=== PATIENT | female | born 1950 | race Caucasian/White ===

== ENCOUNTER 2019-02-07 14:20 | Emergency (ER) | payer MEDICARE, MEDICAID ==
[~2019-02-07] VITALS: Ht 147.3 cm; Wt 61.2 kg
--- NOTE | 2019-02-07 14:57 | ED General ---
General Chief Complaint: Altered Mental Status Stated Complaint: FALL Source of Information: Patient, Caregiver, EMS Exam Limitations: Other (confusion) History of Present Illness Date Seen by Provider: Feb 07, 2019 Time Seen by Provider: 14:25 Initial Comments The patient is a pleasant 68-year-old female who presents via EMS for evaluation of confusion and frequent falls. The patient's caregiver is present and is providing some of the history. She states that the patient is typically much more mentally sharp and she currently is and does not normally look so weak and tired. The patient told the caregiver this morning that she had fallen at 3 AM and she was found to be sitting in a chair in urine and feces. The patient denied any injuries from the fall. She is alert, calm, and states that she feels "pretty good" upon arrival. The patient denies chest pain or shortness of breath, abdominal or back pain, focal weakness focal numbness, headache, vision change, palpitations, nausea or vomiting, diaphoresis, or syncope. She states that she was off balance and tripped and fell. Timing/Duration: 12 Hours Severity: Mild Allergies and Home Medications Allergies Coded Allergies: latex (Verified Allergy, Unknown, 02/07/19) Patient Home Medication List Home Medication List Reviewed: Yes Review of Systems Review of Systems Constitutional: weakness EENTM: no symptoms reported Respiratory: no symptoms reported Cardiovascular: no symptoms reported Gastrointestinal: no symptoms reported Genitourinary: no symptoms reported Musculoskeletal: no symptoms reported Skin: no symptoms reported Psychiatric/Neurological: No Symptoms Reported Immunological/Allergic: no symptoms reported All Other Systems Reviewed Negative Unless Noted: Yes Past Nheqnkq-Zzsmpp-Kpgjzt Hx Past Med/Social Hx: Reviewed Nursing Past Med/Soc Hx Physical Exam Vital Signs Vital Signs - First Documented 02/07/19 14:25 Temp 98.3 Pulse 75 Resp 16 B/P (MAP) 173/42 (85) Pulse Ox 95 O2 Delivery Room Air Capillary Refill : Height, Weight, BMI Height: '" Weight: lbs. oz. kg; BMI Method: General Appearance: No Apparent Distress, WD/WN, Other (appears fatigued and tired) HEENT: PERRL/EOMI, TMs Normal Neck: Full Range of Motion, Normal Inspection, Non Tender, Supple Respiratory: Chest Non Tender, Lungs Clear, Normal Breath Sounds Cardiovascular: Regular Rate, Rhythm, No Edema, No JVD, No Murmur Gastrointestinal: Normal Bowel Sounds, No Pulsatile Mass, Non Tender, Soft Extremity: Normal Capillary Refill, Normal Range of Motion, Non Tender Neurologic/Psychiatric: Alert, No Motor/Sensory Deficits, Normal Mood/Affect Skin: Normal Color, Warm/Dry Focused Exam Lactate Level 02/07/19 15:20: Lactic Acid Level 0.83 Lactic Acid Level Laboratory Tests Test 02/07/19 15:20 Lactic Acid Level 0.83 MMOL/L (0.50-2.00) Progress/Results/Core Measures Suspected Sepsis SIRS Temperature: Pulse: Respiratory Rate: Laboratory Tests 02/07/19 15:20: White Blood Count 8.2 Blood Pressure / Mean: 02/07/19 15:20: Lactic Acid Level 0.83 Laboratory Tests 02/07/19 15:20: Creatinine 0.75, Platelet Count 568H, Total Bilirubin 0.2 Results/Orders Lab Results Laboratory Tests Test 02/07/19 15:20 02/07/19 16:01 02/07/19 16:55 Range/Units White Blood Count 8.2 4.3-11.0 10^3/uL Red Blood Count 2.56 L 4.35-5.85 10^6/uL Hemoglobin 7.1 L 11.5-16.0 G/DL Hematocrit 24 L 35-52 % Mean Corpuscular Volume 93 80-99 FL Mean Corpuscular Hemoglobin 28 25-34 PG Mean Corpuscular Hemoglobin Concent 30 L 32-36 G/DL Red Cell Distribution Width 13.8 10.0-14.5 % Platelet Count 568 H 130-400 10^3/uL Mean Platelet Volume 9.1 7.4-10.4 FL Neutrophils (%) (Auto) 75 42-75 % Lymphocytes (%) (Auto) 16 12-44 % Monocytes (%) (Auto) 7 0-12 % Eosinophils (%) (Auto) 1 0-10 % Basophils (%) (Auto) 1 0-10 % Neutrophils # (Auto) 6.2 1.8-7.8 X 10^3 Lymphocytes # (Auto) 1.3 1.0-4.0 X 10^3 Monocytes # (Auto) 0.6 0.0-1.0 X 10^3 Eosinophils # (Auto) 0.1 0.0-0.3 10^3/uL Basophils # (Auto) 0.0 0.0-0.1 10^3/uL Sodium Level 139 135-145 MMOL/L Potassium Level 3.3 L 3.6-5.0 MMOL/L Chloride Level 102 98-107 MMOL/L Carbon Dioxide Level 24 21-32 MMOL/L Anion Gap 13 5-14 MMOL/L Blood Urea Nitrogen 7 7-18 MG/DL Creatinine 0.75 0.60-1.30 MG/DL Estimat Glomerular Filtration Rate > 60 BUN/Creatinine Ratio 9 Glucose Level 79 70-105 MG/DL Lactic Acid Level 0.83 0.50-2.00 MMOL/L Calcium Level 8.2 L 8.5-10.1 MG/DL Corrected Calcium 8.6 8.5-10.1 MG/DL Magnesium Level 1.9 1.6-2.4 MG/DL Total Bilirubin 0.2 0.1-1.0 MG/DL Aspartate Amino Transf (AST/SGOT) 10 5-34 U/L Alanine Aminotransferase (ALT/SGPT) 6 0-55 U/L Alkaline Phosphatase 93 40-136 U/L Troponin I < 0.30 <0.30 NG/ML Total Protein 5.8 L 6.4-8.2 GM/DL Albumin 3.5 3.2-4.5 GM/DL Serum Alcohol < 10 <10 MG/DL Ammonia 44 H 11-32 UMOL/L Total Creatine Kinase 38 29-168 U/L Urine Color YELLOW Urine Clarity SLT CLOUDY Urine pH 6.0 5-9 Urine Specific [place] 1.010 L 1.016-1.022 Urine Protein NEGATIVE NEGATIVE Urine Glucose (UA) NEGATIVE NEGATIVE Urine Ketones NEGATIVE NEGATIVE Urine Nitrite POSITIVE H NEGATIVE Urine Bilirubin NEGATIVE NEGATIVE Urine Urobilinogen 0.2 NORMAL MG/DL Urine Leukocyte Esterase 3+ H NEGATIVE Urine RBC (Auto) NEGATIVE NEGATIVE Urine RBC NONE /HPF Urine WBC 25-50 H /HPF Urine Squamous Epithelial Cells RARE /HPF Urine Crystals NONE /LPF Urine Bacteria LARGE H /HPF Urine Casts NONE /LPF Urine Mucus NONE /LPF Urine Culture Indicated YES My Orders Orders - ANNE SAINI DO Alcohol (02/07/19 14:39) Cbc With Automated Diff (02/07/19 14:39) Comprehensive Metabolic Panel (02/07/19 14:39) Lactic Acid Analyzer (02/07/19 14:39) Magnesium (02/07/19 14:39) Troponin I (02/07/19 14:39) Ua Culture If Indicated (02/07/19 14:39) Ed Iv/Invasive Line Start (02/07/19 14:39) Ct Head Wo (02/07/19 14:39) Ammonia (02/07/19 15:06) Creatine Kinase (02/07/19 15:20) Urine Culture (02/07/19 16:55) Ceftriaxone For Iv Use (Rocephin For I (02/07/19 17:15) Type And Screen (02/07/19 17:14) Pantoprazole Injection (Protonix Injecti (02/07/19 18:15) Ns (Ivpb) (Sodium C... W/Pantoprazole In (02/07/19 18:15) Medications Given in ED Current Medications Medications Dose Ordered Sig/Veto Route Start Time Stop Time Status Last Admin Dose Admin Ceftriaxone Sodium 1000 mg/ Sterile Water 10 ml @ 200 mls/hr ONCE ONCE IV 02/07/19 17:15 02/07/19 17:17 DC 02/07/19 17:52 200 MLS/HR Vital Signs/I&O 02/07/19 14:25 Temp 98.3 Pulse 75 Resp 16 B/P (MAP) 173/42 (85) Pulse Ox 95 O2 Delivery Room Air Capillary Refill : Progress Note : Progress Note @1635 - Patient underwent additional lab results which show anemia with a hemoglobin of 7.1. She does report a history of anemia but is unsure of her baseline. She denies any bloody bowel movements but states she does take iron s upplements. A fecal occult blood test will be performed. @1755 - Fecal occult test positive. Protonix ordered. On-call physician Dr. Forbes states that [facility] is currently full and cannot accept her so she will accept the patient to [facility]. Pt agreeable to transfer. Diagnostic Imaging Comments [facility] [place], [place] NAME: STEPHAN MARQUEZ [facility] REC#: [id number] PT STATUS: REG ER : 1950 PHYSICIAN: ANNE SAINI DO ADMIT DATE: 02/07/19/ER FS Draft Date of Exam:02/07/19 CT HEAD WO INDICATION: Altered mental status. Noncontrast brain CT is performed. FINDINGS: There are mild diffuse atrophic changes. There are patchy low-density changes throughout the deep white matter compatible with chronic ischemic change. There is no acute hemorrhage or subdural or epidural collection. Ventricles are normal in size for age. Calvarial windows are unremarkable. IMPRESSION: Patchy low-density changes throughout the deep white matter compatible with chronic ischemic change. There is no acute hemorrhage or acute intracranial finding. Dictated on workstation # [id number] Dict: 02/07/19 1551 Trans: 02/07/19 1600 [id number] Interpreted by: PETER JORDAN MD Electronically signed by: Departure Impression Primary Impression: Acute GI bleeding Additional Impressions: Acute UTI Increased ammonia level Anemia Disposition: 02 XFER SHT-TRM HOSP Condition: Stable Transfer Time Spoke to Accepting Phy: 17:[address] Forbes accepts the admission to the ICU at [facility] in [place], [place] Transfer Time: 18:30 Transfer Facility: [facility] Method of Transfer: EMS ANNE SAINI DO Feb 07, 2019 14:57
[2019-02-07 15:30] LABS: BASOPHILS % (AUTO) 1 % (0-10); EOSINOPHILS # (AUTO) 0.1 10^3/uL (0.0-0.3); EOSINOPHILS % (AUTO) 1 % (0-10); HEMATOCRIT 24 % (35-52); HEMOGLOBIN 7.1 G/DL (11.5-16.0); LYMPHOCYTES # (AUTO) 1.3 X 10^3 (1.0-4.0); LYMPHOCYTES % (AUTO) 16 % (12-44); MEAN CORPUSCULAR HEMOGLOBIN 28 PG (25-34); MEAN CORPUSCULAR HGB CONC 30 G/DL (32-36); MEAN CORPUSCULAR VOLUME 93 FL (80-99); MEAN PLATELET VOLUME 9.1 FL (7.4-10.4); MONOCYTES # (AUTO) 0.6 X 10^3 (0.0-1.0); MONOCYTES % (AUTO) 7 % (0-12); NEUTROPHILS # (AUTO) 6.2 X 10^3 (1.8-7.8); NEUTROPHILS % (AUTO) 75 % (42-75); PLATELET COUNT 568 10^3/uL (130-400); RED CELL DISTRIBUTION WIDTH 13.8 % (10.0-14.5); WHITE BLOOD COUNT 8.2 10^3/uL (4.3-11.0)
[2019-02-07 15:50] LABS: BUN/CREATININE RATIO 9; CARBON DIOXIDE 24 MMOL/L (21-32); CHLORIDE 102 MMOL/L (98-107); CREATININE SERUM 0.75 MG/DL (0.60-1.30); GFR ESTIMATED > 60; POTASSIUM 3.3 MMOL/L (3.6-5.0); SODIUM 139 MMOL/L (135-145)
[2019-02-07 15:51] LABS: ALANINE AMINOTRANSFERASE 6 U/L (0-55); ALBUMIN 3.5 GM/DL (3.2-4.5); ALKALINE PHOSPHATASE 93 U/L (40-136); BILIRUBIN,TOTAL 0.2 MG/DL (0.1-1.0); CALCIUM 8.2 MG/DL (8.5-10.1); GLUCOSE 79 MG/DL (70-105); MAGNESIUM 1.9 MG/DL (1.6-2.4); TOTAL PROTEIN 5.8 GM/DL (6.4-8.2)
--- NOTE | 2019-02-07 16:00 | Diagnostic Imaging Report ---
INDICATION: Altered mental status. Noncontrast brain CT is performed. FINDINGS: There are mild diffuse atrophic changes. There are patchy low-density changes throughout the deep white matter compatible with chronic ischemic change. There is no acute hemorrhage or subdural or epidural collection. Ventricles are normal in size for age. Calvarial windows are unremarkable. IMPRESSION: Patchy low-density changes throughout the deep white matter compatible with chronic ischemic change. There is no acute hemorrhage or acute intracranial finding. Dictated by: Dictated on workstation # [id number]
[2019-02-07 17:07] LABS: CREATINE KINASE 38 U/L (29-168)
[2019-02-07 17:11] LABS: BILIRUBIN,URINE NEGATIVE (NEGATIVE); CLARITY,URINE SLT CLOUDY; COLOR,URINE YELLOW; GLUCOSE, URINE (UA) NEGATIVE (NEGATIVE); KETONES,URINE NEGATIVE (NEGATIVE); LEUKOCYTE ESTERASE ,URINE 3+ (NEGATIVE); NITRITE,URINE POSITIVE (NEGATIVE); PROTEIN,URINE NEGATIVE (NEGATIVE); UROBILINOGEN,URINE 0.2 MG/DL (NORMAL); WBC,URINE 25-50 /HPF
[2019-02-07 17:12] LABS: BACTERIA,URINE LARGE /HPF; SQUAMOUS EPITHELIAL CELL,UR RARE /HPF
[2019-02-07 17:27] LABS: AMMONIA 44 UMOL/L (11-32)
[2019-02-07] MEDS: cefTRIAXone FOR IV USE 1,000 MG in WATER (STERILE) FOR INJECTION 10 ML IV ONE (17:52)
[2019-02-07] MEDS: PANTOPRAZOLE 40 MG (PROTONIX) VIAL IV ONE (19:34)
[2019-02-07] MEDS: PANTOPRAZOLE INJECTION 200 MG in NS (IVPB) 100 ML IV SCH (19:34)
[2019-02-07 19:48] VITALS: BP 120/31
== END 2019-02-07 19:58 | disposition short-term general hospital (02) ==
LOC: ER FS 14:22
DX: K92.2 Gastrointestinal hemorrhage, unspecified (principal); N39.0 Urinary tract infection, site not specified; D64.9 Anemia, unspecified; E72.20 Disorder of urea cycle metabolism, unspecified; Z91.040 Latex allergy status
CPT/HCPCS: 36415; 70450; 80053; 80320; 81000; 82140; 82274; 82550; 83605; 83735; 84484; 85025; 86850; 86900; 86901; 87077; 87088

== ENCOUNTER 2019-02-20 22:30 | Emergency (ER) | payer MEDICARE, MEDICAID ==
[~2019-02-20] VITALS: Ht 147 cm; Wt 61.0 kg
[2019-02-20] MEDS ORDERED: TETANUS,DIPTH,PERTUSS P/F (BOOSTRIX) 0.5 ML VIAL IM ONE (22:45)
--- NOTE | 2019-02-20 22:45 | ED Fall/Injury ---
General Chief Complaint: Trauma-Non Activation Stated Complaint: FALL Source: patient Exam Limitations: no limitations History of Present Illness Date Seen by Provider: Feb 20, 2019 Time Seen by Provider: 22:35 Initial Comments The patient is a pleasant 68-year-old female who presents for evaluation of a left facial injury. She states that she was in her kitchen when she slipped on some teeth she had spilled and hit her face on a plate that her calves were eat ing off of. There is a V-shaped laceration to the left cheek area. She denies losing consciousness. She denies blood thinners. She is alert and oriented 4, calm, and appears to be in no distress. She denies chest pain or shortness of breath, abdominal or back pain, or extremity injuries. Occurred: just prior to arrival Severity: mild Injuries/Pain Location: face Context: slipped Loss of Consciousness: no loss of consciousness Associated Symptoms (Fall): Denies Symptoms Allergies and Home Medications Allergies Coded Allergies: latex (Verified Allergy, Unknown, 02/07/19) Patient Home Medication List Home Medication List Reviewed: Yes Review of Systems Review of Systems Constitutional: no symptoms reported Eyes: No Symptoms Reported Ears, Nose, Mouth, Throat: see HPI Respiratory: no symptoms reported Cardiovascular: no symptoms reported Gastrointestinal: no symptoms reported Genitourinary: no symptoms reported : Yes Musculoskeletal: no symptoms reported Skin: no symptoms reported All Other Systems Reviewed Negative Unless Noted: Yes Past Sgtidni-Uxjslp-Wmmynw Hx Past Med/Social Hx: Reviewed Nursing Past Med/Soc Hx Patient Social History Type Used: Cigarettes 2nd Hand Smoke Exposure: No Recent Foreign Travel: No Contact w/Someone Who Travel: No Recent Hopitalizations: No Seasonal Allergies Seasonal Allergies: No Past Medical History Surgeries: No Respiratory: No Cardiac: Yes Chronic Edema/Swelling, Hypertension Neurological: No Genitourinary: No Gastrointestinal: Yes Gastroesophageal Reflux Musculoskeletal: No Endocrine: No HEENT: No Cancer: No Psychosocial: No Integumentary: No Physical Exam Vital Signs Vital Signs - First Documented 02/20/19 22:49 Temp 36.6 Pulse 71 Resp 16 B/P (MAP) 128/59 (82) O2 Delivery Room Air Capillary Refill : Height, Weight, BMI Height: 4'10.00" Weight: 135lbs. oz. 61.187257rv; BMI Method:Stated General Appearance: WD/WN, no apparent distress HEENT: PERRL/EOMI, other (V-shaped superficial laceration to left cheek, no active bleeding) Cardiovascular: regular rate, rhythm, no JVD Respiratory: chest non-tender, lungs clear, normal breath sounds, no respiratory distress, no accessory muscle use Gastrointestinal: normal bowel sounds, non tender, soft Back: normal inspection, no CVA tenderness, no vertebral tenderness Neurologic/Psychiatric: jordan worker II-XII nml as tested, alert, normal mood/affect, oriented x 3 Skin: normal color, warm/dry Points Coma Score Best Eye Response: (4) Open Spontaneously Best Verbal Response: (5) Oriented Best Motor Response: (6) Obeys Commands Procedures/Interventions Wound Location: Face Other Wound Location left lower cheek Wound Length (cm): 4 Wound's Depth, Shape: superficial Wound Explored: clean Irrigated w/ Saline (ccs): 500 Other Closure Supply: Steri Strip 1/2", Wound Adhesive Progress Patient declined sutures. She tolerated the glue and Steri-Strip repair well. Progress/Results/Core Measures Results/Orders My Orders Orders - ANNE SAINI DO Ct Head/Cervical Spine Wo (02/20/19 22:41) Dipht,Pertuss(Acell),Tet Adult (Boostrix (02/20/19 22:45) Vital Signs/I&O 02/20/19 22:49 Temp 36.6 Pulse 71 Resp 16 B/P (MAP) 128/59 (82) O2 Delivery Room Air Progress Progress Note : Progress Note @0016 - patient's imaging is unremarkable. She has no additional complaints is asking to go home at this time. She is going home with a friend. Advise follow- up with primary care physician in the next 1-2 days and return immediately to the emergency department for new or worsening symptoms. The patient expresses verbal understanding and agreement and is stable for discharge home. Departure Impression Primary Impression: Facial laceration Additional Impression: Closed head injury Disposition: HOME, SELF-CARE Condition: Stable Departure-Patient Inst. Decision time for Depature: 00:18 Referrals: NO,LOCAL PHYSICIAN (PCP) Primary Care Physician [facility] Patient Instructions: Minor Head Injury, Laceration Repair With Glue (DC) Add. Discharge Instructions: Keep your facial wound clean and dry. Do not get the wound wet for the first 2-3 days. Return to the ER for new or worsening symptoms. Follow-up with your doctor in the next 1-2 days for wound check. ANNE SAINI DO Feb 20, 2019 22:45
--- NOTE | 2019-02-20 22:54 | NUR ---
pt with left cheek skin tear, bleeding controlled, wound steri stripped and glued per Dr Dowell
[2019-02-21 00:24] VITALS: BP 128/59
--- NOTE | 2019-02-21 07:23 | Diagnostic Imaging Report ---
PROCEDURE: CT head and CT cervical spine without contrast. TECHNIQUE: Multiple contiguous axial images were obtained through the brain and cervical spine without the use of intravenous contrast. Sagittal and coronal reformations through the cervical spine were then performed. Auto Exposure Controls were utilized during the CT exam to meet ALARA standards for radiation dose reduction. INDICATION: Fell neck pain CT head There is no mass, shift of the midline or hemorrhage to suggest an acute intracranial abnormality. The ventricles are not abnormally dilated and stable in size when compared to the prior study of 02/07/2019. The cortical atrophy and periventricular encephalomalacia seen on the prior study are again evident and unchanged. The bone windows show no sign of a fracture or of a destructive lesion. The orbits are symmetric and within normal limits. The sinuses where visualized are generally clear. IMPRESSION: There is no evidence for acute intracranial abnormality. When compared to the prior study there has been no significant change. CT cervical spine: The reconstructed parasagittal images show the vertebral body heights and alignment to be generally within normal limits. There is mild narrowing of the disc space at C6-7. The other intervertebral spaces are fairly well-maintained. There are disc bulges essentially at C5-6 and C6-7 but there is no high-grade central stenosis identified at any level of the cervical spine. There is no fracture or acute bony abnormality appreciated. There is no sign of retropharyngeal edema. There are surgical clips on both sides of the neck, particularly on the left. The thyroid thyroid gland does not appear to be enlarged but there may be a small 1 CM low density nodule in the left lobe. Ultrasound would be recommended for further evaluation. The lung apices are clear. IMPRESSION: 1. There is no evidence for an acute bony abnormality. 2. There is degenerative disc and bony disease at C5-6 and C6-7. There is no high-grade central stenosis identified. 3. There are surgical clips on each side of the neck. Correlation with the patients surgical history would be recommended. 4. Ultrasound would be recommended for further evaluation of a low-density nodule in the left lobe of thyroid. Dictated by: Dictated on workstation # [id number]
[2019-02-25] MEDS ORDERED: MONT10TA24 PO (09:39)
[2019-02-25] MEDS ORDERED: CETI10TA17 PO (09:39)
[2019-02-25] MEDS ORDERED: PANT40TA3 PO (09:39)
[2019-02-25] MEDS ORDERED: SUCR1TAB PO (09:39)
[2019-02-25] MEDS ORDERED: TRAM50TA2 PO (09:39)
[2019-02-25] MEDS ORDERED: PRIM250T33 PO (09:53)
[2019-02-25] MEDS ORDERED: MIRA25TA PO (09:53)
[2019-02-25] MEDS ORDERED: LAMO200T2 PO (09:53)
[2019-02-25] MEDS ORDERED: CLOP75TA28 PO (09:53)
[2019-02-25] MEDS ORDERED: ESCI20TA45 PO (09:53)
[2019-02-25] MEDS ORDERED: LISI40TA PO (09:53)
[2019-02-25] MEDS ORDERED: RALO60TA12 PO (09:53)
[2019-02-25] MEDS ORDERED: FENO54TA PO (09:53)
[2019-02-25] MEDS ORDERED: TOPI50TA13 PO (09:59)
[2019-02-25] MEDS ORDERED: FERR-84 PO (10:01)
[2019-02-25] MEDS ORDERED: MECL-106 PO (14:21)
[2019-02-25] MEDS ORDERED: ASPI-789 PO (14:21)
[2019-02-25] MEDS ORDERED: IBUP-2055 PO (14:21)
== END 2019-02-21 00:23 | disposition home or self-care (01) ==
LOC: EDUNIT# 22:30 → ER FS 22:31
DX: S09.90XA Unspecified injury of head, initial encounter (principal); S01.81XA Laceration without foreign body of other part of head, initial encounter; I10 Essential (primary) hypertension; K21.9 Gastro-esophageal reflux disease without esophagitis; R40.2142 Coma scale, eyes open, spontaneous, at arrival to emergency department; R40.2252 Coma scale, best verbal response, oriented, at arrival to emergency department; R40.2362 Coma scale, best motor response, obeys commands, at arrival to emergency department; Z91.040 Latex allergy status; W01.198A Fall on same level from slipping, tripping and stumbling with subsequent striking against other object, initial encounter; Y92.000 Kitchen of unspecified non-institutional (private) residence as the place of occurrence of the external cause
CPT/HCPCS: 70450; 72125

== ENCOUNTER 2019-02-24 22:21 | Observation (INO) | payer MEDICARE, MEDICAID | END 2019-02-27 15:45 | disposition home or self-care (01) | LOC: 4TH 02-25 00:12 → ER FS 22:21 → 4TH 02-25 01:30 ==

== ENCOUNTER 2020-07-21 12:34 | Inpatient (IN) | payer MEDICARE, MEDICAID ==
[~2020-07-21] VITALS: Ht 149.9 cm; Wt 62.2 kg
[2020-07-21] VITALS (7 sets, daily range): BP systolic 139–157; BP diastolic 61–68
[~2020-07-21 12:34] MED LIST: ASPI-789 PO; CETI10TA17 PO; CLOP75TA28 PO; ESCI20TA39 PO; FENO54TA PO; FERR-84 PO; IBUP-2473 PO; LAMO200T5 PO; LISI40TA9 PO; MECL-149 PO; MIRA25TA PO; MONT10TA32 PO; PANT40TA52 PO; PRIM250T33 PO; RALO60TA12 PO; SUCR1TAB PO; TOPI50TA13 PO; TRM50T PO
[2020-07-21 13:28] LABS: WHITE BLOOD COUNT 17.1 10^3/uL (4.3-11.0)
[2020-07-21 13:29] LABS: HEMATOCRIT 24 % (35-52); HEMOGLOBIN 6.7 G/DL (11.5-16.0); MEAN CORPUSCULAR HEMOGLOBIN 26 PG (25-34); MEAN CORPUSCULAR VOLUME 94 FL (80-99)
[2020-07-21 13:30] LABS: BASOPHILS % (AUTO) 0 % (0-10); EOSINOPHILS % (AUTO) 0 % (0-10); LYMPHOCYTES # (AUTO) 0.8 X 10^3 (1.0-4.0); LYMPHOCYTES % (AUTO) 5 % (12-44); MEAN CORPUSCULAR HGB CONC 28 G/DL (32-36); MEAN PLATELET VOLUME 8.8 FL (7.4-10.4); MONOCYTES # (AUTO) 0.6 X 10^3 (0.0-1.0); MONOCYTES % (AUTO) 4 % (0-12); NEUTROPHILS # (AUTO) 15.5 X 10^3 (1.8-7.8); NEUTROPHILS % (AUTO) 91 % (42-75); PLATELET COUNT 719 10^3/uL (130-400)
--- NOTE | 2020-07-21 13:32 | ED GI ---
General Chief Complaint: Abdominal/GI Problems Stated Complaint: VOMITING BLOOD Nursing Triage Note: Patient reports intermittent bleeding from her mouth for at least 2 months, unsure of the source of the bleeding. Patient states she had not vomited or coughed, just wiped her mouth and had bright red blood on a tissue. She and caregiver deny any changes in bowel movements. Sepsis Screen: No Definite Risk Source of Information: Patient, Caregiver Exam Limitations: Physical Impairments (hearing impaired ) (PANFILO FRANKLIN) History of Present Illness Date Seen by Provider: Jul 21, 2020 Time Seen by Provider: 13:15 Initial Comments Marly is a 70 year old female that presents to the ER with blood coming from her mouth. This started this morning when she was wiping her mouth with a napkin.The patient states this is the second time it has occurred and is unsure of the source. She denies having any inciting events like coughing or vomiting. Denies pain. Nothing makes it better or worse. Patient denies chest pain, abdominal pa in, blood in stool, coughing, N/V, and F/C. She has intermittent SOB, fatigue and malaise. She lives alone, but does receives home care during the day. The home health nurse currently with her states "she has had increased falls and has a hx of poor nutritional intake". The patient is resting comfortably in the bed but is visibly fatigued. PMH include BL Endarterectomy, PUD and Anemia. Timing/Duration: Intermittent Severity/Quality: Other (denies) Radiation: No Radiation Activities at Onset: None Modifying Factors: Improves With Other (Currently on anticoagulation therapy ) Associated Symptoms: Fatigue; No Nausea/Vomiting; Weakness (PANFILO FRANKLIN) Allergies and Home Medications Allergies Coded Allergies: latex (Verified Allergy, Unknown, 02/07/19) Home Medications Aspirin/Acetaminophen/Caffeine 1 Each Tablet, 2 EACH PO Q6-8HR PRN for MIGRAINE, (Reported) Cetirizine HCl 10 Mg Tablet, 10 MG PO DAILY, (Reported) Escitalopram Oxalate 20 Mg Tablet, 20 MG PO DAILY, (Reported) Fenofibrate 54 Mg Tablet, 54 MG PO DAILY, (Reported) Ferrous Sulfate 325 Mg Tablet, 325 MG PO DAILY, (Reported) Ibuprofen 200 Mg Tablet, 200 MG PO Q6H PRN for PAIN-MILD, (Reported) Lamotrigine 200 Mg Tablet, 200 MG PO DAILY, (Reported) Lisinopril 40 Mg Tablet, 40 MG PO DAILY, (Reported) Meclizine HCl 25 Mg Tablet, 50 MG PO DAILY PRN for DIZZINESS, (Reported) Mirabegron 25 Mg Tab.er.24h, 25 MG PO DAILY, (Reported) Montelukast Sodium 10 Mg Tablet, 10 MG PO DAILY, (Reported) Primidone 250 Mg Tablet, 250 MG PO BID, (Reported) Raloxifene HCl 60 Mg Tablet, 60 MG PO DAILY, (Reported) Sucralfate 1 Gm Tablet, 1 GM PO BID, (Reported) Topiramate 50 Mg Tablet, 50 MG PO BID, (Reported) Tramadol HCl 50 Mg Tablet, 100 MG PO Q4H PRN for PAIN-MODERATE, (Reported) Patient Home Medication List Home Medication List Reviewed: Yes (JENNIFER LOPEZ MD) Review of Systems Review of Systems Constitutional: No chills, No fever; malaise, weakness EENTM: No Symptoms Reported Respiratory: Denies Cough; Shortness of Air Cardiovascular: Denies Chest Pain; Edema (BL lower ext edema ) Gastrointestinal: Denies Abdomen Distended, Denies Abdominal Pain; Poor Appetite; Denies Rectal Bleeding Genitourinary: No Symptoms Reported Musculoskeletal: no symptoms reported Skin: no symptoms reported Psychiatric/Neurological: No Symptoms Reported Endocrine: No Symptoms Reported Hematologic/Lymphatic: Anemia (RIGOBERTO,PANFILO MED STUDEN) Past Ausiljy-Uyhtvt-Qkymoc Hx Patient Social History Alcohol Use: Denies Use Smoking Status: Current Everyday Smoker Type Used: Cigarettes 2nd Hand Smoke Exposure: No Recent Infectious Disease Expo: No Recent Hopitalizations: No (RIGOBERTOMelStevia IncPANFILO MED STUDEN) Immunizations Up To Date Date of Pneumonia Vaccine: Feb 25, 2017 (RIGOBERTO,PANFILO MED STUDEN) Seasonal Allergies Seasonal Allergies: No (RIGOBERTO,PANFILO MED STUDEN) Past Medical History Surgeries: No Respiratory: No Cardiac: Yes Chronic Edema/Swelling, Hypertension Neurological: No Genitourinary: No Gastrointestinal: Yes Gastroesophageal Reflux, Ulcer Musculoskeletal: No Endocrine: No HEENT: No Cancer: No Psychosocial: No Integumentary: No (RIGOBERTO,PANFILO MED STUDEN) Family Medical History Cardiovascular disease 19 FATHER 19 MOTHER Glaucoma 19 FATHER Hypertension 19 FATHER 19 MOTHER Bilateral Endarterectomy (RIGOBERTOFAIZAN BALBUENAON Veve[facility]) Physical Exam Vital Signs Vital Signs - First Documented 07/21/20 12:58 Temp 36.9 Pulse 81 Resp 18 B/P (MAP) 154/52 (86) Pulse Ox 100 O2 Delivery Room Air (JENNIFER LOPEZ MD) Vital Signs Capillary Refill : Less Than 3 Seconds (RIGOBERTO,PANFILO [facility]) Height/Weight/BMI Height: 4'10.00" Weight: 119lbs. oz. 53.114850vb; 26.00 BMI Method:Stated General Appearance: no apparent distress HEENT: PERRL/EOMI, other (No teeth, Small right upper mandable ulcer ) Neck: non-tender, other (BL Scars on neck ) Cardiovascular: normal peripheral pulses, other (BL LE Edema) Peripheral Pulses: 2+ Radial Pulses (R), 2+ Radial Pulses (L) Gastrointestinal: non tender, soft, no organomegaly Extremities: no calf tenderness, pedal edema Neurologic/Psychiatric: alert, oriented x 3 Skin: warm/dry Lymphatic: no adenopathy (RIGOBERTOPANFILO Veve[facility]) Focused Exam Lactate Level 07/21/20 14:52: Lactic Acid Level 0.80 (JENNIFER LOPEZ MD) Lactic Acid Level Laboratory Tests Test 07/21/20 14:52 Lactic Acid Level 0.80 MMOL/L (0.50-2.00) (JENNIFER LOPEZ MD) Progress/Results/Core Measures Results/Orders Lab Results Laboratory Tests Test 07/21/20 13:10 07/21/20 14:10 07/21/20 14:52 Range/Units White Blood Count 17.1 H 4.3-11.0 10^3/uL Red Blood Count 2.57 L 4.35-5.85 10^6/uL Hemoglobin 6.7 *L 11.5-16.0 G/DL Hematocrit 24 L 35-52 % Mean Corpuscular Volume 94 80-99 FL Mean Corpuscular Hemoglobin 26 25-34 PG Mean Corpuscular Hemoglobin Concent 28 L 32-36 G/DL Red Cell Distribution Width 16.6 H 10.0-14.5 % Platelet Count 719 H 130-400 10^3/uL Mean Platelet Volume 8.8 7.4-10.4 FL Immature Granulocyte % (Auto) 1 % Neutrophils (%) (Auto) 91 H 42-75 % Lymphocytes (%) (Auto) 5 L 12-44 % Monocytes (%) (Auto) 4 0-12 % Eosinophils (%) (Auto) 0 0-10 % Basophils (%) (Auto) 0 0-10 % Neutrophils # (Auto) 15.5 H 1.8-7.8 X 10^3 Lymphocytes # (Auto) 0.8 L 1.0-4.0 X 10^3 Monocytes # (Auto) 0.6 0.0-1.0 X 10^3 Eosinophils # (Auto) 0.0 0.0-0.3 10^3/uL Basophils # (Auto) 0.0 0.0-0.1 10^3/uL Immature Granulocyte # (Auto) 0.1 0.0-0.1 10^3/uL Neutrophils % (Manual) 93 % Lymphocytes % (Manual) 5 % Monocytes % (Manual) 2 % Eosinophils % (Manual) 0 % Basophils % (Manual) 0 % Band Neutrophils 0 % Polychromasia SLIGHT Hypochromasia MODERATE Anisocytosis SLIGHT Prothrombin Time 12.6 12.2-14.7 SEC INR Comment 0.9 0.8-1.4 Activated Partial Thromboplast Time 29 24-35 SEC Sodium Level 141 135-145 MMOL/L Potassium Level 3.3 L 3.6-5.0 MMOL/L Chloride Level 106 98-107 MMOL/L Carbon Dioxide Level 27 21-32 MMOL/L Anion Gap 8 5-14 MMOL/L Blood Urea Nitrogen 9 7-18 MG/DL Creatinine 0.54 L 0.60-1.30 MG/DL Estimat Glomerular Filtration Rate > 60 BUN/Creatinine Ratio 17 Glucose Level 117 H 70-105 MG/DL Calcium Level 8.6 8.5-10.1 MG/DL Corrected Calcium 9.6 8.5-10.1 MG/DL Total Bilirubin < 0.2 0.1-1.0 MG/DL Aspartate Amino Transf (AST/SGOT) 17 5-34 U/L Alanine Aminotransferase (ALT/SGPT) 13 0-55 U/L Alkaline Phosphatase 129 40-136 U/L C-Reactive Protein 2.70 H <0.50 MG/DL Total Protein 5.3 L 6.4-8.2 GM/DL Albumin 2.8 L 3.2-4.5 GM/DL Urine Color YELLOW Urine Clarity CLOUDY Urine pH 8.0 5-9 Urine Specific [place] 1.020 1.016-1.022 Urine Protein NEGATIVE NEGATIVE Urine Glucose (UA) NEGATIVE NEGATIVE Urine Ketones NEGATIVE NEGATIVE Urine Nitrite POSITIVE H NEGATIVE Urine Bilirubin NEGATIVE NEGATIVE Urine Urobilinogen 0.2 < = 1.0 MG/DL Urine Leukocyte Esterase TRACE H NEGATIVE Urine RBC (Auto) NEGATIVE NEGATIVE Urine RBC NONE /HPF Urine WBC 5-10 H /HPF Urine Squamous Epithelial Cells 2-5 /HPF Urine Crystals PRESENT H /LPF Urine Amorphous Sediment FEW DARVIN PHOSPHATE H /LPF Urine Bacteria LARGE H /HPF Urine Casts NONE /LPF Urine Mucus NEGATIVE /LPF Urine Culture Indicated YES Lactic Acid Level 0.80 0.50-2.00 MMOL/L (JENNIFER LOPEZ MD) My Orders Orders - JENNIFER LOPEZ MD Cbc With Automated Diff (07/21/20 12:42) Comprehensive Metabolic Panel (07/21/20 12:42) Protime With Inr (07/21/20 12:42) Partial Thromboplastin Time (07/21/20 12:42) Ed Iv/Invasive Line Start (07/21/20 12:42) Chest Pa/Lat (2 View) (07/21/20 13:15) Manual Differential (07/21/20 13:10) Crp Fs (07/21/20 13:35) Ua Culture If Indicated (07/21/20 13:35) Urine Culture (07/21/20 14:10) Blood Culture (07/21/20 14:42) Sputum Culture (07/21/20 14:42) Vital Signs Adult Sepsis Patie Q15M (07/21/20 14:42) Remove Rings In Anticipation O (07/21/20 14:42) Lactic Acid Analyzer (07/21/20 14:42) Ceftriaxone For Iv Use (Rocephin For I (07/21/20 14:45) Famotidine Injection (Pepcid Injection) (07/21/20 15:00) Pantoprazole Injection (Protonix Injecti (07/21/20 15:00) (JENNIFER LOPEZ MD) Medications Given in ED Current Medications Medications Dose Ordered Sig/Veto Route Start Time Stop Time Status Last Admin Dose Admin Ceftriaxone Sodium 1000 mg/ Sterile Water 10 ml @ 200 mls/hr ONCE ONCE IV 07/21/20 14:45 07/21/20 14:47 DC 07/21/20 14:54 200 MLS/HR Famotidine 20 mg ONCE ONCE IVP 07/21/20 15:00 07/21/20 15:01 DC 07/21/20 15:31 20 MG Pantoprazole 40 mg ONCE ONCE IV 07/21/20 15:00 07/21/20 15:01 DC 07/21/20 15:30 40 MG (JENNIFER LOPEZ MD) Vital Signs/I&O 07/21/20 07/21/20 12:58 15:45 Temp 36.9 Pulse 81 82 Resp 18 18 B/P (MAP) 154/52 (86) 137/46 Pulse Ox 100 97 O2 Delivery Room Air Room Air 07/22/20 00:00 Intake Total 10 ml Balance 10 ml (JENNIFER LOPEZ MD) Blood Pressure Mean: 86 Progress Progress Note : Time: 13:45 Progress Note Assessment: 1. PUD 2. Rule out Lung Neoplasm 4. Mouth Ulcer 5. Leukocytosis 6. Chronic Anemia 7. Fatigue 8. Chronic falls 9. Rule out UTI 10. Hypokalemia Plan: 1. CBC with diff 2. CMP, PT/PTT 3. UA 4. Chest Xray, will follow with CT due to 1.3cm lung nodule 5. fluids 6. Consider blood transfusion 7. Admitting, consultation for Internal Medicine and General Surgery 8. Abx for UTI 9. Protonix for PUD (RIGOBERTOPANFILO [facility]) Diagnostic Imaging Diagonstic Imaging: Xray Plain Films/CT/US/NM/MRI: chest Comments NAME: MARLY MARQUEZ MED REC#: [id number] PT STATUS: ADM IN : 1950 PHYSICIAN: JENNIFER LOPEZ MD ADMIT DATE: 07/21/20/4TH Signed Date of Exam:07/21/20 CHEST PA/LAT (2 VIEW) INDICATION: Coughing up blood, weakness. COMPARISON: None available. TECHNIQUE: Frontal and lateral radiographs of the chest dated 07/21/2020. FINDINGS: The cardiac silhouette is within normal limits in size. No significant pulmonary vascular congestion. 1.3 cm nodular density is overlying the anterior lungs on the lateral radiograph, though this is not definitively seen on the frontal radiograph. No pleural effusion. No pneumothorax. Vascular calcifications are present. No acute osseous abnormality. IMPRESSION: A 1.3 cm nodular density overlying the anterior lungs seen on the lateral radiograph only. This is of uncertain etiology or significance. This could relate to a pulmonary nodule. Alternatively, this could relate to a calcified lymph node. A CT of the chest, preferably with contrast is recommended for further evaluation. Dictated by: Dictated on workstation # [id number] Dict: 07/21/20 1417 Trans: 07/21/20 1649 [facility] [id number] Interpreted by: ELANA MCGOWAN MD Electronically signed by: ELANA MCGOWAN MD 07/21/201648 Reviewed: Reviewed by Me (JENNIFER LOPEZ MD) Departure Communication (Admissions) Time/Spoke to Admitting Phy: 14:40 Dr. Forbes Time/Spoke to Consulting Phy: 14:45 Dr. Zimmerman (JENNIFER LOPEZ MD) Impression Primary Impression: Severe anemia Additional Impressions: Upper GI bleed Urinary tract infection Qualified Codes: N39.0 - Urinary tract infection, site not specified Generalized weakness History of recent fall Hypokalemia Pulmonary nodule Disposition: ADMITTED INPATIENT Condition: Stable Admissions Decision to Admit Reason: Admit from ER (General) Decision to Admit/Date: Jul 21, 2020 Time/Decision to Admit Time: 14:30 (JENNIFER LOPEZ MD) Transfer Transfer Time: 15:42 (JENNIFER LOPEZ MD) Departure-Patient Inst. Referrals: ISABELLE HO APRN (PCP/Family) Primary Care Physician Medical student attestation and attending note: This patient was interviewed and examined by me personally along with SHANIQUA Zamora. I have reviewed his history, physical, and assessments. I agree except as otherwise noted. Patient reports blood in the mouth with clearing her throat. She was found to have severe anemia. Patient will be admitted in [place] for transfusion. A pulmonary nodule was suspected on x-ray. CT of the chest will be obtained in [place]. CT is not available in [place] at this time. UTI was treated with Rocephin. Pepcid and Protonix were given to great suspected upper GI bleed. GI bleed is most likely cause of anemia and blood in the mouth, although bleeding from lung lesion is also a possibility. Dr. Zimmerman was also consulted. I discussed code status with the patient. She elects DNR. Exam: General: Ill appearing, weak, well developed, no acute distress HEENT: NCAT, small lesion on right upper gums, edentulous Heart: RRR, no murmur Lungs: CTAB, normal effort Abdomen: Soft, NT, ND, normal bowel sounds Ext: moderate firm LE edema Skin: pale, warm and dry Neuro: decreased alertness but answers questions appropriately, generalized weakness with no focal deficits (JENNIFER LOPEZ MD) Copy Copies To 1: [facility] Jul 21, 2020 13:32 JENINFER LOPEZ MD Jul 21, 2020 14:56
[2020-07-21 13:41] LABS: INR 0.9 (0.8-1.4); PROTHROMBIN TIME PATIENT 12.6 SEC (12.2-14.7)
[2020-07-21 14:01] LABS: BUN/CREATININE RATIO 17; CARBON DIOXIDE 27 MMOL/L (21-32); CHLORIDE 106 MMOL/L (98-107); CREATININE SERUM 0.54 MG/DL (0.60-1.30); GFR ESTIMATED > 60; POTASSIUM 3.3 MMOL/L (3.6-5.0); SODIUM 141 MMOL/L (135-145)
[2020-07-21 14:02] LABS: ALANINE AMINOTRANSFERASE 13 U/L (0-55); ALBUMIN 2.8 GM/DL (3.2-4.5); ALKALINE PHOSPHATASE 129 U/L (40-136); BILIRUBIN,TOTAL < 0.2 MG/DL (0.1-1.0); CALCIUM 8.6 MG/DL (8.5-10.1); GLUCOSE 117 MG/DL (70-105); TOTAL PROTEIN 5.3 GM/DL (6.4-8.2)
[2020-07-21 14:13] LABS: ANISOCYTOSIS SLIGHT; BAND NEUTROPHILS 0 %; BASOPHILS % (MANUAL) 0 %; EOSINOPHILS % (MANUAL) 0 %; HYPOCHROMASIA MODERATE; LYMPHOCYTES % (MANUAL) 5 %; MONOCYTES % (MANUAL) 2 %; NEUTROPHILS % (MANUAL) 93 %; POLYCHROMASIA SLIGHT
--- NOTE | 2020-07-21 14:22 | Diagnostic Imaging Report ---
INDICATION: Coughing up blood, weakness. COMPARISON: None available. TECHNIQUE: Frontal and lateral radiographs of the chest dated 07/21/2020. FINDINGS: The cardiac silhouette is within normal limits in size. No significant pulmonary vascular congestion. 1.3 cm nodular density is overlying the anterior lungs on the lateral radiograph, though this is not definitively seen on the frontal radiograph. No pleural effusion. No pneumothorax. Vascular calcifications are present. No acute osseous abnormality. IMPRESSION: A 1.3 cm nodular density overlying the anterior lungs seen on the lateral radiograph only. This is of uncertain etiology or significance. This could relate to a pulmonary nodule. Alternatively, this could relate to a calcified lymph node. A CT of the chest, preferably with contrast is recommended for further evaluation. Dictated by: Dictated on workstation # [id number]
[2020-07-21 14:25] LABS: BILIRUBIN,URINE NEGATIVE (NEGATIVE); CLARITY,URINE CLOUDY; COLOR,URINE YELLOW; GLUCOSE, URINE (UA) NEGATIVE (NEGATIVE); KETONES,URINE NEGATIVE (NEGATIVE); LEUKOCYTE ESTERASE ,URINE TRACE (NEGATIVE); NITRITE,URINE POSITIVE (NEGATIVE); PROTEIN,URINE NEGATIVE (NEGATIVE)
[2020-07-21 14:26] LABS: AMORPHOUS SEDIMENT,UR FEW AMOR PHOSPHATE /LPF; BACTERIA,URINE LARGE /HPF
[2020-07-21] MEDS ORDERED: cefTRIAXone FOR IV USE 1,000 MG in WATER (STERILE) FOR INJECTION 10 ML IV ONE (14:45)
[2020-07-21] MEDS ORDERED: PANTOPRAZOLE 40 MG (PROTONIX) VIAL IV ONE (15:00)
[2020-07-21] MEDS ORDERED: FAMOTIDINE 20MG/2ML IV (PEPCID) IVP ONE (15:00)
[2020-07-21] MEDS ORDERED: CATHETER FLUSH 10 ML SYR IV PRN (17:00)
[2020-07-21] MEDS ORDERED: NS IV 500 ML 500 ML IV SCH (17:00)
[2020-07-21] MEDS ORDERED: ONDANSETRON 4 MG/2 ML (SDV) Z0FRAN IV PRN (17:00)
--- NOTE | 2020-07-21 17:39 | Consultation - Surgery ---
SHADY NEFF MED STUDENT 07/21/20 1739: History of Present Illness History of Present Illness Patient Consulted On(loren/time) 07/21/20 17:25 Date Seen by Provider: Jul 21, 2020 Time Seen by Provider: 17:05 Reason for Visit: anemia, hematemesis History of Present Illness Surgery consulted on pt for possible UGIB. Pt is a 70y/o F with PMH of PUD, GERD, HTN, allergies, who presented to ED today with hematemesis and fatigue. Apon visit, pt is oriented to time, location and self but she is very tired and slow to respond. Pt states she first saw blood in her kleenex apon vomitting on the after Pepper (). The episodes have become more frequent since then, but when asked, pt is unable to quantify how frequent. When asked if blood is coming from her nose, mouth, or both, she states she is unsure. Pt was sneezing and blowing her nose frequently during the exam- states has bad allergies. Pt denies coughing. Pt was hospitalized in 2019 and transfused with blood 2/2 PUD- pt unsure if EGD and colonscopy hx. Pt has over a 100 pack-year smoking hx. Pt denies any odynophagia, dysphagia, abd pain, chest pain, palpitations, nausea, constipation, diarrhea, melena or hematochezia. Allergies and Home Medications Allergies Coded Allergies: latex (Verified Allergy, Unknown, 02/07/19) Home Medications Aspirin/Acetaminophen/Caffeine 1 Each Tablet, 2 EACH PO Q6-8HR PRN for MIGRAINE, (Reported) Cetirizine HCl 10 Mg Tablet, 10 MG PO DAILY, (Reported) Escitalopram Oxalate 20 Mg Tablet, 20 MG PO DAILY, (Reported) Fenofibrate 54 Mg Tablet, 54 MG PO DAILY, (Reported) Ferrous Sulfate 325 Mg Tablet, 325 MG PO DAILY, (Reported) Ibuprofen 200 Mg Tablet, 200 MG PO Q6H PRN for PAIN-MILD, (Reported) Lamotrigine 200 Mg Tablet, 200 MG PO DAILY, (Reported) Lisinopril 40 Mg Tablet, 40 MG PO DAILY, (Reported) Meclizine HCl 25 Mg Tablet, 50 MG PO DAILY PRN for DIZZINESS, (Reported) Mirabegron 25 Mg Tab.er.24h, 25 MG PO DAILY, (Reported) Montelukast Sodium 10 Mg Tablet, 10 MG PO DAILY, (Reported) Primidone 250 Mg Tablet, 250 MG PO BID, (Reported) Raloxifene HCl 60 Mg Tablet, 60 MG PO DAILY, (Reported) Sucralfate 1 Gm Tablet, 1 GM PO BID, (Reported) Topiramate 50 Mg Tablet, 50 MG PO BID, (Reported) Tramadol HCl 50 Mg Tablet, 100 MG PO Q4H PRN for PAIN-MODERATE, (Reported) Past Ohdqell-Jqpawj-Ykpbmp Hx Patient Social History Smoking Status: Current Everyday Smoker (56year hx, 2PPD. ) Type Used: Cigarettes 2nd Hand Smoke Exposure: No Recent Hopitalizations: No Alcohol Use?: No Have you traveled recently?: No Immunizations Up To Date Date of Pneumonia Vaccine: Feb 25, 2017 Seasonal Allergies Seasonal Allergies: No Surgeries History of Surgeries: No Respiratory History of Respiratory Disorde: No Cardiovascular History of Cardiac Disorders: Yes Cardiac Disorders: Chronic Edema/Swelling, Hypertension Neurological History of Neurological Disord: No Genitourinary History of Genitourinary Disor: No Gastrointestinal History of Gastrointestinal Di: Yes Gastrointestinal Disorders: Gastroesophageal Reflux, Ulcer Musculoskeletal History of Musculoskeletal Dis: No Endocrine History of Endocrine Disorders: No HEENT History of HEENT Disorders: No Cancer History of Cancer: No Psychosocial History of Psychiatric Problem: No Integumentary History of Skin or Integumenta: No Family Medical History Significant Family History: No Pertinent Family Hx Family Medial History: Cardiovascular disease 19 FATHER 19 MOTHER Glaucoma 19 FATHER Hypertension 19 FATHER 19 MOTHER Review of Systems-General Constitutional: No chills, No fever; weakness EENTM: No mouth pain, No throat pain Respiratory: No cough; hemoptysis; No short of breath, No wheezing Cardiovascular: No chest pain; edema; No palpitations Gastrointestinal: No abdominal pain, No constipation, No diarrhea, No dysphagia; hematemesis; No heartburn, No melena, No nausea, No vomiting Genitourinary: No dysuria; incontinence Musculoskeletal: No back pain, No muscle pain Skin: No lesions, No rash Psychiatric/Neurological: Denies Headache, Denies Numbness; Weakness Physical Exam-General Problems Physical Exam Vital Signs Vital Signs - First Documented 07/21/20 12:58 Temp 36.9 Pulse 81 Resp 18 B/P (MAP) 154/52 (86) Pulse Ox 100 O2 Delivery Room Air Capillary Refill : Less Than 3 Seconds General Appearance: no apparent distress, thin Eyes: Bilateral Eye EOMI HEENT: PERRL/EOMI, pale conjunctivae (R), pale conjunctivae (L) Neck: non-tender, supple, normal inspection Respiratory: lungs clear, normal breath sounds, no respiratory distress, no accessory muscle use Cardiovascular: regular rate, rhythm; No no edema; systolic murmur Peripheral Pulses: 2+ Radial Pulses (R), 2+ Radial Pulses (L) Gastrointestinal: normal bowel sounds, non tender, soft, no organomegaly Rectal: deferred Back: normal inspection, no CVA tenderness, no vertebral tenderness Extremities: no calf tenderness, normal capillary refill, pedal edema (2+ b/l ) 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 ) Skin: warm/dry, pallor Lymphatic: no adenopathy Data Review Labs Laboratory Tests 07/21/20 13:10: White Blood Count 17.1H, Red Blood Count 2.57L, Hemoglobin 6.7*L, Hematocrit 24L , Mean Corpuscular Volume 94, Mean Corpuscular Hemoglobin 26, Mean Corpuscular Hemoglobin Concent 28L, Red Cell Distribution Width 16.6H, Platelet Count 719H, Mean Platelet Volume 8.8, Immature Granulocyte % (Auto) 1, Neutrophils (%) (Auto) 91H, Lymphocytes (%) (Auto) 5L, Monocytes (%) (Auto) 4, Eosinophils (%) (Auto) 0, Basophils (%) (Auto) 0, Neutrophils # (Auto) 15.5H, Lymphocytes # (Auto) 0.8L, Monocytes # (Auto) 0.6, Eosinophils # (Auto) 0.0, Basophils # (Auto) 0.0, Immature Granulocyte # (Auto) 0.1, Neutrophils % (Manual) 93, Lymphocytes % (Manual) 5, Monocytes % (Manual) 2, Eosinophils % (Manual) 0, Basophils % (Manual) 0, Band Neutrophils 0, Polychromasia SLIGHT, Hypochromasia MODERATE, Anisocytosis SLIGHT, Prothrombin Time 12.6, INR Comment 0.9, Activated Partial Thromboplast Time 29, Sodium Level 141, Potassium Level 3.3L, Chloride Level 106, Carbon Dioxide Level 27, Anion Gap 8, Blood Urea Nitrogen 9, Creatinine 0.54L, Estimat Glomerular Filtration Rate > 60, BUN/Creatinine Ratio 17, Glucose Level 117H, Calcium Level 8.6, Corrected Calcium 9.6, Total Bilirubin < 0.2, Aspartate Amino Transf (AST/SGOT) 17, Alanine Aminotransferase (ALT/SGPT) 13, Alkaline Phosphatase 129, C-Reactive Protein 2.70H, Total Protein 5.3L, Albumin 2.8L 07/21/20 14:10: Urine Color YELLOW, Urine Clarity CLOUDY, Urine pH 8.0, Urine Specific [place] 1.020, Urine Protein NEGATIVE, Urine Glucose (UA) NEGATIVE, Urine Ketones NEGATIVE, Urine Nitrite POSITIVEH, Urine Bilirubin NEGATIVE, Urine Urobilinogen 0.2, Urine Leukocyte Esterase TRACEH, Urine RBC (Auto) NEGATIVE, Urine RBC NONE, Urine WBC 5-10H, Urine Squamous Epithelial Cells 2-5, Urine Crystals PRESENTH, Urine Amorphous Sediment FEW DARVIN PHOSPHATEH, Urine Bacteria LARGEH, Urine Casts NONE, Urine Mucus NEGATIVE, Urine Culture Indicated YES 07/21/20 14:52: Lactic Acid Level 0.80 Assessment/Plan Assessment/Plan Admission Diagonsis Anemia, hematemesis Assessment/Plan Hematemesis Vs Hemoptysis Normocytic anemia - chronic hx, possibly multifactoral 2/2 iron deficiency anemia/blood loss and anemia of chronic dz. UTI - likely source of leukocytosis. Started ceftriaxone. 1.3cm pulmonary nodule on CXR - 100+ pack-year hx. Thrombocytosis - chronic hx, possibly reactive. hypokalemia allergic rhinitis HTN Transfuse with PRBCs, follow labs serially. NPO diet at midnight ABs, Blood culture, Urine culture CT scan for follow up on pulmonary nodule. EGD tomorrow. Restart home allergy medication Hold home aspirin, start SCD. PRIMO ZIMMERMAN DO 07/21/20 2018: History of Present Illness History of Present Illness History of Present Illness Patient is 70-year-old female who has been spitting up blood since approximately [place]. Patient unsure if it is coming from her longer from her stomach. She has a history of peptic ulcer disease which caused her to be anemic previously. Patient has been significantly fatigued and has a hard time doing any type of activity. Patient has difficulty providing history. Patient has significant tobacco history with [id number] of smoking. She denies seeing any blood in her stools. Patient is unsure if anything has made her symptoms worse or better. Patient had a chest x-ray demonstrating an lung nodule and a CT scan has been ordered for further follow-up. Patient currently getting transfused packed red blood cells, or a hemoglobin of 6.7. Patient currently denies any nausea vomiting fever sweats chills shortness of breath chest pain abdominal pain at this time. Allergies and Home Medications Allergies Coded Allergies: latex (Verified Allergy, Unknown, 02/07/19) Home Medications Aspirin/Acetaminophen/Caffeine 1 Each Tablet, 2 EACH PO Q6-8HR PRN for MIGRAINE, (Reported) Cetirizine HCl 10 Mg Tablet, 10 MG PO DAILY, (Reported) Escitalopram Oxalate 20 Mg Tablet, 20 MG PO DAILY, (Reported) Fenofibrate 54 Mg Tablet, 54 MG PO DAILY, (Reported) Ferrous Sulfate 325 Mg Tablet, 325 MG PO DAILY, (Reported) Ibuprofen 200 Mg Tablet, 200 MG PO Q6H PRN for PAIN-MILD, (Reported) Lamotrigine 200 Mg Tablet, 200 MG PO DAILY, (Reported) Lisinopril 40 Mg Tablet, 40 MG PO DAILY, (Reported) Meclizine HCl 25 Mg Tablet, 50 MG PO DAILY PRN for DIZZINESS, (Reported) Mirabegron 25 Mg Tab.er.24h, 25 MG PO DAILY, (Reported) Montelukast Sodium 10 Mg Tablet, 10 MG PO DAILY, (Reported) Primidone 250 Mg Tablet, 250 MG PO BID, (Reported) Raloxifene HCl 60 Mg Tablet, 60 MG PO DAILY, (Reported) Sucralfate 1 Gm Tablet, 1 GM PO BID, (Reported) Topiramate 50 Mg Tablet, 50 MG PO BID, (Reported) Tramadol HCl 50 Mg Tablet, 100 MG PO Q4H PRN for PAIN-MODERATE, (Reported) Patient Home Medication List Home Medication List Reviewed: Yes Past Jdmdbxs-Wcutaf-Tawxnu Hx Reviewed Nursing Assessment Reviewed/Agree w Nursing PMH: Yes Family Medical History Significant Family History: No Pertinent Family Hx Family Medial History: Cardiovascular disease 19 FATHER 19 MOTHER Glaucoma 19 FATHER Hypertension 19 FATHER 19 MOTHER Review of Systems-General Constitutional: No chills, No fever; weakness EENTM: No mouth pain, No throat pain Respiratory: No cough; hemoptysis; No short of breath, No wheezing Cardiovascular: No chest pain; edema; No palpitations Gastrointestinal: No abdominal pain, No constipation, No diarrhea, No dysphagia; hematemesis; No heartburn, No melena, No nausea, No vomiting Genitourinary: No dysuria Musculoskeletal: No back pain, No muscle pain Skin: No lesions, No rash Psychiatric/Neurological: Denies Headache, Denies Numbness; Weakness All Other Systems Reviewed Negative Unless Noted: Yes (Negative excepted noted.) Physical Exam-General Problems Physical Exam General Appearance: no apparent distress, thin HEENT: PERRL/EOMI, normal ENT inspection Neck: non-tender, supple, normal inspection Respiratory: chest non-tender, no respiratory distress, no accessory muscle use Cardiovascular: regular rate, rhythm, no JVD Gastrointestinal: normal bowel sounds, non tender, soft, no organomegaly Rectal: deferred Back: normal inspection, no CVA tenderness, no vertebral tenderness Extremities: no calf tenderness Neurologic/Psychiatric: no motor/sensory deficits, alert, oriented x 3, other (Fatigued) Skin: warm/dry, pallor Lymphatic: no adenopathy Assessment/Plan Assessment/Plan Assessment/Plan Anemia either from hemoptysis or upper GI source Right lung nodule UTI Hypokalemia History of peptic ulcer disease Patient discussed to further evaluate would do EGD to see if an upper GI source is present. Also patient needs to have CT scan of the chest to further evaluate the lung nodule found on x-ray. She has significant tobacco history. Transfuse packed red blood cells and follow hemoglobin Protonix N.p.o. after midnight for EGD in the morning. Consent for EGD. Supervisory-Addendum Brief Verification & Attestation Participated in pt care: history, MDM, physical Personally performed: exam, history, MDM, supervision of care Care discussed with: Medical Student Procedures: n/a Results interpretation: Verified all documentation Verification and Attestation of Medical Student E/M Service A medical student performed and documented this service in my presence. I reviewed and verified all information documented by the medical student and made modifications to such information, when appropriate. I personally performed the physical exam and medical decision making. Primo Zimmerman, Jul 21, 2020,20:22 SHADY NEFF MED STUDENT Jul 21, 2020 17:39 PRIMO ZIMMERMAN DO Jul 21, 2020 20:18
[2020-07-21] MEDS: PANTOPRAZOLE 40 MG (PROTONIX) VIAL IV SCH (22:04)
[2020-07-22] VITALS (10 sets, daily range): BP systolic 127–187; BP diastolic 60–80
[2020-07-22] MEDS: LACTATED RINGERS 1,000 ML IV SCH ×3 (01:01→20:44)
[2020-07-22 06:24] LABS: BASOPHILS # (AUTO) 0.1 10^3/uL (0.0-0.1); BASOPHILS % (AUTO) 1 % (0-10); EOSINOPHILS # (AUTO) 0.2 10^3/uL (0.0-0.3); EOSINOPHILS % (AUTO) 1 % (0-10); HEMATOCRIT 31 % (35-52); HEMOGLOBIN 9.3 g/dL (11.5-16.0); LYMPHOCYTES # (AUTO) 1.1 10^3/uL (1.0-4.0); LYMPHOCYTES % (AUTO) 10 % (12-44); MEAN CORPUSCULAR HEMOGLOBIN 27 pg (25-34); MEAN CORPUSCULAR HGB CONC 30 g/dL (32-36); MEAN CORPUSCULAR VOLUME 90 fL (80-99); MEAN PLATELET VOLUME 9.6 fL (9.0-12.2); MONOCYTES # (AUTO) 0.9 10^3/uL (0.0-1.0); MONOCYTES % (AUTO) 8 % (0-12); NEUTROPHILS # (AUTO) 9.1 10^3/uL (1.8-7.8); NEUTROPHILS % (AUTO) 80 % (42-75); PLATELET COUNT 516 10^3/uL (130-400); WHITE BLOOD COUNT 11.3 10^3/uL (4.3-11.0)
[2020-07-22 06:29] LABS: CHLORIDE 108 MMOL/L (98-107); SODIUM 143 MMOL/L (135-145)
[2020-07-22 06:30] LABS: CALCIUM 7.6 MG/DL (8.5-10.1)
[2020-07-22 06:31] LABS: GLUCOSE 77 MG/DL (70-105)
[2020-07-22 06:32] LABS: CARBON DIOXIDE 26 MMOL/L (21-32)
[2020-07-22 06:35] LABS: CREATININE SERUM 0.62 MG/DL (0.60-1.30); GFR ESTIMATED > 60
[2020-07-22 06:36] LABS: BUN/CREATININE RATIO 13
--- NOTE | 2020-07-22 07:16 | Progress Note - Surgery ---
SHADY NEFF MED STUDENT 07/22/20 0716: Subjective Date Seen by a Provider: Jul 22, 2020 Time Seen by a Provider: 07:00 Subjective/Events-last exam Pt resting this morning. Pt got 2 units PRBCs yesterday evening H&H 9.3 this morning from 6.7 before transfusions. Per nurse, pt NPO since midnight, denies any episode of hematemesis or hemoptysis. Pt O2 fell to 90 while sleeping last night, pt put on 2LPM O2, appears comfortable. Pt sent for EGD during exam. Review of Systems General: No Chills, No Night Sweats; Fatigue HEENT: No Dysphasia Pulmonary: Dyspnea; No Cough, No Pleuritic Chest Pain Cardiovascular: Edema; No: Chest Pain, Palpitations Gastrointestinal: No: Nausea, Vomiting, Abdominal Pain, Diarrhea, Constipation, Melena, Hematochezia Genitourinary: No Dysuria; Incontinence Focused Exam Lactate Level 07/21/20 14:52: Lactic Acid Level 0.80 Objective Exam Vital Signs Date Time Temp Pulse Resp B/P (MAP) Pulse Ox O2 Delivery O2 Flow Rate FiO2 07/22/20 04:30 36.4 83 18 137/63 (87) 94 Nasal Cannula 2.00 07/22/20 00:59 37.4 98 20 161/70 92 Nasal Cannula 2.00 07/22/20 00:00 37.0 82 18 127/60 (82) 92 Nasal Cannula 2.00 07/21/20 23:34 97 Nasal Cannula 2.00 07/21/20 22:30 36.9 76 18 145/65 97 Nasal Cannula 2.00 07/21/20 22:11 37.0 89 16 149/67 98 Nasal Cannula 2.00 07/21/20 21:14 37.0 84 16 155/68 90 Room Air 07/21/20 20:45 37.2 88 16 145/65 (91) 91 Room Air 07/21/20 20:30 Room Air 07/21/20 18:45 37.6 98 18 148/66 94 Room Air 07/21/20 18:27 37.6 97 18 139/61 94 Room Air 07/21/20 17:12 37.2 88 20 157/66 (96) 95 Room Air 07/21/20 16:47 Room Air 07/21/20 15:45 82 18 137/46 97 Room Air 07/21/20 12:58 36.9 81 18 154/52 (86) 100 Room Air I & O 07/22/20 07:00 Intake Total 10 ml Balance 10 ml Capillary Refill : Less Than 3 Seconds General Appearance: No Apparent Distress, Thin Neck: Normal Inspection, Non Tender Respiratory: Chest Non Tender, Normal Breath Sounds, No Accessory Muscle Use, No Respiratory Distress Cardiovascular: Regular Rate, Rhythm, Normal Peripheral Pulses, Systolic Murmur Peripheral Pulses: 2+ Radial Pulses (R), 2+ Radial Pulses (L) Gastrointestinal: normal bowel sounds, non tender, soft, no organomegaly Extremity: Normal Inspection, No Calf Tenderness, Pedal Edema (2+) Results Lab Laboratory Tests 07/21/20 13:10: White Blood Count 17.1H, Red Blood Count 2.57L, Hemoglobin 6.7*L, Hematocrit 24L , Mean Corpuscular Volume 94, Mean Corpuscular Hemoglobin 26, Mean Corpuscular Hemoglobin Concent 28L, Red Cell Distribution Width 16.6H, Platelet Count 719H, Mean Platelet Volume 8.8, Immature Granulocyte % (Auto) 1, Neutrophils (%) (Auto) 91H, Lymphocytes (%) (Auto) 5L, Monocytes (%) (Auto) 4, Eosinophils (%) (Auto) 0, Basophils (%) (Auto) 0, Neutrophils # (Auto) 15.5H, Lymphocytes # (Auto) 0.8L, Monocytes # (Auto) 0.6, Eosinophils # (Auto) 0.0, Basophils # (Auto) 0.0, Immature Granulocyte # (Auto) 0.1, Neutrophils % (Manual) 93, Lymphocytes % (Manual) 5, Monocytes % (Manual) 2, Eosinophils % (Manual) 0, Basophils % (Manual) 0, Band Neutrophils 0, Polychromasia SLIGHT, Hypochromasia MODERATE, Anisocytosis SLIGHT, Prothrombin Time 12.6, INR Comment 0.9, Activated Partial Thromboplast Time 29, Sodium Level 141, Potassium Level 3.3L, Chloride Level 106, Carbon Dioxide Level 27, Anion Gap 8, Blood Urea Nitrogen 9, Creatinine 0.54L, Estimat Glomerular Filtration Rate > 60, BUN/Creatinine Ratio 17, Glucose Level 117H, Calcium Level 8.6, Corrected Calcium 9.6, Total Bilirubin < 0.2, Aspartate Amino Transf (AST/SGOT) 17, Alanine Aminotransferase (ALT/SGPT) 13, Alkaline Phosphatase 129, C-Reactive Protein 2.70H, Total Protein 5.3L, Albumin 2.8L 07/21/20 14:10: Urine Color YELLOW, Urine Clarity CLOUDY, Urine pH 8.0, Urine Specific [place] 1.020, Urine Protein NEGATIVE, Urine Glucose (UA) NEGATIVE, Urine Ketones NEGATIVE, Urine Nitrite POSITIVEH, Urine Bilirubin NEGATIVE, Urine Urobilinogen 0.2, Urine Leukocyte Esterase TRACEH, Urine RBC (Auto) NEGATIVE, Urine RBC NONE, Urine WBC 5-10H, Urine Squamous Epithelial Cells 2-5, Urine Crystals PRESENTH, Urine Amorphous Sediment FEW DARVIN PHOSPHATEH, Urine Bacteria LARGEH, Urine Casts NONE, Urine Mucus NEGATIVE, Urine Culture Indicated YES 07/21/20 14:52: Lactic Acid Level 0.80 07/22/20 05:55: White Blood Count 11.3H, Red Blood Count 3.48L, Hemoglobin 9.3L, Hematocrit 31L, Mean Corpuscular Volume 90, Mean Corpuscular Hemoglobin 27, Mean Corpuscular Hemoglobin Concent 30L, Red Cell Distribution Width 16.3H, Platelet Count 516H, Mean Platelet Volume 9.6, Immature Granulocyte % (Auto) 0, Neutrophils (%) (Auto) 80H, Lymphocytes (%) (Auto) 10L, Monocytes (%) (Auto) 8, Eosinophils (%) (Auto) 1, Basophils (%) (Auto) 1, Neutrophils # (Auto) 9.1H, Lymphocytes # (Auto) 1.1, Monocytes # (Auto) 0.9, Eosinophils # (Auto) 0.2, Basophils # (Auto) 0.1, Immature Granulocyte # (Auto) 0.0, Sodium Level 143, Potassium Level 3.0L, Chloride Level 108H, Carbon Dioxide Level 26, Anion Gap 9, Blood Urea Nitrogen 8, Creatinine 0.62, Estimat Glomerular Filtration Rate > 60, BUN/Creatinine Ratio 13, Glucose Level 77, Calcium Level 7.6L Microbiology 07/21/20 Urine Culture - Preliminary, Resulted Escherichia coli Assessment/Plan Assessment/Plan Assessment/Plan Hematemesis Vs Hemoptysis - EGD scheduled this morning to help localize source of bleeding. Normocytic anemia UTI - leukocytosis resolved today. On ceftriaxone. Urine culture grew E. Coli 1.3cm pulmonary nodule on CXR - 100+ pack-year hx. hypokalemia hx of PUD Transfuse as needed, follow labs serially. NPO diet for EGD ABs. Blood culture pending. CT scan for follow up on pulmonary nodule pending impression. EGD this morning. Hold home aspirin, continue SCD. PRIMO ZIMMERMAN DO 07/22/20 0842: Subjective Subjective/Events-last exam Hgb 9.3 after 2 units prbc. No new complaints. wanting diet. No more spitting up blood. No new complaints. Denies n/v fever sweats chills shortness of breath or chest pain. CT this am of chest. Objective Exam General Appearance: No Apparent Distress, Thin HEENT: Normal ENT Inspection Neck: Normal Inspection, Non Tender Respiratory: Chest Non Tender, No Accessory Muscle Use, No Respiratory Distress Cardiovascular: Regular Rate, Rhythm, No JVD Gastrointestinal: non tender, soft, no organomegaly Extremity: Normal Inspection, No Calf Tenderness, Pedal Edema (2+) Neurologic/Psychiatric: Alert, Oriented x3 Skin: Normal Color, Pallor ( improved) Lymphatic: No Adenopathy Assessment/Plan Assessment/Plan Assessment/Plan Hematemesis Vs Hemoptysis - EGD scheduled this morning to help localize source of bleeding. Normocytic anemia UTI - leukocytosis resolved today. On ceftriaxone. Urine culture grew E. Coli 1.3cm pulmonary nodule on CXR - 100+ pack-year hx. hypokalemia hx of PUD Transfuse as needed, follow labs serially. NPO diet for EGD ABs. Blood culture pending. CT scan this morning for follow up on pulmonary nodule pending impression. EGD this morning. continue SCD. Protonix Supervisory-Addendum Brief Verification & Attestation Participated in pt care: history, MDM, physical Personally performed: exam, history, MDM, supervision of care Care discussed with: Medical Student Procedures: n/a Results interpretation: Verified all documentation Verification and Attestation of Medical Student E/M Service A medical student performed and documented this service in my presence. I reviewed and verified all information documented by the medical student and made modifications to such information, when appropriate. I personally performed the physical exam and medical decision making. Primo Zimmerman, Jul 22, 2020,08:42 SHADY NEFF MED STUDENT Jul 22, 2020 07:16 PRIMO ZIMMERMAN DO Jul 22, 2020 08:42
[2020-07-22] MEDS ORDERED: MIDAZOLAM 2 MG/2 ML (VERSED) VIAL ONE (07:22)
[2020-07-22] MEDS ORDERED: PROPOFOL INJECTION 50 ML IV ONE (07:22)
[2020-07-22] MEDS ORDERED: LACTATED RINGERS 1,000 ML IV ONE (07:28)
--- NOTE | 2020-07-22 08:38 | Progress Note-Post Operative ---
Post-Operative Progess Note Surgeon (s)/Covering Machine Operator Helper (s) Surgeon PRIMO FIGUEROA DO Covering Machine Operator Helper: na Pre-Operative Diagnosis upper gi bleed Post-Operative Diagnosis pyloric stenosis, avm antrum, hiatal hernia Procedure & Operative Findings Date of Procedure 07/22/20 Procedure Performed/Findings egd c dilation pylorus, hot biopsy of avm c hemoclip placement, cold biopsy of body Anesthesia Type per clam picker Estimated Blood Loss Estimated blood loss (mL): scant Specimens/Packing Specimens Removed antrum avm, body PRIMO FIGUEROA DO Jul 22, 2020 08:38
--- NOTE | 2020-07-22 08:44 | Diagnostic Imaging Report ---
PROCEDURE: CT chest with contrast only. TECHNIQUE: Multiple contiguous axial images were obtained through the chest after administration of intravenous contrast. Auto Exposure Controls were utilized during the CT exam to meet ALARA standards for radiation dose reduction. INDICATION: Pulmonary nodule COMPARISON: Radiographs dated 07/21/2020 FINDINGS: A 1 cm hypodense nodule within the left thyroid lobe. Additional nodule within the posterior aspect of the right thyroid lobe. No significant adenopathy within the chest. Moderate vascular calcifications within the thoracic aorta and its branch vessels, including the coronary arteries. No aneurysmal dilatation of the thoracic aorta. The heart is within normal limits in size. No significant pericardial effusion. Tiny dependently layering bilateral pleural effusions. No pneumothorax. A 1.0 cm sub-solid left upper lobe pulmonary nodule, series 3, image 27. Mild reticular opacities within the superior segment of the left lower lobe. Additional linear opacities related to scarring and/or atelectasis within the left lower lobe. Mild tree-in-bud nodularity and groundglass nodularity is noted within the right upper lobe and superior segment of the right lower lobe. This is best seen on series 3, image 47. Scarring and atelectasis within the right middle lobe. A 1.2 cm calcified granuloma is identified within the right middle lobe, corresponding to pulmonary nodule on recent radiographs. Diffuse interlobular septal thickening, particularly within the upper lungs. The trachea is patent. Bilateral adrenal gland masses are present, including a 3.0 cm mass within the left adrenal gland. Tiny subcentimeter hepatic hypodensities are present, too small to completely characterize. No acute osseous abnormalities with mild scattered osseous degenerative changes. IMPRESSION: Diffuse interlobular septal thickening with tiny pleural effusions. This is favored to relate to background interstitial edema. Interstitial pneumonia felt less likely. A 1.0 cm sub-solid left upper lobe pulmonary nodule is indeterminate. A follow-up CT of the chest is recommended in 3 months to reevaluate as malignancy should be considered. Mild tree-in-bud nodularity within the right upper lobe and right lower lobe most likely relates to a small airway or small vessel infection or inflammation. Benign Calcified granuloma within the right middle lobe corresponding to the pulmonary nodule noted on recent radiographs. Bilateral adrenal gland masses, left greater than right. These are indeterminate. This most likely is related to adrenal adenomas versus hyperplasia. Comparison to prior imaging would be beneficial. If no prior imaging is available, recommend a CT of the abdomen without contrast for further evaluation. Thyroid nodules. Dedicated ultrasound of thyroid gland is recommended for further evaluation. Dictated by: Dictated on workstation # [id number]
--- NOTE | 2020-07-22 08:44 | Anesthesia-General Post-Op ---
MAC Patient Condition Mental Status/LOC: Same as Preop Cardiovascular: Satisfactory Nausea/Vomiting: Absent Respiratory: Satisfactory Pain: Controlled Complications: Absent Post Op Complications Complications None Follow Up Care/Instructions Patient Instructions None needed. Anesthesiology Discharge Order Discharge Order Patient is doing well, no complaints, stable vital signs, no apparent adverse anesthesia problems. No complications reported per nursing. MICHELLE BULLARD CRNA Jul 22, 2020 08:44
[2020-07-22] MEDS: PANTOPRAZOLE 40 MG (PROTONIX) VIAL IV SCH ×2 (09:51→20:36)
[2020-07-22] MEDS: cefTRIAXone 1,000 MG/SWFI 10 ML IV PUSH IV SCH ×2 (09:51)
[2020-07-22] MEDS ORDERED: LACTATED RINGERS 1,000 ML IV STA (10:20)
[2020-07-22] MEDS ORDERED: HURRICAINE EXT TUBE (BENZOCAINE) XX PRN (10:30)
--- NOTE | 2020-07-22 11:12 | History & Physical-Hospitalist ---
History of Present Illness HPI/Chief Complaint CC: Severe anemia HPI: This is a 70yoWF with a history of failure to thrive who remains a DNR who presented from home with weakness, found to have Hgb of 6.7 requiring transfusion. EGD performed by Dr. Zimmerman today showed evidence of blood loss so that was clipped and Pt is currently asking for Tylenol and something to eat and drink. Source: patient, RN/MD Exam Limitations: no limitations Date Seen 07/22/20 Time Seen by a Provider: 11:15 Attending Physician Erna Forbes Pamela R Aprn Referring Physician Date of Admission Jul 21, 2020 at 16:27 Home Medications & Allergies Home Medications Reviewed patient Home Medication Reconciliation performed by pharmacy medication reconciliations cnc service technician and/or nursing. Patients Allergies have been reviewed. Allergies Allergies Coded Allergies latex (Verified Allergy, Unknown, 02/07/19) Past Ehccbgu-Ziaudk-Ysppqx Hx Past Med/Social Hx: Reviewed Nursing Past Med/Soc Hx, Reviewed and Corrections made Patient Social History Marrital Status: single Employed/Student: retired Alcohol Use: Denies Use Recreational Drug Use: No Smoking Status: Current Everyday Smoker (56year hx, 2PPD. ) Type Used: Cigarettes 2nd Hand Smoke Exposure: No Recent Foreign Travel: No Contact w/other who traveled: No Recent Hopitalizations: No Recent Infectious Disease Expo: No Immunizations Up To Date Date of Pneumonia Vaccine: Feb 25, 2017 Seasonal Allergies Seasonal Allergies: No Past Medical History Cardiac: Chronic Edema/Swelling, Hypertension Gastrointestinal: Gastroesophageal Reflux, Ulcer Family History Cardiovascular disease 19 FATHER 19 MOTHER Glaucoma 19 FATHER Hypertension 19 FATHER 19 MOTHER No Pertinent Family Hx Bilateral Endarterectomy Review of Systems Constitutional: see HPI, malaise, weakness Physical Exam Physical Exam Vital Signs Vital Signs - First Documented 07/21/20 07/21/20 12:58 22:11 Temp 36.9 Pulse 81 Resp 18 B/P (MAP) 154/52 (86) Pulse Ox 100 O2 Delivery Room Air O2 Flow Rate 2.00 Capillary Refill : Less Than 3 Seconds Height, Weight, BMI Height: 4'10.00" Weight: 119lbs. oz. 53.062199hc; 27.68 BMI Method:Stated General Appearance: No Apparent Distress, Chronically ill, Thin Eyes: Right Eye Normal Inspection, Right Eye PERRL HEENT: PERRL/EOMI, Normal ENT Inspection, Pharynx Normal, Moist Mucous Membranes Neck: Full Range of Motion, Normal Inspection, Non Tender Respiratory: Chest Non Tender, Lungs Clear, Normal Breath Sounds, No Accessory Muscle Use, No Respiratory Distress Cardiovascular: Regular Rate, Rhythm, No Edema, No Gallop, No JVD, No Murmur, Normal Peripheral Pulses Gastrointestinal: Normal Bowel Sounds, No Organomegaly, No Pulsatile Mass, Non Tender, Soft Back: Normal Inspection, No CVA Tenderness, No Vertebral Tenderness Extremity: Normal Capillary Refill, Normal Inspection, Normal Range of Motion, Non Tender, No Calf Tenderness, No Pedal Edema Neurologic/Psychiatric: Alert, Oriented x3, No Motor/Sensory Deficits, Normal Mood/Affect, Disoriented Skin: Normal Color, Warm/Dry Lymphatic: No Adenopathy Results Results/Procedures Labs Laboratory Tests 07/21/20 13:10 07/22/20 05:55 Patient resulted labs reviewed. Assessment/Plan Admission Diagnosis Assessment: Severe anemia requiring 2 units of blood GIB s/p EGD with clipping Dr Zimmerman Failure to thrive Smoker HTN UTI with bacteremia Plan: Monitor hgb PT OT Home meds Admission Status: Inpatient Order (span 2 midnights) Reason for Inpatient Admission: anemia gib Diagnosis/Problems Diagnosis/Problems (1) Severe anemia Status: Acute (2) Upper GI bleed Status: Acute (3) Generalized weakness Status: Acute (4) Urinary tract infection Status: Acute Qualifiers: Urinary tract infection type: site unspecified Hematuria presence: without hematuria Qualified Codes: N39.0 - Urinary tract infection, site not specified (5) Weakness (6) CKD (chronic kidney disease), stage III Status: Chronic (7) HLD (hyperlipidemia) Status: Chronic (8) HTN (hypertension) Status: Chronic ERNA FORBES DO Jul 22, 2020 11:12
[2020-07-22] MEDS ORDERED: ACETAMINOPHEN 325 MG TABLET PO PRN (11:30)
[2020-07-22] MEDS ORDERED: ESOM40CA52 PO (11:39)
[2020-07-22] MEDS ORDERED: MIRA50TA PO (11:39)
[2020-07-22] MEDS ORDERED: ACET-2267 PO (11:39)
[2020-07-22] MEDS ORDERED: PRAV80TA2 PO (11:39)
[2020-07-22] MEDS ORDERED: CLOP75TA28 PO (11:39)
[2020-07-22] MEDS ORDERED: LORA10TA76 PO (11:41)
--- NOTE | 2020-07-22 14:41 | OPERATIVE REPORT ---
DATE OF SERVICE: 07/22/2020 PREOPERATIVE DIAGNOSIS: Upper gastrointestinal bleed. POSTOPERATIVE DIAGNOSES: Pyloric stenosis, AVM of the antrum, and hiatal hernia. PROCEDURES PERFORMED: EGD with dilatation of the pylorus, hot biopsy of AVM with Hemoclip placement and cold biopsy of the body. SURGEON: Primo Zimmerman DO. ANESTHESIA: Per RECRUITER COORDINATOR. ESTIMATED BLOOD LOSS: Scant. COMPLICATIONS: None. SPECIMENS: Antrum of AVM and body. INDICATIONS FOR PROCEDURE: The patient is a 70-year-old female with anemia and spitting up blood. She understands the risks and benefits of the procedure and wished to proceed with the procedure. Consent was signed in the chart. DESCRIPTION OF PROCEDURE: The patient was taken to the endoscopy suite and placed in the left lateral recumbent position. Timeout was performed. Scope was inserted in the mouth, down the esophagus, stomach and the pylorus was stenotic. The scope was able to be looked into the first portion of the duodenum and had normal appearance. At this point, a balloon was inserted and the pylorus was dilated to 1 cm, had some bloody show, therefore, aborted any further dilatation. The scope was then slowly retracted back. There was an appearance of an AVM in the antrum. A hot biopsy was obtained. This had some slight bleeding still despite cauterization and a Hemoclip was placed and hemostasis was achieved. The body of the stomach had some reactive gastropathy appearance. Biopsy of the body was obtained. Scope was retroflexed noting a hiatal hernia, no other pathology. Scope was returned to its normal position, slowly withdrawn to distal esophagus. No polyps, masses or ulcerations. Scope was continued to be slowly retracted until completely removed. The patient tolerated the procedure well without any complications. She was taken to recovery room in stable condition. RECOMMENDATIONS: The patient to follow up on biopsies. We will start her on clear liquid diet. She is already on Protonix b.i.d. Follow hemoglobin. Job ID: [id number] DocumentID: [id number] Dictated Date: 07/22/2020 08:46:08 Direct Service Professional Date: 07/22/2020 14:40:53 Dictated By: PRIMO ZIMMERMAN DO
[2020-07-22] MEDS ORDERED: ACETAMINOPHEN 500 MG TAB (TYLENOL) PO PRN (20:00)
[2020-07-22] MEDS ORDERED: amLODIPine 5 MG (NORVASC) TAB PO NR (20:00)
[2020-07-22] MEDS ORDERED: MECLIZINE 25 MG (ANTIVERT) TAB PO PRN (20:00)
[2020-07-22] MEDS ORDERED: MAGNESIUM 1 GM/100 ML IVPB 100 ML IV ONE (20:15)
[2020-07-22] MEDS: PRIMIDONE 250MG (MYSOLINE) TAB PO SCH (20:37)
[2020-07-22] MEDS: toPIRamate 25 MG (TOPAMAX) TAB PO SCH (20:43)
[2020-07-22] MEDS ORDERED: NON-FORMULARY MEDICATION 1 EA EA (Topiramate 50 MG) PO SCH (21:00)
[2020-07-22] MEDS: POTASSIUM CL 10MEQ/50ML IVPB 50 ML IV SCH ×2 (22:11→23:13)
[2020-07-23] VITALS: BP 167/72
[2020-07-23] MEDS: POTASSIUM CL 10MEQ/50ML IVPB 50 ML IV SCH ×5 (01:52→16:36)
[2020-07-23] MEDS: LACTATED RINGERS 1,000 ML IV SCH ×3 (02:46→21:35)
[2020-07-23 04:38] VITALS: BP 164/70
[2020-07-23 06:00] LABS: BASOPHILS # (AUTO) 0.1 10^3/uL (0.0-0.1); BASOPHILS % (AUTO) 1 % (0-10); EOSINOPHILS # (AUTO) 0.3 10^3/uL (0.0-0.3); EOSINOPHILS % (AUTO) 3 % (0-10); HEMATOCRIT 30 % (35-52); LYMPHOCYTES # (AUTO) 1.2 10^3/uL (1.0-4.0); LYMPHOCYTES % (AUTO) 13 % (12-44); MEAN CORPUSCULAR HEMOGLOBIN 27 pg (25-34); MEAN CORPUSCULAR HGB CONC 30 g/dL (32-36); MEAN CORPUSCULAR VOLUME 90 fL (80-99); MONOCYTES # (AUTO) 0.9 10^3/uL (0.0-1.0); MONOCYTES % (AUTO) 10 % (0-12); NEUTROPHILS # (AUTO) 6.6 10^3/uL (1.8-7.8); NEUTROPHILS % (AUTO) 73 % (42-75); PLATELET COUNT 478 10^3/uL (130-400); WHITE BLOOD COUNT 9.1 10^3/uL (4.3-11.0)
[2020-07-23 06:14] LABS: ALBUMIN 2.4 GM/DL (3.2-4.5); CHLORIDE 107 MMOL/L (98-107); SODIUM 143 MMOL/L (135-145)
[2020-07-23 06:16] LABS: CALCIUM 7.5 MG/DL (8.5-10.1)
[2020-07-23 06:17] LABS: GLUCOSE 82 MG/DL (70-105); TOTAL PROTEIN 4.5 GM/DL (6.4-8.2)
[2020-07-23 06:18] LABS: CARBON DIOXIDE 26 MMOL/L (21-32)
[2020-07-23 06:19] LABS: BILIRUBIN,TOTAL 0.2 MG/DL (0.1-1.0)
[2020-07-23 06:20] LABS: ALKALINE PHOSPHATASE 94 U/L (40-136); CREATININE SERUM 0.59 MG/DL (0.60-1.30); GFR ESTIMATED > 60
[2020-07-23 06:21] LABS: BUN/CREATININE RATIO 8
[2020-07-23 06:23] LABS: ALANINE AMINOTRANSFERASE 18 U/L (0-55)
--- NOTE | 2020-07-23 07:43 | Progress Note - Surgery ---
SHADY NEFF MED STUDENT 07/23/20 0743: Subjective Date Seen by a Provider: Jul 23, 2020 Time Seen by a Provider: 07:00 Subjective/Events-last exam Pt had EGD yesterday morning which found a gastric AVM representing likely cause of recent hematemesis- site was cauterized and clamped. Per nurse, pt has had no episodes of hematemesis. Pt denies any complaints besides wanting to advance diet. Denies abd pain, N/Ving, chest pain, constipation, diarrhea or dysphagia. H&H stable from yesterday without transfusions. Review of Systems General: No Chills, No Night Sweats HEENT: No Dysphasia, No Sore Throat Pulmonary: Dyspnea; No Cough, No Pleuritic Chest Pain Cardiovascular: No: Chest Pain, Palpitations Gastrointestinal: No: Nausea, Vomiting, Abdominal Pain, Diarrhea, Constipation, Hematochezia Genitourinary: No Dysuria; Incontinence Focused Exam Lactate Level 07/21/20 14:52: Lactic Acid Level 0.80 Objective Exam Vital Signs Date Time Temp Pulse Resp B/P (MAP) Pulse Ox O2 Delivery O2 Flow Rate FiO2 07/23/20 04:38 36.4 69 16 164/70 (101) 93 Nasal Cannula 3.00 07/23/20 00:00 36.5 72 18 167/72 (103) 93 Nasal Cannula 2.00 07/22/20 20:36 Room Air 07/22/20 19:45 37.0 72 18 177/71 (106) 96 Room Air 07/22/20 15:51 36.9 71 18 160/80 (106) 92 Room Air 07/22/20 12:00 36.7 80 18 163/77 (105) 92 Nasal Cannula 2.00 07/22/20 08:32 90 16 96 Room Air 07/22/20 08:27 85 16 99 OxyMask 4 07/22/20 08:22 90 16 100 OxyMask 8 07/22/20 08:00 36.8 78 18 139/80 (99) 90 Nasal Cannula 2.00 07/22/20 08:00 Room Air I & O 07/23/20 07:00 Intake Total 1460 ml Balance 1460 ml Capillary Refill : Less Than 3 Seconds General Appearance: No Apparent Distress, Chronically ill, Thin HEENT: PERRL/EOMI, Normal ENT Inspection, Pharynx Normal, Moist Mucous Membranes Neck: Full Range of Motion, Normal Inspection, Non Tender Respiratory: Chest Non Tender, Lungs Clear, Normal Breath Sounds, No Accessory Muscle Use, No Respiratory Distress Cardiovascular: Regular Rate, Rhythm, Normal Peripheral Pulses, Systolic Murmur Peripheral Pulses: 2+ Radial Pulses (R), 2+ Radial Pulses (L) Gastrointestinal: normal bowel sounds, non tender, soft, no organomegaly Extremity: Normal Capillary Refill, Normal Inspection, Normal Range of Motion, Non Tender, No Calf Tenderness Neurologic/Psychiatric: Alert, Normal Mood/Affect, 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 II-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 Norm as Tested, Disoriented Skin: Normal Color, Warm/Dry Lymphatic: No Adenopathy Results Lab Laboratory Tests 07/22/20 07:50: Coronavirus (COVID-19)(PCR) Negative 07/22/20 12:11: Lab Scanned Report Transfusion Reaction Form 07/23/20 05:20: White Blood Count 9.1, Red Blood Count 3.29L, Hemoglobin 9.0L, Hematocrit 30L, Mean Corpuscular Volume 90, Mean Corpuscular Hemoglobin 27, Mean Corpuscular Hemoglobin Concent 30L, Red Cell Distribution Width 16.0H, Platelet Count 478H, Mean Platelet Volume 10.0, Immature Granulocyte % (Auto) 0, Neutrophils (%) (Auto) 73, Lymphocytes (%) (Auto) 13, Monocytes (%) (Auto) 10, Eosinophils (%) (Auto) 3, Basophils (%) (Auto) 1, Neutrophils # (Auto) 6.6, Lymphocytes # (Auto) 1.2, Monocytes # (Auto) 0.9, Eosinophils # (Auto) 0.3, Basophils # (Auto) 0.1, Immature Granulocyte # (Auto) 0.0, Sodium Level 143, Potassium Level 3.0L, Chloride Level 107, Carbon Dioxide Level 26, Anion Gap 10, Blood Urea Nitrogen 5L, Creatinine 0.59L, Estimat Glomerular Filtration Rate > 60, BUN/Creatinine Ratio 8, Glucose Level 82, Calcium Level 7.5L, Corrected Calcium 8.8, Total Bilirubin 0.2, Aspartate Amino Transf (AST/SGOT) 21, Alanine Aminotransferase (ALT/SGPT) 18, Alkaline Phosphatase 94, Total Protein 4.5L, Albumin 2.4L Microbiology 07/21/20 Blood Culture - Preliminary, Resulted Gram Negative Jasmeet See Comments 07/21/20 Urine Culture - Preliminary, Resulted Escherichia coli Assessment/Plan Assessment/Plan Assessment/Plan Hematemesis- EGD showed gastric AVM. Normocytic anemia - H&H stable today (9.0 from 9.3 yesterday without transfusions) UTI - On ceftriaxone. 1.0 cm left upper lobe pulmonary nodule on 07/22 CT scan- 100+ pack-year hx Thyroid nodules hypokalemia hx of PUD Transfuse as needed, follow labs serially. advance diet to softs ABs. continue SCD. Protonix PT/OT Restart home meds. Output U/S of thyroid Outpt CT of chest to follow pulm nodule in 3 months. JOHNNIE ZIMMERMAN DO 07/23/20 1516: Subjective Subjective/Events-last exam Patient not having any nausea or vomiting. She is wanting advancement of diet. She is not having any abdominal pain fever sweats chills shortness of breath or chest pain. Her white count is improving. Her hemoglobin stable. 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 1.0 cm left upper lobe pulmonary nodule on 07/22 CT scan- 100+ pack-year hx Thyroid nodules hypokalemia hx of PUD Bilateral adrenal masses - ct without contrast to further evaluate Transfuse as needed, follow labs serially. advance diet as long as hemoglobin remains stable ABs. continue SCD. Protonix PT/OT Restart home meds. Outpt U/S of thyroid Outpt CT of chest to follow pulm nodule in 3 months. Supervisory-Addendum Brief Verification & Attestation Participated in pt care: history, MDM, physical Personally performed: exam, history, MDM, supervision of care Care discussed with: Medical Student Procedures: n/a Results interpretation: Verified all documentation Verification and Attestation of Medical Student E/M Service A medical student performed and documented this service in my presence. I reviewed and verified all information documented by the medical student and made modifications to such information, when appropriate. I personally performed the physical exam and medical decision making. Johnnie Zimmerman, Jul 23, 2020,15:26 SHADY NEFF MED STUDENT Jul 23, 2020 07:43 JOHNNIE ZIMMERMAN DO Jul 23, 2020 15:16
[2020-07-23 08:00] VITALS: BP 174/73
[2020-07-23] MEDS: toPIRamate 25 MG (TOPAMAX) TAB PO SCH ×2 (09:00→21:45)
[2020-07-23] MEDS: LORATADINE (CLARITIN) 10 MG TAB PO SCH (09:00)
[2020-07-23] MEDS ORDERED: NON-FORMULARY MEDICATION 1 EA EA (Lamotrigine 200 MG) PO SCH (09:00)
[2020-07-23] MEDS: PANTOPRAZOLE 40 MG (PROTONIX) VIAL IV SCH ×2 (09:00→21:45)
[2020-07-23] MEDS ORDERED: NON-FORMULARY MEDICATION 1 EA EA (Escitalopram Oxalate 20 MG) PO SCH (09:00)
[2020-07-23] MEDS: PRIMIDONE 250MG (MYSOLINE) TAB PO SCH ×2 (09:00→21:45)
[2020-07-23] MEDS: amLODIPine 5 MG (NORVASC) TAB PO SCH (09:00)
[2020-07-23] MEDS: cefTRIAXone 1,000 MG/SWFI 10 ML IV PUSH IV SCH ×2 (09:00)
[2020-07-23] MEDS ORDERED: NON-FORMULARY MEDICATION 1 EA EA (Mirabegron (Myrbetriq) 50 MG) PO SCH (09:00)
[2020-07-23] MEDS: MONTELUKAST 10 MG (SINGULAIR) TAB PO SCH (09:01)
[2020-07-23] MEDS: lisINopril 40 MG (PRINIVIL) TABLET PO SCH (09:01)
[2020-07-23] MEDS: raLOXifene 60 MG (EVISTA) TAB PO SCH (10:54)
--- NOTE | 2020-07-23 11:41 | Physical Therapy Evaluation ---
PT Evaluation-General Medical Diagnosis Admission Date Jul 21, 2020 at 16:27 Medical Diagnosis: severe anemia/UTI/GI bleed Onset Date: Jul 21, 2020 Therapy Diagnosis Therapy Diagnosis: generalized weakness/debility Height/Weight Height (Feet): 4 Height (Inches): 10.00 Weight (Pounds): 119 Precautions Precautions/Isolations: Fall Prevention, Standard Precautions Referral Physician: Andrei Reason for Referral: Evaluation/Treatment Medical History Pertinent Medical History: GERD, HTN, Smoking Current History ER secondary to blood from mouth Reviewed History: Yes Social History Home: Single Level Current Living Status: Alone Entry Into Home: Ramp Prior Prior Level of Function SCALE: Activities may be completed with or without assistive devices. 8-Kizxtuooua-jjbnuex completes the activity by him/herself with no assistance from a helper. 5-Set-up or Clean-up Assistance-helper sets up or cleans up; patient completes activity. [place] assists only prior to or following the activity. 4-Supervision or Touching Assistance-helper provides verbal cues and/or touching/steadying and/or contact guard assistance as patient completes activity. Assistance may be provided throughout the activity or intermittently. 3-Partial/Moderate Assistance-helper does LESS THAN HALF the effort. [place] l ifts, holds or supports trunk or limbs, but provides less than half the effort. 2-Substantial/Maximal Assistance-helper does MORE THAN HALF the effort. [place] lifts or holds trunk or limbs and provides more than half the effort. 5-Ytgrawaty-nqgiuz does ALL the effort. Patient does none of the effort to complete the activity. Or, the assistance of 2 or more helpers is required for t he patient to complete the activity. If activity was not attempted, code reason: 7-Patient Refused. 9-Not Applicable-not attempted and the patient did not perform the activity before the current illness, exacerbation or injury. 10-Not Attempted due to Environmental Limitations-(lack of equipment, weather restraints, etc.). 88-Not Attempted due to Medical Conditions or Safety Concerns. Bed Mobility: 6 Transfers (B,C,W/C): 6 Gait: 6 Stairs: 6 Indoor Mobility (Ambulation): Independent Stairs: Independent Prior Devices Use: None PT Evaluation-Current Subjective Patient agrees to PT. No c/o. Objective Patient Orientation: Confused Attachments: Oxygen, IV ROM/Strength ROM Lower Extremities bilateral LE WFL Strength Lower Extremities 3/5 grossly bilateral LE Integumentary/Posture Integumentary refer to nursing notes Bladder Incontinence: Yes Posture WFL Neuromuscular (Tone, Coordination, Reflexes) diminished coordination Sensory Vision: Functional Hearing: Impaired Transfers Lying to Sitting/Side of Bed(Q: 5 Sit to Stand (QC): 3 Chair/Zjv-fc-Uxbqp Xfer(QC): 3 Gait Does the Patient Walk?: Yes Mode of Locomotion: Walk Anticipated Mode of Locomotion: Walk Walk 10 feet (QC): 3 Walk 50 ft with 2 Turns(QC): 3 Walk 150 ft (QC): 3 Distance: 175' Gait Assistive Device: FWW Comments/Gait Description very unsteady/PT correct with balance difficulty Balance Sitting Static: Normal Sitting Dynamic: Normal Standing Static: Fair Standing Dynamic: Fair (Fair-) Assessment/Needs 70 y.o. female,will benefit from skilled PT to address functional strength and mobility to improve current LOF to safely return to home at maximum LOF. Rehab Potential: Fair PT Saturator Operator Goals Saturator Operator Goals PT Saturator Operator Goals Time Frame: Aug 06, 2020 Roll Left & Right (QC): 5 Sit to Lying (QC): 5 Lying-Sitting on Side/Bed(QC): 5 Sit to Stand (QC): 5 Chair/Eiu-qg-Gqchp Xfer(QC): 5 Does the Patient Walk: Yes Walk 10 feet (QC): 5 Walk 50ft with 2 Turns (QC): 5 Walk 150 ft (QC): 5 PT Plan Problem List Problem List: Activity Tolerance, Functional Strength, Safety, Balance, Gait, Transfer Treatment/Plan Treatment Plan: Continue Plan of Care Treatment Plan: Bed Mobility, Education, Functional Activity Rob, Functional Strength, Gait, Safety, Therapeutic Exercise, Transfers Treatment Duration: Aug 07, 2020 Frequency: 6 times per week Estimated Hrs Per Day: .25 hour per day Time/GCodes Time In: 1047 Time Out: 1105 Total Billed Treatment Time: 18 Total Billed Treatment 1 visit EVModC 18 min PEDRO CID PT Jul 23, 2020 11:40
[2020-07-23] MEDS ORDERED: KCL 20 MEQ TAB (K-DUR) PO ONE (11:45)
[2020-07-23 12:00] VITALS: BP 156/70
--- NOTE | 2020-07-23 12:25 | Occupational Therapy Eval ---
OT Evaluation-General/PLF Medical Diagnosis Admission Date Jul 21, 2020 at 16:27 Medical Diagnosis: severe anemia/UTI/GI bleed Onset Date: Jul 21, 2020 Therapy Diagnosis Therapy Diagnosis: decreased ADL Statuts Height/Weight Height (Feet): 4 Height (Inches): 10.00 Weight (Pounds): 119 Precautions Precautions/Isolations: Fall Prevention, Standard Precautions Referral Physician: Andrei Referral Reason: Evaluation/Treatment Medical History Pertinent Medical History: GERD, HTN, Smoking Additional Medical History hx of failure to thrive, Current History presents with weakness and blood in mouth, Hgb 6.7 requiring transfusion. Social History Home: Single Level Current Living Status: Alone Entry Into Home: Ramp ADL-Prior Level of Function SCALE: Activities may be completed with or without assistive devices. 1-Jxemqushse-ogmdwuj completes the activity by him/herself with no assistance from a helper. 5-Set-up or Clean-up Assistance-helper sets up or cleans up; patient completes activity. [place] assists only prior to or following the activity. 4-Supervision or Touching Assistance-helper provides verbal cues and/or touching/steadying and/or contact guard assistance as patient completes activity. Assistance may be provided throughout the activity or intermittently. 3-Partial/Moderate Assistance-helper does LESS THAN HALF the effort. [place] lifts, holds or supports trunk or limbs, but provides less than half the effort. 2-Substantial/Maximal Assistance-helper does MORE THAN HALF the effort. [place] lifts or holds trunk or limbs and provides more than half the effort. 4-Vhkwtyauc-eylehs does ALL the effort. Patient does none of the effort to complete the activity. Or, the assistance of 2 or more helpers is required for the patient to complete the activity. If activity was not attempted, code reason: 7-Patient Refused. 9-Not Applicable-not attempted and the patient did not perform the activity before the current illness, exacerbation or injury. 10-Not Attempted due to Environmental Limitations-(lack of equipment, weather restraints, etc.). 88-Not Attempted due to Medical Conditions or Safety Concerns. ADL PLOF Comments Pt reports requiring assist with bathing, independent with dressing, and assist cooking/cleaning. She states independent with walker for functional mobility. c anderson review indicates pt receives 6 hours daily home health. Self Care: Needed Some Help Functional Cognition: Independent DME/Equipment: Bath Chair, Tub/Shower OT Current Status Subjective Pt seated in recliner eating lunch. Agreeable to OT evaluation and tx. Mental Status/Objective Patient Orientation: Confused Attachments: IV, Oxygen Current Glasses/Contacts: Yes Hearing Aids: Yes Dentures/Partials: Yes Hand Dominance: Right Upper Extremity ROM WFL, BUE shoulder flexion to approx 150 degrees Upper Extremity Coordination WFL Upper Extremity Sensation WFL ADL-Treatment Eating (QC): 6 (Pt able to use utensil to eat, able to open pudding container.) Other Treatments Pt seated in recliner, OT educated pt on purpose and benefit of OT, she verbalized understanding. Pt provided information about PLOF and home set up, and participated in UE screen. Pt able to eat mashed potatoes and gravy independently. OT asked pt to open pudding container, pt replies that she isn't ready for her pudding yet. OT informs pt she needs to see what pt is able to do. Pt then able to open pudding container independently. Pt denies need to toilet, and declines further ADLs at this time as she is eating. OT educated pt on OT POC while she is admitted to hospital, pt verbalizes understanding. Post tx, pt seated in recliner, call light in reach and all needs met. Education OT Patient Education: Correct positioning, Modified ADL techniques, Progress toward Goal/Update tx plan, Purpose of tx/functional activities, Rehab process Teaching Recipient: Patient Teaching Methods: Discussion Response to Teaching: Verbalize Understanding OT Impact Hammer Operator Goals Impact Hammer Operator Goals Time Frame: Jul 31, 2020 Eating (QC): 6 Oral Hygiene (QC): 6 Toileting Hygiene (QC): 6 Shower/Bathe Self (QC): 3 Upper Body Dressing (QC): 5 Lower Body Dressing (QC): 4 On/Off Footwear (QC): 4 Additional Goals: 1-Demonstrate ADL Tasks, 2-Verbalize Understanding, 3- ImproveStrength/Rob 1=Demonstrate adherence to instructed precautions during ADL tasks. 2=Patient will verbalize/demonstrate understanding of assistive devices/modifications for ADL. 3=Patient will improve strength/tolerance for activity to enable patient to perform ADL's. OT Education/Plan Problem List/Assessment Assessment: Decreased Activ Tolerance, Decreased UE Strength, Impaired I ADL's, Impaired Self-Care Skills Pt would benefit from short term skilled OT in order to increase safety and independence with ADLs and to increase BUE strength and activity tolerance to maximize LOF for safe return home. Discharge Recommendations Plan/Recommendations: Continue POC Treatment Plan/Plan of Care Patient would benefit from OT for education, treatment and training to promote independence in ADL's, mobility, safety and/or upper extremity function for ADL's. Plan of Care: ADL Retraining, Functional Mobility, UE Funct Exercise/Act Treatment Duration: Jul 31, 2020 Frequency: 5 times per week Estimated Hrs Per Day: .25 hour per day Rehab Potential: Fair Time/GCodes Start Time: 11:24 Stop Time: 11:32 Total Time Billed (hr/min): 8 Billed Treatment Time 1, FARTUN MUNGUIA OT Jul 23, 2020 12:25
[2020-07-23 16:00] VITALS: BP 148/64
--- NOTE | 2020-07-23 18:00 | Diagnostic Imaging Report ---
EXAMINATION: CT abdomen and pelvis without contrast from 07/23/2020. TECHNIQUE: Multiple contiguous axial images were obtained through the abdomen and pelvis without the use of intravenous contrast. Auto Exposure Controls were utilized during the CT exam to meet ALARA standards for radiation dose reduction. INDICATION: Severe anemia. Upper abdominal pain. Bilateral adrenal masses. COMPARISON: Correlation made to CT chest from 07/22/2020 FINDINGS: There are small bilateral pleural effusions with atelectasis or scarring in the visualized lung bases. There is a small hiatal hernia. There is diffuse atherosclerotic disease along the aorta. Vascular calcifications throughout the abdomen are also noted. Hyperdensity scattered throughout the bowel likely due to recent contrast administration or hyperdense ingested material. No acute obstructive process is appreciated. Visualized aspects of the pancreas is unremarkable. The nonopacified abdominal viscera is limited in evaluation. No gross acute abnormality appreciated within the liver or spleen. The gallbladder and pancreas are grossly unremarkable. There is a large lesion in the left adrenal gland measuring 3.3 cm in greatest dimension. A smaller but prominent lesion in the right adrenal gland is also seen. Dedicated adrenal protocol CT could provide better characterization of these findings. Nonobstructive stones noted in the left kidney. No ureteral stones appreciated on either side. The right renal pelvis is rather prominent but likely due to an extrarenal pelvis with mild hydronephrosis not excluded. Correlate with patient's symptoms. There is no ascites or free air. There is no acute osseous abnormality. IMPRESSION: 1. Nonspecific lesions within the adrenal glands left larger than right. See above discussion and recommendations. 2. Nonobstructive renal stones bilaterally with either an extra renal pelvis on the right or mild hydronephrosis of uncertain etiology, correlate with patient's symptoms and urinalysis. 3. Small bilateral pleural effusions. Other findings as above. Dictated by: Dictated on workstation # [id number]
[2020-07-23 19:53] VITALS: BP 137/76
[2020-07-23] MEDS: KCL 20 MEQ TAB (K-DUR) PO SCH (21:45)
[2020-07-24 00:10] VITALS: BP 138/78
[2020-07-24 04:24] VITALS: BP 138/78
[2020-07-24 05:36] LABS: HEMOGLOBIN 9.1 g/dL (11.5-16.0)
[2020-07-24 05:46] LABS: ALBUMIN 2.5 GM/DL (3.2-4.5); CHLORIDE 109 MMOL/L (98-107); POTASSIUM 3.8 MMOL/L (3.6-5.0); SODIUM 142 MMOL/L (135-145)
[2020-07-24 05:47] LABS: CALCIUM 7.6 MG/DL (8.5-10.1)
[2020-07-24 05:48] LABS: GLUCOSE 89 MG/DL (70-105)
[2020-07-24 05:49] LABS: TOTAL PROTEIN 4.9 GM/DL (6.4-8.2)
[2020-07-24 05:50] LABS: BILIRUBIN,TOTAL 0.2 MG/DL (0.1-1.0); CARBON DIOXIDE 24 MMOL/L (21-32)
[2020-07-24 05:52] LABS: ALKALINE PHOSPHATASE 98 U/L (40-136); CREATININE SERUM 0.63 MG/DL (0.60-1.30); GFR ESTIMATED > 60
[2020-07-24 05:53] LABS: BUN/CREATININE RATIO 8
[2020-07-24 05:55] LABS: ALANINE AMINOTRANSFERASE 19 U/L (0-55)
[2020-07-24 08:00] VITALS: BP 168/77
--- NOTE | 2020-07-24 08:05 | Progress Note - Surgery ---
SHADY NEFF MED STUDENT 07/24/20 0805: Subjective Date Seen by a Provider: Jul 24, 2020 Time Seen by a Provider: 07:15 Subjective/Events-last exam Per nurse pt has had no recent episode of hematemeisis. Pt failed nocturnal oximetry test last night with O2 sat in 70's. Pt denies any complaints this morning. Tolerating softs diet well. No abd pain, no N/Ving. 07/23 CT scan abd/pelvis showed a 3.3cm L adrenal gland lesion. H&H stable from yesterday. Review of Systems General: No Chills, No Night Sweats HEENT: Head Aches; No Dysphasia, No Sore Throat Pulmonary: Dyspnea; No Cough, No Pleuritic Chest Pain Cardiovascular: Edema; No: Chest Pain, Palpitations Gastrointestinal: No: Nausea, Vomiting, Abdominal Pain, Melena, Hematochezia Genitourinary: No Dysuria; Incontinence Focused Exam Lactate Level 07/21/20 14:52: Lactic Acid Level 0.80 Objective Exam Vital Signs Date Time Temp Pulse Resp B/P (MAP) Pulse Ox O2 Delivery O2 Flow Rate FiO2 07/24/20 04:24 37.2 84 18 138/78 (98) 79 Room Air 0.00 0.00 07/24/20 00:10 37.2 70 18 138/78 (98) 76 Room Air 0.00 2.00 07/23/20 21:49 92 Room Air 07/23/20 19:53 37.2 77 18 137/76 (96) 96 Room Air 07/23/20 17:30 96 Room Air 2.00 07/23/20 16:00 37.2 73 18 148/64 (92) 96 Room Air 07/23/20 12:00 37.1 80 18 156/70 (98) 91 Nasal Cannula 2.00 07/23/20 08:45 97 Nasal Cannula 4.00 I & O 07/24/20 07:00 Intake Total 2310 ml Balance 2310 ml Capillary Refill : Less Than 3 Seconds General Appearance: No Apparent Distress, Chronically ill, Thin HEENT: PERRL/EOMI, Normal ENT Inspection, Pharynx Normal Neck: Full Range of Motion, Non Tender Respiratory: Chest Non Tender, No Accessory Muscle Use, No Respiratory Distress, Decreased Breath Sounds Cardiovascular: Regular Rate, Rhythm, No JVD, Normal Peripheral Pulses, Systolic Murmur Peripheral Pulses: 2+ Radial Pulses (R), 2+ Radial Pulses (L) Gastrointestinal: non tender, soft, no organomegaly Extremity: Normal Inspection, Non Tender, No Calf Tenderness, Pedal Edema (1+ ) Neurologic/Psychiatric: Alert, Normal Mood/Affect, surveyor instrument assistant II-XII Norm as Tested Skin: Normal Color, Warm/Dry Lymphatic: No Adenopathy Results Lab Laboratory Tests 07/24/20 05:15: White Blood Count 10.0, Red Blood Count 3.38L, Hemoglobin 9.1L, Hematocrit 31L, Mean Corpuscular Volume 92, Mean Corpuscular Hemoglobin 27, Mean Corpuscular Hemoglobin Concent 29L, Red Cell Distribution Width 16.0H, Platelet Count 478H, Mean Platelet Volume 10.0, Sodium Level 142, Potassium Level 3.8, Chloride Level 109H, Carbon Dioxide Level 24, Anion Gap 9, Blood Urea Nitrogen 5L, Creatinine 0.63, Estimat Glomerular Filtration Rate > 60, BUN/Creatinine Ratio 8, Glucose Level 89, Calcium Level 7.6L, Corrected Calcium 8.8, Total Bilirubin 0.2, Aspa rtate Amino Transf (AST/SGOT) 21, Alanine Aminotransferase (ALT/SGPT) 19, Alkaline Phosphatase 98, Total Protein 4.9L, Albumin 2.5L Microbiology 07/21/20 MRSA Screen - Final, Complete MRSA not isolated 07/21/20 Blood Culture - Preliminary, Resulted Gram Negative Jasmeet See Comments 07/21/20 Urine Culture - Preliminary, Resulted Escherichia coli Assessment/Plan Assessment/Plan Assessment/Plan Hematemesis- EGD showed gastric AVM. Normocytic anemia - H&H stable today (9.1 from 9.0 yesterday without transfusions) MARCK- pt failed nocturnal oximetry test - likely contributes to pts HTN UTI - On ceftriaxone. 1.0 cm left upper lobe pulmonary nodule on 07/22 CT scan- 100+ pack-year hx 3.3cm L adrenal gland lesion on 07/[address] scan - possible contribution to HTN. Thyroid nodules HTN hx of PUD Consider transfer to inpt rehab center. Transfuse as needed, follow labs serially. Dysphagia 2 diet. ABs. continue SCD. Protonix PT/OT Continue home meds. Output U/S of thyroid Outpt CT of chest to follow pulm nodule in [address] of adrenal glands. PRIMO ZIMMERMAN DO 07/24/20 1725: Subjective Subjective/Events-last exam Patient doing well. She is tolerating diet. Patient is wanting to go home. She is got no abdominal pain. Her hemoglobin stable. Patient with CT scan again noting adrenal masses and recommend dedicated adrenal CT. Objective Exam General Appearance: No Apparent Distress, Chronically ill HEENT: Normal ENT Inspection Neck: Non Tender Respiratory: Chest Non Tender, No Accessory Muscle Use, No Respiratory Distress, Decreased Breath Sounds Cardiovascular: Regular Rate, Rhythm, No JVD Gastrointestinal: non tender, soft, no organomegaly Extremity: Normal Inspection, Non Tender Neurologic/Psychiatric: Alert, Normal Mood/Affect, surveyor instrument assistant II-XII Norm as Tested Skin: Normal Color, Warm/Dry Lymphatic: No Adenopathy Assessment/Plan Assessment/Plan Assessment/Plan Hematemesis- EGD showed gastric AVM. Normocytic anemia - H&H stable today (9.1 from 9.0 yesterday without transfusions) MARCK- pt failed nocturnal oximetry test - likely contributes to pts HTN UTI - On ceftriaxone. 1.0 cm left upper lobe pulmonary nodule on 07/22 CT scan- 100+ pack-year hx Bilateral adrenal gland lesions on 07/[address] scan Thyroid nodules HTN hx of PUD Transfuse as needed, follow labs serially. Dysphagia 2 diet. ABs. continue SCD. Protonix PT/OT Continue home meds. Patient to follow-up with primary care provider for : output U/S of thyroid Outpt CT of chest to follow pulm nodule in [address] of adrenal glands. Supervisory-Addendum Brief Verification & Attestation Participated in pt care: history, MDM, physical Personally performed: exam, history, MDM, supervision of care Care discussed with: Medical Student Procedures: n/a Results interpretation: Verified all documentation Verification and Attestation of Medical Student E/M Service A medical student performed and documented this service in my presence. I reviewed and verified all information documented by the medical student and made modifications to such information, when appropriate. I personally performed the physical exam and medical decision making. Primo Zimmerman, Jul 24, 2020,11:27 SHADY NEFF MED STUDENT Jul 24, 2020 08:05 PRIMO ZIMMERMAN DO Jul 24, 2020 17:25
[2020-07-24] MEDS: raLOXifene 60 MG (EVISTA) TAB PO SCH (08:44)
[2020-07-24] MEDS: amLODIPine 5 MG (NORVASC) TAB PO SCH (08:45)
[2020-07-24] MEDS: KCL 20 MEQ TAB (K-DUR) PO SCH (08:45)
[2020-07-24] MEDS: PRIMIDONE 250MG (MYSOLINE) TAB PO SCH (08:45)
[2020-07-24] MEDS: LORATADINE (CLARITIN) 10 MG TAB PO SCH (08:45)
[2020-07-24] MEDS: MONTELUKAST 10 MG (SINGULAIR) TAB PO SCH (08:45)
[2020-07-24] MEDS: lisINopril 40 MG (PRINIVIL) TABLET PO SCH (08:45)
[2020-07-24] MEDS: toPIRamate 25 MG (TOPAMAX) TAB PO SCH (08:45)
[2020-07-24] MEDS: cefTRIAXone 1,000 MG/SWFI 10 ML IV PUSH IV SCH ×2 (09:43)
[2020-07-24] MEDS: PANTOPRAZOLE 40 MG (PROTONIX) VIAL IV SCH (09:43)
--- NOTE | 2020-07-24 10:30 | Physical Therapy Daily Note ---
PT Daily Note-Current Subjective Patient agrees to PT. She reports she wants to go home today. Mental Status Patient Orientation: Normal For Age Attachments: Oxygen, IV Transfers SCALE: Activities may be completed with or without assistive devices. 8-Ejfkfsiizt-zyhctdu completes the activity by him/herself with no assistance from a helper. 5-Set-up or Clean-up Assistance-helper sets up or cleans up; patient completes activity. [place] assists only prior to or following the activity. 4-Supervision or Touching Assistance-helper provides verbal cues and/or touching/steadying and/or contact guard assistance as patient completes activit y. Assistance may be provided throughout the activity or intermittently. 3-Partial/Moderate Assistance-helper does LESS THAN HALF the effort. [place] lifts, holds or supports trunk or limbs, but provides less than half the effort. 2-Substantial/Maximal Assistance-helper does MORE THAN HALF the effort. [place] lifts or holds trunk or limbs and provides more than half the effort. 8-Xgiaktcfc-fjvoho does ALL the effort. Patient does none of the effort to complete the activity. Or, the assistance of 2 or more helpers is required for the patient to complete the activity. If activity was not attempted, code reason: 7-Patient Refused. 9-Not Applicable-not attempted and the patient did not perform the activity before the current illness, exacerbation or injury. 10-Not Attempted due to Environmental Limitations-(lack of equipment, weather restraints, etc.). 88-Not Attempted due to Medical Conditions or Safety Concerns. Lying to Sitting/Side of Bed(Q: 5 Sit to Stand (QC): 4 Chair/Ltp-gb-Evscn Xfer(QC): 4 Gait Training Does the Patient Walk?: Yes Distance: 250' Walk 10 feet (QC): 4 Walk 50 ft with 2 Turns(QC): 4 Walk 150 ft (QC): 4 Gait Assistive Device: FWW SBA for safety/functional gait sequence Exercises Seated Therapy Exercises: Ankle pumps, Long arc quads Seated Reps: 15 Assessment Patient tolerated treatment well. She reports she has caregivers at home PLOF. SW notified of patient's mobility. PT Longterm Goals Longterm Goals PT Landscape Manager Goals Time Frame: Aug 06, 2020 Roll Left & Right (QC): 5 Sit to Lying (QC): 5 Lying-Sitting on Side/Bed(QC): 5 Sit to Stand (QC): 5 Chair/Hfk-ln-Epdtc Xfer(QC): 5 Does the Patient Walk: Yes Walk 10 feet (QC): 5 Walk 50ft with 2 Turns (QC): 5 Walk 150 ft (QC): 5 PT Plan Treatment/Plan Treatment Plan: Continue Plan of Care Treatment Plan: Bed Mobility, Education, Functional Activity Rob, Functional Strength, Gait, Safety, Therapeutic Exercise, Transfers Treatment Duration: Aug 07, 2020 Frequency: 6 times per week Estimated Hrs Per Day: .25 hour per day Time/GCodes Time In: 944 Time Out: 1000 Total Billed Treatment Time: 16 Total Billed Treatment 1 visit FA 16 min PEDRO CID PT Jul 24, 2020 10:30
[2020-07-24] MEDS: LACTATED RINGERS 1,000 ML IV SCH (10:54)
[2020-07-24] MEDS ORDERED: CEFD300C3 PO (11:21)
[2020-07-24] MEDS ORDERED: AMLO-250 PO (11:21)
--- NOTE | 2020-07-24 11:23 | Occupational Ther Daily Note ---
OT Current Status-Daily Note Subjective Pt reported no pain and initially declined therapy and stated that she had already done therapy. OT stated that she had done PT and explained benefits of OT. Pt agreed to OT tx. Pt states want to d/c today. Mental Status/Objective Patient Orientation: Person, Place, Time, Situation Attachments: Oxygen ADL-Treatment Therapy Code Descriptions/Definitions Functional [place] Measure: 0=Not Assessed/NA 4=Minimal Assistance 1=Total Assistance 5=Supervision or Setup 2=Maximal Assistance 6=Modified [place] 3=Moderate Assistance 7=Complete IndependenceSCALE: Activities may be completed with or without assistive devices. 6-Enjefxqujf-ysdzybd completes the activity by him/herself with no assistance from a helper. 5-Set-up or Clean-up Assistance-helper sets up or cleans up; patient completes activity. [place] assists only prior to or following the activity. 4-Supervision or Touching Assistance-helper provides verbal cues and/or touching/steadying and/or contact guard assistance as patient completes activity. Assistance may be provided throughout the activity or intermittently. 3-Partial/Moderate Assistance-helper does LESS THAN HALF the effort. [place] lifts, holds or supports trunk or limbs, but provides less than half the effort. 2-Substantial/Maximal Assistance-helper does MORE THAN HALF the effort. [place] lifts or holds trunk or limbs and provides more than half the effort. 8-Xjfoekccd-fhbeea does ALL the effort. Patient does none of the effort to complete the activity. Or, the assistance of 2 or more helpers is required for the patient to complete the activity. If activity was not attempted, code reason: 7-Patient Refused. 9-Not Applicable-not attempted and the patient did not perform the activity before the current illness, exacerbation or injury. 10-Not Attempted due to Environmental Limitations-(lack of equipment, weather restraints, etc.). 88-Not Attempted due to Medical Conditions or Safety Concerns. Oral Hygiene (QC): 5 (Set up with oral swab) Other Treatment Pt began tx in recliner and stated that she did not want to get up. OT explained that she did not have to get up to do therapy. Pt performed oral hygiene with swab with set up assist and declined face washing. Pt also declined arm exercises and OT explained the benefits of therapy and doing arm exercsies. Pt stated that her arm "work fine", and declined any further tx. Pt in recliner with call light in reach and all needs met. Education OT Patient Education: Correct positioning, Energy conservation, Modified ADL techniques, Progress toward Goal/Update tx plan, Purpose of tx/functional activities, Rehab process Teaching Recipient: Patient Teaching Methods: Discussion Response to Teaching: Verbalize Understanding OT Longterm Goals Stab Setter And Driller Goals Time Frame: Jul 31, 2020 Eating (QC): 6 Oral Hygiene (QC): 6 Toileting Hygiene (QC): 6 Shower/Bathe Self (QC): 3 Upper Body Dressing (QC): 5 Lower Body Dressing (QC): 4 On/Off Footwear (QC): 4 Additional Goals: 1-Demonstrate ADL Tasks, 2-Verbalize Understanding, 3- ImproveStrength/Rob 1=Demonstrate adherence to instructed precautions during ADL tasks. 2=Patient will verbalize/demonstrate understanding of assistive devices/modifications for ADL. 3=Patient will improve strength/tolerance for activity to enable patient to perform ADL's. OT Education/Plan Problem List/Assessment Assessment: Decreased Activ Tolerance, Decreased UE Strength, Impaired Coordination, Impaired Funct Balance, Impaired I ADL's, Impaired Self-Care Skills Pt would benefit from short term skilled OT in order to increase safety and independence with ADLs and to increase BUE strength and activity tolerance to maximize LOF for safe return home. Discharge Recommendations Plan/Recommendations: Continue POC Treatment Plan/Plan of Care Patient would benefit from OT for education, treatment and training to promote independence in ADL's, mobility, safety and/or upper extremity function for ADL's. Plan of Care: ADL Retraining, Functional Mobility, UE Funct Exercise/Act Treatment Duration: Jul 31, 2020 Frequency: 5 times per week Estimated Hrs Per Day: .25 hour per day Rehab Potential: Fair Time/GCodes Start Time: 11:00 Stop Time: 11:10 Total Time Billed (hr/min): 10 Billed Treatment Time 1, ADL (10) FARTUN HOLDER OT Jul 24, 2020 11:23
--- NOTE | 2020-07-24 11:25 | D/C HH Face to Face Order ---
D/C Face to Face Orders Reconcile Patient Problems Problems Reviewed?: Yes Instructions for Patient Home Health Patient Instructions/FollowUp: PCP 1 week Physician to follow Patient: [facility] Discharge Diet for Home: No Restrictions Patient Problems: UTI GIB Patient Data-Allergies,Ht & Wt Patient Allergies: Coded Allergies: latex (Verified Allergy, Unknown, 02/07/19) Height (Feet): 4 Height (Inches): 10.00 Weight (Pounds): 119 Home Health Need/Face to Face Date of Face to Face: Jul 24, 2020 Clinical Findings: Generalized weakness and fatigue, Instability, Muscle weakness, Unsteady gait I have seen Pt wkrh-ne-mefn: Yes Discharged To: Home Diagnosis/Conditions: UTI GIB Patient is Homebound due to: Marie fall risk due to instabilty, Muscle weakness Homebound Status Due to the above stated illness, injury or surgical procedure (medical condition or diagnosis) and associated clinical findings, the patient is homebound because of his/her inability to leave home except with aid of a supportive device and/or person AND leaving the home requires a considerable and taxing effort or is medically contraindicated. Pt req the following assistanc: Walker Home Health Nursing Orders Home Health Services Order: Nursing Services, Supervisor Central Supply-Evaluate & Treat, Physical Therapy-Evaluate & Treat Home Health Infusion Therapy Line Start Date: Jul 21, 2020 Certify Stmt I certify that this patient is under my care and that I, a nurse practitioner or a physician; a certified pathology assistant working with me, had a face to face encounter that - meets the physician face to face encounter requirements with this patient as MAITE Romero DO Jul 24, 2020 11:25
[2020-07-24] MEDS ORDERED: PANT40TA2 PO (11:26)
--- NOTE | 2020-07-24 11:27 | Discharge Summary ---
Discharge Summary Hospital Course Was the Problem List Reviewed?: Yes Problems/Dx: (1) Severe anemia Status: Acute (2) Upper GI bleed Status: Acute (3) Generalized weakness Status: Acute (4) Urinary tract infection Status: Acute Qualifiers: Qualified Codes: N39.0 - Urinary tract infection, site not specified (5) Weakness (6) CKD (chronic kidney disease), stage III Status: Chronic (7) HLD (hyperlipidemia) Status: Chronic (8) HTN (hypertension) Status: Chronic Hospital Course Date of Admission: Jul 21, 2020 at 16:27 Admission Diagnosis : Family Physician/Provider: Courtney eKy Aprn Date of Discharge: 07/24/20 Discharge Diagnosis: severe anemia, GIB s/p EGD and local treatment, UTI with bacteremia Hospital Course: Standard course after admitted for GIB and receiving 2 units of blood and EGD revealed source of bleed s/p local treatment with successful results. Abx started for UTI and BCx revealed E coli so patient was maintained on IV abx then transitioned to PO abx. Patient was deemed stable for DC by RN and PT OT and I reordered HH to start and she was DC in improved condition. Labs and Pending Lab Test: Laboratory Tests 07/24/20 05:15: White Blood Count 10.0, Red Blood Count 3.38L, Hemoglobin 9.1L, Hematocrit 31L, Mean Corpuscular Volume 92, Mean Corpuscular Hemoglobin 27, Mean Corpuscular Hemoglobin Concent 29L, Red Cell Distribution Width 16.0H, Platelet Count 478H, Mean Platelet Volume 10.0, Sodium Level 142, Potassium Level 3.8, Chloride Level 109H, Carbon Dioxide Level 24, Anion Gap 9, Blood Urea Nitrogen 5L, Creatinine 0.63, Estimat Glomerular Filtration Rate > 60, BUN/Creatinine Ratio 8, Glucose Level 89, Calcium Level 7.6L, Corrected Calcium 8.8, Total Bilirubin 0.2, Aspartate Amino Transf (AST/SGOT) 21, Alanine Aminotransferase (ALT/SGPT) 19, Alkaline Phosphatase 98, Total Protein 4.9L, Albumin 2.5L Microbiology 07/21/20 MRSA Screen - Final, Complete MRSA not isolated 07/21/20 Blood Culture - Preliminary, Resulted Gram Negative Jasmeet See Comments 07/21/20 Urine Culture - Preliminary, Resulted Escherichia coli Home Meds Active Protonix (Pantoprazole Sodium) 40 Mg Tablet.dr 40 Mg PO BID Cefdinir 300 Mg Capsule 300 Mg PO BID Amlodipine Besylate 5 Mg Tablet 5 Mg PO DAILY Reported Claritin (Loratadine) 10 Mg Tablet 10 Mg PO DAILY Tylenol Extra Strength (Acetaminophen) 500 Mg Tablet 500 Mg PO Q6H PRN Pravastatin Sodium 80 Mg Tablet 80 Mg PO HS Myrbetriq (Mirabegron) 50 Mg Tab.er.24h 50 Mg PO DAILY Esomeprazole Magnesium 40 Mg Capsule.dr 40 Mg PO DAILY Clopidogrel (Clopidogrel Bisulfate) 75 Mg Tablet 75 Mg PO DAILY Excedrin Migraine Caplet (Aspirin/Acetaminophen/Caffeine) 1 Each Tablet 2 Each PO Q6-8HR PRN Meclizine HCl 25 Mg Tablet 50 Mg PO DAILY PRN Iron (Ferrous Sulfate) 325 Mg Tablet 325 Mg PO DAILY Topiramate 50 Mg Tablet 50 Mg PO BID Escitalopram Oxalate 20 Mg Tablet 20 Mg PO DAILY Lamotrigine 200 Mg Tablet 200 Mg PO DAILY Lisinopril 40 Mg Tablet 40 Mg PO DAILY Raloxifene HCl 60 Mg Tablet 60 Mg PO DAILY Mysoline (Primidone) 250 Mg Tablet 250 Mg PO BID Montelukast Sodium 10 Mg Tablet 10 Mg PO DAILY LAST FILLED 02-26-2020 #90/90 DAY SUPPLY Tramadol HCl 50 Mg Tablet 50-100 Mg PO QID PRN Assessment/Pt Instructions [facility] 1 week Discharge Planning: <30 minutes discharge planning Discharge Physical Examination Vital Signs Vital Signs Date Time Temp Pulse Resp B/P (MAP) Pulse Ox O2 Delivery O2 Flow Rate FiO2 07/24/20 08:00 79 Room Air 0.00 07/24/20 08:00 35.9 83 16 168/77 (107) General Appearance: No Apparent Distress, WD/WN, Chronically ill Respiratory: Lungs Clear Cardiovascular: Regular Rate, Rhythm Neurologic/Psychiatric: Alert, Oriented x3, No Motor/Sensory Deficits, Normal Mood/Affect Allergies: Coded Allergies: latex (Verified Allergy, Unknown, 02/07/19) Discharge Summary Date of Admission Jul 21, 2020 at 16:27 Date of Discharge Discharge Date: Jul 24, 2020 Admission Diagnosis Assessment: Severe anemia requiring 2 units of blood GIB s/p EGD with clipping Dr Zimmerman Failure to thrive Smoker HTN UTI with bacteremia Plan: Monitor hgb PT OT Home meds Discharge Diagnosis (1) Severe anemia Status: Acute (2) Upper GI bleed Status: Acute (3) Generalized weakness Status: Acute (4) Urinary tract infection Status: Acute Qualifiers: Qualified Codes: N39.0 - Urinary tract infection, site not specified (5) Weakness (6) CKD (chronic kidney disease), stage III Status: Chronic (7) HLD (hyperlipidemia) Status: Chronic (8) HTN (hypertension) Status: Chronic MAITE PARDO DO Jul 24, 2020 11:27
[2020-07-24 12:00] VITALS: BP 145/60
[2020-07-24 14:18] VITALS: BP 145/60
== END 2020-07-24 14:19 | disposition home health service (06) | DRG 378 ==
LOC: EDUNIT# 12:34 → ER FS 12:36 → 4TH 16:27
PROVIDERS: ADMIT Internal Medicine; ATTEND Internal Medicine
PROC: 0DB78ZX Excision of Stomach, Pylorus, Via Natural or Artificial Opening Endoscopic, Diagnostic (ICD-10-PCS; 2020-07-22)
PROC: 0W3P8ZZ Control Bleeding in Gastrointestinal Tract, Via Natural or Artificial Opening Endoscopic (ICD-10-PCS; 2020-07-22)
PROC: 0D778ZZ Dilation of Stomach, Pylorus, Via Natural or Artificial Opening Endoscopic (ICD-10-PCS; principal; 2020-07-22 07:40)
DX: K55.21 Angiodysplasia of colon with hemorrhage (principal); N39.0 Urinary tract infection, site not specified; R78.81 Bacteremia; K31.1 Adult hypertrophic pyloric stenosis; R62.7 Adult failure to thrive; F17.210 Nicotine dependence, cigarettes, uncomplicated; I10 Essential (primary) hypertension; Z20.822 Contact with and (suspected) exposure to COVID-19; I12.9 Hypertensive chronic kidney disease with stage 1 through stage 4 chronic kidney disease, or unspecified chronic kidney disease; N18.30 Chronic kidney disease, stage 3 unspecified; E78.5 Hyperlipidemia, unspecified; D64.9 Anemia, unspecified; G47.33 Obstructive sleep apnea (adult) (pediatric); R91.1 Solitary pulmonary nodule; E04.1 Nontoxic single thyroid nodule; E87.6 Hypokalemia; K44.9 Diaphragmatic hernia without obstruction or gangrene
CPT/HCPCS: 36415; 71046; 71260; 74176; 80048; 80053; 81000; 83605; 83735; 85007; 85025; 85027; 85610; 85730; 86141; 86850; 86900; 86901; 86920; 87040; 87077; 87081; 87088; 87186; 87635; 94760

== ENCOUNTER → 2020-07-30 | Outpatient (CLI) | payer MEDICARE, MEDICAID ==
[~2020-07-30] MED LIST changes: +ACET-2267 PO; +AMLO-250 PO; +CEFD300C3 PO; +ESOM40CA52 PO; +LORA10TA76 PO; +MIRA50TA PO; +PANT40TA2 PO; +PRAV80TA2 PO
--- NOTE | 2020-07-30 15:30 | Diagnostic Imaging Report ---
INDICATION: Left-sided rib pain. Fall. COMPARISON: 07/21/2020 FINDINGS: Frontal and lateral radiographic views of the chest were obtained and demonstrate interval development of small left basilar effusion. Associated adjacent left-sided rib fractures are also noted. These are better visualized on dedicated rib series from same day. There is no large effusion on the right. No pneumothorax is seen on either side. Cardiac silhouette and pulmonary vasculature are within normal limits. There is calcified aortic atherosclerosis. IMPRESSION: 1. Small left-sided pleural effusion. Given the history of fall and associated ipsilateral rib fractures, this likely represent small hemothorax. 2. No pneumothorax. Dictated by: Dictated on workstation # [id number]
--- NOTE | 2020-07-30 15:33 | Diagnostic Imaging Report ---
INDICATION: Fall with left chest wall injury. FINDINGS: AP and oblique views of left ribs reveal mildly angulated fractures involving left 8th and 9th ribs. There is associated pleural thickening and blunting of left costophrenic sulcus. Mild left basilar atelectasis is noted. Surgical clips are seen in the lower left neck. IMPRESSION: Slightly displaced left 8th and 9th rib fractures with underlying pleural reaction. No definite pneumothorax is appreciated. Dictated by: Dictated on workstation # [id number]
[2020-07-30 15:58] LABS: EOSINOPHILS % (AUTO) 1 % (0-10); HEMATOCRIT 34 % (35-52); HEMOGLOBIN 10.1 G/DL (11.5-16.0); LYMPHOCYTES % (AUTO) 11 % (12-44); MEAN CORPUSCULAR HEMOGLOBIN 27 PG (25-34); MEAN CORPUSCULAR HGB CONC 30 G/DL (32-36); MEAN CORPUSCULAR VOLUME 91 FL (80-99); MEAN PLATELET VOLUME 9.7 FL (7.4-10.4); MONOCYTES % (AUTO) 7 % (0-12); NEUTROPHILS % (AUTO) 80 % (42-75); PLATELET COUNT 651 10^3/uL (130-400); WHITE BLOOD COUNT 11.1 10^3/uL (4.3-11.0)
[2020-07-30 15:59] LABS: BASOPHILS # (AUTO) 0.1 10^3/uL (0.0-0.1); BASOPHILS % (AUTO) 1 % (0-10); EOSINOPHILS # (AUTO) 0.1 10^3/uL (0.0-0.3); LYMPHOCYTES # (AUTO) 1.2 X 10^3 (1.0-4.0); MONOCYTES # (AUTO) 0.8 X 10^3 (0.0-1.0); NEUTROPHILS # (AUTO) 8.9 X 10^3 (1.8-7.8)
== END ==
LOC: RAD FS 14:59
PROVIDERS: ATTEND Nurse Practitioner Family
DX: S22.42XA Multiple fractures of ribs, left side, initial encounter for closed fracture (principal); W19.XXXA Unspecified fall, initial encounter; J90 Pleural effusion, not elsewhere classified
CPT/HCPCS: 36415; 71046; 71100; 85025

== ENCOUNTER → 2020-07-31 | Outpatient (CLI) | payer MEDICARE, MEDICAID ==
--- NOTE | 2020-07-31 14:20 | Diagnostic Imaging Report ---
EXAMINATION: CT Chest without contrast. TECHNIQUE: Multiple contiguous axial images were obtained through the chest without the use of intravenous contrast. All CT scans use one or more of the following dose optimizing techniques: automated exposure control, MA and/or KvP adjustment based on a patient size and exam type, or iterative reconstruction. HISTORY: Fall with left-sided rib pain. COMPARISON: CT chest 07/22/2020. FINDINGS: Thyroid: There is a subcentimeter left thyroid nodule which requires no follow-up based on patient age and lesion size. Mediastinum: Heart size is normal without significant pericardial effusion. Calcifications of the aorta and coronary vessels. Thoracic aorta is normal in caliber. No suspicious lymphadenopathy. Lungs and airways: There is a small left pleural effusion. Left basilar atelectasis or consolidation. Calcified granuloma within the medial right middle lobe. Mild background emphysema. No pneumothorax. The airways are normal. Upper abdomen: The subphrenic structures are normal. Musculoskeletal: No suspicious osseous lesion or compression fracture. There are multiple mildly displaced fractures of the posterior lateral left 7th through 10th ribs. There is mild soft tissue swelling and edema overlying the left chest wall, likely from recent trauma. IMPRESSION: 1. Mildly displaced fractures of the posterolateral left 7th through 10th ribs. 2. Small left pleural effusion with adjacent atelectasis or consolidation. Dictated by: Dictated on workstation # [id number]
== END ==
LOC: RAD FS 13:35
PROVIDERS: ATTEND Nurse Practitioner Family
DX: S22.42XK Multiple fractures of ribs, left side, subsequent encounter for fracture with nonunion (principal); J90 Pleural effusion, not elsewhere classified; J94.2 Hemothorax; R29.6 Repeated falls; Z86.2 Personal history of diseases of the blood and blood-forming organs and certain disorders involving the immune mechanism
CPT/HCPCS: 71250

== ENCOUNTER 2020-08-09 04:22 | Emergency (ER) | payer MEDICARE, MEDICAID ==
[2020-08-09] MEDS ORDERED: ACETAMINOPHEN 500 MG TAB (TYLENOL) PO STA (04:43)
--- NOTE | 2020-08-09 04:43 | ED Fall/Injury ---
General Chief Complaint: General Problems/Pain Stated Complaint: FALL Source: patient Exam Limitations: no limitations History of Present Illness Date Seen by Provider: Aug 09, 2020 Time Seen by Provider: 04:43 Initial Comments 70-year-old female presents following a fall. Patient got up during the night where she tripped over some shoe boxes and fell. She reports she did hit her head but there is no loss of consciousness. She does have some mild rib pain f rom where she tripped and fell about a week ago and broke a couple ribs. Patient hit her life alert button. EMS arrived to help her. Patient was having no complaints but EMS noted her blood pressure was slightly high so patient and her daughter came in here to have that further evaluated. She is not complain of any pain outside the pain from her previous fall. Allergies and Home Medications Allergies Coded Allergies: latex (Verified Allergy, Unknown, 02/07/19) Home Medications Acetaminophen 500 Mg Tablet, 500 MG PO Q6H PRN for PAIN-MILD (1-4), (Reported) Amlodipine Besylate 5 Mg Tablet, 5 MG PO DAILY Prescribed by: MAITE PARDO on 07/24/201120 Cefdinir 300 Mg Capsule, 300 MG PO BID Prescribed by: MAITE PARDO on 07/24/20 112 Escitalopram Oxalate 20 Mg Tablet, 20 MG PO DAILY, (Reported) Ferrous Sulfate 325 Mg Tablet, 325 MG PO DAILY, (Reported) Lamotrigine 200 Mg Tablet, 200 MG PO DAILY, (Reported) Lisinopril 40 Mg Tablet, 40 MG PO DAILY, (Reported) Loratadine 10 Mg Tablet, 10 MG PO DAILY, (Reported) Meclizine HCl 25 Mg Tablet, 50 MG PO DAILY PRN for DIZZINESS, (Reported) Mirabegron 50 Mg Tab.er.24h, 50 MG PO DAILY, (Reported) Montelukast Sodium 10 Mg Tablet, 10 MG PO DAILY, (Reported) LAST FILLED 02-26-2020 #90/90 DAY SUPPLY Pantoprazole Sodium 40 Mg Tablet.dr, 40 MG PO BID Prescribed by: MAITE PARDO on 07/24/201125 Pravastatin Sodium 80 Mg Tablet, 80 MG PO HS, (Reported) Primidone 250 Mg Tablet, 250 MG PO BID, (Reported) Raloxifene HCl 60 Mg Tablet, 60 MG PO DAILY, (Reported) Topiramate 50 Mg Tablet, 50 MG PO BID, (Reported) Tramadol HCl 50 Mg Tablet, 50-100 MG PO QID PRN for PAIN-MODERATE, (Reported) Patient Home Medication List Home Medication List Reviewed: Yes Review of Systems Review of Systems Constitutional: no symptoms reported Eyes: No Symptoms Reported Ears, Nose, Mouth, Throat: no symptoms reported Respiratory: see HPI; No cough, No short of breath Cardiovascular: see HPI; No chest pain, No palpitations Gastrointestinal: no symptoms reported Genitourinary: no symptoms reported Musculoskeletal: see HPI Skin: no symptoms reported Psychiatric/Neurological: No Symptoms Reported Past Dibztwv-Tlbcjh-Vomyxk Hx Past Med/Social Hx: Reviewed Nursing Past Med/Soc Hx Patient Social History Alcohol Use: Denies Use Type Used: Cigarettes 2nd Hand Smoke Exposure: No Recent Hopitalizations: No Immunizations Up To Date Tetanus Booster (TDap): Unknown Date of Pneumonia Vaccine: Feb 25, 2017 Seasonal Allergies Seasonal Allergies: No Past Medical History Surgeries: No Respiratory: No Cardiac: Yes Chronic Edema/Swelling, Hypertension Neurological: No Genitourinary: No Gastrointestinal: Yes Gastroesophageal Reflux, Ulcer Musculoskeletal: No Endocrine: No HEENT: No Cancer: No Psychosocial: No Integumentary: No Family Medical History Cardiovascular disease 19 FATHER 19 MOTHER Glaucoma 19 FATHER Hypertension 19 FATHER 19 MOTHER No Pertinent Family Hx Bilateral Endarterectomy Physical Exam Vital Signs Vital Signs - First Documented 08/09/20 04:30 Temp 36.9 Pulse 83 Resp 18 B/P (MAP) 176/98 (124) Pulse Ox 93 O2 Delivery Room Air Capillary Refill : Height, Weight, BMI Height: 4'10.00" Weight: 119lbs. oz. 53.401810tl; 27.68 BMI Method:Stated General Appearance: WD/WN, no apparent distress Neck: full range of motion Cardiovascular: normal peripheral pulses, regular rate, rhythm Respiratory: lungs clear, normal breath sounds Gastrointestinal: non tender, soft Extremities: non-tender, normal inspection Neurologic/Psychiatric: cooker soda II-XII nml as tested, no motor/sensory deficits, alert, normal mood/affect, oriented x 3 Skin: normal color, warm/dry Lymphatic: no adenopathy Progress/Results/Core Measures Results/Orders My Orders Orders - DARINEL MACK DO Ct Head Wo (08/09/20 04:43) Acetaminophen Tablet (Tylenol Tablet) (08/09/20 04:43) Vital Signs/I&O 08/09/20 08/09/20 04:30 05:41 Temp 36.9 Pulse 83 81 Resp 18 18 B/P (MAP) 176/98 (124) 148/70 Pulse Ox 93 92 O2 Delivery Room Air Room Air Progress Progress Note : Time: 05:43 Progress Note Patient with negative head CT. Patient's blood pressure at discharge was 148/55. Patient stable and discharged home Diagnostic Imaging Diagonstic Imaging: CT Plain Films/CT/US/NM/MRI: head Comments no acute finding Reviewed: [facility]ed [facility] Departure Impression Primary Impression: Fall on same level from tripping Disposition: 01 HOME, SELF-CARE Condition: Stable Departure-Patient Inst. Referrals: ISABELLE HO APRN (PCP/Family) Primary Care Physician Patient Instructions: Minor Head Injury, Adult ED, Preventing Falls DARINEL MACK DO Aug 09, 2020 04:43
[2020-08-09 05:41] VITALS: BP 148/70
--- NOTE | 2020-08-09 06:23 | Diagnostic Imaging Report ---
EXAMINATION: CT head without contrast. TECHNIQUE: Multiple contiguous axial images were obtained through the brain without the use of intravenous contrast. All CT scans use one or more of the following dose optimizing techniques: automated exposure control, MA and/or KvP adjustment based on a patient size and exam type, or iterative reconstruction. HISTORY: Fall. Scalp contusion. Head pain. COMPARISON: 02/24/2019. FINDINGS: No large acute territorial ischemia, mass, or hemorrhage. No midline shift or mass effect. Decreased attenuation is seen in the periventricular and subcortical white matter. The ventricles and cortical sulci are prominent. The basilar cisterns are patent and unremarkable. The orbits are normal. Paranasal sinuses are normal. Mastoid air cells are clear. No soft tissue abnormality is seen. No osseus lesions or fractures are seen. IMPRESSION: 1. No large acute territorial ischemia, mass, or hemorrhage. 2. Chronic microvascular disease. 3. Generalized parenchymal volume loss. Agree with overnight report. Dictated by: Dictated on workstation # [id number]
== END 2020-08-09 05:46 | disposition home or self-care (01) ==
LOC: EDUNIT# 04:22 → ER FS 04:30
DX: R07.81 Pleurodynia (principal); I10 Essential (primary) hypertension; K21.9 Gastro-esophageal reflux disease without esophagitis; Z91.040 Latex allergy status; Z82.49 Family history of ischemic heart disease and other diseases of the circulatory system
CPT/HCPCS: 70450

== ENCOUNTER 2020-10-20 22:36 | Emergency (ER) | payer MEDICARE, MEDICAID ==
[~2020-10-20] VITALS: Ht 147.3 cm; Wt 55.7 kg
[2020-10-20 22:36] VITALS: BP 98/50
--- NOTE | 2020-10-20 22:44 | ED General ---
General Stated Complaint: LOW BP History of Present Illness Date Seen by Provider: October 20, 2020 Time Seen by Provider: 22:39 Initial Comments 70-year-old female presents with low blood pressure. Patient herself reports that she "feels fine" her caregiver checked her blood pressure tonight for an unknown reason. Was low and sent her down to the ER. EMS reports that her blood pressure for them was around a systolic 88. We are unsure what her baseline blood pressure is. No other systemic complaints. Allergies and Home Medications Allergies Coded Allergies: latex (Verified Allergy, Unknown, 02/07/19) Home Medications Acetaminophen 500 Mg Tablet, 500 MG PO Q6H PRN for PAIN-MILD (1-4), (Reported) Amlodipine Besylate 5 Mg Tablet, 5 MG PO DAILY Prescribed by: MAITE PARDO on 07/24/201120 Cefdinir 300 Mg Capsule, 300 MG PO BID Prescribed by: MAITE PARDO on 07/24/201120 Escitalopram Oxalate 20 Mg Tablet, 20 MG PO DAILY, (Reported) Ferrous Sulfate 325 Mg Tablet, 325 MG PO DAILY, (Reported) Lamotrigine 200 Mg Tablet, 200 MG PO DAILY, (Reported) Lisinopril 40 Mg Tablet, 40 MG PO DAILY, (Reported) Loratadine 10 Mg Tablet, 10 MG PO DAILY, (Reported) Meclizine HCl 25 Mg Tablet, 50 MG PO DAILY PRN for DIZZINESS, (Reported) Mirabegron 50 Mg Tab.er.24h, 50 MG PO DAILY, (Reported) Montelukast Sodium 10 Mg Tablet, 10 MG PO DAILY, (Reported) LAST FILLED 02-26-2020 #90/90 DAY SUPPLY Pantoprazole Sodium 40 Mg Tablet.dr, 40 MG PO BID Prescribed by: MAITE PARDO on 07/24/201125 Pravastatin Sodium 80 Mg Tablet, 80 MG PO HS, (Reported) Primidone 250 Mg Tablet, 250 MG PO BID, (Reported) Raloxifene HCl 60 Mg Tablet, 60 MG PO DAILY, (Reported) Topiramate 50 Mg Tablet, 50 MG PO BID, (Reported) Tramadol HCl 50 Mg Tablet, 50-100 MG PO QID PRN for PAIN-MODERATE, (Reported) Patient Home Medication List Home Medication List Reviewed: Yes Review of Systems Review of Systems Constitutional: No chills, No fever Respiratory: no symptoms reported Cardiovascular: no symptoms reported Genitourinary: no symptoms reported Psychiatric/Neurological: No Symptoms Reported Past Qhkbkqy-Lsrdfm-Lvooif Hx Past Med/Social Hx: Reviewed Nursing Past Med/Soc Hx Patient Social History Type Used: Cigarettes 2nd Hand Smoke Exposure: No Recent Hopitalizations: No Immunizations Up To Date Tetanus Booster (TDap): Unknown Date of Pneumonia Vaccine: Feb 25, 2017 Seasonal Allergies Seasonal Allergies: No Past Medical History Surgeries: No Respiratory: No Cardiac: Yes Chronic Edema/Swelling, Hypertension Neurological: No Genitourinary: No Gastrointestinal: Yes Gastroesophageal Reflux, Ulcer Musculoskeletal: No Endocrine: No HEENT: No Cancer: No Psychosocial: No Integumentary: No Family Medical History Cardiovascular disease 19 FATHER 19 MOTHER Glaucoma 19 FATHER Hypertension 19 FATHER 19 MOTHER No Pertinent Family Hx Bilateral Endarterectomy Physical Exam Vital Signs Vital Signs - First Documented 10/20/20 22:36 Temp 37.0 Pulse 87 Resp 18 B/P (MAP) 98/50 (66) Pulse Ox 94 O2 Delivery Room Air Capillary Refill : Height, Weight, BMI Height: 4'10.00" Weight: 119lbs. oz. 53.686829io; 27.68 BMI Method:Stated General Appearance: No Apparent Distress, WD/WN HEENT: Moist Mucous Membranes Neck: Normal Inspection Respiratory: Lungs Clear, Normal Breath Sounds Cardiovascular: Regular Rate, Rhythm, No Edema Gastrointestinal: Non Tender, Soft Neurologic/Psychiatric: Alert, Oriented x3, Normal Mood/Affect Skin: Normal Color, Warm/Dry Progress/Results/Core Measures Suspected Sepsis SIRS Temperature: Pulse: Respiratory Rate: Laboratory Tests 10/20/20 22:42: White Blood Count 12.0H Blood Pressure / Mean: Laboratory Tests 10/20/20 22:42: Creatinine 0.69, Platelet Count 702H Results/Orders Lab Results Laboratory Tests Test 10/20/20 22:42 Range/Units White Blood Count 12.0 H 4.3-11.0 10^3/uL Red Blood Count 2.80 L 4.35-5.85 10^6/uL Hemoglobin 8.1 L 11.5-16.0 G/DL Hematocrit 25 L 35-52 % Mean Corpuscular Volume 88 80-99 FL Mean Corpuscular Hemoglobin 29 25-34 PG Mean Corpuscular Hemoglobin Concent 33 32-36 G/DL Red Cell Distribution Width 14.6 H 10.0-14.5 % Platelet Count 702 H 130-400 10^3/uL Mean Platelet Volume 8.6 7.4-10.4 FL Immature Granulocyte % (Auto) 1 % Neutrophils (%) (Auto) 80 H 42-75 % Lymphocytes (%) (Auto) 10 L 12-44 % Monocytes (%) (Auto) 8 0-12 % Eosinophils (%) (Auto) 1 0-10 % Basophils (%) (Auto) 1 0-10 % Neutrophils # (Auto) 9.6 H 1.8-7.8 X 10^3 Lymphocytes # (Auto) 1.2 1.0-4.0 X 10^3 Monocytes # (Auto) 1.0 0.0-1.0 X 10^3 Eosinophils # (Auto) 0.1 0.0-0.3 10^3/uL Basophils # (Auto) 0.1 0.0-0.1 10^3/uL Immature Granulocyte # (Auto) 0.1 0.0-0.1 10^3/uL Sodium Level 126 L 135-145 MMOL/L Potassium Level 3.6 3.6-5.0 MMOL/L Chloride Level 90 L 98-107 MMOL/L Carbon Dioxide Level 28 21-32 MMOL/L Anion Gap 8 5-14 MMOL/L Blood Urea Nitrogen 11 7-18 MG/DL Creatinine 0.69 0.60-1.30 MG/DL Estimat Glomerular Filtration Rate > 60 BUN/Creatinine Ratio 16 Glucose Level 99 70-105 MG/DL Calcium Level 8.3 L 8.5-10.1 MG/DL My Orders Orders - TRESSA MACKVOR L DO Basic Metabolic Panel (10/20/20 22:44) Cbc With Automated Diff (10/20/20 22:44) Ua Culture If Indicated (10/20/20 22:44) Vital Signs/I&O 10/20/20 22:36 Temp 37.0 Pulse 87 Resp 18 B/P (MAP) 98/50 (66) Pulse Ox 94 O2 Delivery Room Air Capillary Refill : Progress Note : Progress Note Patient's blood pressure for us is is systolics around 115. Patient has slight elevated white count but chart review shows that this is normal. She has chronic anemia. Patient has elevated platelet that looks chronic. She does have low sodium that is new. Patient is feeling fine. I would like her to follow-up with her primary care provider in a couple days for recheck of her symptoms and recheck of her sodium. Patient stable discharged Departure Impression Primary Impression: Hyponatremia Additional Impressions: Hypotension Qualified Codes: I95.9 - Hypotension, unspecified Chronic anemia Disposition: 01 HOME, SELF-CARE Condition: Stable Departure-Patient Inst. Referrals: ISABELLE HO APRN (PCP/Family) Primary Care Physician Patient Instructions: Dealing with Low Blood Pressure from the Drugs You Take, Low Blood Pressure Add. Discharge Instructions: Decrease lisinopril to 20 mg daily from 40 mg daily Follow-up with her primary care provider in 1 to 2 days for recheck of her sodium and to review her medications Return to the ER as needed DARINEL MACK DO October 20, 2020 22:43
[2020-10-20 22:52] LABS: BASOPHILS # (AUTO) 0.1 10^3/uL (0.0-0.1); BASOPHILS % (AUTO) 1 % (0-10); EOSINOPHILS # (AUTO) 0.1 10^3/uL (0.0-0.3); EOSINOPHILS % (AUTO) 1 % (0-10); HEMATOCRIT 25 % (35-52); HEMOGLOBIN 8.1 G/DL (11.5-16.0); LYMPHOCYTES # (AUTO) 1.2 X 10^3 (1.0-4.0); LYMPHOCYTES % (AUTO) 10 % (12-44); MEAN CORPUSCULAR HEMOGLOBIN 29 PG (25-34); MEAN CORPUSCULAR HGB CONC 33 G/DL (32-36); MEAN CORPUSCULAR VOLUME 88 FL (80-99); MEAN PLATELET VOLUME 8.6 FL (7.4-10.4); MONOCYTES % (AUTO) 8 % (0-12); NEUTROPHILS # (AUTO) 9.6 X 10^3 (1.8-7.8); NEUTROPHILS % (AUTO) 80 % (42-75); PLATELET COUNT 702 10^3/uL (130-400)
[2020-10-20 23:11] LABS: POTASSIUM 3.6 MMOL/L (3.6-5.0); SODIUM 126 MMOL/L (135-145)
[2020-10-20 23:12] LABS: BUN/CREATININE RATIO 16; CALCIUM 8.3 MG/DL (8.5-10.1); CARBON DIOXIDE 28 MMOL/L (21-32); CHLORIDE 90 MMOL/L (98-107); CREATININE SERUM 0.69 MG/DL (0.60-1.30); GFR ESTIMATED > 60; GLUCOSE 99 MG/DL (70-105)
== END 2020-10-20 23:34 | disposition home or self-care (01) ==
LOC: EDUNIT# 22:36 → ER FS 22:37
DX: I95.9 Hypotension, unspecified (principal); E87.1 Hypo-osmolality and hyponatremia; D53.9 Nutritional anemia, unspecified; I10 Essential (primary) hypertension; K21.9 Gastro-esophageal reflux disease without esophagitis; Z91.040 Latex allergy status; Z79.899 Other long term (current) drug therapy
CPT/HCPCS: 36415; 80048; 85025; 99283

== ENCOUNTER 2021-03-15 14:23 | Inpatient (IN) | payer MEDICARE, MEDICAID ==
[~2021-03-15] VITALS: Ht 149 cm; Wt 56.8 kg
--- NOTE | 2021-03-15 14:35 | ED Chest Pain ---
General Stated Complaint: CHEST PAIN Source: patient, EMS Exam Limitations: no limitations History of Present Illness Date Seen by Provider: Mar 15, 2021 Time Seen by Provider: 14:28 Initial Comments 70-year-old female with past medical history of CAD with stenting, hypertension, previous GI bleed with AVM, carotid artery endarterectomy, and previous GI ble eds with most recent scope showing an AVM coming in via EMS from home due to chest pain. Symptoms have been ongoing for roughly 2 days. The been constant, nothing seems to make it better or worse. She says this does not feel like when she had a heart attack. Associated with general weakness and fatigue. Having normal bowel movements that are brown she says. She says she is not bleeding from anywhere. She does not take any blood thinners. She is not taking any NSAIDs recently. Denies any prior history of DVT or PE. Allergies and Home Medications Allergies Coded Allergies: latex (Verified Allergy, Unknown, 02/07/19) Patient Home Medication List Home Medication List Reviewed: Yes Acetaminophen (Tylenol Extra Strength) 500 Mg Tablet, 500 MG PO Q6H PRN for PAIN-MILD (1-4), (Reported) Entered as Reported by: JOANN MUNOZ on 07/22/20 1139 Amlodipine Besylate (Amlodipine Besylate) 5 Mg Tablet, 5 MG PO DAILY Prescribed by: MAITE PARDO on 07/24/20 1121 Cefdinir (Cefdinir) 300 Mg Capsule, 300 MG PO BID Prescribed by: MAITE PARDO on 07/24/20 1121 Escitalopram Oxalate (Escitalopram Oxalate) 20 Mg Tablet, 20 MG PO DAILY, (Reported) Entered as Reported by: JOANN MUNOZ on 02/25/19 0953 Ferrous Sulfate (Iron) 325 Mg Tablet, 325 MG PO DAILY, (Reported) Entered as Reported by: JOANN MUNOZ on 02/25/19 1001 Lamotrigine (Lamotrigine) 200 Mg Tablet, 200 MG PO DAILY, (Reported) Entered as Reported by: JOANN MUNOZ on 02/25/19 0953 Lisinopril (Lisinopril) 40 Mg Tablet, 40 MG PO DAILY, (Reported) Entered as Reported by: JOANN MUNOZ on 02/25/19 0953 Loratadine (Claritin) 10 Mg Tablet, 10 MG PO DAILY, (Reported) Entered as Reported by: JOANN MUNOZ on 07/22/20 1141 Meclizine HCl (Meclizine HCl) 25 Mg Tablet, 50 MG PO DAILY PRN for DIZZINESS, (Reported) Entered as Reported by: JOANN MUNOZ on 02/25/19 1421 Mirabegron (Myrbetriq) 50 Mg Tab.er.24h, 50 MG PO DAILY, (Reported) Entered as Reported by: JOANN MUNOZ on 07/22/20 1139 Montelukast Sodium (Montelukast Sodium) 10 Mg Tablet, 10 MG PO DAILY, (Reported) Entered as Reported by: JOANN MUNOZ on 02/25/19 0939 Pantoprazole Sodium (Protonix) 40 Mg Tablet.dr, 40 MG PO BID Prescribed by: MAITE PARDO on 07/24/20 1126 Pravastatin Sodium (Pravastatin Sodium) 80 Mg Tablet, 80 MG PO HS, (Reported) Entered as Reported by: JOANN MUNOZ on 07/22/20 1139 Primidone (Mysoline) 250 Mg Tablet, 250 MG PO BID, (Reported) Entered as Reported by: JOANN MUNOZ on 02/25/19 0953 Raloxifene HCl (Raloxifene HCl) 60 Mg Tablet, 60 MG PO DAILY, (Reported) Entered as Reported by: JOANN MUNOZ on 02/25/19 0953 Topiramate (Topiramate) 50 Mg Tablet, 50 MG PO BID, (Reported) Entered as Reported by: JOANN MUNOZ on 02/25/19 0959 Tramadol HCl (Tramadol HCl) 50 Mg Tablet, 50-100 MG PO QID PRN for PAIN- MODERATE, (Reported) Entered as Reported by: JOANN MUNOZ on 02/25/19 0939 Review of Systems Review of Systems Constitutional: No chills, No fever; weakness Respiratory: Denies Cough; Shortness of Air Cardiovascular: Chest Pain Gastrointestinal: Denies Abdominal Pain, Denies Diarrhea, Denies Nausea, Denies Vomiting Genitourinary: Denies Burning Musculoskeletal: no symptoms reported Skin: no symptoms reported Psychiatric/Neurological: No Symptoms Reported Endocrine: No Symptoms Reported Hematologic/Lymphatic: No Symptoms Reported All Other Systems Reviewed Negative Unless Noted: Yes Past Zuawwiq-Acyles-Atowft Hx Patient Social History Tobacco Use?: Yes Immunizations Up To Date Tetanus Booster (TDap): Unknown Seasonal Allergies Seasonal Allergies: No Past Medical History Surgeries: No Respiratory: No Cardiac: Yes Chronic Edema/Swelling, Hypertension Neurological: No Genitourinary: No Gastrointestinal: Yes Gastroesophageal Reflux, Ulcer Musculoskeletal: No Endocrine: No HEENT: No Cancer: No Psychosocial: No Integumentary: No Family Medical History Cardiovascular disease 19 FATHER 19 MOTHER Glaucoma 19 FATHER Hypertension 19 FATHER 19 MOTHER No Pertinent Family Hx Bilateral Endarterectomy Physical Exam Vital Signs Vital Signs - First Documented 03/15/21 03/15/21 14:23 16:00 Temp 36.2 Pulse 88 Resp 18 B/P (MAP) 136/61 (86) Pulse Ox 92 O2 Delivery Room Air O2 Flow Rate 2.00 Capillary Refill : Height, Weight, BMI Height: 4'10.00" Weight: 119lbs. oz. 53.844589gc; 25.00 BMI Method:Stated General Appearance: No Apparent Distress, WD/WN, Other (Pale, very hard of hearing) HEENT: PERRL/EOMI, Normal ENT Inspection, Pharynx Normal Neck: Full Range of Motion, Normal Inspection, Non Tender, Supple Respiratory: Chest Non Tender, Lungs Clear, Normal Breath Sounds, No Accessory Muscle Use Cardiovascular: Regular Rate, Rhythm, No Edema, Normal Peripheral Pulses Gastrointestinal: Normal Bowel Sounds, Non Tender, Soft; No Distended, No Guarding Rectal: Normal Exam, Normal Rectal Tone, Heme Negative Stool, Other (Brown stool with mostly hard balls of stool in her rectum) Extremity: Normal Capillary Refill, Normal Inspection, Normal Range of Motion, Non Tender, No Calf Tenderness, No Pedal Edema Neurologic/Psychiatric: Alert, No Motor/Sensory Deficits, Normal Mood/Affect Skin: Normal Color, Warm/Dry Lymphatic: No Adenopathy Progress/Results/Core Measures Results/Orders Lab Results Laboratory Tests Test 03/15/21 14:37 Range/Units White Blood Count 12.1 H 4.3-11.0 10^3/uL Red Blood Count 1.84 L 3.80-5.11 10^6/uL Hemoglobin 4.0 *L 11.5-16.0 g/dL Hematocrit 15 *L 35-52 % Mean Corpuscular Volume 79 L 80-99 fL Mean Corpuscular Hemoglobin 22 L 25-34 pg Mean Corpuscular Hemoglobin Concent 27 L 32-36 g/dL Red Cell Distribution Width 19.4 H 10.0-14.5 % Platelet Count 163 130-400 10^3/uL Mean Platelet Volume 9.8 9.0-12.2 fL Immature Granulocyte % (Auto) 1 % Neutrophils (%) (Auto) 85 H 42-75 % Lymphocytes (%) (Auto) 8 L 12-44 % Monocytes (%) (Auto) 5 0-12 % Eosinophils (%) (Auto) 2 0-10 % Basophils (%) (Auto) 0 0-10 % Neutrophils # (Auto) 10.2 H 1.8-7.8 X 10^3 Lymphocytes # (Auto) 0.9 L 1.0-4.0 X 10^3 Monocytes # (Auto) 0.7 0.0-1.0 X 10^3 Eosinophils # (Auto) 0.2 0.0-0.3 10^3/uL Basophils # (Auto) 0.0 0.0-0.1 10^3/uL Immature Granulocyte # (Auto) 0.1 0.0-0.1 10^3/uL Neutrophils % (Manual) 83 % Lymphocytes % (Manual) 8 % Monocytes % (Manual) 8 % Eosinophils % (Manual) 1 % Basophils % (Manual) 0 % Band Neutrophils 0 % Hypochromasia MODERATE Anisocytosis MODERATE Prothrombin Time 12.7 12.2-14.7 SEC INR Comment 0.9 0.8-1.4 Activated Partial Thromboplast Time 27 24-35 SEC Sodium Level 134 L 135-145 MMOL/L Potassium Level 4.0 3.6-5.0 MMOL/L Chloride Level 99 98-107 MMOL/L Carbon Dioxide Level 23 21-32 MMOL/L Anion Gap 12 5-14 MMOL/L Blood Urea Nitrogen 15 7-18 MG/DL Creatinine 0.70 0.60-1.30 MG/DL Estimat Glomerular Filtration Rate 82 BUN/Creatinine Ratio 21 Glucose Level 102 70-105 MG/DL Calcium Level 8.5 8.5-10.1 MG/DL Corrected Calcium 8.8 8.5-10.1 MG/DL Total Bilirubin 0.2 0.1-1.0 MG/DL Aspartate Amino Transf (AST/SGOT) 14 5-34 U/L Alanine Aminotransferase (ALT/SGPT) 7 0-55 U/L Alkaline Phosphatase 124 40-136 U/L Troponin I < 0.30 <0.30 NG/ML Pro-B-Type Natriuretic Peptide 1761.0 H <75.0 PG/ML Total Protein 5.9 L 6.4-8.2 GM/DL Albumin 3.6 3.2-4.5 GM/DL My Orders Orders - CINDI ROSENBAUM MD Cbc With Automated Diff (03/15/21 14:35) Chest 1 View Ap/Pa Only (03/15/21 14:35) Ekg Tracing (03/15/21 14:35) Comprehensive Metabolic Panel (03/15/21 14:35) Protime With Inr (03/15/21 14:35) Partial Thromboplastin Time (03/15/21 14:35) O2 (03/15/21 14:35) Monitor-Rhythm Ecg Trace Only (03/15/21 14:35) Aspirin Chewable Tablet (Baby Aspirin Ch (03/15/21 14:45) Ed Iv/Invasive Line Start (03/15/21 14:35) Troponin I Fs (03/15/21 14:35) Probnp Fs (03/15/21 14:35) Troponin I Fs (03/15/21 16:35) Nitroglycerin Ointment (Nitrobid Ointme (03/15/21 14:45) Manual Differential (03/15/21 14:37) Pantoprazole Injection (Protonix Injecti (03/15/21 15:30) Medications Given in ED Current Medications Medications Dose Ordered Sig/Veto Route Start Time Stop Time Status Last Admin Dose Admin Pantoprazole 40 mg ONCE ONCE IV 03/15/21 15:30 03/15/21 15:31 DC 03/15/21 15:23 40 MG Vital Signs/I&O 03/15/21 03/15/21 03/15/21 14:23 16:00 16:28 Temp 36.2 36.4 Pulse 88 93 Resp 18 18 B/P (MAP) 136/61 (86) 132/58 Pulse Ox 92 92 92 O2 Delivery Room Air Nasal Cannula Nasal Cannula O2 Flow Rate 2.00 2.00 Progress Progress Note : Progress Note 70-year-old female with above history coming in due to chest pain and weakness. ABCs were intact and vitals were stable on presentation. Physical exam reassuring with no focal abnormalities other than she does appear pale. Initial EKG ordered because of her chest pain with some T wave inversions inferior laterally. Hemoglobin came back very rapidly at 4. Quickly assessed her for GI bleed and she had brown stool that was Hemoccult negative. She denies bleeding anywhere including hematuria, hematemesis, hemoptysis, vaginal bleeding, or any recent trauma. I reviewed her recent history in our system, and she has been admitted a few times for GI bleeds. She does not have any history of liver disease, so therefore did not give her ceftriaxone. Did give her Protonix. She does need blood, however we have very limited supply in [place] and are unable to crossmatch her. Given she is not hypotensive, we will transfer her to [place] for blood products and admission. Also spoke with Dr. Brooks, cardiology, and Dr. Zimmerman, gen surg, as consultants for her admission. Initial ECG Impression Date: Mar 15, 2021 Initial ECG Impression Time: 14:23 Initial ECG Rate: 88 Initial ECG Rhythm: Normal Sinus Comment Narrow QRS, normal axis, subtle ST depressions inferiorly and laterally with T wave inversions in the same leads, no ST elevations, compared to prior EKG in 2019 the T wave inversions in inferolateral leads are new Diagnostic Imaging Diagonstic Imaging: Xray Plain Films/CT/US/NM/MRI: chest Comments [facility] [place], [place] NAME: STEPHAN MARQUEZ [facility] REC#: [id number] PT STATUS: REG ER : 1950 PHYSICIAN: CINDI ROSENBAUM MD ADMIT DATE: 03/15/21/ER FS Draft Date of Exam:03/15/21 CHEST 1 VIEW AP/PA ONLY INDICATION: Chest pain. EXAMINATION: Portable chest at 2:28 p.m. FINDINGS: Heart size and pulmonary vascularity are normal. Lungs are clear. There are no effusions or pneumothoraces. IMPRESSION: Negative chest. Dictated on workstation # [id number] Dict: 03/15/21 1453 Trans: 03/15/21 1454 [id number] Interpreted by: DEONTE MERRILL MD Electronically signed by: Departure Impression Primary Impression: Severe anemia Additional Impressions: GI bleed Qualified Codes: K92.2 - Gastrointestinal hemorrhage, unspecified Chest pain Qualified Codes: R07.9 - Chest pain, unspecified Disposition: 30 STILL A PATIENT Condition: Stable Transfer Transfer Reason: Patient preference Transfer Facility: Spoke with Dr. Pardo who will admit to [facility] ICU as inpatient. Method of Transfer: EMS Departure-Patient Inst. Referrals: ISABELLE HO APRN (PCP/Family) Primary Care Physician CINDI ROSENBAUM MD Mar 15, 2021 14:35
[2021-03-15] MEDS ORDERED: NITROGLYCERIN 2% OINT 1 GM UNIT DOSE PACKET TOP ONE (14:45)
[2021-03-15] MEDS ORDERED: ASPIRIN 81 MG CHEW (CHILDREN'S ASA) PO ONE (14:45)
--- NOTE | 2021-03-15 14:55 | Diagnostic Imaging Report ---
INDICATION: Chest pain. EXAMINATION: Portable chest at 2:28 p.m. FINDINGS: Heart size and pulmonary vascularity are normal. Lungs are clear. There are no effusions or pneumothoraces. IMPRESSION: Negative chest. Dictated by: Dictated on workstation # [id number]
[2021-03-15 15:04] LABS: WHITE BLOOD COUNT 12.1 10^3/uL (4.3-11.0)
[2021-03-15 15:05] LABS: HEMATOCRIT 15 % (35-52); LYMPHOCYTES % (AUTO) 8 % (12-44); MEAN CORPUSCULAR HEMOGLOBIN 22 pg (25-34); MEAN CORPUSCULAR HGB CONC 27 g/dL (32-36); MEAN CORPUSCULAR VOLUME 79 fL (80-99); MEAN PLATELET VOLUME 9.8 fL (9.0-12.2); NEUTROPHILS % (AUTO) 85 % (42-75); PLATELET COUNT 163 10^3/uL (130-400)
[2021-03-15 15:06] LABS: BASOPHILS % (AUTO) 0 % (0-10); EOSINOPHILS % (AUTO) 2 % (0-10); MONOCYTES % (AUTO) 5 % (0-12)
[2021-03-15 15:07] LABS: EOSINOPHILS # (AUTO) 0.2 10^3/uL (0.0-0.3); LYMPHOCYTES # (AUTO) 0.9 X 10^3 (1.0-4.0); MONOCYTES # (AUTO) 0.7 X 10^3 (0.0-1.0); NEUTROPHILS # (AUTO) 10.2 X 10^3 (1.8-7.8)
[2021-03-15 15:21] LABS: INR 0.9 (0.8-1.4); PROTHROMBIN TIME PATIENT 12.7 SEC (12.2-14.7)
[2021-03-15 15:27] LABS: ALBUMIN 3.6 GM/DL (3.2-4.5); BILIRUBIN,TOTAL 0.2 MG/DL (0.1-1.0); CALCIUM 8.5 MG/DL (8.5-10.1); CREATININE SERUM 0.7 MG/DL (0.60-1.30); TOTAL PROTEIN 5.9 GM/DL (6.4-8.2)
[2021-03-15] MEDS ORDERED: PANTOPRAZOLE 40 MG (PROTONIX) VIAL IV ONE (15:30)
[2021-03-15 15:50] LABS: ANISOCYTOSIS MODERATE; BAND NEUTROPHILS 0 %; BASOPHILS % (MANUAL) 0 %; EOSINOPHILS % (MANUAL) 1 %; HYPOCHROMASIA MODERATE; LYMPHOCYTES % (MANUAL) 8 %; MONOCYTES % (MANUAL) 8 %; NEUTROPHILS % (MANUAL) 83 %
[2021-03-15] MEDS ORDERED: NS IV 500 ML 500 ML IV SCH (18:00)
[2021-03-15] MEDS ORDERED: CATHETER FLUSH 10 ML SYR IV PRN (18:00)
[2021-03-15 18:07] VITALS: BP 136/61
--- NOTE | 2021-03-15 19:48 | History & Physical-Hospitalist ---
History of Present Illness HPI/Chief Complaint Chief complaint: Symptomatic anemia History of present illness: This is a 70-year-old white female known to us from earlier this year hospital stay due to severe anemia. She presented to the [place] ER with chest pain and weakness found to have hemoglobin of 4.0 Dr. Zimmerman consulted. Transfusion will be required Source: patient Exam Limitations: no limitations Date Seen 03/15/21 Time Seen by a Provider: 18:00 Attending Physician Erna Forbes DO [facility] Referring Physician Date of Admission Mar 15, 2021 at 17:30 Home Medications & Allergies Home Medications Reviewed patient Home Medication Reconciliation performed by pharmacy medication reconciliations sound engineering technician and/or nursing. Patients Allergies have been reviewed. Allergies Allergies Coded Allergies latex (Verified Allergy, Unknown, 02/07/19) Past Clierfr-Uqecta-Sqjtxz Hx Patient Social History Marrital Status: single Employed/Student: retired Tobacco Use?: Yes Tobacco type used: Cigarettes Smoking Status: Current Everyday Smoker Smokeless Tobacco Frequency: Never a User Use of E-Cig and/or Vaping dev: No Substance use?: No Alcohol Use?: No Pt feels they are or have been: No Immunizations Up To Date Tetanus Booster (TDap): Unknown Hepatitis A: No Hepatitis B: No Date of Pneumonia Vaccine: Feb 25, 2017 Seasonal Allergies Seasonal Allergies: No Current Status status: No status: No Advance Directives: No Communicates: Verbally Primary Language: Palauan Preferred Spoken Language: Palauan Is interpretation needed?: No Sensory deficits: Hearing impairment Implanted or Applied Medical D: Stents Past Medical History Chronic Edema/Swelling, Hypertension Gastroesophageal Reflux, Gastrointestinal Bleed, Ulcer Family Medical History Cardiovascular disease 19 FATHER 19 MOTHER Glaucoma 19 FATHER Hypertension 19 FATHER 19 MOTHER No Pertinent Family Hx Bilateral Endarterectomy Review of Systems ROS-Unable to Obtain: Patient sleeping Constitutional: see HPI Physical Exam Physical Exam Vital Signs Vital Signs - First Documented 03/15/21 03/15/21 03/15/21 14:23 16:00 18:07 Temp 36.2 Pulse 88 Resp 18 B/P (MAP) 136/61 (86) Pulse Ox 92 O2 Delivery Room Air O2 Flow Rate 2.00 FiO2 21 Capillary Refill : Less Than 3 Seconds Height, Weight, BMI Height: 4'10.00" Weight: 119lbs. oz. 53.368715bw; 29.27 BMI Method:Stated General Appearance: No Apparent Distress, Chronically ill Eyes: Right Eye Normal Inspection, Right Eye PERRL HEENT: PERRL/EOMI, Normal ENT Inspection, Pharynx Normal, Moist Mucous Membranes Neck: Full Range of Motion, Normal Inspection, Non Tender Respiratory: Chest Non Tender, Lungs Clear, Normal Breath Sounds, No Accessory Muscle Use, No Respiratory Distress Cardiovascular: Regular Rate, Rhythm, No Edema, No Gallop, No JVD, No Murmur, Normal Peripheral Pulses Gastrointestinal: Normal Bowel Sounds, No Organomegaly, No Pulsatile Mass, Non Tender, Soft Back: Normal Inspection, No CVA Tenderness, No Vertebral Tenderness Extremity: Normal Capillary Refill, Normal Inspection, Normal Range of Motion, Non Tender, No Calf Tenderness, No Pedal Edema Neurologic/Psychiatric: Alert, Oriented x3 (When awake), No Motor/Sensory Deficits, Normal Mood/Affect Skin: Normal Color, Warm/Dry Lymphatic: No Adenopathy Results Results/Procedures Labs Laboratory Tests 03/15/21 14:37 Patient resulted labs reviewed. Assessment/Plan Admission Diagnosis Assessment: Symptomatic anemia Chest pain History of transfusions in the past Lives alone Plan: Dr. Zimmerman consult Dr. Brooks consult Transfuse Admission Status: Inpatient Order (span 2 midnights) Reason for Inpatient Admission: Symptomatic anemia 4.0 hemoglobin ERNA FORBES DO Mar 15, 2021 19:48
[2021-03-15 20:00] VITALS: BP 109/63
[2021-03-15] MEDS ORDERED: DOCUSATE SODIUM 100 MG (COLACE) CAP PO PRN (20:45)
[2021-03-15] MEDS ORDERED: diphenhydrAMINE 25 MG TAB (BENADRYL) PO PRN (20:45)
[2021-03-15] MEDS ORDERED: ACETAMINOPHEN 500 MG TAB (TYLENOL) PO PRN (20:45)
[2021-03-15] MEDS ORDERED: CALCIUM CARBONATE 500 MG (TUMS) TAB.CHEW PO PRN (20:45)
[2021-03-15] MEDS ORDERED: ONDANSETRON 4 MG (ZOFRAN) ORAL DISSOLVE TAB PO PRN (20:45)
[2021-03-15] MEDS ORDERED: ONDANSETRON 4 MG/2 ML (SDV) Z0FRAN IVP PRN (20:45)
[2021-03-15] MEDS ORDERED: LOPERAMIDE 2 MG (IMODIUM) TABLET PO PRN (20:45)
[2021-03-15] MEDS ORDERED: ALPRAZolam 0.25 MG (XANAX) TAB PO PRN (20:45)
[2021-03-15] MEDS ORDERED: MELATONIN 3 MG TABLET PO PRN (20:45)
[2021-03-15] MEDS: polyethylene glycoL POWDER 17 GM (MIRALAX) PACK PO SCH (22:06)
[2021-03-15] MEDS: SENNA W/DOCUSATE (SENOKOT S) TABLET PO SCH (22:06)
[2021-03-15] MEDS: PANTOPRAZOLE 40 MG (PROTONIX) VIAL IV SCH (22:08)
[2021-03-15] MEDS: CATHETER FLUSH 10 ML SYR IV SCH (22:08)
[2021-03-15] MEDS ORDERED: morphine INJ 4 MG/ML 1 ML (VIAL/SYRINGE) IVP PRN (22:15)
[2021-03-15 22:46] VITALS: BP 105/59
[2021-03-15 23:02] VITALS: BP 102/52
[2021-03-15 23:07] VITALS: BP 110/63
[2021-03-15 23:12] VITALS: BP 109/64
[2021-03-16] VITALS (13 sets, daily range): BP systolic 108–168; BP diastolic 57–77
[2021-03-16] MEDS: CATHETER FLUSH 10 ML SYR IV SCH ×3 (05:57→22:17)
[2021-03-16 06:52] LABS: HEMATOCRIT 21 % (35-52); MEAN CORPUSCULAR HEMOGLOBIN 25 pg (25-34); MEAN CORPUSCULAR HGB CONC 30 g/dL (32-36); MEAN CORPUSCULAR VOLUME 83 fL (80-99); MEAN PLATELET VOLUME 9.4 fL (9.0-12.2); PLATELET COUNT 365 10^3/uL (130-400); WHITE BLOOD COUNT 9.2 10^3/uL (4.3-11.0)
[2021-03-16 06:55] LABS: HEMOGLOBIN 6.4 g/dL (11.5-16.0)
--- NOTE | 2021-03-16 06:55 | Consultation - Surgery ---
HALIE CHUA 03/16/21 0655: History of Present Illness History of Present Illness Patient Consulted On(loren/time) 03/16/21 06:49 Time Seen by Provider: 06:30 History of Present Illness Patient was noncompliant on 03/16. 70-year-old female with past medical history of CAD with stenting, hypertension, previous GI bleed with AVM, carotid artery endarterectomy, and previous GI bleeds with most recent scope showing an AVM coming in via EMS from home due to chest pain on 03/15. Symptoms have been ongoing for roughly 2 days, and they have been constant, and nothing seems to make it better or worse. She says this does not feel like when she had a heart attack. Associated with general weakness and fatigue. Having normal bowel movements that are brown noted in the ED (03/16), but today she states that she has not had a bowel movement in 3 or 4 days. She says she is not bleeding from anywhere. She does not take any blood thinners according to ED note. ROS: Denies N/V, stool in blood, CP, diarrhea, fever, and abdominal pain today. She is coughing without mucus, and is cold. Allergies and Home Medications Allergies Coded Allergies: latex (Verified Allergy, Unknown, 02/07/19) Patient Home Medication List Acetaminophen (Tylenol Extra Strength) 500 Mg Tablet, 500 MG PO Q6H PRN for PAIN-MILD (1-4), (Reported) Entered as Reported by: JOANN MUNOZ on 07/22/20 1139 Last Action: Continued Ascorbic Acid (Vitamin C) 1,000 Mg Tablet, 1,000 MG PO DAILY, (Reported) Entered as Reported by: OUSMANE KIRAN on 03/16/21 1515 Last Action: Converted Docusate Sodium (Docusate Sodium) 100 Mg Capsule, 200 MG PO DAILY, (Reported) Entered as Reported by: OUSMANE KIRAN on 03/16/21 1512 Last Action: Continued Escitalopram Oxalate (Escitalopram Oxalate) 20 Mg Tablet, 20 MG PO DAILY, (Reported) Entered as Reported by: JOANN MUNOZ on 02/25/19 0913 Last Action: Converted Fexofenadine HCl (Fexofenadine HCl) 180 Mg Tablet, 0 PO BID, (Reported) Entered as Reported by: OUSMANE KIRAN on 10/5/21 1514 Last Action: Converted Lamotrigine (Lamotrigine) 200 Mg Tablet, 200 MG PO DAILY, (Reported) Entered as Reported by: JOANN MUNOZ on 02/25/19952 Last Action: Converted Lisinopril (Lisinopril) 40 Mg Tablet, 20 MG PO DAILY, (Reported) Entered as Reported by: OUSMANE KIRAN on 03/16/211509 Last Action: Continued Mirabegron (Myrbetriq) 50 Mg Tab.er.24h, 50 MG PO DAILY, (Reported) Entered as Reported by: OUSMANE KIRAN on 03/16/211515 Last Action: Converted Montelukast Sodium (Montelukast Sodium) 10 Mg Tablet, 10 MG PO 1900, (Reported) Entered as Reported by: OUSMANE KIRAN on 03/16/211509 Last Action: Continued Multivit-Min/FA/Lycopene/Lut (Centrum Silver Tablet) 1 Each Tablet, 1 EACH PO DAILY, (Reported) Entered as Reported by: OUSMANE KIRAN on 03/16/211510 Last Action: Converted Pantoprazole Sodium (Protonix) 40 Mg Tablet.dr, 40 MG PO BID Prescribed by: MAITE PARDO on 03/17/211116 Pravastatin Sodium (Pravastatin Sodium) 80 Mg Tablet, 80 MG PO 1900, (Reported) Entered as Reported by: OUSMANE KIRAN on 03/16/211515 Last Action: Converted Primidone (Mysoline) 250 Mg Tablet, 250 MG PO BID, (Reported) Entered as Reported by: JOANN MUNOZ on 02/25/19952 Last Action: Continued Raloxifene HCl (Raloxifene HCl) 60 Mg Tablet, 60 MG PO DAILY, (Reported) Entered as Reported by: JOANN MUNOZ on 02/25/19952 Last Action: Continued Topiramate (Topiramate) 50 Mg Tablet, 50 MG PO 1900, (Reported) Entered as Reported by: OUSMANE KIRAN on 03/16/211516 Last Action: Converted Discontinued Medications Amlodipine Besylate (Amlodipine Besylate) 5 Mg Tablet, 5 MG PO DAILY Discontinued Reason: No Longer Taking Prescribed by: MAITE PARDO on 07/24/20 1121 Last Action: Discontinued Aspirin (Aspirin) 81 Mg Tab.chew, 81 MG PO DAILY, (Reported) Entered as Reported by: OUSMANE KIRAN on 03/16/21 1514 Last Action: Held Cefdinir (Cefdinir) 300 Mg Capsule, 300 MG PO BID Discontinued Reason: No Longer Taking Prescribed by: MAITE PARDO on 07/24/20 1121 Last Action: Discontinued Ferrous Sulfate (Iron) 325 Mg Tablet, 325 MG PO DAILY, (Reported) Discontinued Reason: No Longer Taking Entered as Reported by: JOANN MUNOZ on 02/25/19 1001 Last Action: Discontinued Hydrochlorothiazide (Hydrochlorothiazide) 12.5 Mg Tablet, 12.5 MG PO DAILY, (Reported) Entered as Reported by: OUSMANE KIRAN on 03/16/21 1510 Last Action: Held Lisinopril (Lisinopril) 40 Mg Tablet, 40 MG PO DAILY, (Reported) Discontinued Reason: No Longer Taking Entered as Reported by: JOANN MUNOZ on 02/25/19 0953 Last Action: Discontinued Loratadine (Claritin) 10 Mg Tablet, 10 MG PO DAILY, (Reported) Discontinued Reason: No Longer Taking Entered as Reported by: JOANN MUNOZ on 07/22/20 1141 Last Action: Discontinued Meclizine HCl (Meclizine HCl) 25 Mg Tablet, 50 MG PO DAILY PRN for DIZZINESS, (Reported) Discontinued Reason: No Longer Taking Entered as Reported by: JOANN MUNOZ on 02/25/19 1421 Last Action: Discontinued Mirabegron (Myrbetriq) 50 Mg Tab.er.24h, 50 MG PO DAILY, (Reported) Discontinued Reason: No Longer Taking Entered as Reported by: JOANN MUNOZ on 07/22/20 1139 Last Action: Discontinued Montelukast Sodium (Montelukast Sodium) 10 Mg Tablet, 10 MG PO DAILY, (Reported) Discontinued Reason: No Longer Taking Entered as Reported by: JOANN MUNOZ on 02/25/19 0939 Last Action: Discontinued Pantoprazole Sodium (Protonix) 40 Mg Tablet.dr, 40 MG PO BID Discontinued Reason: No Longer Taking Prescribed by: MAITE PARDO on 07/24/20 1126 Last Action: Discontinued Pravastatin Sodium (Pravastatin Sodium) 80 Mg Tablet, 80 MG PO HS, (Reported) Discontinued Reason: No Longer Taking Entered as Reported by: JOANN MUNOZ on 07/22/20 1139 Last Action: Discontinued Topiramate (Topiramate) 50 Mg Tablet, 50 MG PO BID, (Reported) Discontinued Reason: No Longer Taking Entered as Reported by: JOANN MUNOZ on 02/25/19 0959 Last Action: Discontinued Tramadol HCl (Tramadol HCl) 50 Mg Tablet, 50-100 MG PO QID PRN for PAIN- MODERATE, (Reported) Discontinued Reason: No Longer Taking Entered as Reported by: JOANN MUNOZ on 02/25/19 0939 Last Action: Discontinued Past Krmkehe-Wkqmuq-Woxetw Hx Patient Social History Smoking Status: Current Everyday Smoker Type Used: Cigarettes 2nd Hand Smoke Exposure: No Recent Hopitalizations: No Alcohol Use?: No Have you traveled recently?: No Immunizations Up To Date Tetanus Booster (TDap): Unknown Date of Pneumonia Vaccine: Feb 25, 2017 Seasonal Allergies Seasonal Allergies: No Surgeries History of Surgeries: No Respiratory History of Respiratory Disorde: No Cardiovascular History of Cardiac Disorders: Yes Cardiac Disorders: Chronic Edema/Swelling, Hypertension Neurological History of Neurological Disord: No Genitourinary History of Genitourinary Disor: No Gastrointestinal History of Gastrointestinal Di: Yes Gastrointestinal Disorders: Gastroesophageal Reflux, Gastrointestinal Bleed, Ulcer Musculoskeletal History of Musculoskeletal Dis: No Endocrine History of Endocrine Disorders: No HEENT History of HEENT Disorders: No Cancer History of Cancer: No Psychosocial History of Psychiatric Problem: No Integumentary History of Skin or Integumenta: No Family Medical History Significant Family History: No Pertinent Family Hx Family Medial History: Cardiovascular disease 19 FATHER 19 MOTHER Glaucoma 19 FATHER Hypertension 19 FATHER 19 MOTHER Physical Exam-General Problems Physical Exam Vital Signs Vital Signs - First Documented 03/15/21 03/15/21 03/15/21 14:23 16:00 18:07 Temp 36.2 Pulse 88 Resp 18 B/P (MAP) 136/61 (86) Pulse Ox 92 O2 Delivery Room Air O2 Flow Rate 2.00 FiO2 21 Capillary Refill : Less Than 3 Seconds General Appearance: no apparent distress, other (was not cooperative in history taking) Gastrointestinal: normal bowel sounds, non tender, soft; No guarding, No te nderness Data Review Labs Laboratory Tests 03/15/21 14:37: White Blood Count 12.1H, Red Blood Count 1.84L, Hemoglobin 4.0*L, Hematocrit 15*L, Mean Corpuscular Volume 79L, Mean Corpuscular Hemoglobin 22L, Mean Corpuscular Hemoglobin Concent 27L, Red Cell Distribution Width 19.4H, Platelet Count 163, Mean Platelet Volume 9.8, Immature Granulocyte % (Auto) 1, Neutrophils (%) (Auto) 85H, Lymphocytes (%) (Auto) 8L, Monocytes (%) (Auto) 5, Eosinophils (%) (Auto) 2, Basophils (%) (Auto) 0, Neutrophils # (Auto) 10.2H, Lymphocytes # (Auto) 0.9L, Monocytes # (Auto) 0.7, Eosinophils # (Auto) 0.2, Basophils # (Auto) 0.0, Immature Granulocyte # (Auto) 0.1, Neutrophils % (Manual) 83, Lymphocytes % (Manual) 8, Monocytes % (Manual) 8, Eosinophils % (Manual) 1, Basophils % (Manual) 0, Band Neutrophils 0, Hypochromasia MODERATE, Anisocytosis MODERATE, Prothrombin Time 12.7, INR Comment 0.9, Activated Partial Thromboplast Time 27, Sodium Level 134L, Potassium Level 4.0, Chloride Level 99, Carbon Dioxide Level 23, Anion Gap 12, Blood Urea Nitrogen 15, Creatinine 0.70, Estimat Glomerular Filtration Rate 82, BUN/Creatinine Ratio 21, Glucose Level 102, Calcium Level 8.5, Corrected Calcium 8.8, Total Bilirubin 0.2, Aspartate Amino Transf (AST/SGOT) 14, Alanine Aminotransferase (ALT/SGPT) 7, Alkaline Phosphatase 124, Troponin I < 0.30, Pro-B-Type Natriuretic Peptide 1761.0H, Total Protein 5.9L, Albumin 3.6 03/15/21 18:00: 03/16/21 06:27: Assessment/Plan Assessment/Plan Assessment/Plan Assessment: Anemia History of Blood transfusions Chest pain Plan: EDG planned 03/16 Transfused two units of blood with current hemoglobin at 6.4, will need to transfuse one more unit Monitor hemoglobin Cardiology consult PRIMO FIGUEROA DO 03/16/21 2685: History of Present Illness History of Present Illness Date Seen by Provider: Mar 16, 2021 History of Present Illness Consult requested by Dr. Pardo for anemia. Patient is a 70-year-old female who has been having chest pain for approximately 2 days. Patient with history of upper GI bleed secondary to AVM. Patient also have a hemoglobin of 4. And has been transfused 2 units which hemoglobin up to 6.4. Patient states that nothing seems to make her pain better or worse. Having weakness and fatigue. She does not have any blood in the stools that she knows of. She has no other complaints at this time. She denies any nausea vomiting fever sweats chills shortness of breath or chest pain. Allergies and Home Medications Allergies Coded Allergies: latex (Verified Allergy, Unknown, 02/07/19) Patient Home Medication List Home Medication List Reviewed: Yes Acetaminophen (Tylenol Extra Strength) 500 Mg Tablet, 500 MG PO Q6H PRN for PAIN-MILD (1-4), (Reported) Entered as Reported by: JOANN MUNOZ on 07/22/20 1139 Last Action: Continued Ascorbic Acid (Vitamin C) 1,000 Mg Tablet, 1,000 MG PO DAILY, (Reported) Entered as Reported by: OUSMANE KIRAN on 03/16/211514 Last Action: Converted Docusate Sodium (Docusate Sodium) 100 Mg Capsule, 200 MG PO DAILY, (Reported) Entered as Reported by: OUSMANE KIRAN on 03/16/211511 Last Action: Continued Escitalopram Oxalate (Escitalopram Oxalate) 20 Mg Tablet, 20 MG PO DAILY, (Reported) Entered as Reported by: JOANN MUNOZ on 02/25/19952 Last Action: Converted Fexofenadine HCl (Fexofenadine HCl) 180 Mg Tablet, 0 PO BID, (Reported) Entered as Reported by: OUSMANE KIRAN on 03/16/211513 Last Action: Converted Lamotrigine (Lamotrigine) 200 Mg Tablet, 200 MG PO DAILY, (Reported) Entered as Reported by: JOANN MUNOZ on 02/25/19952 Last Action: Converted Lisinopril (Lisinopril) 40 Mg Tablet, 20 MG PO DAILY, (Reported) Entered as Reported by: OUSMANE KIRAN on 03/16/211509 Last Action: Continued Mirabegron (Myrbetriq) 50 Mg Tab.er.24h, 50 MG PO DAILY, (Reported) Entered as Reported by: OUSMANE KIRAN on 03/16/211515 Last Action: Converted Montelukast Sodium (Montelukast Sodium) 10 Mg Tablet, 10 MG PO 1900, (Reported) Entered as Reported by: OUSMANE KIRAN on 03/16/211509 Last Action: Continued Multivit-Min/FA/Lycopene/Lut (Centrum Silver Tablet) 1 Each Tablet, 1 EACH PO DAILY, (Reported) Entered as Reported by: OUSMANE KIRAN on 03/16/211510 Last Action: Converted Pantoprazole Sodium (Protonix) 40 Mg Tablet.dr, 40 MG PO BID Prescribed by: MAITE PARDO on 03/17/21 111 Pravastatin Sodium (Pravastatin Sodium) 80 Mg Tablet, 80 MG PO 1900, (Reported) Entered as Reported by: OUSMANE KIRAN on 03/16/211515 Last Action: Converted Primidone (Mysoline) 250 Mg Tablet, 250 MG PO BID, (Reported) Entered as Reported by: JOANN MUNOZ on 02/25/19952 Last Action: Continued Raloxifene HCl (Raloxifene HCl) 60 Mg Tablet, 60 MG PO DAILY, (Reported) Entered as Reported by: JOANN MUNOZ on 02/25/19952 Last Action: Continued Topiramate (Topiramate) 50 Mg Tablet, 50 MG PO 0, (Reported) Entered as Reported by: OUSMANE KIRAN on 03/16/211516 Last Action: Converted Discontinued Medications Amlodipine Besylate (Amlodipine Besylate) 5 Mg Tablet, 5 MG PO DAILY Discontinued Reason: No Longer Taking Prescribed by: MAITE PARDO on 07/24/201120 Last Action: Discontinued Aspirin (Aspirin) 81 Mg Tab.chew, 81 MG PO DAILY, (Reported) Entered as Reported by: OUSMANE KIRAN on 03/16/211513 Last Action: Held Cefdinir (Cefdinir) 300 Mg Capsule, 300 MG PO BID Discontinued Reason: No Longer Taking Prescribed by: MAITE PARDO on 07/24/201120 Last Action: Discontinued Ferrous Sulfate (Iron) 325 Mg Tablet, 325 MG PO DAILY, (Reported) Discontinued Reason: No Longer Taking Entered as Reported by: JOANN MUNOZ on 02/25/19 1001 Last Action: Discontinued Hydrochlorothiazide (Hydrochlorothiazide) 12.5 Mg Tablet, 12.5 MG PO DAILY, (Reported) Entered as Reported by: OUSMANE KIRAN on 03/16/211509 Last Action: Held Lisinopril (Lisinopril) 40 Mg Tablet, 40 MG PO DAILY, (Reported) Discontinued Reason: No Longer Taking Entered as Reported by: JOANN MUNOZ on 02/25/19 0953 Last Action: Discontinued Loratadine (Claritin) 10 Mg Tablet, 10 MG PO DAILY, (Reported) Discontinued Reason: No Longer Taking Entered as Reported by: JOANN MUNOZ on 07/22/20 1141 Last Action: Discontinued Meclizine HCl (Meclizine HCl) 25 Mg Tablet, 50 MG PO DAILY PRN for DIZZINESS, (Reported) Discontinued Reason: No Longer Taking Entered as Reported by: JOANN MUNOZ on 02/25/19 1421 Last Action: Discontinued Mirabegron (Myrbetriq) 50 Mg Tab.er.24h, 50 MG PO DAILY, (Reported) Discontinued Reason: No Longer Taking Entered as Reported by: JOANN MUNOZ on 07/22/20 1139 Last Action: Discontinued Montelukast Sodium (Montelukast Sodium) 10 Mg Tablet, 10 MG PO DAILY, (Reported) Discontinued Reason: No Longer Taking Entered as Reported by: JOANN MUNOZ on 02/25/1939 Last Action: Discontinued Pantoprazole Sodium (Protonix) 40 Mg Tablet.dr, 40 MG PO BID Discontinued Reason: No Longer Taking Prescribed by: MAITE PARDO on 07/24/20 1126 Last Action: Discontinued Pravastatin Sodium (Pravastatin Sodium) 80 Mg Tablet, 80 MG PO HS, (Reported) Discontinued Reason: No Longer Taking Entered as Reported by: JOANN MUNOZ on 07/22/20 1139 Last Action: Discontinued Topiramate (Topiramate) 50 Mg Tablet, 50 MG PO BID, (Reported) Discontinued Reason: No Longer Taking Entered as Reported by: JOANN MUNOZ on 02/25/19 0959 Last Action: Discontinued Tramadol HCl (Tramadol HCl) 50 Mg Tablet, 50-100 MG PO QID PRN for PAIN- MODERATE, (Reported) Discontinued Reason: No Longer Taking Entered as Reported by: JOANN MUNOZ on 02/25/19938 Last Action: Discontinued Past Otmldbk-Sebwmk-Xxjfqa Hx Reviewed Nursing Assessment Reviewed/Agree w Nursing PMH: Yes Family Medical History Significant Family History: No Pertinent Family Hx Family Medial History: Cardiovascular disease 19 FATHER 19 MOTHER Glaucoma 19 FATHER Hypertension 19 FATHER 19 MOTHER Review of Systems-General Constitutional: No chills, No fever; weakness EENTM: No blurred vision, No double vision Respiratory: No cough, No dyspnea on exertion Gastrointestinal: No abdominal pain, No melena, No nausea, No vomiting Genitourinary: No decreased output, No discharge Musculoskeletal: No back pain, No joint pain Skin: No change in color, No change in hair/nails Psychiatric/Neurological: Denies See HPI, Denies Depressed, Denies Emotional Problems All Other Systems Reviewed Negative Unless Noted: Yes (Negative excepted noted.) Physical Exam-General Problems Physical Exam General Appearance: no apparent distress, thin HEENT: PERRL/EOMI, normal ENT inspection Neck: non-tender, supple Respiratory: chest non-tender, no respiratory distress, no accessory muscle use Cardiovascular: regular rate, rhythm, no JVD Gastrointestinal: non tender, soft; No guarding, No tenderness Rectal: deferred Back: no CVA tenderness, no vertebral tenderness Extremities: non-tender, normal inspection Neurologic/Psychiatric: grainer machine II-XII nml as tested, alert, normal mood/affect, oriented x 3 Skin: warm/dry, pallor Lymphatic: no adenopathy Assessment/Plan Assessment/Plan Assessment/Plan Anemia likely upper gi bleed history of avm stomach History of Blood transfusions Chest pain follow hgb and transfuse as needed patient discussed risks and benefit of egd all other indicated procedures and wishes to proceed. NPO On protonix to endo today Supervisory-Addendum Brief Verification & Attestation Participated in pt care: history, MDM, physical Personally performed: exam, history, MDM, supervision of care Care discussed with: Medical Student Procedures: n/a Results interpretation: Verified all documentation Verification and Attestation of Medical Student E/M Service A medical student performed and documented this service in my presence. I reviewed and verified all information documented by the medical student and made modifications to such information, when appropriate. I personally performed the physical exam and medical decision making. Primo Figueroa, Mar 16, 2021,22:11 HALIE CHUA Mar 16, 2021 06:55 PRIMO FIGUEROA DO Mar 16, 2021 16:57
[2021-03-16 07:01] LABS: POTASSIUM 3.5 MMOL/L (3.6-5.0)
[2021-03-16 07:02] LABS: CALCIUM 8.6 MG/DL (8.5-10.1)
[2021-03-16 07:03] LABS: TOTAL PROTEIN 5.4 GM/DL (6.4-8.2)
[2021-03-16 07:05] LABS: BILIRUBIN,TOTAL 0.7 MG/DL (0.1-1.0)
[2021-03-16 07:07] LABS: CREATININE SERUM 0.64 MG/DL (0.60-1.30)
[2021-03-16] MEDS: PANTOPRAZOLE 40 MG (PROTONIX) VIAL IV SCH ×2 (08:17→20:06)
[2021-03-16] MEDS: SENNA W/DOCUSATE (SENOKOT S) TABLET PO SCH ×2 (08:18→20:06)
[2021-03-16] MEDS: polyethylene glycoL POWDER 17 GM (MIRALAX) PACK PO SCH ×2 (08:18→20:06)
[2021-03-16] MEDS ORDERED: ACETAMINOPHEN 325 MG TABLET PO PRN (09:00)
[2021-03-16] MEDS ORDERED: LACTATED RINGERS 1,000 ML IV ONE (09:58)
[2021-03-16] MEDS ORDERED: LACTATED RINGERS 1,000 ML IV STA (10:02)
[2021-03-16] MEDS ORDERED: HURRICAINE EXT TUBE (BENZOCAINE) XX PRN (10:15)
[2021-03-16] MEDS ORDERED: proPOfol 200 MG/20 ML (DIPRIVAN) VIAL IV ONE (10:17)
--- NOTE | 2021-03-16 10:36 | Anesthesia-General Post-Op ---
MAC Patient Condition Mental Status/LOC: Same as Preop Cardiovascular: Satisfactory Nausea/Vomiting: Absent Respiratory: Satisfactory Pain: Controlled Complications: Absent Post Op Complications Complications None Follow Up Care/Instructions Patient Instructions None needed. Anesthesiology Discharge Order Discharge Order Patient is doing well, no complaints, stable vital signs, no apparent adverse anesthesia problems. No complications reported per nursing. SONIDO PALM CRNA Mar 16, 2021 10:36
--- NOTE | 2021-03-16 10:38 | Progress Note-Post Operative ---
Post-Operative Progess Note Surgeon (s)/Art Glass Setter (s) Surgeon PRIMO FIGUEROA DO Art Glass Setter: na Pre-Operative Diagnosis anemia likely upper gi bleed Post-Operative Diagnosis pyloric narrowing Procedure & Operative Findings Date of Procedure 03/16/21 Procedure Performed/Findings egd c biopsies Anesthesia Type per [employer] source operations specialist Estimated Blood Loss Estimated blood loss (mL): scant Specimens/Packing Specimens Removed body, distal esophagus healing ulcer PRIMO FIGUEROA DO Mar 16, 2021 10:38
--- NOTE | 2021-03-16 11:00 | Progress Note - Hospitalist ---
Subjective HPI/CC On Admission Date Seen by Provider: Mar 16, 2021 Time Seen by Provider: 12:00 Chief complaint: Symptomatic anemia History of present illness: This is a 70-year-old white female known to us from earlier this year hospital stay due to severe anemia. She presented to the [place] ER with chest pain and weakness found to have hemoglobin of 4.0 Dr. Zimmerman consulted. Transfusion will be required Subjective/Events-last exam Pt underwent endoscopy and EGD showed healing Ulcer Hgb 6.4, will give one more unit of blood Appreciate Dr. Zimmerman Review of Systems General: Fatigue, Malaise Objective Exam Vital Signs Vital Signs Date Time Temp Pulse Resp B/P (MAP) Pulse Ox O2 Delivery O2 Flow Rate FiO2 03/17/21 01:00 74 03/16/21 23:30 36.5 16 108/60 (76) 97 Nasal Cannula 4.00 03/15/21 18:07 21 Capillary Refill : Less Than 3 Seconds General Appearance: No Apparent Distress, WD/WN, Chronically ill Respiratory: No Accessory Muscle Use, No Respiratory Distress, Decreased Breath Sounds Cardiovascular: Regular Rate, Rhythm Results/Procedures Lab Laboratory Tests 03/16/21 06:27 Patient resulted labs reviewed. Assessment/Plan Assessment and Plan Assess & Plan/Chief Complaint Assessment: Symptomatic anemia Chest pain History of transfusions in the past Lives alone Plan: Dr. Zimmerman consult Dr. Brooks consult Transfuse 03/16/2021: Transfuse 1 more unit Appreciate all consultants MAITE PARDO DO Mar 16, 2021 11:00
[2021-03-16] MEDS ORDERED: NS IV 500 ML 500 ML IV SCH (11:15)
--- NOTE | 2021-03-16 15:06 | Consultation-Cardiology ---
HPI-Cardiology Cardiology Consultation: Date of Consultation 03/16/21 Time Seen by a Provider: 14:45 Date of Admission 03-15-21 Attending Physician Erna Pardo DO Admitting Physician [place] Consulting Physician Kishan Brooks MD HPI: Chief Complaint: Cardiac eval Ms. Oliva is a 70 yr old female admitted to [facility] from the ED with c/o increasing weakness and fatigue for the last 2-3 days. She denies any c/o CP. She has chronic mild to mod exertional SOB. She reports she continues to smoke cigs. She denies any n/v/d. She denies any fever or chills. She denies any c/o palpitations. She reports intermittent bilat LE swelling which is least in the morning and worse at the end of the day. She denies any syncope or near syncope. Review of Systems-Cardiology Review of Systems Constitutional: No chills, No fever; lightheadedness, malaise Ears/Nose/Throat: No epistaxis; other (chronic WASHOE) Respiratory: As described under HPI Cardiovascular: As described under HPI Gastrointestinal: No constipation, No diarrhea, No nausea, No vomiting, No stool coloration changes Genitourinary: No dysuria, No hematuria Musculoskeletal: no symptoms reported Skin: No rash on exposed areas, No ulcerations on exposed areas Psychiatric/Neurological: No anxiety, No depression, No seizure, No focal weakness, No syncope Hematologic: No bleeding abnormalities All Other Systems Reviewed Negative Unless Noted: Yes ACT-Rcdqnw-Cqcxli Hx Patient Social History Marrital Status: single Employed/Student: retired Smoking Status: Current Everyday Smoker 2nd Hand Smoke Exposure: No Have you traveled recently?: No Alcohol Use?: No Pt feels they are or have been: No Tobacco type used: Cigarettes Immunizations Up To Date Tetanus Booster (TDap): Unknown Date of Pneumonia Vaccine: Feb 25, 2017 Past Medical History PMH As described under Assessment. Family Medical History Family Medical History: She reports her father, mother, 3 brothers and a sister had CAD. Family History: Cardiovascular disease 19 FATHER 19 MOTHER Glaucoma 19 FATHER Hypertension 19 FATHER 19 MOTHER Allergies and Home Medications Allergies Coded Allergies: latex (Verified Allergy, Unknown, 02/07/19) Patient Home Medication List Acetaminophen (Tylenol Extra Strength) 500 Mg Tablet, 500 MG PO Q6H PRN for PAIN-MILD (1-4), (Reported) Entered as Reported by: JOANN MUNOZ on 07/22/20 1139 Amlodipine Besylate (Amlodipine Besylate) 5 Mg Tablet, 5 MG PO DAILY Prescribed by: ERNA PARDO on 07/24/20 1121 Cefdinir (Cefdinir) 300 Mg Capsule, 300 MG PO BID Prescribed by: ERNA PARDO on 07/24/20 1121 Escitalopram Oxalate (Escitalopram Oxalate) 20 Mg Tablet, 20 MG PO DAILY, (Reported) Entered as Reported by: JOANN MUNOZ on 02/25/19 0953 Ferrous Sulfate (Iron) 325 Mg Tablet, 325 MG PO DAILY, (Reported) Entered as Reported by: JOANN MUNOZ on 02/25/19 1001 Lamotrigine (Lamotrigine) 200 Mg Tablet, 200 MG PO DAILY, (Reported) Entered as Reported by: JOANN MUNOZ on 02/25/19 0953 Lisinopril (Lisinopril) 40 Mg Tablet, 40 MG PO DAILY, (Reported) Entered as Reported by: JOANN MUNOZ on 02/25/19 0953 Loratadine (Claritin) 10 Mg Tablet, 10 MG PO DAILY, (Reported) Entered as Reported by: JOANN MUNOZ on 07/22/20 1141 Meclizine HCl (Meclizine HCl) 25 Mg Tablet, 50 MG PO DAILY PRN for DIZZINESS, (Reported) Entered as Reported by: JOANN MUNOZ on 02/25/19 1421 Mirabegron (Myrbetriq) 50 Mg Tab.er.24h, 50 MG PO DAILY, (Reported) Entered as Reported by: JOANN MUNOZ on 07/22/20 1139 Montelukast Sodium (Montelukast Sodium) 10 Mg Tablet, 10 MG PO DAILY, (Reported) Entered as Reported by: JOANN MUNOZ on 02/25/19 0939 Pantoprazole Sodium (Protonix) 40 Mg Tablet.dr, 40 MG PO BID Prescribed by: ERNA PARDO on 07/24/20 1126 Pravastatin Sodium (Pravastatin Sodium) 80 Mg Tablet, 80 MG PO HS, (Reported) Entered as Reported by: JOANN MUNOZ on 07/22/20 1139 Primidone (Mysoline) 250 Mg Tablet, 250 MG PO BID, (Reported) Entered as Reported by: JOANN MUNOZ on 02/25/19 0953 Raloxifene HCl (Raloxifene HCl) 60 Mg Tablet, 60 MG PO DAILY, (Reported) Entered as Reported by: JOANN MUNOZ on 02/25/19952 Topiramate (Topiramate) 50 Mg Tablet, 50 MG PO BID, (Reported) Entered as Reported by: JOANN MUNOZ on 02/25/19 0959 Tramadol HCl (Tramadol HCl) 50 Mg Tablet, 50-100 MG PO QID PRN for PAIN- MODERATE, (Reported) Entered as Reported by: JOANN MUNOZ on 02/25/19 0939 Physical Exam-Cardiology Physical Exam Vital Signs/I&O 03/16/21 03/16/21 03/16/21 03/16/21 03:30 03:35 06:30 07:47 Temp 36.8 36.8 Pulse 87 87 87 Resp 18 18 B/P (MAP) 117/67 (84) 117/67 Pulse Ox 96 96 99 O2 Delivery Nasal Cannula Nasal Cannula Nasal Cannula O2 Flow Rate 2.00 2.00 2.00 03/16/21 03/16/21 03/16/21 03/16/21 08:00 08:00 09:36 10:35 Temp 37.6 Pulse 90 105 Resp 18 20 B/P (MAP) 114/57 (76) Pulse Ox 90 94 O2 Delivery Nasal Cannula Nasal Cannula Nasal Cannula OxyMask O2 Flow Rate 2.00 2.00 10 03/16/21 03/16/21 03/16/21 03/16/21 12:00 12:30 12:51 13:00 Temp 35.7 36.7 35.8 Pulse 91 102 93 90 Resp 16 18 18 B/P (MAP) 128/67 (87) 130/61 138/68 Pulse Ox 94 97 96 O2 Delivery Nasal Cannula Nasal Cannula Nasal Cannula O2 Flow Rate 2.00 2.00 2.00 03/16/21 00:00 Intake Total 0 ml Output Total 275 ml Balance -275 ml Capillary Refill : Less Than 3 Seconds Constitutional: AAO x 3, other (thin, frail) HEENT: PERRL, hard of hearing Neck: carotid bruit, carotid pulses are 2 + bilaterally Respiratory: No accessory muscle use, No respiratory distress; rhonchi (scattered with prolonged exp phase) Cardiovascular: regular rate-rhythm; No JVD; S1 and S2, systolic murmur Gastrointestinal: No tender; soft, audible bowel sounds Extremities: no lower extremity edema bilateral Neurologic/Psychiatric: grossly intact (moves all extremities) Skin: No rash on exposed areas, No ulcerations on exposed areas Data Review Labs Laboratory Tests 03/15/21 18:00: Troponin I < 0.028 03/16/21 06:27: White Blood Count 9.2, Red Blood Count 2.57L, Hemoglobin 6.4#*L, Hematocrit 21L, Mean Corpuscular Volume 83, Mean Corpuscular Hemoglobin 25, Mean Corpuscular Hemoglobin Concent 30L, Red Cell Distribution Width 19.3H, Platelet Count 365, Mean Platelet Volume 9.4, Sodium Level 137, Potassium Level 3.5L, Chloride Level 106, Carbon Dioxide Level 22, Anion Gap 9, Blood Urea Nitrogen 10, Creatinine 0.64, Estimat Glomerular Filtration Rate 91, BUN/Creatinine Ratio 16, Glucose Level 88, Calcium Level 8.6, Corrected Calcium 9.4, Total Bilirubin 0.7, Aspartate Amino Transf (AST/SGOT) 15, Alanine Aminotransferase (ALT/SGPT) 8, Alkaline Phosphatase 101, Total Protein 5.4L, Albumin 3.0L 03/16/21 09:18: SARS-CoV-2 RNA (RT-PCR) Not Detected Laboratory Tests 03/15/21 14:37 03/16/21 06:27 Radiology NAME: STEPHAN OLIVA [facility] REC#: [id number] PT STATUS: REG ER : 1950 PHYSICIAN: CINDI ROSENBAUM MD ADMIT DATE: 03/15/21/ER FS Signed Date of Exam:03/15/21 CHEST 1 VIEW AP/PA ONLY INDICATION: Chest pain. EXAMINATION: Portable chest at 2:28 p.m. FINDINGS: Heart size and pulmonary vascularity are normal. Lungs are clear. There are no effusions or pneumothoraces. IMPRESSION: Negative chest. Dictated by: Dictated on workstation # [id number] Dict: 03/15/21 1453 Trans: 03/15/21 1717 [id number] Interpreted by: DEONTE MERRILL MD Electronically signed by: DEONTE MERRILL MD 03/15/21 1717 ECG Impression ECG Initial ECG Rhythm: Normal Sinus A/P-Cardiology Assessment/Admission Diagnosis GIB with gross anemia - undetermined etiology - management per surgical services - requiring multiple transfusions - s/p EGD per Dr. Zimmerman showing healing esophageal ulcer CAD - reports h/o coronary stent placement greater than 12 yrs ago in [place], [place] - details unknown Carotid dz - h/o bilat CEA greater than 5 yrs ago in [place], [place] - details unknown HTN - controlled HLD - statin tx - followed by PCP H/O hiatal hernia and GERD Tobaccoism - cessation advised Prob COPD Chronic LOVE Discussion and Recomendations Acute GIB with gross anemia requiring multiple transfusions - management per medical/surgical services H/O CAD with reported stent placement in the past H/O bilat CEA in the past Continue ASA when ok with surgical services Monitor lab closely Echocardiogram today d/t cardiac murmur We would like to thank medical services for this consult Further recs will be based on her hospital course DARSHANA RENO Mar 16, 2021 15:06
[2021-03-16] MEDS ORDERED: LISI40TA9 PO (15:10)
[2021-03-16] MEDS ORDERED: MONT10TA32 PO (15:10)
[2021-03-16] MEDS ORDERED: HYDR12.56 PO (15:10)
[2021-03-16] MEDS ORDERED: MULT-1029 PO (15:11)
[2021-03-16] MEDS ORDERED: DOCU100C37 PO (15:12)
[2021-03-16] MEDS ORDERED: ASPI-999 PO (15:14)
[2021-03-16] MEDS ORDERED: FEXO-46 PO (15:14)
[2021-03-16] MEDS ORDERED: ASCO100024 PO (15:15)
[2021-03-16] MEDS ORDERED: MIRA50TA PO (15:16)
[2021-03-16] MEDS ORDERED: PRAV80TA2 PO (15:16)
[2021-03-16] MEDS ORDERED: TOPI50TA13 PO (15:17)
--- NOTE | 2021-03-16 16:41 | OPERATIVE REPORT ---
DATE OF SERVICE: 03/16/2021 PREOPERATIVE DIAGNOSIS: Anemia, likely upper gastrointestinal bleed. POSTOPERATIVE DIAGNOSES: Pyloric narrowing and esophageal healing ulcer. PROCEDURES PERFORMED: EGD with biopsies. SURGEON: Primo Zimmerman DO. ANESTHESIA: Per SENIOR LICENSING MANAGER. ESTIMATED BLOOD LOSS: Scant. COMPLICATIONS: None. INDICATIONS FOR PROCEDURE: The patient is a 70-year-old female with anemia with her hemoglobin in the 4 range. The patient with likely upper GI bleeding source. She understands the risks and benefits of the procedure and wished to proceed with procedure. Consent was signed in the chart. DESCRIPTION OF PROCEDURE: The patient was taken to the endoscopy suite and placed in a left lateral recumbent position. Timeout was performed. Scope was inserted in the mouth, down the esophagus down to the stomach and into the pylorus. The pylorus was narrowed, but the duodenum was able to be visualized. There was no bleeding or any other pathology noted. Scope was then slowly retracted back. There are some chronic appearing mucosal changes in the stomach, which biopsy of the body was obtained. There were no polyps, masses or ulcerations present. Scope was retroflexed noting a small hiatal hernia. The scope was returned to its normal position, slowly withdrawn to the distal esophagus, which had a healing ulceration present. Biopsy of this area was obtained. Scope was then slowly retracted back until completely removed. The patient tolerated the procedure well without any complications. She was taken to the recovery room in stable condition. RECOMMENDATIONS: The patient will continue on current medications. If she continues to drop, we would do colonoscopy inpatient versus outpatient to look for other sources for her anemia. Job ID: [id number] DocumentID: [id number] Dictated Date: 03/16/2021 10:44:32 Telecommunications Network Planner Date: 03/16/2021 16:40:51 Dictated By: PRIMO ZIMMERMAN DO
[2021-03-16] MEDS: HYDROcodone/APAP 5 MG/325 MG (LORTAB) TAB PO PRN (16:47)
--- NOTE | 2021-03-16 17:18 | Consultation-Cardiology ---
HPI-Cardiology Cardiology Consultation: Date of Consultation 03/16/21 Time Seen by a Provider: 16:30 Date of Admission Attending Physician Erna Pardo DO Admitting Physician [place] Consulting Physician JOHN CHRISTIANSEN MD, MA, FACP, FACC, [facility], [facility] Physician requesting Cardiology consult: Dr Pardo HPI: Chief Complaint: Reason for consult: H/o CAD HPI Ms. Oliva is a 70 yr old female admitted to [facility] from the ED with c/o increasing weakness and fatigue for the last 2-3 days. She denies any c/o CP. She has chronic mild to mod exertional SOB. She reports she continues to smoke cigs. She denies any n/v/d. She denies any fever or chills. She denies any c/o palpitations. She reports intermittent bilat LE swelling which is least in the morning and worse at the end of the day. She denies any syncope or near sy ncope. Review of Systems-Cardiology Review of Systems Constitutional: No chills, No fever; lightheadedness, malaise Ears/Nose/Throat: No epistaxis; other (chronic WASHOE) Respiratory: As described under HPI Cardiovascular: As described under HPI Gastrointestinal: No constipation, No diarrhea, No nausea, No vomiting, No stool coloration changes Genitourinary: No dysuria, No hematuria Musculoskeletal: no symptoms reported Skin: No rash on exposed areas, No ulcerations on exposed areas Psychiatric/Neurological: No anxiety, No depression, No seizure, No focal weakness, No syncope Hematologic: No bleeding abnormalities All Other Systems Reviewed Negative Unless Noted: Yes ZIA-Aqvapj-Tpikzz Hx Patient Social History Marrital Status: single Employed/Student: retired Smoking Status: Current Everyday Smoker 2nd Hand Smoke Exposure: No Have you traveled recently?: No Alcohol Use?: No Pt feels they are or have been: No Tobacco type used: Cigarettes Immunizations Up To Date Tetanus Booster (TDap): Unknown Date of Pneumonia Vaccine: Feb 25, 2017 Past Medical History PMH As described under Assessment. Family Medical History Family Medical History: She reports her father, mother, 3 brothers and a sister had CAD. Family History: Cardiovascular disease 19 FATHER 19 MOTHER Glaucoma 19 FATHER Hypertension 19 FATHER 19 MOTHER Allergies and Home Medications Allergies Coded Allergies: latex (Verified Allergy, Unknown, 02/07/19) Patient Home Medication List Home Medication List Reviewed: Yes Acetaminophen (Tylenol Extra Strength) 500 Mg Tablet, 500 MG PO Q6H PRN for PAIN-MILD (1-4), (Reported) Entered as Reported by: JOANN MUNOZ on 07/22/20 1139 Last Action: Continued Ascorbic Acid (Vitamin C) 1,000 Mg Tablet, 1,000 MG PO DAILY, (Reported) Entered as Reported by: OUSMANE KIRAN on 03/16/211514 Last Action: Converted Aspirin (Aspirin) 81 Mg Tab.chew, 81 MG PO DAILY, (Reported) Entered as Reported by: OUSMANE KIRAN on 03/16/211513 Last Action: Held Docusate Sodium (Docusate Sodium) 100 Mg Capsule, 200 MG PO DAILY, (Reported) Entered as Reported by: OUSMANE KIRAN on 03/16/211511 Last Action: Continued Escitalopram Oxalate (Escitalopram Oxalate) 20 Mg Tablet, 20 MG PO DAILY, (Reported) Entered as Reported by: JOANN MUNOZ on 02/25/19952 Last Action: Converted Fexofenadine HCl (Fexofenadine HCl) 180 Mg Tablet, 0 PO BID, (Reported) Entered as Reported by: OUSMANE KIRAN on 03/16/211513 Last Action: Converted Hydrochlorothiazide (Hydrochlorothiazide) 12.5 Mg Tablet, 12.5 MG PO DAILY, (Reported) Entered as Reported by: OUSMANE KIRAN on 03/16/211509 Last Action: Held Lamotrigine (Lamotrigine) 200 Mg Tablet, 200 MG PO DAILY, (Reported) Entered as Reported by: JOANN MUNOZ on 02/25/19952 Last Action: Converted Lisinopril (Lisinopril) 40 Mg Tablet, 20 MG PO DAILY, (Reported) Entered as Reported by: OUSMANE KIRAN on 03/16/211509 Last Action: Continued Mirabegron (Myrbetriq) 50 Mg Tab.er.24h, 50 MG PO DAILY, (Reported) Entered as Reported by: OUSMANE KIRAN on 03/16/211515 Last Action: Converted Montelukast Sodium (Montelukast Sodium) 10 Mg Tablet, 10 MG PO 1900, (Reported) Entered as Reported by: OUSMANE KIRAN on 03/16/211509 Last Action: Continued Multivit-Min/FA/Lycopene/Lut (Centrum Silver Tablet) 1 Each Tablet, 1 EACH PO DAILY, (Reported) Entered as Reported by: OUSMANE KIRAN on 03/16/211510 Last Action: Converted Pravastatin Sodium (Pravastatin Sodium) 80 Mg Tablet, 80 MG PO 1900, (Reported) Entered as Reported by: OUSMANE KIRAN on 03/16/211515 Last Action: Converted Primidone (Mysoline) 250 Mg Tablet, 250 MG PO BID, (Reported) Entered as Reported by: JOANN MUNOZ on 02/25/19952 Last Action: Continued Raloxifene HCl (Raloxifene HCl) 60 Mg Tablet, 60 MG PO DAILY, (Reported) Entered as Reported by: JOANN MUNOZ on 02/25/19952 Last Action: Continued Topiramate (Topiramate) 50 Mg Tablet, 50 MG PO 1900, (Reported) Entered as Reported by: OUSMANE KIRAN on 03/16/211516 Last Action: Converted Discontinued Medications Amlodipine Besylate (Amlodipine Besylate) 5 Mg Tablet, 5 MG PO DAILY Discontinued Reason: No Longer Taking Prescribed by: ERNA PARDO on 07/24/20 112 Last Action: Discontinued Cefdinir (Cefdinir) 300 Mg Capsule, 300 MG PO BID Discontinued Reason: No Longer Taking Prescribed by: ERNA PARDO on 07/24/20 112 Last Action: Discontinued Ferrous Sulfate (Iron) 325 Mg Tablet, 325 MG PO DAILY, (Reported) Discontinued Reason: No Longer Taking Entered as Reported by: JOANN MUNOZ on 02/25/19 1001 Last Action: Discontinued Lisinopril (Lisinopril) 40 Mg Tablet, 40 MG PO DAILY, (Reported) Discontinued Reason: No Longer Taking Entered as Reported by: JOANN MUNOZ on 02/25/19 0953 Last Action: Discontinued Loratadine (Claritin) 10 Mg Tablet, 10 MG PO DAILY, (Reported) Discontinued Reason: No Longer Taking Entered as Reported by: JOANN MUNOZ on 07/22/20 1141 Last Action: Discontinued Meclizine HCl (Meclizine HCl) 25 Mg Tablet, 50 MG PO DAILY PRN for DIZZINESS, (Reported) Discontinued Reason: No Longer Taking Entered as Reported by: JOANN MUNOZ on 02/25/19 1421 Last Action: Discontinued Mirabegron (Myrbetriq) 50 Mg Tab.er.24h, 50 MG PO DAILY, (Reported) Discontinued Reason: No Longer Taking Entered as Reported by: JOANN MUNOZ on 07/22/201138 Last Action: Discontinued Montelukast Sodium (Montelukast Sodium) 10 Mg Tablet, 10 MG PO DAILY, (Reported) Discontinued Reason: No Longer Taking Entered as Reported by: JOANN MUNOZ on 02/25/19938 Last Action: Discontinued Pantoprazole Sodium (Protonix) 40 Mg Tablet.dr, 40 MG PO BID Discontinued Reason: No Longer Taking Prescribed by: ERNA PARDO on 07/24/20 112 Last Action: Discontinued Pravastatin Sodium (Pravastatin Sodium) 80 Mg Tablet, 80 MG PO HS, (Reported) Discontinued Reason: No Longer Taking Entered as Reported by: JOANN MUNOZ on 07/22/201138 Last Action: Discontinued Topiramate (Topiramate) 50 Mg Tablet, 50 MG PO BID, (Reported) Discontinued Reason: No Longer Taking Entered as Reported by: JOANN MUNOZ on 02/25/19958 Last Action: Discontinued Tramadol HCl (Tramadol HCl) 50 Mg Tablet, 50-100 MG PO QID PRN for PAIN- MODERATE, (Reported) Discontinued Reason: No Longer Taking Entered as Reported by: JOANN MUNOZ on 02/25/19938 Last Action: Discontinued Physical Exam-Cardiology Physical Exam Vital Signs/I&O 03/16/21 03/16/21 03/16/21 03/16/21 06:30 07:47 08:00 08:00 Temp 37.6 Pulse 87 90 Resp 18 B/P (MAP) 114/57 (76) Pulse Ox 99 90 O2 Delivery Nasal Cannula Nasal Cannula Nasal Cannula O2 Flow Rate 2.00 2.00 2.00 03/16/21 03/16/21 03/16/21 03/16/21 09:36 10:35 12:00 12:30 Temp 35.7 36.7 Pulse 105 91 102 Resp 20 16 18 B/P (MAP) 128/67 (87) 130/61 Pulse Ox 94 94 97 O2 Delivery Nasal Cannula OxyMask Nasal Cannula Nasal Cannula O2 Flow Rate 10 2.00 2.00 03/16/21 03/16/21 03/16/21 12:51 13:00 16:39 Temp 35.8 36.8 Pulse 93 90 95 Resp 18 18 B/P (MAP) 138/68 168/77 (107) Pulse Ox 96 100 O2 Delivery Nasal Cannula Nasal Cannula O2 Flow Rate 2.00 4.00 03/16/21 00:00 Intake Total 0 ml Output Total 275 ml Balance -275 ml Capillary Refill : Less Than 3 Seconds Constitutional: AAO x 3, other (thin, frail) HEENT: PERRL, hard of hearing Neck: carotid bruit, carotid pulses are 2 + bilaterally Respiratory: No accessory muscle use, No respiratory distress; rhonchi ( scattered with prolonged exp phase) Cardiovascular: regular rate-rhythm; No JVD; S1 and S2, systolic murmur Gastrointestinal: No tender; soft, audible bowel sounds Extremities: no lower extremity edema bilateral Neurologic/Psychiatric: grossly intact (moves all extremities) Skin: No rash on exposed areas, No ulcerations on exposed areas Data Review Labs Laboratory Tests 03/15/21 18:00: Troponin I < 0.028 03/16/21 06:27: White Blood Count 9.2, Red Blood Count 2.57L, Hemoglobin 6.4#*L, Hematocrit 21L, Mean Corpuscular Volume 83, Mean Corpuscular Hemoglobin 25, Mean Corpuscular Hemoglobin Concent 30L, Red Cell Distribution Width 19.3H, Platelet Count 365, Mean Platelet Volume 9.4, Sodium Level 137, Potassium Level 3.5L, Chloride Level 106, Carbon Dioxide Level 22, Anion Gap 9, Blood Urea Nitrogen 10, Creatinine 0.64, Estimat Glomerular Filtration Rate 91, BUN/Creatinine Ratio 16, Glucose Level 88, Calcium Level 8.6, Corrected Calcium 9.4, Total Bilirubin 0.7, Aspartate Amino Transf (AST/SGOT) 15, Alanine Aminotransferase (ALT/SGPT) 8, Alkaline Phosphatase 101, Total Protein 5.4L, Albumin 3.0L 03/16/21 09:18: SARS-CoV-2 RNA (RT-PCR) Not Detected A/P-Cardiology Assessment/Admission Diagnosis GIB with gross anemia - undetermined etiology - management per surgical services - requiring multiple transfusions - s/p EGD per Dr. Zimmerman showing healing esophageal ulcer CAD - reports h/o coronary stent placement greater than 12 yrs ago in [place], [place] - details unknown Carotid dz - h/o bilat CEA greater than 5 yrs ago in [place], [place] - details unknown HTN - controlled HLD - statin tx - followed by PCP H/O hiatal hernia and GERD Tobaccoism - cessation advised Prob COPD Chronic LOVE Discussion and Recomendations Acute GIB with gross anemia requiring multiple transfusions - management per medical/surgical services H/O CAD with reported stent placement in the past H/O bilat CEA in the past Continue ASA when ok with surgical services Monitor lab closely Echocardiogram today d/t cardiac murmur We would like to thank medical services for this consult Further recs will be based on her hospital course JOHN CHRISTIANSEN MD FACP FAC [facility] Mar 16, 2021 17:18
[2021-03-16] MEDS ORDERED: MONTELUKAST 10 MG (SINGULAIR) TAB PO SCH (19:00)
[2021-03-16] MEDS ORDERED: SIMvastatin 40 MG (ZOCOR) TAB PO SCH (19:00)
[2021-03-16] MEDS ORDERED: toPIRamate 25 MG (TOPAMAX) TAB PO SCH (19:00)
[2021-03-16] MEDS ORDERED: NON-FORMULARY MEDICATION 1 EA EA (Topiramate 50 MG) PO SCH (19:00)
[2021-03-16] MEDS ORDERED: NON-FORMULARY MEDICATION 1 EA EA (Pravastatin Sodium 80 MG) PO SCH (19:00)
[2021-03-16] MEDS: PRIMIDONE 250MG (MYSOLINE) TAB PO SCH (20:06)
[2021-03-16] MEDS: ACETAMINOPHEN 500 MG TAB (TYLENOL) PO PRN (20:06)
[2021-03-16] MEDS ORDERED: FEXOFENADINE HCL PO SCH (21:00)
[2021-03-17 04:00] VITALS: BP_SYST 148; BP_SYST 149; BP_DIAS 65; BP_DIAS 75
[2021-03-17] MEDS: HYDROcodone/APAP 5 MG/325 MG (LORTAB) TAB PO PRN (05:07)
[2021-03-17] MEDS: CATHETER FLUSH 10 ML SYR IV SCH (05:08)
[2021-03-17 06:08] LABS: BASOPHILS # (AUTO) 0.1 10^3/uL (0.0-0.1); BASOPHILS % (AUTO) 1 % (0-10); EOSINOPHILS # (AUTO) 0.1 10^3/uL (0.0-0.3); EOSINOPHILS % (AUTO) 1 % (0-10); HEMATOCRIT 26 % (35-52); LYMPHOCYTES # (AUTO) 0.8 10^3/uL (1.0-4.0); LYMPHOCYTES % (AUTO) 9 % (12-44); MEAN CORPUSCULAR HEMOGLOBIN 26 pg (25-34); MEAN CORPUSCULAR HGB CONC 31 g/dL (32-36); MEAN CORPUSCULAR VOLUME 84 fL (80-99); MEAN PLATELET VOLUME 9.3 fL (9.0-12.2); MONOCYTES # (AUTO) 0.7 10^3/uL (0.0-1.0); MONOCYTES % (AUTO) 8 % (0-12); NEUTROPHILS # (AUTO) 7.1 10^3/uL (1.8-7.8); NEUTROPHILS % (AUTO) 80 % (42-75); PLATELET COUNT 343 10^3/uL (130-400); WHITE BLOOD COUNT 8.9 10^3/uL (4.3-11.0)
[2021-03-17 06:20] LABS: POTASSIUM 3.4 MMOL/L (3.6-5.0)
[2021-03-17 06:21] LABS: CALCIUM 8.3 MG/DL (8.5-10.1)
[2021-03-17 06:23] LABS: TOTAL PROTEIN 5.3 GM/DL (6.4-8.2)
[2021-03-17 06:24] LABS: BILIRUBIN,TOTAL 0.3 MG/DL (0.1-1.0)
[2021-03-17 06:26] LABS: CREATININE SERUM 0.62 MG/DL (0.60-1.30)
[2021-03-17] MEDS ORDERED: ASCORBIC ACID (VIT C) 500 MG TABLET PO SCH (07:00)
[2021-03-17] MEDS ORDERED: MULTIVIT W/MINERALS TAB (THERAGRAN M) PO SCH (07:00)
--- NOTE | 2021-03-17 07:09 | Progress Note - Surgery ---
HALIE CHUA 03/17/21 0709: Subjective Time Seen by a Provider: 07:00 Subjective/Events-last exam Patient underwent a EGD on 03/16 that revealed a esophageal healing hernia, she was then transfused with one unit of blood around 12:30pm that same day. The patient today was noncompliant and she did not participate. Review of Systems General: Other (Did not particapte in answering questions ) Objective Exam Vital Signs Date Time Temp Pulse Resp B/P (MAP) Pulse Ox O2 Delivery O2 Flow Rate FiO2 03/17/21 04:00 36.9 79 18 149/65 (93) 97 Room Air 03/17/21 01:00 74 03/16/21 23:30 36.5 81 16 108/60 (76) 97 Nasal Cannula 4.00 03/16/21 20:36 36.9 03/16/21 20:16 36.9 85 20 142/65 (90) 97 Nasal Cannula 4.00 03/16/21 20:00 Nasal Cannula 2.00 03/16/21 19:00 76 03/16/21 16:39 36.8 95 18 168/77 (107) 100 Nasal Cannula 4.00 03/16/21 13:00 90 03/16/21 12:51 35.8 93 18 138/68 96 Nasal Cannula 2.00 03/16/21 12:30 36.7 102 18 130/61 97 Nasal Cannula 2.00 03/16/21 12:00 35.7 91 16 128/67 (87) 94 Nasal Cannula 2.00 03/16/21 10:35 105 20 94 OxyMask 10 03/16/21 09:36 Nasal Cannula 03/16/21 08:00 37.6 90 18 114/57 (76) 90 Nasal Cannula 2.00 03/16/21 08:00 Nasal Cannula 2.00 03/16/21 07:47 99 Nasal Cannula 2.00 I & O 03/17/21 07:00 Intake Total 2020 ml Output Total 800 ml Balance 1220 ml Capillary Refill : Less Than 3 Seconds General Appearance: No Apparent Distress, WD/WN, Chronically ill HEENT: PERRL/EOMI, Normal ENT Inspection, Pharynx Normal, Moist Mucous Membranes Respiratory: Lungs Clear, No Accessory Muscle Use, No Respiratory Distress Cardiovascular: Regular Rate, Rhythm, No JVD, No Murmur, Normal Peripheral Pulses Gastrointestinal: normal bowel sounds, non tender, soft, no organomegaly; No guarding; tenderness Extremity: Normal Capillary Refill, Normal Inspection, Normal Range of Motion, Non Tender, No Calf Tenderness, No Pedal Edema Neurologic/Psychiatric: Alert, Oriented x3 (when awake), No Motor/Sensory Deficits; No Disoriented Skin: Normal Color, Warm/Dry Lymphatic: No Adenopathy Results Lab Laboratory Tests 03/16/21 09:18: SARS-CoV-2 RNA (RT-PCR) Not Detected 03/17/21 05:48: White Blood Count 8.9, Red Blood Count 3.07L, Hemoglobin 8.0#L, Hematocrit 26L, Mean Corpuscular Volume 84, Mean Corpuscular Hemoglobin 26, Mean Corpuscular Hemoglobin Concent 31L, Red Cell Distribution Width 18.4H, Platelet Count 343, Mean Platelet Volume 9.3, Immature Granulocyte % (Auto) 1, Neutrophils (%) (Auto) 80H, Lymphocytes (%) (Auto) 9L, Monocytes (%) (Auto) 8, Eosinophils (%) (Auto) 1, Basophils (%) (Auto) 1, Neutrophils # (Auto) 7.1, Lymphocytes # (Auto) 0.8L, Monocytes # (Auto) 0.7, Eosinophils # (Auto) 0.1, Basophils # (Auto) 0.1, Immature Granulocyte # (Auto) 0.1, Sodium Level 137, Potassium Level 3.4L, Chloride Level 108H, Carbon Dioxide Level 21, Anion Gap 8, Blood Urea Nitrogen 6L, Creatinine 0.62, Estimat Glomerular Filtration Rate 95, BUN/Creatinine Ratio 10, Glucose Level 91, Calcium Level 8.3L, Corrected Calcium 9.1, Total Bilirubin 0.3, Aspartate Amino Transf (AST/SGOT) 14, Alanine Aminotransferase (ALT/SGPT) 10, Alkaline Phosphatase 99, Total Protein 5.3L, Albumin 3.0L Assessment/Plan Assessment/Plan Assessment/Plan Assessment: Anemia likely upper gi bleed history of avm stomach History of Blood transfusions Chest pain follow hgb, transfused third unit of blood yesterday at 12:30pm, current hemoglobin at 8.0 EGD on 03/16 revealed esophageal healing ulcer On protonix JOHNNIE ZIMMERMAN DO 03/17/21 2217: Subjective Subjective/Events-last exam Patient laying in bed fatigue. Slightly hard of hearing. Her hearing aid battery is . Patient states that she is doing okay. She is feeling better after having blood transfusion. Her hemoglobin has increased to 8. She has no blood in the stools. She has no abdominal pain. She denies any chest pain. She is wanting to go home. She denies any nausea vomiting fever sweats chills shortness of breath or chest pain at this time EGD yesterday revealed esophageal healing ulcer.. Objective Exam General Appearance: No Apparent Distress, Chronically ill HEENT: PERRL/EOMI, Normal ENT Inspection Neck: Full Range of Motion, Normal Inspection Respiratory: Chest Non Tender, No Accessory Muscle Use, No Respiratory Distress Cardiovascular: Regular Rate, Rhythm, No JVD Gastrointestinal: non tender, soft; No guarding, No tenderness Extremity: Normal Capillary Refill, Normal Inspection, Normal Range of Motion, Non Tender Neurologic/Psychiatric: Alert, Oriented x3 (when awake) Skin: Warm/Dry, Pallor (Improving) Lymphatic: No Adenopathy Assessment/Plan Assessment/Plan Assessment/Plan Anemia likely upper gi bleed from healing esophageal ulceration no active bleeding at time of scope history of avm stomach History of Blood transfusions Chest pain follow hgb, transfused third unit of blood yesterday at 12:30pm, current hemoglobin at 8.0 EGD on 03/16 revealed esophageal healing ulcer On protonix Would likely benefit from colonoscopy which could be done as outpatient. And patient will need follow-up on biopsies. Supervisory-Addendum Brief Verification & Attestation Participated in pt care: history, MDM, physical Personally performed: exam, history, MDM, supervision of care Care discussed with: Medical Student Procedures: n/a Results interpretation: Verified all documentation Verification and Attestation of Medical Student E/M Service A medical student performed and documented this service in my presence. I reviewed and verified all information documented by the medical student and made modifications to such information, when appropriate. I personally performed the physical exam and medical decision making. Johnnie Zimmerman, Mar 17, 2021,22:17 HALIE CHUA Mar 17, 2021 07:09 JOHNNIE ZIMMERMAN DO Mar 17, 2021 22:17
[2021-03-17 08:00] VITALS: BP 143/66
[2021-03-17] MEDS: SENNA W/DOCUSATE (SENOKOT S) TABLET PO SCH (08:50)
[2021-03-17] MEDS: PRIMIDONE 250MG (MYSOLINE) TAB PO SCH (08:51)
[2021-03-17] MEDS: PANTOPRAZOLE 40 MG (PROTONIX) VIAL IV SCH (08:51)
[2021-03-17] MEDS: polyethylene glycoL POWDER 17 GM (MIRALAX) PACK PO SCH (08:51)
[2021-03-17] MEDS ORDERED: lisINopril 20 MG (PRINIVIL) TABLET PO SCH (09:00)
[2021-03-17] MEDS ORDERED: NON-FORMULARY MEDICATION 1 EA EA (Escitalopram Oxalate 20 MG) PO SCH (09:00)
[2021-03-17] MEDS ORDERED: NON-FORMULARY MEDICATION 1 EA EA (Lamotrigine 200 MG) PO SCH (09:00)
[2021-03-17] MEDS ORDERED: NON-FORMULARY MEDICATION 1 EA EA (Mirabegron (Myrbetriq) 50 MG) PO SCH (09:00)
[2021-03-17] MEDS ORDERED: DOCUSATE SODIUM 100 MG (COLACE) CAP PO SCH (09:00)
[2021-03-17] MEDS ORDERED: NON-FORMULARY MEDICATION 1 EA EA (Ascorbic Acid (Vitamin C) 1,000 MG) PO SCH (09:00)
[2021-03-17] MEDS ORDERED: raLOXifene 60 MG (EVISTA) TAB PO SCH (09:00)
[2021-03-17] MEDS ORDERED: NON-FORMULARY MEDICATION 1 EA EA (Multivit-Min/FA/Lycopene/Lut (Centrum Silver Tablet) 1 E PO SCH (09:00)
[2021-03-17] MEDS ORDERED: LORATADINE (CLARITIN) 10 MG TAB PO SCH (09:00)
[2021-03-17] MEDS ORDERED: lisINopril 40 MG (PRINIVIL) TABLET PO SCH (09:00)
[2021-03-17] MEDS ORDERED: PANT40TA2 PO (11:17)
--- NOTE | 2021-03-17 11:18 | D/C HH Face to Face Order ---
D/C Face to Face Orders Reconcile Patient Problems Problems Reviewed?: Yes Instructions for Patient Via [facility], Patient Instructions/FollowUp: PCP 1 week Physician to follow Patient: [facility] Discharge Diet for Home: No Restrictions Patient Problems: GIB Anemia Patient Data-Allergies,Ht & Wt Patient Allergies: Coded Allergies: latex (Verified Allergy, Unknown, 02/07/19) Height (Feet): 4 Height (Inches): 10.00 Weight (Pounds): 119 Home Health Need/Face to Face Date of Face to Face: Mar 17, 2021 Clinical Findings: Generalized weakness and fatigue, Instability, Muscle weakness, Unsteady gait I have seen Pt [id number]: Yes Discharged To: Home Diagnosis/Conditions: GIB Anemia Patient is Homebound due to: CognItive deficits, Marie fall risk due to instabilty, Muscle weakness Homebound Status Due to the above stated illness, injury or surgical procedure (medical condition or diagnosis) and associated clinical findings, the patient is homebound because of his/her inability to leave home except with aid of a supportive device and/or person AND leaving the home requires a considerable and taxing effort or is medically contraindicated. Pt req the following assistanc: [facility] Nursing Orders Home Health Services Order: Nursing Services, Rod Bending Machine Operator-Evaluate & Treat, Physical Therapy-Evaluate & Treat Home Health Infusion Therapy Line Start Date: Mar 16, 2021 Certify Stmt I certify that this patient is under my care and that I, a nurse practitioner or a physician; a economic research assistant working with me, had a face to face encounter that - meets the physician face to face encounter requirements with this patient as dated. MAITE PARDO DO Mar 17, 2021 11:18
--- NOTE | 2021-03-17 11:18 | Discharge Summary ---
Discharge Summary Hospital Course Was the Problem List Reviewed?: Yes Problems/Dx: (1) GI bleed Status: Acute Qualifiers: Qualified Codes: K92.2 - Gastrointestinal hemorrhage, unspecified Hospital Course Date of Admission: Mar 15, 2021 at 17:30 Admission Diagnosis : Family Physician/Provider: Courtney Key Aprn Date of Discharge: 03/17/21 Discharge Diagnosis: Symptomatic anemia, stomach ulcer Hospital Course: Hospital Course: Pt had an uneventful 3 day hospital course. She was admitted for severe symptomatic anemia, hgb of 4, s/p three units of blood transfusion. EGD showed stomach ulcer healing, no active bleed. PT and OT consulted, home health was ordered and she was discharged in improved condition although she has chronic debility and poor prognosis. Labs and Pending Lab Test: Laboratory Tests 03/17/21 05:48: White Blood Count 8.9, Red Blood Count 3.07L, Hemoglobin 8.0#L, Hematocrit 26L, Mean Corpuscular Volume 84, Mean Corpuscular Hemoglobin 26, Mean Corpuscular Hemoglobin Concent 31L, Red Cell Distribution Width 18.4H, Platelet Count 343, Mean Platelet Volume 9.3, Immature Granulocyte % (Auto) 1, Neutrophils (%) (Auto) 80H, Lymphocytes (%) (Auto) 9L, Monocytes (%) (Auto) 8, Eosinophils (%) (Auto) 1, Basophils (%) (Auto) 1, Neutrophils # (Auto) 7.1, Lymphocytes # (Auto) 0.8L, Monocytes # (Auto) 0.7, Eosinophils # (Auto) 0.1, Basophils # (Auto) 0.1, Immature Granulocyte # (Auto) 0.1, Sodium Level 137, Potassium Level 3.4L, Chloride Level 108H, Carbon Dioxide Level 21, Anion Gap 8, Blood Urea Nitrogen 6L, Creatinine 0.62, Estimat Glomerular Filtration Rate 95, BUN/Creatinine Ratio 10, Glucose Level 91, Calcium Level 8.3L, Corrected Calcium 9.1, Total Bilirubin 0.3, Aspartate Amino Transf (AST/SGOT) 14, Alanine Aminotransferase (ALT/SGPT) 10, Alkaline Phosphatase 99, Total Protein 5.3L, Albumin 3.0L Home Meds Active Protonix (Pantoprazole Sodium) 40 Mg Tablet.dr 40 Mg PO BID Reported Topiramate 50 Mg Tablet 50 Mg PO 1900 Pravastatin Sodium 80 Mg Tablet 80 Mg PO 1900 Myrbetriq (Mirabegron) 50 Mg Tab.er.24h 50 Mg PO DAILY Vitamin C (Ascorbic Acid) 1,000 Mg Tablet 1,000 Mg PO DAILY Fexofenadine HCl 180 Mg Tablet 0 PO BID MDD 180MG MAKE DOSE 180MG DAILY, PATIENT TAKING 180MG BID Aspirin 81 Mg Tab.chew 81 Mg PO DAILY Docusate Sodium 100 Mg Capsule 200 Mg PO DAILY Centrum Silver Tablet (Multivit-Min/FA/Lycopene/Lut) 1 Each Tablet 1 Each PO DAILY Montelukast Sodium 10 Mg Tablet 10 Mg PO 1900 Hydrochlorothiazide 12.5 Mg Tablet 12.5 Mg PO DAILY Lisinopril 40 Mg Tablet 20 Mg PO DAILY TAKE 1/2 OF A 40MG TAB Tylenol Extra Strength (Acetaminophen) 500 Mg Tablet 500 Mg PO Q6H PRN Escitalopram Oxalate 20 Mg Tablet 20 Mg PO DAILY Lamotrigine 200 Mg Tablet 200 Mg PO DAILY Raloxifene HCl 60 Mg Tablet 60 Mg PO DAILY Mysoline (Primidone) 250 Mg Tablet 250 Mg PO BID Assessment/Pt Instructions [facility] in 1 week Discharge Planning: <30 minutes discharge planning Discharge Instructions Discharge Diet: No Restrictions Discharge Physical Examination Vital Signs Vital Signs Date Time Temp Pulse Resp B/P (MAP) Pulse Ox O2 Delivery O2 Flow Rate FiO2 03/17/21 08:00 35.5 95 18 143/66 (91) 96 Room Air 03/17/21 04:00 03/15/21 18:07 21 General Appearance: No Apparent Distress, WD/WN, Chronically ill Allergies: Coded Allergies: latex (Verified Allergy, Unknown, 02/07/19) Discharge Summary Date of Admission Mar 15, 2021 at 17:30 Date of Discharge Discharge Date: Mar 17, 2021 Admission Diagnosis Assessment: Symptomatic anemia Chest pain History of transfusions in the past Lives alone Plan: Dr. Zimmerman consult Dr. Brooks consult Transfuse Discharge Diagnosis Assessment: Symptomatic anemia Chest pain History of transfusions in the past Lives alone Plan: Dr. Zimmerman consult Dr. Brooks consult Transfuse 03/16/2021: Transfuse 1 more unit Appreciate all consultants MAITE PARDO DO Mar 17, 2021 11:18
[2021-03-17 12:00] VITALS: BP 142/64
[2021-03-17] MEDS: ACETAMINOPHEN 500 MG TAB (TYLENOL) PO PRN (13:40)
--- NOTE | 2021-03-17 17:27 | Progress Note - Cardiology ---
Cardiology SOAP Progress Note Subjective: No cp or palp or syncope No shortness of breath at rest Gen malaise and weakness Objective: I&O/Vital Signs 03/17/21 03/17/21 03/17/21 03/17/21 07:00 08:00 08:00 12:00 Temp 35.5 35.5 Pulse 70 95 83 Resp 18 20 B/P (MAP) 143/66 (91) 142/64 (90) Pulse Ox 96 96 O2 Delivery Room Air Room Air Room Air 03/17/21 12:35 B/P (MAP) 03/17/21 00:00 Intake Total 1370 ml Output Total 800 ml Balance 570 ml Weight (Pounds): 119 Weight (Calculated Kilograms): 53.218910 Constitutional: AAO x 3, other (thin, frail) Respiratory: No accessory muscle use, No respiratory distress; rhonchi (scattered with prolonged exp phase) Cardiovascular: regular rate-rhythm; No JVD; S1 and S2, systolic murmur Gastrointestional: No tender; soft, audible bowel sounds Extremities: no lower extremity edema bilateral Neurologic/Psychiatric: grossly intact (moves all extremities) Skin: No rash on exposed areas, No ulcerations on exposed areas Results/Procedures: Labs Laboratory Tests 03/17/21 05:48: White Blood Count 8.9, Red Blood Count 3.07L, Hemoglobin 8.0#L, Hematocrit 26L, Mean Corpuscular Volume 84, Mean Corpuscular Hemoglobin 26, Mean Corpuscular Hemoglobin Concent 31L, Red Cell Distribution Width 18.4H, Platelet Count 343, Mean Platelet Volume 9.3, Immature Granulocyte % (Auto) 1, Neutrophils (%) (Au to) 80H, Lymphocytes (%) (Auto) 9L, Monocytes (%) (Auto) 8, Eosinophils (%) (Auto) 1, Basophils (%) (Auto) 1, Neutrophils # (Auto) 7.1, Lymphocytes # (Auto) 0.8L, Monocytes # (Auto) 0.7, Eosinophils # (Auto) 0.1, Basophils # (Auto) 0.1, Immature Granulocyte # (Auto) 0.1, Sodium Level 137, Potassium Level 3.4L, Chlo ride Level 108H, Carbon Dioxide Level 21, Anion Gap 8, Blood Urea Nitrogen 6L, Creatinine 0.62, Estimat Glomerular Filtration Rate 95, BUN/Creatinine Ratio 10, Glucose Level 91, Calcium Level 8.3L, Corrected Calcium 9.1, Total Bilirubin 0.3, Aspartate Amino Transf (AST/SGOT) 14, Alanine Aminotransferase (ALT/SGPT) 10, Alkaline Phosphatase 99, Total Protein 5.3L, Albumin 3.0L Laboratory Tests 03/16/21 06:27 03/17/21 05:48 A/P: Assessment: GIB with gross anemia - undetermined etiology - management per surgical services - requiring multiple transfusions - s/p EGD per Dr. Zimmerman showing healing esophageal ulcer CAD - reports h/o coronary stent placement greater than 12 yrs ago in [place], [place] - details unknown Carotid dz - h/o bilat CEA greater than 5 yrs ago in [place], [place] - details unknown HTN - controlled HLD - statin tx - followed by PCP H/O hiatal hernia and GERD Tobaccoism - cessation advised Prob COPD Chronic LOVE Plan: Acute GIB with gross anemia requiring multiple transfusions - management per Medical and Surgical services H/O CAD with reported stent placement in the past H/O bilat CEA in the past Continue ASA when ok with surgical services Replenish electrolytes Monitor lab closely JOHN CHRISTIANSEN MD FACP FAC CCDS Mar 17, 2021 17:27
== END 2021-03-17 14:20 | disposition home health service (06) | DRG 382 ==
LOC: EDUNIT# 14:30 → ER FS 14:32 → 4TH 17:30
PROVIDERS: ADMIT Internal Medicine; ATTEND Internal Medicine
PROC: 0DB78ZX Excision of Stomach, Pylorus, Via Natural or Artificial Opening Endoscopic, Diagnostic (ICD-10-PCS; 2021-03-16)
PROC: 0DB58ZX Excision of Esophagus, Via Natural or Artificial Opening Endoscopic, Diagnostic (ICD-10-PCS; principal; 2021-03-16 10:30)
DX: K22.11 Ulcer of esophagus with bleeding (principal); D50.0 Iron deficiency anemia secondary to blood loss (chronic); I25.10 Atherosclerotic heart disease of native coronary artery without angina pectoris; I10 Essential (primary) hypertension; Z66 Do not resuscitate; K21.9 Gastro-esophageal reflux disease without esophagitis; F17.210 Nicotine dependence, cigarettes, uncomplicated; E78.5 Hyperlipidemia, unspecified; J44.9 Chronic obstructive pulmonary disease, unspecified; R51.9 Headache, unspecified; K44.9 Diaphragmatic hernia without obstruction or gangrene; Z79.899 Other long term (current) drug therapy; Z79.82 Long term (current) use of aspirin; Z91.040 Latex allergy status; Z20.822 Contact with and (suspected) exposure to COVID-19
CPT/HCPCS: 36415; 71045; 80053; 83880; 84484; 85007; 85025; 85027; 85610; 85730; 86850; 86900; 86901; 86920; 87636; 93005; 93041; 93306; 94760

== ENCOUNTER → 2021-03-23 | Outpatient (CLI) | payer MEDICARE, MEDICAID ==
[~2021-03-23] MED LIST changes: +ASCO100024 PO; +ASPI-999 PO; +DOCU100C37 PO; +FEXO-46 PO; +HYDR12.56 PO; +MULT-1029 PO
[2021-03-23 13:33] LABS: HEMATOCRIT 27 % (35-52); HEMOGLOBIN 7.7 g/dL (11.5-16.0); MEAN CORPUSCULAR HEMOGLOBIN 25 pg (25-34); MEAN CORPUSCULAR VOLUME 88 fL (80-99); WHITE BLOOD COUNT 11.8 10^3/uL (4.3-11.0)
[2021-03-23 13:34] LABS: BASOPHILS # (AUTO) 0.1 10^3/uL (0.0-0.1); BASOPHILS % (AUTO) 1 % (0-10); EOSINOPHILS # (AUTO) 0.2 10^3/uL (0.0-0.3); EOSINOPHILS % (AUTO) 2 % (0-10); LYMPHOCYTES # (AUTO) 0.9 X 10^3 (1.0-4.0); LYMPHOCYTES % (AUTO) 7 % (12-44); MEAN CORPUSCULAR HGB CONC 29 g/dL (32-36); MONOCYTES # (AUTO) 0.7 X 10^3 (0.0-1.0); MONOCYTES % (AUTO) 6 % (0-12); NEUTROPHILS # (AUTO) 9.9 X 10^3 (1.8-7.8); NEUTROPHILS % (AUTO) 84 % (42-75); PLATELET COUNT 465 10^3/uL (130-400)
[2021-03-23 13:40] LABS: SMEAR SCAN COMMENT SCHISTOCYTES NOTED
[2021-03-23 13:42] LABS: BASOPHILS % (MANUAL) 1 %; LYMPHOCYTES % (MANUAL) 5 %; MONOCYTES % (MANUAL) 2 %; NEUTROPHILS % (MANUAL) 92 %
[2021-03-23 13:43] LABS: HYPOCHROMASIA MODERATE; PLATELET ESTIMATE INCREASED; POIKILOCYTOSIS SLIGHT; POLYCHROMASIA MODERATE; RBC MORPH ABNORMAL
[2021-03-23 13:44] LABS: ANISOCYTOSIS MODERATE; ELLIPT/OVALOCYTES SLIGHT
[2021-03-23 13:45] LABS: SCHISTOCYTES SLIGHT
[2021-03-23 13:52] LABS: CALCIUM 8.7 MG/DL (8.5-10.1); CREATININE SERUM 0.66 MG/DL (0.60-1.30); POTASSIUM 4.2 MMOL/L (3.6-5.0)
[2021-03-23 13:53] LABS: ALBUMIN 3.4 GM/DL (3.2-4.5); BILIRUBIN,TOTAL 0.2 MG/DL (0.1-1.0); TOTAL PROTEIN 5.8 GM/DL (6.4-8.2)
== END ==
LOC: IHC 12:44
PROVIDERS: ATTEND Family Medicine
DX: D64.9 Anemia, unspecified (principal); I25.10 Atherosclerotic heart disease of native coronary artery without angina pectoris
CPT/HCPCS: 80053; 85007; 85027

== ENCOUNTER 2021-05-12 17:52 | Inpatient (IN) | payer MEDICARE, MEDICAID ==
[~2021-05-12] VITALS: Ht 147.3 cm; Wt 54.0 kg
[2021-05-12 00:15] VITALS: BP 146/79
[~2021-05-12 17:52] MED LIST changes: +MONT-40 PO; -MONT10TA32 PO
--- NOTE | 2021-05-12 18:11 | ED General ---
General Stated Complaint: NOT FEELING GOOD Source of Information: Patient Exam Limitations: Physical Impairments (patient's poor memory) (AMERICO YOUSIF MD) History of Present Illness Date Seen by Provider: May 12, 2021 Time Seen by Provider: 17:50 Initial Comments Patient is a 71-year-old female who presents to the emergency department today with a chief complaint of "I just do not feel good". Patient cannot really give me a timeline of when her symptoms started, with multiple questions her answer is "I do not know". She does state that she has not had any food in 3 days. She states she has been drinking only water and coffee. She states she has been sneezing a lot and coughing. She denies feeling short of breath, she denies a sore throat. She did tell EMS that she had a "cold" in her left eye. She denies chest pain. She denies abdominal pain. She has had had no nausea or vomiting. She denies any problems such as diarrhea or dysuria. Patient tells me she cannot remember the last time she saw . She tells me her is retired. She states she does take medications for health problems but cannot recall what they are. She fills prescriptions at [facility]. She does continue to smoke. She lives alone but has a caregiver that comes in periodically. Caregiver is not immediately at the available at the bedside on my initial evaluation. Very difficult to obtain past medical past family history, social history and review of systems secondary to the patient's general poor medical state. Timing/Duration: 3-4 Days Severity: Moderate Associated Systoms: Malaise, Weakness (AMERICO YOUSIF MD) Allergies and Home Medications Allergies Coded Allergies: latex (Verified Allergy, Unknown, 02/07/19) Patient Home Medication List Home Medication List Reviewed: Yes (AMERICO YOUSIF MD) Acetaminophen (Tylenol Extra Strength) 500 Mg Tablet, 500 MG PO Q6H PRN for PAIN-MILD (1-4), (Reported) Entered as Reported by: JOANN MUNOZ on 07/22/20 1139 Last Action: Reviewed Ascorbic Acid (Vitamin C) 1,000 Mg Tablet, 1,000 MG PO DAILY, (Reported) Entered as Reported by: OUSMANE KIRAN on 03/16/21 1515 Last Action: Reviewed Docusate Sodium (Docusate Sodium) 100 Mg Capsule, 200 MG PO DAILY, (Reported) Entered as Reported by: OUSMANE KIRAN on 03/16/211511 Last Action: Reviewed Escitalopram Oxalate (Escitalopram Oxalate) 20 Mg Tablet, 20 MG PO DAILY, (Reported) Entered as Reported by: JOANN MUNOZ on 02/25/19952 Last Action: Reviewed Fexofenadine HCl (Fexofenadine HCl) 180 Mg Tablet, 180 PO DAILY, (Reported) Entered as Reported by: OUSMANE KIRAN on 03/16/211513 Last Action: Reviewed Lamotrigine (Lamotrigine) 200 Mg Tablet, 200 MG PO DAILY, (Reported) Entered as Reported by: JOANN MUNOZ on 02/25/19952 Last Action: Reviewed Lisinopril (Lisinopril) 40 Mg Tablet, 20 MG PO DAILY, (Reported) Entered as Reported by: OUSMANE KIRAN on 03/16/211509 Last Action: Reviewed Mirabegron (Myrbetriq) 50 Mg Tab.er.24h, 50 MG PO DAILY, (Reported) Entered as Reported by: OUSMANE KIRAN on 03/16/211515 Last Action: Reviewed Montelukast Sodium (Montelukast Sodium) 10 Mg Tablet, 10 MG PO 1900, (Reported) Entered as Reported by: OUSMANE KIRAN on 03/16/211509 Last Action: Reviewed Multivit-Min/FA/Lycopene/Lut (Centrum Silver Tablet) 1 Each Tablet, 1 EACH PO DAILY, (Reported) Entered as Reported by: OUSMANE KIRAN on 03/16/211510 Last Action: Reviewed Pantoprazole Sodium (Pantoprazole Sodium) 40 Mg Tablet.dr, 40 MG PO BID, (Reported) Entered as Reported by: JOANN MUNOZ on 05/13/21 1431 Last Action: Reviewed Pravastatin Sodium (Pravastatin Sodium) 80 Mg Tablet, 80 MG PO 1900, (Reported) Entered as Reported by: OUSMANE KIRAN on 03/16/211515 Last Action: Reviewed Primidone (Mysoline) 250 Mg Tablet, 250 MG PO BID, (Reported) Entered as Reported by: JOANN MUNOZ on 02/25/19952 Last Action: Reviewed Raloxifene HCl (Raloxifene HCl) 60 Mg Tablet, 60 MG PO DAILY, (Reported) Entered as Reported by: JOANN MUNOZ on 02/25/19 0953 Last Action: Reviewed Topiramate (Topiramate) 50 Mg Tablet, 50 MG PO 1900, (Reported) Entered as Reported by: OUSMANE KIRAN on 03/16/21 1517 Last Action: Reviewed Discontinued Medications Pantoprazole Sodium (Protonix) 40 Mg Tablet.dr, 40 MG PO BID Discontinued Reason: No Longer Taking Prescribed by: MAITE PARDO on 03/17/21 1117 Last Action: Discontinued Review of Systems Review of Systems Constitutional: see HPI, malaise, weakness EENTM: tearing (left eye), other ("sneezing alot") Respiratory: cough Cardiovascular: no symptoms reported Gastrointestinal: no symptoms reported Genitourinary: no symptoms reported : No Musculoskeletal: no symptoms reported Skin: no symptoms reported (AMERICO YOUSIF MD) All Other Systems Reviewed Negative Unless Noted: Yes (AMERICO YOUSIF MD) Past Ihpfmbh-Hyqpip-Jwfgsa Hx Patient Social History Tobacco Use?: Yes Tobacco type used: Cigarettes Smoking Status: Current Everyday Smoker (JENNIFER LOPEZ MD) Immunizations Up To Date Tetanus Booster (TDap): Unknown (AMERICO YOUSIF MD) Seasonal Allergies Seasonal Allergies: No (AMERICO YOUSIF MD) Past Medical History Surgeries: No Respiratory: No Cardiac: Yes Chronic Edema/Swelling, Hypertension Neurological: No Genitourinary: No Gastrointestinal: Yes Gastroesophageal Reflux, Gastrointestinal Bleed, Ulcer Musculoskeletal: No Endocrine: No HEENT: No Cancer: No Psychosocial: No Integumentary: No (AMERICO YOUSIF MD) Family Medical History Cardiovascular disease 19 FATHER 19 MOTHER Glaucoma 19 FATHER Hypertension 19 FATHER 19 MOTHER No Pertinent Family Hx Bilateral Endarterectomy (AMERICO YOUSIF MD) Physical Exam Vital Signs Vital Signs - First Documented 05/12/21 05/12/21 17:52 18:00 Temp 36.9 Pulse 99 Resp 22 B/P (MAP) 136/53 (80) Pulse Ox 94 O2 Delivery Room Air O2 Flow Rate 2.00 (JENNIFER LOPEZ MD) Vital Signs Capillary Refill : (AMERICO YOUSIF MD) Height, Weight, BMI Height: 4'10.00" Weight: 119lbs. oz. 53.037055du; 29.27 BMI Method:Stated General Appearance: No Apparent Distress, Chronically ill Eyes: Left Eye Lid Inflammation (Very slight periorbital edema of the left eye); Bilateral Eye Normal Inspection, Bilateral Eye PERRL, Bilateral Eye EOMI HEENT: PERRL/EOMI, Other (Very dry oral mucosa) Neck: Normal Inspection, Other (Scar left neck consistent with previous carotid endarterectomy) Respiratory: Lungs Clear, Normal Breath Sounds, No Accessory Muscle Use, No Respiratory Distress, Other (Initially very difficult to get an oxygen saturation on her. We ultimately ended up getting one on her left ear, oxygen sats 90 to 91%. Respirations even and unlabored, no distress noted) Cardiovascular: Regular Rate, Rhythm, Systolic Murmur (soft systolic murmur auscultated at the apex) Gastrointestinal: Normal Bowel Sounds, Soft, Guarding (Fairly significant tenderness to palpation in the right upper quadrant and epigastrium. Patient reaches to move my hand when palpating this area), Tenderness Extremity: Normal Inspection, No Calf Tenderness, No Pedal Edema Neurologic/Psychiatric: Alert, No Motor/Sensory Deficits, Depressed Affect Skin: Normal Color, Warm/Dry (AMERICO YOUSIF MD) Focused Exam Lactate Level 05/12/21 18:35: Lactic Acid Level 0.98 (JENNIFER LOPEZ MD) Lactic Acid Level Laboratory Tests Test 05/12/21 18:35 Lactic Acid Level 0.98 MMOL/L (0.50-2.00) (JENNIFER LOPEZ MD) Progress/Results/Core Measures Suspected Sepsis SIRS Temperature: Pulse: Respiratory Rate: Blood Pressure / Mean: 05/12/21 18:35: Lactic Acid Level 0.98 Laboratory Tests 05/12/21 18:35: Creatinine 0.65, INR Comment 1.0, Total Bilirubin 0.2 (AMERICO YOUSFI MD) Results/Orders Lab Results Laboratory Tests Test 05/12/21 18:35 05/12/21 18:59 05/12/21 19:00 Range/Units White Blood Count 10.2 4.3-11.0 10^3/uL Red Blood Count 3.09 L 3.80-5.11 10^6/uL Hemoglobin 5.8 *L 11.5-16.0 g/dL Hematocrit 23 L 35-52 % Mean Corpuscular Volume 73 L 80-99 fL Mean Corpuscular Hemoglobin 19 L 25-34 pg Mean Corpuscular Hemoglobin Concent 26 L 32-36 g/dL Red Cell Distribution Width 21.2 H 10.0-14.5 % Platelet Count 451 H 130-400 10^3/uL Mean Platelet Volume 11.0 9.0-12.2 fL Immature Granulocyte % (Auto) 1 % Neutrophils (%) (Auto) 84 H 42-75 % Lymphocytes (%) (Auto) 7 L 12-44 % Monocytes (%) (Auto) 7 0-12 % Eosinophils (%) (Auto) 1 0-10 % Basophils (%) (Auto) 1 0-10 % Neutrophils # (Auto) 8.6 H 1.8-7.8 X 10^3 Lymphocytes # (Auto) 0.7 L 1.0-4.0 X 10^3 Monocytes # (Auto) 0.7 0.0-1.0 X 10^3 Eosinophils # (Auto) 0.1 0.0-0.3 10^3/uL Basophils # (Auto) 0.1 0.0-0.1 10^3/uL Immature Granulocyte # (Auto) 0.1 0.0-0.1 10^3/uL Neutrophils % (Manual) 81 % Lymphocytes % (Manual) 9 % Monocytes % (Manual) 8 % Eosinophils % (Manual) 1 % Basophils % (Manual) 0 % Band Neutrophils 1 % Polychromasia SLIGHT Hypochromasia MODERATE Poikilocytosis SLIGHT Anisocytosis SLIGHT Prothrombin Time 13.9 12.2-14.7 SEC INR Comment 1.0 0.8-1.4 Activated Partial Thromboplast Time 31 24-35 SEC Sodium Level 139 135-145 MMOL/L Potassium Level 3.0 L 3.6-5.0 MMOL/L Chloride Level 101 98-107 MMOL/L Carbon Dioxide Level 26 21-32 MMOL/L Anion Gap 12 5-14 MMOL/L Blood Urea Nitrogen 10 7-18 MG/DL Creatinine 0.65 0.60-1.30 MG/DL Estimat Glomerular Filtration Rate 89 BUN/Creatinine Ratio 15 Glucose Level 100 70-105 MG/DL Lactic Acid Level 0.98 0.50-2.00 MMOL/L Calcium Level 9.5 8.5-10.1 MG/DL Corrected Calcium 9.7 8.5-10.1 MG/DL Total Bilirubin 0.2 0.1-1.0 MG/DL Aspartate Amino Transf (AST/SGOT) 20 5-34 U/L Alanine Aminotransferase (ALT/SGPT) 17 0-55 U/L Alkaline Phosphatase 142 H 40-136 U/L Pro-B-Type Natriuretic Peptide 4349.0 H <75.0 PG/ML Total Protein 6.7 6.4-8.2 GM/DL Albumin 3.7 3.2-4.5 GM/DL SARS-CoV-2 RNA (RT-PCR) Not Detected Not Detecte Urine Color YELLOW Urine Clarity SL CLOUDY Urine pH 7.0 5-9 Urine Specific [place] 1.010 L 1.016-1.022 Urine Protein NEGATIVE NEGATIVE Urine Glucose (UA) NEGATIVE NEGATIVE Urine Ketones NEGATIVE NEGATIVE Urine Nitrite NEGATIVE NEGATIVE Urine Bilirubin NEGATIVE NEGATIVE Urine Urobilinogen 0.2 < = 1.0 MG/DL Urine Leukocyte Esterase NEGATIVE NEGATIVE Urine RBC (Auto) NEGATIVE NEGATIVE Urine RBC NONE /HPF Urine WBC 0-2 /HPF Urine Squamous Epithelial Cells 0-2 /HPF Urine Crystals PRESENT H /LPF Urine Amorphous Sediment FEW DARVIN PHOSPHATE H /LPF Urine Bacteria MODERATE H /HPF Urine Casts NONE /LPF Urine Mucus NEGATIVE /LPF Urine Culture Indicated YES (JENNIFER LOPEZ MD) My Orders Orders - JENNIFER LOPEZ MD Potassium Chloride (Tablet) (Klor Con Ta (05/12/21 19:30) Probnp Fs (05/12/21 18:35) Pantoprazole Injection (Protonix Injecti (05/12/21 19:45) Famotidine Injection (Pepcid Injection) (05/12/21 19:45) Ed Admission (Communication) (05/12/21 19:40) (JENNIFER LOPEZ MD) Medications Given in ED Current Medications Medications Dose Ordered Sig/Veto Route Start Time Stop Time Status Last Admin Dose Admin Famotidine 20 mg ONCE ONCE IVP 05/12/21 19:45 05/12/21 19:46 DC 05/12/21 20:27 20 MG Pantoprazole 80 mg ONCE ONCE IV 05/12/21 19:45 05/12/21 19:46 DC 05/12/21 20:26 80 MG Potassium Chloride 40 meq ONCE ONCE PO 05/12/21 19:30 05/12/21 19:31 DC 05/12/21 20:27 40 MEQ (JENNIFER LOPEZ MD) Vital Signs/I&O 05/12/21 05/12/21 05/12/21 17:52 17:52 18:00 Temp 36.9 Pulse 99 Resp 22 B/P (MAP) 136/53 (80) Pulse Ox 94 94 O2 Delivery Room Air Nasal Cannula Nasal Cannula O2 Flow Rate 2.00 (JENNIFER LOPEZ MD) Vital Signs/I&O Capillary Refill : (AMERICO YOUSIF MD) Progress Note #1: Time: 18:50 Progress Note Per review of the medical record the patient has had GI bleed within the last 3 months that was significant and severe with a hemoglobin down to 4. Suspect there may be something related to that today. Labs are pending currently, sepsis work-up started. We did order Covid test however this will be a send down to [facility] and we will not get results today. Vital signs are stable. She is awake alert and oriented. Very hard of hearing. Depressed affect. Progress Note #2: Time: 18:59 Progress Note Notified by nursing staff that the lab called with a hemoglobin of 5.8. Review of the patient's medical record from March when she had her most recent admission for symptomatic anemia showed that she had EGD done by Dr. Zimmerman which demonstrated healing distal esophageal ulcer. (AMERICO YOUSIF MD) Progress Note : Time: 19:52 Progress Note I assumed care of this patient from Dr. Yousif at shift change. Patient is stable at this time. Plan is to admit for 2 units of transfusion and monitoring. Case has been reviewed with Dr. Pardo who accepts admission. Dr. Johnson has been consulted for history of the esophageal ulcer. Patient is receiving Pepcid and Protonix in the ER and then will be transferred to [facility] for transfusion. COVID-19 screen is pending. (JENNIFER LOPEZ MD) Diagnostic Imaging Diagonstic Imaging: Xray Plain Films/CT/US/NM/MRI: chest Comments NAME: STEPHAN MARQUEZ [facility] REC#: [id number] PT STATUS: REG ER : 1950 PHYSICIAN: AMERICO YOUSIF MD ADMIT DATE: 05/12/21/ER FS Draft Date of Exam:05/12/21 CHEST 1 VIEW AP/PA ONLY INDICATION: Weakness. COMPARISON: Prior examination from 03/15/2021. FINDINGS: There is cardiomegaly. Mild venous congestion. There is no pleural effusion or pneumothorax. The mediastinum is unremarkable. IMPRESSION: Cardiomegaly and mild central pulmonary venous congestion. Dictated on workstation # [id number] Dict: 05/12/21 1830 Trans: 05/12/21 1852 [facility] [id number] Interpreted by: DILEEP PADILLA MD Electronically signed by: (AMERICO YOUSIF MD) Departure Communication (Admissions) Time/Spoke to Admitting Phy: 19:40 Dr. Pardo Time/Spoke to Consulting Phy: 19:45 Dr. Johnson (JENNIFER LOPEZ MD) Impression Primary Impression: Severe anemia Additional Impressions: Generalized weakness Hypokalemia History of esophageal ulcer Disposition: ADMITTED INPATIENT Condition: Stable Admissions Decision to Admit Reason: Admit from ER (General) Decision to Admit/Date: May 12, 2021 Time/Decision to Admit Time: 19:00 (JENNIFER LOPEZ MD) Transfer Transfer Reason: Exceeds level of care Time Spoke to Accepting Phy: 19:40 Transfer Progress Notes Admission accepted by Dr. Pardo. Transfer Time: 21:18 Transfer Facility: [facility] Method of Transfer: EMS (JENNIFER LOPEZ MD) Departure-Patient Inst. Referrals: [facility] (PCP/Family) Primary Care Physician AMERICO YOUSIF MD May 12, 2021 18:11 JENNIFER LOPEZ MD May 12, 2021 19:51
--- NOTE | 2021-05-12 18:54 | Diagnostic Imaging Report ---
INDICATION: Weakness. COMPARISON: Prior examination from 03/15/2021. FINDINGS: There is cardiomegaly. Mild venous congestion. There is no pleural effusion or pneumothorax. The mediastinum is unremarkable. IMPRESSION: Cardiomegaly and mild central pulmonary venous congestion. Dictated by: Dictated on workstation # [id number]
[2021-05-12 18:56] LABS: WHITE BLOOD COUNT 10.2 10^3/uL (4.3-11.0)
[2021-05-12 18:57] LABS: HEMATOCRIT 23 % (35-52); HEMOGLOBIN 5.8 g/dL (11.5-16.0); MEAN CORPUSCULAR HEMOGLOBIN 19 pg (25-34)
[2021-05-12 18:58] LABS: BASOPHILS % (AUTO) 1 % (0-10); EOSINOPHILS % (AUTO) 1 % (0-10); LYMPHOCYTES # (AUTO) 0.7 X 10^3 (1.0-4.0); LYMPHOCYTES % (AUTO) 7 % (12-44); MEAN CORPUSCULAR HGB CONC 26 g/dL (32-36); MEAN CORPUSCULAR VOLUME 73 fL (80-99); MONOCYTES # (AUTO) 0.7 X 10^3 (0.0-1.0); MONOCYTES % (AUTO) 7 % (0-12); NEUTROPHILS # (AUTO) 8.6 X 10^3 (1.8-7.8); NEUTROPHILS % (AUTO) 84 % (42-75); PLATELET COUNT 451 10^3/uL (130-400)
[2021-05-12 18:59] LABS: BASOPHILS # (AUTO) 0.1 10^3/uL (0.0-0.1); EOSINOPHILS # (AUTO) 0.1 10^3/uL (0.0-0.3); PROTHROMBIN TIME PATIENT 13.9 SEC (12.2-14.7)
[2021-05-12 19:06] LABS: CREATININE SERUM 0.65 MG/DL (0.60-1.30)
[2021-05-12 19:07] LABS: ALBUMIN 3.7 GM/DL (3.2-4.5); BILIRUBIN,TOTAL 0.2 MG/DL (0.1-1.0); CALCIUM 9.5 MG/DL (8.5-10.1); TOTAL PROTEIN 6.7 GM/DL (6.4-8.2)
[2021-05-12] MEDS ORDERED: KCL 10 MEQ TAB (MICRO K) PO ONE (19:30)
[2021-05-12] MEDS ORDERED: FAMOTIDINE 20MG/2ML IV (PEPCID) IVP ONE (19:45)
[2021-05-12] MEDS ORDERED: PANTOPRAZOLE 40 MG (PROTONIX) VIAL IV ONE (19:45)
[2021-05-12 19:54] LABS: BAND NEUTROPHILS 1 %; BASOPHILS % (MANUAL) 0 %; EOSINOPHILS % (MANUAL) 1 %; HYPOCHROMASIA MODERATE; LYMPHOCYTES % (MANUAL) 9 %; MONOCYTES % (MANUAL) 8 %; NEUTROPHILS % (MANUAL) 81 %; POLYCHROMASIA SLIGHT
[2021-05-12 19:55] LABS: ANISOCYTOSIS SLIGHT; POIKILOCYTOSIS SLIGHT
[2021-05-12 20:47] LABS: BILIRUBIN,URINE NEGATIVE (NEGATIVE); CLARITY,URINE SL CLOUDY; COLOR,URINE YELLOW; GLUCOSE, URINE (UA) NEGATIVE (NEGATIVE); KETONES,URINE NEGATIVE (NEGATIVE); LEUKOCYTE ESTERASE ,URINE NEGATIVE (NEGATIVE); NITRITE,URINE NEGATIVE (NEGATIVE); PROTEIN,URINE NEGATIVE (NEGATIVE)
[2021-05-12 20:53] LABS: AMORPHOUS SEDIMENT,UR FEW AMOR PHOSPHATE /LPF; BACTERIA,URINE MODERATE /HPF; SQUAMOUS EPITHELIAL CELL,UR 0-2 /HPF; WBC,URINE 0-2 /HPF
[2021-05-12 22:10] VITALS: BP 156/77
[2021-05-12] MEDS ORDERED: diphenhydrAMINE 25 MG TAB (BENADRYL) PO PRN (22:15)
[2021-05-12] MEDS ORDERED: NS IV 500 ML 500 ML IV SCH (22:15)
[2021-05-12] MEDS ORDERED: ALPRAZolam 0.25 MG (XANAX) TAB PO PRN (22:15)
[2021-05-12] MEDS ORDERED: HYDROcodone/APAP 5 MG/325 MG (LORTAB) TAB PO PRN (22:15)
[2021-05-12 22:45] LABS: ABSOLUTE RETIC # 38 10e9/uL (24-90); BASOPHILS # (AUTO) 0.1 10^3/uL (0.0-0.1); BASOPHILS % (AUTO) 1 % (0-10); EOSINOPHILS # (AUTO) 0.1 10^3/uL (0.0-0.3); EOSINOPHILS % (AUTO) 1 % (0-10); LYMPHOCYTES # (AUTO) 1.2 10^3/uL (1.0-4.0); LYMPHOCYTES % (AUTO) 11 % (12-44); MEAN CORPUSCULAR HEMOGLOBIN 19 pg (25-34); MEAN CORPUSCULAR HGB CONC 26 g/dL (32-36); MEAN CORPUSCULAR VOLUME 73 fL (80-99); MEAN PLATELET VOLUME 9.5 fL (9.0-12.2); MONOCYTES # (AUTO) 0.8 10^3/uL (0.0-1.0); MONOCYTES % (AUTO) 7 % (0-12); NEUTROPHILS # (AUTO) 8.6 10^3/uL (1.8-7.8); NEUTROPHILS % (AUTO) 79 % (42-75); PLATELET COUNT 472 10^3/uL (130-400); RETICULOCYTE % 1.34 % (0.50-2.40); WHITE BLOOD COUNT 10.9 10^3/uL (4.3-11.0)
[2021-05-12 22:50] LABS: HEMOGLOBIN 5.3 g/dL (11.5-16.0)
[2021-05-12 22:51] LABS: HEMATOCRIT 20 % (35-52)
[2021-05-13] VITALS (8 sets, daily range): BP systolic 145–167; BP diastolic 67–94
[2021-05-13] MEDS ORDERED: FUROSEMIDE 40 MG/4 ML INJ (LASIX) IVP NR (02:00)
[2021-05-13 02:39] LABS: ANISOCYTOSIS SLIGHT; HYPOCHROMASIA MODERATE; MONOCYTES % (MANUAL) 7 %; NEUTROPHILS % (MANUAL) 81 %; POIKILOCYTOSIS SLIGHT; POLYCHROMASIA SLIGHT
[2021-05-13 02:40] LABS: CRENATED RBC SLIGHT; MICROCYTOSIS SLIGHT; TARGET CELLS SLIGHT; TOXIC GRANULATION/VACUOLAZATIO 1+
[2021-05-13 06:04] LABS: BASOPHILS # (AUTO) 0.1 10^3/uL (0.0-0.1); BASOPHILS % (AUTO) 1 % (0-10); EOSINOPHILS # (AUTO) 0.1 10^3/uL (0.0-0.3); EOSINOPHILS % (AUTO) 2 % (0-10); HEMATOCRIT 26 % (35-52); HEMOGLOBIN 7.4 g/dL (11.5-16.0); LYMPHOCYTES # (AUTO) 1.2 10^3/uL (1.0-4.0); LYMPHOCYTES % (AUTO) 14 % (12-44); MEAN CORPUSCULAR HEMOGLOBIN 21 pg (25-34); MEAN CORPUSCULAR HGB CONC 28 g/dL (32-36); MEAN CORPUSCULAR VOLUME 75 fL (80-99); MEAN PLATELET VOLUME 9.5 fL (9.0-12.2); MONOCYTES # (AUTO) 0.9 10^3/uL (0.0-1.0); MONOCYTES % (AUTO) 11 % (0-12); NEUTROPHILS # (AUTO) 6.2 10^3/uL (1.8-7.8); NEUTROPHILS % (AUTO) 72 % (42-75); PLATELET COUNT 411 10^3/uL (130-400); WHITE BLOOD COUNT 8.6 10^3/uL (4.3-11.0)
[2021-05-13 06:20] LABS: ALBUMIN 3.2 GM/DL (3.2-4.5); POTASSIUM 3.6 MMOL/L (3.6-5.0)
[2021-05-13 06:21] LABS: CALCIUM 8.7 MG/DL (8.5-10.1)
[2021-05-13 06:22] LABS: TOTAL PROTEIN 5.8 GM/DL (6.4-8.2)
[2021-05-13 06:24] LABS: BILIRUBIN,TOTAL 0.9 MG/DL (0.1-1.0)
[2021-05-13 06:26] LABS: CREATININE SERUM 0.67 MG/DL (0.60-1.30)
[2021-05-13] MEDS ORDERED: FAMOTIDINE 20 MG (PEPCID) TABLET PO SCH (09:00)
[2021-05-13] MEDS: PANTOPRAZOLE 40 MG (PROTONIX) TAB PO SCH ×2 (09:10→20:16)
[2021-05-13] MEDS ORDERED: FUROSEMIDE 40 MG/4 ML INJ (LASIX) IVP ONE (10:30)
--- NOTE | 2021-05-13 11:08 | Consultation-Cardiology ---
HPI-Cardiology Cardiology Consultation: Date of Consultation 05/13/21 Time Seen by a Provider: 11:00 Date of Admission 05-12-21 Attending Physician Erna Pardo DO Admitting Physician [facility] Consulting Physician Kishan Brooks MD Provider requesting consult: Dr. Pardo HPI: Chief Complaint: SOB Ms. Oliva is a 71 yr old female admitted to 422 from the ED with c/o increasing SOB and generally feeling unwell. She is a poor historian. She states she has chronic SOB, but over the course of the last few weeks she has had worsening of her symptoms. No c/o CP, palpitations, syncope, near syncope or LE swelling. She reports she smokes approx 1 1/2 PPD of cigs. She reports she has had a poor appetite recently. She reports epigastric discomfort. She reports she only takes her medications when she remembers to take them. She feels her SOB is better at this time. She reports she lives at home alone, but has a healthcare risk control consultant that comes in daily to assist her. Review of Systems-Cardiology Review of Systems Constitutional: No chills, No fever; malaise Eyes: No vision change Ears/Nose/Throat: chronic hearing loss; No recent hearing loss Respiratory: As described under HPI Cardiovascular: As described under HPI Gastrointestinal: As described under HPI Genitourinary: No dysuria, No hematuria : No Skin: No rash on exposed areas, No ulcerations on exposed areas Psychiatric/Neurological: No anxiety, No depression, No seizure, No focal weakness, No syncope Hematologic: No bleeding abnormalities All Other Systems Reviewed Negative Unless Noted: Yes EFI-Jfkwjk-Ueirfh Hx Patient Social History Smoking Status: Current Everyday Smoker 2nd Hand Smoke Exposure: No Have you traveled recently?: No Alcohol Use?: No Pt feels they are or have been: No Tobacco type used: Cigarettes Immunizations Up To Date Tetanus Booster (TDap): Unknown Date of Pneumonia Vaccine: Feb 25, 2017 Past Medical History PMH As described under Assessment. Family Medical History Family Medical History: She reports her father, mother, 3 brothers and a sister had CAD. Family History: Cardiovascular disease 19 FATHER 19 MOTHER Glaucoma 19 FATHER Hypertension 19 FATHER 19 MOTHER Allergies and Home Medications Allergies Coded Allergies: latex (Verified Allergy, Unknown, 02/07/19) Patient Home Medication List Acetaminophen (Tylenol Extra Strength) 500 Mg Tablet, 500 MG PO Q6H PRN for PAIN-MILD (1-4), (Reported) Entered as Reported by: JOANN MUNOZ on 07/22/20 1139 Last Action: Reviewed Ascorbic Acid (Vitamin C) 1,000 Mg Tablet, 1,000 MG PO DAILY, (Reported) Entered as Reported by: OUSMANE KIRAN on 03/16/211514 Last Action: Reviewed Docusate Sodium (Docusate Sodium) 100 Mg Capsule, 200 MG PO DAILY, (Reported) Entered as Reported by: OUSMANE KIRAN on 03/16/211511 Last Action: Reviewed Escitalopram Oxalate (Escitalopram Oxalate) 20 Mg Tablet, 20 MG PO DAILY, (Reported) Entered as Reported by: JOANN MUNOZ on 02/25/19952 Last Action: Reviewed Fexofenadine HCl (Fexofenadine HCl) 180 Mg Tablet, 180 PO DAILY, (Reported) Entered as Reported by: OUSMANE KIRAN on 03/16/211513 Last Action: Reviewed Lamotrigine (Lamotrigine) 200 Mg Tablet, 200 MG PO DAILY, (Reported) Entered as Reported by: JOANN MUNOZ on 02/25/19952 Last Action: Reviewed Lisinopril (Lisinopril) 40 Mg Tablet, 20 MG PO DAILY, (Reported) Entered as Reported by: OUSMANE KIRAN on 03/16/211509 Last Action: Reviewed Mirabegron (Myrbetriq) 50 Mg Tab.er.24h, 50 MG PO DAILY, (Reported) Entered as Reported by: OUSMANE KIRAN on 03/16/211515 Last Action: Reviewed Montelukast Sodium (Montelukast Sodium) 10 Mg Tablet, 10 MG PO 1900, (Reported) Entered as Reported by: OUSMANE KIRAN on 03/16/211509 Last Action: Reviewed Multivit-Min/FA/Lycopene/Lut (Centrum Silver Tablet) 1 Each Tablet, 1 EACH PO DAILY, (Reported) Entered as Reported by: OUSMANE KIRAN on 03/16/211510 Last Action: Reviewed Omeprazole (Omeprazole) 40 Mg Capsule.dr, 40 MG PO DAILY Prescribed by: YNES MIRZA on 05/14/21 1542 Pantoprazole Sodium (Pantoprazole Sodium) 40 Mg Tablet.dr, 40 MG PO BID, (Reported) Entered as Reported by: JOANN MUNOZ on 05/13/21 1431 Last Action: Reviewed Pravastatin Sodium (Pravastatin Sodium) 80 Mg Tablet, 80 MG PO 1900, (Reported) Entered as Reported by: OUSMANE KIRAN on 03/16/21 1516 Last Action: Reviewed Primidone (Mysoline) 250 Mg Tablet, 250 MG PO BID, (Reported) Entered as Reported by: JOANN MUNOZ on 02/25/1953 Last Action: Reviewed Raloxifene HCl (Raloxifene HCl) 60 Mg Tablet, 60 MG PO DAILY, (Reported) Entered as Reported by: JOANN MUNOZ on 02/25/19952 Last Action: Reviewed Topiramate (Topiramate) 50 Mg Tablet, 50 MG PO 1900, (Reported) Entered as Reported by: OUSMANE KIRAN on 03/16/21 151 Last Action: Reviewed Discontinued Medications Pantoprazole Sodium (Protonix) 40 Mg Tablet.dr, 40 MG PO BID Discontinued Reason: No Longer Taking Prescribed by: ERNA PARDO on 03/17/21 1117 Last Action: Discontinued Physical Exam-Cardiology Physical Exam Vital Signs/I&O 05/17/21 05/17/21 05/17/21 05/17/21 00:01 04:01 07:40 08:00 Temp 37.8 36.8 36.8 Pulse 82 78 79 Resp 20 20 20 B/P (MAP) 164/74 (104) 152/73 (99) 155/70 (98) Pulse Ox 90 98 89 O2 Delivery Nasal Cannula Nasal Cannula Nasal Cannula Nasal Cannula O2 Flow Rate 3.00 3.00 3.00 2.00 05/17/21 08:08 O2 Delivery Nasal Cannula O2 Flow Rate 3.00 05/17/21 00:00 Intake Total 650 ml Balance 650 ml Capillary Refill : Less Than 3 Seconds Constitutional: AAO x 3, other (thin, frail) HEENT: PERRL, hard of hearing Neck: No carotid bruit; carotid pulses are 2 + bilaterally Respiratory: No accessory muscle use, No respiratory distress; chest expansion is symmetric, chest is bilaterally symmetric, rhonchi (scattered), other (diminished breath sounds) Cardiovascular: regular rate-rhythm; No JVD; S1 and S2, systolic murmur Gastrointestinal: tender (epigastric), soft; No guarding; audible bowel sounds Extremities: no lower extremity edema bilateral Neurologic/Psychiatric: grossly intact (moves all extremities) Skin: No rash on exposed areas, No ulcerations on exposed areas Data Review Labs Laboratory Tests 05/17/21 05:50: White Blood Count 11.4H, Red Blood Count 3.67L, Hemoglobin 8.7L, Hematocrit 30L, Mean Corpuscular Volume 82, Mean Corpuscular Hemoglobin 24L, Mean Corpuscular Hemoglobin Concent 29L, Red Cell Distribution Width 21.2H, Platelet Count 410H, Mean Platelet Volume 9.9, Immature Granulocyte % (Auto) 1, Neutrophils (%) (Auto) 81H, Lymphocytes (%) (Auto) 6L, Monocytes (%) (Auto) 9, Eosinophils (%) (Auto) 2, Basophils (%) (Auto) 1, Neutrophils # (Auto) 9.3H, Lymphocytes # (Auto) 0.7L, Monocytes # (Auto) 1.0, Eosinophils # (Auto) 0.3, Basophils # (Auto) 0.1, Immature Granulocyte # (Auto) 0.1, Sodium Level 143, Potassium Level 3.7, Chloride Level 104, Carbon Dioxide Level 28, Anion Gap 11, Blood Urea Nitrogen 5L, Creatinine 0.60, Estimat Glomerular Filtration Rate 98, BUN/Creatinine Ratio 8, Glucose Level 92, Calcium Level 8.8, Corrected Calcium 9.6, Total Bilirubin 0.5, Aspartate Amino Transf (AST/SGOT) 19, Alanine Aminotransferase (ALT/SGPT) 13, Alkaline Phosphatase 95, Total Protein 5.4L, Albumin 3.0L Microbiology 05/13/21 MRSA Screen - Final, Complete 05/12/21 Blood Culture - Preliminary, Resulted No growth 05/12/21 Urine Culture - Final, Complete NO GROWTH Radiology NAME: STEPHAN OLIVA [facility] REC#: [id number] PT STATUS: REG ER : 1950 PHYSICIAN: AMERICO YOUSIF MD ADMIT DATE: 05/12/21/ER FS Signed Date of Exam:05/12/21 CHEST 1 VIEW AP/PA ONLY INDICATION: Weakness. COMPARISON: Prior examination from 03/15/2021. FINDINGS: There is cardiomegaly. Mild venous congestion. There is no pleural effusion or pneumothorax. The mediastinum is unremarkable. IMPRESSION: Cardiomegaly and mild central pulmonary venous congestion. Dictated by: Dictated on workstation # [id number] Dict: 05/12/210 Trans: 05/12/211902 [id number] Interpreted by: DILEEP PADILLA MD Electronically signed by: DILEEP PADILLA MD 05/12/211902 A/P-Cardiology Assessment/Admission Diagnosis Suspected GIB - undetermined etiology - management per surgical services - requiring multiple transfusions - H/O GIB with gross anemia (previous presentation in March 2021) - required multiple transfusions - h/o EGD per Dr. Zimmerman in Mar 2021 showing healing esophageal ulcer UTI - management per medical services CAD - reports h/o coronary stent placement greater than 12 yrs ago in [place], [place] - details unknown - Echocardiogram of 03-16-21 showed LVEF 60-65%. Mild MR. AoV sclerosis. Mild to mod TR. PASP 55-60 mmHg Pulmonary HTN - echocardiogram of 03-16-21 showed PASP 55-60 mmHg Carotid dz - h/o bilat CEA greater than 5 yrs ago in [place], [place] - details unknown HTN - uncontrolled HLD - statin tx - followed by PCP H/O hiatal hernia and GERD Tobaccoism - cessation advised Prob COPD Chronic LOVE Discussion and Recomendations Management of suspected GIB per surgical/medical services Acute CHF - treat with diuretics Echocardiogram today EKG today Uncontrolled HTN - d/t reported h/o CAD - start BB Monitor lab closely and replace electrolytes as indicated Further recs will be based on her hospital course DARSHANA RENO May 13, 2021 11:08
[2021-05-13 11:56] LABS: REACTIVE LYMPHOCYTES 2 %
[2021-05-13 12:00] LABS: LYMPHOCYTES % (MANUAL) 10 %
--- NOTE | 2021-05-13 14:27 | History & Physical-Hospitalist ---
KRISTA ZAMBRANO 05/13/21 1427: History of Present Illness HPI/Chief Complaint Patient is a 71 year old female who presented to [facility] ER last night with a chief complain of "just not feeling well". She could not remember when it started. She also had complaints of coughing and left eye pain from her cold. She was found to have a hemoglobin of 5.3 and stated she had been unable to eat for the past three days. She had only been drinking water and coffee. Patient does smoke. Patient has a history of a bleeding ulcer discovered via endoscopy by Dr. Zimmerman on March 15 of this year. Patient does deny chest pain, abdominal pain, N/V, diarrhea, dysuria, and blood in her stool. Patient was given two units of packed RBCs and that brought her hemoglobin up to 7.4. Patient is a poor historian with PMH, SH, and Family history. Source: patient, RN notes reviewed, other (ER notes) Date Seen 05/13/21 Time Seen by a Provider: 08:40 Attending Physician Erna Pardo DO [facility] Referring Physician Date of Admission May 12, 2021 at 20:03 Home Medications & Allergies Home Medications Reviewed patient Home Medication Reconciliation performed by pharmacy medication reconciliations medical imaging technician and/or nursing. Patients Allergies have been reviewed. Allergies Allergies Coded Allergies latex (Verified Allergy, Unknown, 02/07/19) Past Fkttopk-Vxawln-Hklubn Hx Patient Social History Tobacco Use?: Yes Tobacco type used: Cigarettes Smoking Status: Current Everyday Smoker Use of E-Cig and/or Vaping dev: No Substance use?: No Alcohol Use?: No Pt feels they are or have been: No Immunizations Up To Date First/Initial COVID19 Vaccinat: has not got covid vaccine Tetanus Booster (TDap): Unknown Hepatitis A: No Hepatitis B: No Date of Pneumonia Vaccine: Feb 25, 2017 Seasonal Allergies Seasonal Allergies: No Current Status Advance Directives: Unable to obtain Communicates: Verbally Primary Language: Tajik Preferred Spoken Language: Tajik Sensory deficits: Vision impairment, Hearing impairment Past Medical History Chronic Edema/Swelling, Hypertension Gastroesophageal Reflux, Gastrointestinal Bleed, Ulcer Family Medical History Cardiovascular disease 19 FATHER 19 MOTHER Glaucoma 19 FATHER Hypertension 19 FATHER 19 MOTHER No Pertinent Family Hx Bilateral Endarterectomy Review of Systems Constitutional: No chills, No fever EENTM: eye pain (L eye pain "from cold" ); No blurred vision, No double vision Respiratory: cough; No short of breath Cardiovascular: No chest pain, No edema Gastrointestinal: No abdominal pain, No diarrhea, No hematemesis, No nausea, No vomiting Genitourinary: No decreased output, No dysuria Musculoskeletal: other (costral soreness from coughing) Physical Exam Physical Exam Vital Signs Vital Signs - First Documented 05/12/21 05/12/21 17:52 18:00 Temp 36.9 Pulse 99 Resp 22 B/P (MAP) 136/53 (80) Pulse Ox 94 O2 Delivery Room Air O2 Flow Rate 2.00 Capillary Refill : Less Than 3 Seconds Height, Weight, BMI Height: 4'10.00" Weight: 119lbs. oz. 53.961152cs; 26.94 BMI Method:Stated General Appearance: No Apparent Distress, WD/WN HEENT: PERRL/EOMI Respiratory: Chest Non Tender, Lungs Clear, Normal Breath Sounds, No Accessory Muscle Use, No Respiratory Distress Cardiovascular: Regular Rate, Rhythm, No Murmur, Normal Peripheral Pulses Gastrointestinal: Non Tender, Soft Rectal: Deferred Extremity: Non Tender, No Calf Tenderness, No Pedal Edema Neurologic/Psychiatric: Alert, Oriented x3, Normal Mood/Affect Results Results/Procedures Labs Laboratory Tests 05/12/21 18:35 05/12/21 22:30 05/13/21 05:15 Patient resulted labs reviewed. Assessment/Plan Admission Diagnosis Severe Anemia Admission Status: Inpatient Order (span 2 midnights) Assessment and Plan Assessment Severe anemia possible GI bleed CAD HTN HLD Bacteruria Plan 2 Units RBCs given - continue to monitor, consider another transfusion if Hgb drops below 7. Correlate bacteruria clinically Continue home medication Consult Surgery Consult Cardiology ERNA PARDO DO 05/14/21 0521: History of Present Illness HPI/Chief Complaint CC: Severe Anemia HPI: This is a 71yoWF clinic pt of [facility] who presents with weakness found to have a hgb of 5.8 in need of two units of blood and to evaluate for source of bleeding. Cardology was consulted along with Dr. Johnson. Source: patient, other (ER notes) Past Rxjznoq-Soaqzw-Noffpf Hx Patient Social History Marrital Status: single Employed/Student: retired Smoking Status: Former Smoker Past Medical History Chronic Edema/Swelling, High Cholesterol, Hypertension Gastrointestinal Bleed Family Medical History Cardiovascular disease 19 FATHER 19 MOTHER Glaucoma 19 FATHER Hypertension 19 FATHER 19 MOTHER Review of Systems Constitutional: see HPI, malaise, weakness EENTM: no symptoms reported Respiratory: no symptoms reported Cardiovascular: no symptoms reported Gastrointestinal: no symptoms reported Musculoskeletal: no symptoms reported Skin: no symptoms reported Psychiatric/Neurological: No Symptoms Reported All Other Systems Reviewed Negative Unless Noted: Yes Physical Exam Physical Exam General Appearance: No Apparent Distress, Chronically ill, Thin Eyes: Right Eye Normal Inspection, Right Eye PERRL HEENT: PERRL/EOMI, Normal ENT Inspection, Pharynx Normal, Moist Mucous Membranes Neck: Full Range of Motion, Normal Inspection, Non Tender Respiratory: Chest Non Tender, Lungs Clear, Normal Breath Sounds, No Accessory Muscle Use, No Respiratory Distress Cardiovascular: Regular Rate, Rhythm, No Edema, No Gallop, No JVD, No Murmur, Normal Peripheral Pulses Gastrointestinal: Normal Bowel Sounds, No Organomegaly, No Pulsatile Mass, Non Tender, Soft Back: Normal Inspection, No CVA Tenderness, No Vertebral Tenderness Extremity: Normal Capillary Refill, Normal Inspection, Normal Range of Motion, Non Tender, No Calf Tenderness, No Pedal Edema Neurologic/Psychiatric: Alert, Oriented x3, No Motor/Sensory Deficits, Normal Mood/Affect Skin: Normal Color, Warm/Dry Lymphatic: No Adenopathy Assessment/Plan Admission Diagnosis Assessment: Symptomatic anemia Volume overload History of transfusions in the past Lives alone Plan: Dr. Johnson consult Dr. Brooks consult IV Lasix Transfuse Admission Status: Inpatient Order (span 2 midnights) Reason for Inpatient Admission: Severe anemia Supervisory-Addendum Brief Verification & Attestation Participated in pt care: history, MDM, physical Personally performed: exam, history, MDM, supervision of care Care discussed with: Medical Student Procedures: n/a Results interpretation: Verified all documentation Verification and Attestation of Medical Student E/M Service A medical student performed and documented this service in my presence. I reviewed and verified all information documented by the medical student and made modifications to such information, when appropriate. I personally performed the physical exam and medical decision making. Erna Pardo, May 14, 2021,05:21 KRISTA ZAMBRANO May 13, 2021 14:27 ERNA PARDO DO May 14, 2021 05:21
[2021-05-13] MEDS ORDERED: PANT40TA52 PO (14:31)
--- NOTE | 2021-05-13 16:06 | Progress Note-Pre Operative ---
Pre-Operative Progress Note H&P Reviewed The H&P was reviewed, patient examined and no changes noted. Date Seen by Provider: May 13, 2021 Time Seen by Provider: 16:00 Date H&P Reviewed: May 13, 2021 Time H&P Reviewed: 16:00 Pre-Operative Diagnosis: anemia with hx esophageal ulcer YNES MIRZA MD May 13, 2021 16:06
--- NOTE | 2021-05-13 16:16 | Progress Note-Pre Operative ---
Pre-Operative Progress Note H&P Reviewed The H&P was reviewed, patient examined and no changes noted. Date Seen by Provider: May 13, 2021 Time Seen by Provider: 16:00 Date H&P Reviewed: May 13, 2021 Time H&P Reviewed: 16:00 Pre-Operative Diagnosis: anemia, hx esophageal ulcer and pyloric stricture YNES MIRZA MD May 13, 2021 16:16
--- NOTE | 2021-05-13 17:09 | Consultation-Cardiology ---
HPI-Cardiology Cardiology Consultation: Date of Consultation 05/13/21 Time Seen by a Provider: 17:00 Date of Admission Attending Physician Erna Pardo DO Admitting Physician [facility] Consulting Physician JOHN CHRISTIANSEN MD, MA, FACP, FACC, [facility], [facility] Physician requesting consult: Dr Pardo HPI: Chief Complaint: SOB Ms. Oliva is a 71 yr old female admitted to 422 from the ED with c/o increasing SOB and generally feeling unwell. She is a poor historian. She states she has chronic SOB, but over the course of the last few weeks she has had worsening of her symptoms. No c/o CP, palpitations, syncope, near syncope or LE swelling. She reports she smokes approx 1 1/2 PPD of cigs. She reports she has had a poor appetite recently. She reports epigastric discomfort. She reports she only takes her medications when she remembers to take them. She feels her SOB is better at this time. She reports she lives at home alone, but has a caregivers non medical that comes in daily to assist her. Review of Systems-Cardiology Review of Systems Constitutional: No chills, No fever; malaise Eyes: No vision change Ears/Nose/Throat: chronic hearing loss; No recent hearing loss Respiratory: As described under HPI Cardiovascular: As described under HPI Gastrointestinal: As described under HPI Genitourinary: No dysuria, No hematuria : No Skin: No rash on exposed areas, No ulcerations on exposed areas Psychiatric/Neurological: No anxiety, No depression, No seizure, No focal wea kness, No syncope Hematologic: No bleeding abnormalities All Other Systems Reviewed Negative Unless Noted: Yes XKS-Pzqsch-Alcmby Hx Patient Social History Smoking Status: Current Everyday Smoker 2nd Hand Smoke Exposure: No Have you traveled recently?: No Alcohol Use?: No Pt feels they are or have been: No Tobacco type used: Cigarettes Immunizations Up To Date Tetanus Booster (TDap): Unknown Date of Pneumonia Vaccine: Feb 25, 2017 Past Medical History PMH As described under Assessment. Family Medical History Family Medical History: She reports her father, mother, 3 brothers and a sister had CAD. Family History: Cardiovascular disease 19 FATHER 19 MOTHER Glaucoma 19 FATHER Hypertension 19 FATHER 19 MOTHER Allergies and Home Medications Allergies Coded Allergies: latex (Verified Allergy, Unknown, 02/07/19) Patient Home Medication List Home Medication List Reviewed: Yes Acetaminophen (Tylenol Extra Strength) 500 Mg Tablet, 500 MG PO Q6H PRN for PAIN-MILD (1-4), (Reported) Entered as Reported by: JOANN MUNOZ on 07/22/20 1139 Last Action: Reviewed Ascorbic Acid (Vitamin C) 1,000 Mg Tablet, 1,000 MG PO DAILY, (Reported) Entered as Reported by: OUSMANE KIRAN on 03/16/211514 Last Action: Reviewed Docusate Sodium (Docusate Sodium) 100 Mg Capsule, 200 MG PO DAILY, (Reported) Entered as Reported by: OUSMANE KIRAN on 03/16/211511 Last Action: Reviewed Escitalopram Oxalate (Escitalopram Oxalate) 20 Mg Tablet, 20 MG PO DAILY, (Reported) Entered as Reported by: JOANN MUNOZ on 02/25/19952 Last Action: Reviewed Fexofenadine HCl (Fexofenadine HCl) 180 Mg Tablet, 180 PO DAILY, (Reported) Entered as Reported by: OUSMANE KIRAN on 03/16/211513 Last Action: Reviewed Lamotrigine (Lamotrigine) 200 Mg Tablet, 200 MG PO DAILY, (Reported) Entered as Reported by: JOANN MUNOZ on 02/25/19952 Last Action: Reviewed Lisinopril (Lisinopril) 40 Mg Tablet, 20 MG PO DAILY, (Reported) Entered as Reported by: OUSMANE KIRAN on 03/16/211509 Last Action: Reviewed Mirabegron (Myrbetriq) 50 Mg Tab.er.24h, 50 MG PO DAILY, (Reported) Entered as Reported by: OUSMANE KIRAN on 03/16/211515 Last Action: Reviewed Montelukast Sodium (Montelukast Sodium) 10 Mg Tablet, 10 MG PO 1900, (Reported) Entered as Reported by: OUSMANE KIRAN on 03/16/211509 Last Action: Reviewed Multivit-Min/FA/Lycopene/Lut (Centrum Silver Tablet) 1 Each Tablet, 1 EACH PO DAILY, (Reported) Entered as Reported by: OUSMANE KIRAN on 03/16/211510 Last Action: Reviewed Pantoprazole Sodium (Pantoprazole Sodium) 40 Mg Tablet.dr, 40 MG PO BID, (Reported) Entered as Reported by: JOANN MUNOZ on 05/13/21 1431 Last Action: Reviewed Pravastatin Sodium (Pravastatin Sodium) 80 Mg Tablet, 80 MG PO 1900, (Reported) Entered as Reported by: OUSMANE KIRAN on 03/16/21 1516 Last Action: Reviewed Primidone (Mysoline) 250 Mg Tablet, 250 MG PO BID, (Reported) Entered as Reported by: JOANN MUNOZ on 02/25/19952 Last Action: Reviewed Raloxifene HCl (Raloxifene HCl) 60 Mg Tablet, 60 MG PO DAILY, (Reported) Entered as Reported by: JOANN MUNOZ on 02/25/19952 Last Action: Reviewed Topiramate (Topiramate) 50 Mg Tablet, 50 MG PO 1900, (Reported) Entered as Reported by: OUSMANE KIRAN on 03/16/21 151 Last Action: Reviewed Discontinued Medications Pantoprazole Sodium (Protonix) 40 Mg Tablet.dr, 40 MG PO BID Discontinued Reason: No Longer Taking Prescribed by: ERNA PARDO on 03/17/21 1117 Last Action: Discontinued Physical Exam-Cardiology Physical Exam Vital Signs/I&O 05/13/21 05/13/21 05/13/21 05/13/21 07:30 09:00 10:07 11:25 Temp 36.4 37.0 Pulse 86 81 Resp 20 18 B/P (MAP) 164/73 (103) 151/70 (97) Pulse Ox 93 91 O2 Delivery Nasal Cannula Nasal Cannula Nasal Cannula Nasal Cannula O2 Flow Rate 2.00 2.00 2.00 2.00 05/13/21 15:20 Temp 36.8 Pulse 72 Resp 18 B/P (MAP) 152/67 (95) Pulse Ox 97 O2 Delivery Nasal Cannula O2 Flow Rate 2.00 Capillary Refill : Less Than 3 Seconds Constitutional: AAO x 3, other (thin, frail) HEENT: PERRL, hard of hearing Neck: No carotid bruit; carotid pulses are 2 + bilaterally Respiratory: No accessory muscle use, No respiratory distress; chest expansion is symmetric, chest is bilaterally symmetric, rhonchi (scattered), other (diminished breath sounds) Cardiovascular: regular rate-rhythm; No JVD; S1 and S2, systolic murmur Gastrointestinal: tender (epigastric), soft; No guarding; audible bowel sounds Extremities: no lower extremity edema bilateral Neurologic/Psychiatric: grossly intact (moves all extremities) Skin: No rash on exposed areas, No ulcerations on exposed areas Data Review Labs Laboratory Tests 05/12/21 18:35: White Blood Count 10.2, Red Blood Count 3.09L, Hemoglobin 5.8*L, Hematocrit 23L, Mean Corpuscular Volume 73L, Mean Corpuscular Hemoglobin 19L, Mean Corpuscular Hemoglobin Concent 26L, Red Cell Distribution Width 21.2H, Platelet Count 451H, Mean Platelet Volume 11.0, Immature Granulocyte % (Auto) 1, Neutrophils (%) (Auto) 84H, Lymphocytes (%) (Auto) 7L, Monocytes (%) (Auto) 7, Eosinophils (%) (Auto) 1, Basophils (%) (Auto) 1, Neutrophils # (Auto) 8.6H, Lymphocytes # (Auto) 0.7L, Monocytes # (Auto) 0.7, Eosinophils # (Auto) 0.1, Basophils # (Auto) 0.1, Immature Granulocyte # (Auto) 0.1, Neutrophils % (Manual) 81, Lymphocytes % (Manual) 9, Monocytes % (Manual) 8, Eosinophils % (Manual) 1, Basophils % (Manual) 0, Band Neutrophils 1, Polychromasia SLIGHT, Hypochromasia MODERATE, Poikilocytosis SLIGHT, Anisocytosis SLIGHT, Prothrombin Time 13.9, INR Comment 1.0, Activated Partial Thromboplast Time 31, Sodium Level 139, Potassium Level 3.0L, Chloride Level 101, Carbon Dioxide Level 26, Anion Gap 12, Blood Urea Nitrogen 10, Creatinine 0.65, Estimat Glomerular Filtration Rate 89, BUN/Creatinine Ratio 15, Glucose Level 100, Lactic Acid Level 0.98, Calcium Level 9.5, Corrected Calcium 9.7, Total Bilirubin 0.2, Aspartate Amino Transf (AST/SGOT) 20, Alanine Aminotransferase (ALT/SGPT) 17, Alkaline Phosphatase 142H , Pro-B-Type Natriuretic Peptide 4349.0H, Total Protein 6.7, Albumin 3.7 05/12/21 18:59: SARS-CoV-2 RNA (RT-PCR) Not Detected 05/12/21 19:00: Urine Color YELLOW, Urine Clarity SL CLOUDY, Urine pH 7.0, Urine Specific Gra vity 1.010L, Urine Protein NEGATIVE, Urine Glucose (UA) NEGATIVE, Urine Ketones NEGATIVE, Urine Nitrite NEGATIVE, Urine Bilirubin NEGATIVE, Urine Urobilinogen 0.2, Urine Leukocyte Esterase NEGATIVE, Urine RBC (Auto) NEGATIVE, Urine RBC NONE, Urine WBC 0-2, Urine Squamous Epithelial Cells 0-2, Urine Crystals PRESENTH, Urine Amorphous Sediment FEW DARVIN PHOSPHATEH, Urine Bacteria MODERATEH , Urine Casts NONE, Urine Mucus NEGATIVE, Urine Culture Indicated YES 05/12/21 22:30: White Blood Count 10.9, Red Blood Count 2.80L, Hemoglobin 5.3*L, Hematocrit 20*L , Mean Corpuscular Volume 73L, Mean Corpuscular Hemoglobin 19L, Mean Corpuscular Hemoglobin Concent 26L, Red Cell Distribution Width 20.3H, Platelet Count 472H, Mean Platelet Volume 9.5, Immature Granulocyte % (Auto) 1, Neutrophils (%) (Auto) 79H, Lymphocytes (%) (Auto) 11L, Monocytes (%) (Auto) 7, Eosinophils (%) (Auto) 1, Basophils (%) (Auto) 1, Neutrophils # (Auto) 8.6H, Lymphocytes # (Auto) 1.2, Monocytes # (Auto) 0.8, Eosinophils # (Auto) 0.1, Basophils # (Auto) 0.1, Immature Granulocyte # (Auto) 0.1, Neutrophils % (Manual) 81, Lymphocytes % (Manual) 10, Monocytes % (Manual) 7, Polychromasia SLIGHT, Hypochromasia MODERATE, Poikilocytosis SLIGHT, Anisocytosis SLIGHT, Atypical Lymphocytes , Reactive Lymphocytes 2, Blast Cells , Toxic Granulation 1+, Percent Immature Platelet Fraction 2.2, Microcytosis SLIGHT, Target Cells SLIGHT, Crenated Cell SLIGHT, Absolute Reticulocyte Count 38, Percent Reticulocyte Count 1.34 05/13/21 05:15: White Blood Count 8.6, Red Blood Count 3.51L, Hemoglobin 7.4#L, Hematocrit 26L, Mean Corpuscular Volume 75L, Mean Corpuscular Hemoglobin 21L, Mean Corpuscular Hemoglobin Concent 28L, Red Cell Distribution Width 19.8H, Platelet Count 411H, Mean Platelet Volume 9.5, Immature Granulocyte % (Auto) 1, Neutrophils (%) (Auto) 72, Lymphocytes (%) (Auto) 14, Monocytes (%) (Auto) 11, Eosinophils (%) (Auto) 2, Basophils (%) (Auto) 1, Neutrophils # (Auto) 6.2, Lymphocytes # (Auto) 1.2, Monocytes # (Auto) 0.9, Eosinophils # (Auto) 0.1, Basophils # (Auto) 0.1, Immature Granulocyte # (Auto) 0.1, Sodium Level 141, Potassium Level 3.6, Chloride Level 104, Carbon Dioxide Level 24, Anion Gap 13, Blood Urea Nitrogen 8, Creatinine 0.67, Estimat Glomerular Filtration Rate 86, BUN/Creatinine Ratio 12, Glucose Level 81, Calcium Level 8.7, Corrected Calcium 9.3, Total Bilirubin 0.9, Aspartate Amino Transf (AST/SGOT) 19, Alanine Aminotransferase (ALT/SGPT) 16, Alkaline Phosphatase 109, Total Protein 5.8L, Albumin 3.2 Microbiology 05/12/21 Blood Culture - Preliminary, Resulted No growth A/P-Cardiology Assessment/Admission Diagnosis Suspected GIB - undetermined etiology - management per surgical services - requiring multiple transfusions - H/O GIB with gross anemia (previous presentation in March 2021) - required multiple transfusions - h/o EGD per Dr. Zimmerman in Mar 2021 showing healing esophageal ulcer UTI - management per medical services CAD - reports h/o coronary stent placement greater than 12 yrs ago in [place], [place] - details unknown - Echocardiogram of 03-16-21 showed LVEF 60-65%. Mild MR. AoV sclerosis. Mild to mod TR. PASP 55-60 mmHg Pulmonary HTN - echocardiogram of 03-16-21 showed PASP 55-60 mmHg Ac diastolic CHF Carotid dz - h/o bilat CEA greater than 5 yrs ago in [place], [place] - details unknown HTN - uncontrolled HLD - statin tx - followed by PCP H/O hiatal hernia and GERD Tobaccoism - cessation advised Prob COPD Chronic LOVE Discussion and Recomendations Complex management due to multiple comorbidities Management of suspected GIB is per Med svce (Dr Pardo) Diuretics as needed and as tolerated Repeat echo EKG today Treat uncontrolled HTN - d/t reported h/o CAD - start BB Monitor lab closely and replace electrolytes as indicated Resume ASA when GI bleed controlled JOHN CHRISTIANSEN MD FACP [facility] May 13, 2021 17:09
--- NOTE | 2021-05-13 17:59 | CONSULTATION REPORT ---
DATE OF SERVICE: 05/13/2021 ATTENDING PRIMARY CARE PHYSICIAN: Erna Forbes DO HISTORY OF PRESENT ILLNESS: The patient is a 71-year-old female who presented to the Emergency Department yesterday evening with general complaints of not feeling well. She did report that she did not eat any food in 3 days and had only been drinking water and coffee. She denied any shortness of breath as well as no difficulty breathing. She denied any abdominal pain as well as no nausea or vomiting. She was in the hospital about two months ago for anemia and was found to have a healing ulcer of the stomach. Upon further questioning today, she does report that she does have some epigastric pain, but no nausea or vomiting. She does report that she does smoke and has smoked a pack a day for almost 60 years. She does live by herself and does have a caregiver that comes in to take care of her at times. While in the Emergency Department, she did undergo lab work and was found to have hemoglobin of 5.8 and after 2 units that this did come up to 7.4. She denied any hematemesis or any coffee ground emesis as well as no issues with blood in her stool. PAST MEDICAL HISTORY: Hypertension, edema, gastroesophageal reflux disease, peptic ulcer disease, hyperlipidemia, depression. SURGICAL HISTORY: None. ALLERGIES: LATEX. MEDICATIONS: Tylenol 500 mg q.6 hours p.r.n., vitamin C 1000 mg daily, docusate 100 mg 2 tablets daily, escitalopram 20 mg daily, fexofenadine 180 mg b.i.d., lamotrigine 200 mg daily, lisinopril 20 mg daily, Myrbetriq 50 mg daily, Singulair 10 mg daily, multivitamin daily, Protonix 40 mg b.i.d., pravastatin 80 mg daily, primidone 250 mg b.i.d., raloxifene 60 mg daily, topiramate 50 mg daily. SOCIAL HISTORY: Positive for tobacco smoke for 60 pack years, negative for alcohol. FAMILY HISTORY: Mother, father, cardiovascular disease. Father, glaucoma. Mother, father, hypertension. VITAL SIGNS: Blood pressure is 152/67, respirations 18, pulse 72, pulse ox 97% on 2 liters nasal cannula, temperature is 36.8 degrees Celsius. LABORATORY DATA: WBC 8.6, hemoglobin 7.4, hematocrit 26, platelets 411. Sodium 141, potassium 3.6, chloride 104, BUN 8, creatinine 0.67, GFR 86, calcium 8.7. REVIEW OF SYSTEMS: This is a well-nourished elderly female, in no acute distress. She is not experiencing any shortness of breath or difficulty breathing. No chest pain, palpitations or diaphoresis. No nausea or vomiting. She does report episodes of reflux as well as epigastric pain. No diarrhea or constipation. No red blood per rectum. No dark tarry stools. No fever or chills. No hematemesis. No coffee-ground emesis. All other review of systems negative. PHYSICAL EXAMINATION: CHEST: Clear. Good breath sounds bilaterally. HEART: Regular, no murmurs noted. EXTREMITIES: No lower extremity edema. Negative Homans sign. HEENT: No scleral icterus. NECK: No cervical lymphadenopathy. ABDOMEN: Soft, nondistended. There is some tenderness on palpation in the epigastric region. No palpable masses. No organomegaly. No peritoneal signs. SKIN: Warm, dry and pink. NEUROLOGIC: Awake, alert, oriented x3. ASSESSMENT AND PLAN: A 71-year-old female with anemia, most likely secondary to GI bleed, most likely being upper gastrointestinal source. She does have a history of reflux as well as peptic ulcer disease in the past. At this time, we will continue with medical management with IV fluids as well as PPI acid dry color mixer on a b.i.d. basis as well as blood transfusions as needed. We will also proceed with scheduling her for an EGD with biopsies as appropriate on this admission. Job ID: [id number] DocumentID: [id number] Dictated Date: 05/13/2021 16:06:44 Presser Machine Date: 05/13/2021 17:58:44 Dictated By: CAYETANO LUIS APRN
[2021-05-14] VITALS (7 sets, daily range): BP systolic 146–177; BP diastolic 66–77
[2021-05-14 06:15] LABS: BASOPHILS # (AUTO) 0.1 10^3/uL (0.0-0.1); BASOPHILS % (AUTO) 1 % (0-10); EOSINOPHILS # (AUTO) 0.2 10^3/uL (0.0-0.3); EOSINOPHILS % (AUTO) 2 % (0-10); HEMATOCRIT 27 % (35-52); HEMOGLOBIN 7.7 g/dL (11.5-16.0); LYMPHOCYTES # (AUTO) 0.9 10^3/uL (1.0-4.0); LYMPHOCYTES % (AUTO) 11 % (12-44); MEAN CORPUSCULAR HEMOGLOBIN 21 pg (25-34); MEAN CORPUSCULAR HGB CONC 28 g/dL (32-36); MEAN CORPUSCULAR VOLUME 75 fL (80-99); MEAN PLATELET VOLUME 9.8 fL (9.0-12.2); MONOCYTES # (AUTO) 0.8 10^3/uL (0.0-1.0); MONOCYTES % (AUTO) 9 % (0-12); NEUTROPHILS # (AUTO) 6.7 10^3/uL (1.8-7.8); NEUTROPHILS % (AUTO) 76 % (42-75); PLATELET COUNT 439 10^3/uL (130-400); WHITE BLOOD COUNT 8.8 10^3/uL (4.3-11.0)
[2021-05-14 06:29] LABS: ALBUMIN 3.1 GM/DL (3.2-4.5)
[2021-05-14 06:31] LABS: CALCIUM 8.3 MG/DL (8.5-10.1)
[2021-05-14 06:32] LABS: TOTAL PROTEIN 5.6 GM/DL (6.4-8.2)
[2021-05-14 06:34] LABS: BILIRUBIN,TOTAL 0.4 MG/DL (0.1-1.0)
[2021-05-14 06:36] LABS: CREATININE SERUM 0.64 MG/DL (0.60-1.30)
[2021-05-14 06:38] LABS: MAGNESIUM 1.6 MG/DL (1.6-2.4)
[2021-05-14] MEDS: PANTOPRAZOLE 40 MG (PROTONIX) TAB PO SCH ×2 (08:14→19:30)
[2021-05-14] MEDS: KCL 20 MEQ TAB (K-DUR) PO SCH (08:14)
[2021-05-14] MEDS: FAMOTIDINE 20 MG (PEPCID) TABLET PO SCH (08:14)
--- NOTE | 2021-05-14 12:26 | Occupational Therapy Eval ---
OT Evaluation-General/PLF Medical Diagnosis Admission Date May 12, 2021 at 20:03 Medical Diagnosis: anemia Onset Date: May 13, 2021 Therapy Diagnosis Therapy Diagnosis: Impaired adls Height/Weight Height (Feet): 4 Height (Inches): 10.00 Weight (Pounds): 119 Precautions Precautions/Isolations: Seizure, Fall Prevention, Standard Precautions, Pressure Ulcer Comments currently NPO for EGD Referral Physician: omero Referral Reason: Evaluation/Treatment Medical History Pertinent Medical History: GERD, HTN, Smoking Additional Medical History ulcer, gastrointestinal bleeding. Current History Pt presents to ER with c/c of "not feeling well," coughing, and L eye pain. Found to have hemoglobin of 5.3. Pt reports living alone in a single story home. She does have caregivers throughout day. Unsure of exact amount of hours caregivers are available but does state that she is not home alone for very long. Pt verbalizes that she is mostly w/c bound but is able to transfer in/out of w/c with use of walker and assist from caregivers. She is fearful to transfer without staff present and states that she will just urinate in brief until someone is there to assist. Pt states that she "sometimes" needs assist with adls, but does not give good clarification on how much. All iadls performed by caregivers. Reviewed History: Yes Social History Home: Single Level Current Living Status: Alone ADL-Prior Level of Function SCALE: Activities may be completed with or without assistive devices. 9-Yafzwhvpky-hffnhip completes the activity by him/herself with no assistance from a helper. 5-Set-up or Clean-up Assistance-helper sets up or cleans up; patient completes activity. Valentines assists only prior to or following the activity. 4-Supervision or Touching Assistance-helper provides verbal cues and/or touchi ng/steadying and/or contact guard assistance as patient completes activity. Assistance may be provided throughout the activity or intermittently. 3-Partial/Moderate Assistance-helper does LESS THAN HALF the effort. Valentines lifts, holds or supports trunk or limbs, but provides less than half the effort. 2-Substantial/Maximal Assistance-helper does MORE THAN HALF the effort. Valentines lifts or holds trunk or limbs and provides more than half the effort. 5-Yaryxgorr-dksjva does ALL the effort. Patient does none of the effort to complete the activity. Or, the assistance of 2 or more helpers is required for the patient to complete the activity. If activity was not attempted, code reason: 7-Patient Refused. 9-Not Applicable-not attempted and the patient did not perform the activity before the current illness, exacerbation or injury. 10-Not Attempted due to Environmental Limitations-(lack of equipment, weather restraints, etc.). 88-Not Attempted due to Medical Conditions or Safety Concerns. Self Care: Needed Some Help Functional Cognition: Needed Some Help DME/Equipment: Bath Bench, Grab Bars, Shower Drive Self: No OT Current Status Subjective Denies pain, agreeable to treatment. Pt is [place] and with L eye redness/eyelid droop. Appearance Returned to supine in bed, all needs within reach. Mental Status/Objective Patient Orientation: Person, Situation Attachments: IV, Oxygen Current Glasses/Contacts: Yes Dentures/Partials: No Hand Dominance: Left Upper Extremity ROM WNL Upper Extremity Strength R shoulder: 4/5 L shoulder: 3/5 Fair bilateral optimization engineer ADL-Treatment Lower Body Dressing (QC): 3 On/Off Footwear (QC): 4 Supine<>Sit: SBA. C/o dizziness upon sitting, extra time to resolve. Able to don/doff socks with use of cross over method and supervision. No w/c present to assess functional transfer. Pt requests to don brief. Again, able to don over feet with use of cross over method. Declines standing due to dizziness. Pt returned to supine, unable to get brief fully up to waist with bridge method. Requires min a to pull up over hips as she rolled R/L. 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 2=Patient will verbalize/demonstrate understanding of assistive devices/modifications for ADL. 3=Patient will improve strength/tolerance for activity to enable patient to perform ADL's. OT Education/Plan Problem List/Assessment Assessment: Decreased Activ Tolerance, Decreased UE Strength, Impaired Funct Balance, Impaired Self-Care Skills Discharge Recommendations Plan/Recommendations: Continue POC Comment continue to assess Target Placement anticipate return home with continued support/assist from daily caregivers. Treatment Plan/Plan of Care Treatment,Training & Education: Yes Patient would benefit from OT for education, treatment and training to promote independence in ADL's, mobility, safety and/or upper extremity function for ADL's. Plan of Care: ADL Retraining, Caregiver Training, Functional Mobility, Group Exercise/Act as Ind, UE Funct Exercise/Act, W/C Management Training Treatment Duration: May 29, 2021 Frequency: 4 times per week Estimated Hrs Per Day: .25 hour per day 3-5x/week Time/GCodes Start Time: 11:55 Stop Time: 12:11 Total Time Billed (hr/min): 16 Billed Treatment Time 1 visit Humaira Mares OT May 14, 2021 12:26
--- NOTE | 2021-05-14 13:00 | Progress Note - Hospitalist ---
KRISTA ZAMBRANO 05/14/21 1300: Subjective HPI/CC On Admission Date Seen by Provider: May 14, 2021 Time Seen by Provider: 08:20 CC: Severe Anemia HPI: This is a 71yoWF clinic pt of [facility] who presents with weakness found to have a hgb of 5.8 in need of two units of blood and to evaluate for source of bleeding. Cardology was consulted along with Dr. Johnson. Subjective/Events-last exam Patient looks much better today. Awake and able to communicate much better. States she is feeling much better than yesterday. Heme/Onc states they believe patients bleed to be from and upper GI source and to continue following with surgery. Patient is scheduled to have EGD performed today. Patients hemoglobin is stable at 7.7. Patient started potassium replacement, famotidine, and metoprolol. Patient denies fever, SOB, N/V, dysuria, constipation, diarrhea. Focused Exam Lactate Level 05/12/21 18:35: Lactic Acid Level 0.98 Objective Exam Vital Signs Vital Signs Date Time Temp Pulse Resp B/P (MAP) Pulse Ox O2 Delivery O2 Flow Rate FiO2 05/14/21 12:00 37.4 73 18 173/74 (107) 92 Nasal Cannula 2.00 Capillary Refill : Less Than 3 Seconds General Appearance: No Apparent Distress, WD/WN HEENT: Pharynx Normal, Moist Mucous Membranes Neck: Normal Inspection, Supple Respiratory: Chest Non Tender, Lungs Clear, Normal Breath Sounds, No Accessory Muscle Use, No Respiratory Distress Cardiovascular: Regular Rate, Rhythm, Normal Peripheral Pulses Gastrointestinal: Non Tender, Soft Rectal: Deferred Extremity: Non Tender, No Calf Tenderness, No Pedal Edema Neurologic/Psychiatric: Alert, Oriented x3, Normal Mood/Affect Results/Procedures Lab Laboratory Tests 05/14/21 05:40 Patient resulted labs reviewed. Assessment/Plan Assessment and Plan Assess & Plan/Chief Complaint Assessment Severe anemia possible GI bleed CAD HTN HLD Bacteruria Plan Monitor Hgb Correlate bacteruria clinically Continue home medications Continue following with surgery - pt scheduled for EGD today Continue following with cardiology ERNA PARDO DO 05/15/21 0705: Subjective Subjective/Events-last exam Pt doing about the same Scope by Dr. Johnson will be done today Hematology thought it was GI bleed blood source Incontinenent at times Hgb 7.7 Needs retirement Review of Systems General: Fatigue, Malaise Objective Exam General Appearance: No Apparent Distress, WD/WN, Chronically ill Respiratory: Lungs Clear, Normal Breath Sounds Cardiovascular: Regular Rate, Rhythm Neurologic/Psychiatric: Alert, Oriented x3 Assessment/Plan Assessment and Plan Assess & Plan/Chief Complaint Monitor hemoglobin Supportive care Needs retirement Scope today Supervisory-Addendum Brief Verification & Attestation Participated in pt care: history, MDM, physical Personally performed: exam, history, MDM, supervision of care Care discussed with: Medical Student Procedures: n/a Results interpretation: Verified all documentation Verification and Attestation of Medical Student E/M Service A medical student performed and documented this service in my presence. I reviewed and verified all information documented by the medical student and made modifications to such information, when appropriate. I personally performed the physical exam and medical decision making. Erna Pardo, May 15, 2021,07:05 KRISTA ZAMBRANO May 14, 2021 13:00 ERNA PARDO DO May 15, 2021 07:05
[2021-05-14] MEDS ORDERED: LACTATED RINGERS 1,000 ML IV ONE (14:02)
--- NOTE | 2021-05-14 14:02 | Physical Therapy Evaluation ---
PT Evaluation-General Medical Diagnosis Admission Date May 12, 2021 at 20:03 Medical Diagnosis: anemia Onset Date: May 13, 2021 Therapy Diagnosis Therapy Diagnosis: debility/weakness Height/Weight Height (Feet): 4 Height (Inches): 10.00 Weight (Pounds): 119 Precautions Precautions/Isolations: Seizure, Fall Prevention, Standard Precautions, Pressure Ulcer Referral Physician: Andrei Reason for Referral: Evaluation/Treatment Medical History Pertinent Medical History: GERD, HTN, Smoking Current History EMS secondary to "not feeling well" Reviewed History: Yes Social History Home: Single Level Current Living Status: Alone (multiple caregivers) Prior Prior Level of Function SCALE: Activities may be completed with or without assistive devices. 5-Ccxlcphcgf-fcmjxch completes the activity by him/herself with no assistance from a helper. 5-Set-up or Clean-up Assistance-helper sets up or cleans up; patient completes activity. White assists only prior to or following the activity. 4-Supervision or Touching Assistance-helper provides verbal cues and/or touchi ng/steadying and/or contact guard assistance as patient completes activity. Assistance may be provided throughout the activity or intermittently. 3-Partial/Moderate Assistance-helper does LESS THAN HALF the effort. White lifts, holds or supports trunk or limbs, but provides less than half the effort. 2-Substantial/Maximal Assistance-helper does MORE THAN HALF the effort. White lifts or holds trunk or limbs and provides more than half the effort. 4-Navhzzvaq-kwpfjz does ALL the effort. Patient does none of the effort to complete the activity. Or, the assistance of 2 or more helpers is required for the patient to complete the activity. If activity was not attempted, code reason: 7-Patient Refused. 9-Not Applicable-not attempted and the patient did not perform the activity before the current illness, exacerbation or injury. 10-Not Attempted due to Environmental Limitations-(lack of equipment, weather restraints, etc.). 88-Not Attempted due to Medical Conditions or Safety Concerns. Bed Mobility: 6 Transfers (B,C,W/C): 4 Gait: 9 Stairs: 9 Wheelchair Mobility: 4 Indoor Mobility (Ambulation): Not Applicalbe Stairs: Not Applicalbe Prior Devices Use: Manual wheelchair patient reports she does not and will not walk PT Evaluation-Current Subjective Patient agrees to PT but states, "I don't walk and I won't walk. I'm in a w/c when my caregivers are there." Objective Patient Orientation: Person, Time, Situation Attachments: Oxygen ROM/Strength ROM Lower Extremities bilateral LE WFL Strength Lower Extremities 3/5 grossly bilateral LE Integumentary/Posture Bladder Incontinence: No Posture kyphotic Neuromuscular (Tone, Coordination, Reflexes) grossly intact Sensory Vision: Functional Hearing: Impaired Hand Dominance: Left Transfers Roll Left to Right (QC): 6 Sit to Lying (QC): 6 Lying to Sitting/Side of Bed(Q: 6 Sit to Stand (QC): 4 Gait Distance: 4 side steps Gait Assistive Device: None Balance Sitting Static: Normal Sitting Dynamic: Normal Standing Static: Fair Standing Dynamic: Fair Assessment/Needs Patient is currently at [facility] with gross motor skills and reports she is not going to walk or use a walker. Patient desires to return to home [place] Rehab Potential: Guarded Post Rehab Potential-Barriers: compliance PT Plan Treatment/Plan Treatment Plan: Discontinue PT Treatment Duration: May 14, 2021 Frequency: 1 time per week Estimated Hrs Per Day: .25 hour per day Patient and/or Family Agrees t: Yes Time/GCodes Time In: 1315 Time Out: 1326 Total Billed Treatment Time: 11 Total Billed Treatment 1 visit EVLow 11 min PEDRO CID PT May 14, 2021 14:02
[2021-05-14] MEDS ORDERED: LACTATED RINGERS 1,000 ML IV STA (14:19)
[2021-05-14] MEDS ORDERED: PROPOFOL INJECTION 50 ML IV ONE (14:29)
[2021-05-14] MEDS ORDERED: HURRICAINE EXT TUBE (BENZOCAINE) XX PRN (14:30)
[2021-05-14] MEDS ORDERED: LIDOCAINE JELLY 2% 6 ML SYRINGE MM PRN (14:30)
--- NOTE | 2021-05-14 14:43 | Anesthesia-General Post-Op ---
MAC Patient Condition Mental Status/LOC: Same as Preop Cardiovascular: Satisfactory Nausea/Vomiting: Absent Respiratory: Satisfactory Pain: Controlled Complications: Absent Post Op Complications Complications None Follow Up Care/Instructions Patient Instructions None needed. Anesthesiology Discharge Order Discharge Order Patient is doing well, no complaints, stable vital signs, no apparent adverse anesthesia problems. No complications reported per nursing. MAYELIN LY CRNA May 14, 2021 14:42
--- NOTE | 2021-05-14 15:07 | Progress Note - Cardiology ---
Cardiology SOAP Progress Note Subjective: Reports gen weakness and malaise Denies cp or palp or syncope or shortness of breath at rest Objective: I&O/Vital Signs 05/14/21 05/14/21 05/14/21 05/14/21 04:29 08:00 09:00 12:00 Temp 37.0 35.3 37.4 Pulse 74 76 73 Resp 18 22 18 B/P (MAP) 156/69 (98) 177/75 (109) 173/74 (107) Pulse Ox 91 95 92 O2 Delivery Nasal Cannula Nasal Cannula Nasal Cannula Nasal Cannula O2 Flow Rate 2.00 2.00 2.00 2.00 05/14/21 00:00 Intake Total 2230 ml Balance 2230 ml Weight (Pounds): 119 Weight (Calculated Kilograms): 53.469942 Constitutional: AAO x 3, other (thin, frail) Respiratory: No accessory muscle use, No respiratory distress; chest expansion is symmetric, chest is bilaterally symmetric, rhonchi (scattered), other (diminished breath sounds) Cardiovascular: regular rate-rhythm; No JVD; S1 and S2, systolic murmur Gastrointestional: tender (epigastric), soft; No guarding; audible bowel sounds Extremities: no lower extremity edema bilateral Neurologic/Psychiatric: grossly intact (moves all extremities) Skin: No rash on exposed areas, No ulcerations on exposed areas Results/Procedures: Labs Laboratory Tests 05/14/21 05:40: White Blood Count 8.8, Red Blood Count 3.61L, Hemoglobin 7.7L, Hematocrit 27L, Mean Corpuscular Volume 75L, Mean Corpuscular Hemoglobin 21L, Mean Corpuscular Hemoglobin Concent 28L, Red Cell Distribution Width 19.9H, Platelet Count 439H, Mean Platelet Volume 9.8, Immature Granulocyte % (Auto) 1, Neutrophils (%) (Auto) 76H, Lymphocytes (%) (Auto) 11L, Monocytes (%) (Auto) 9, Eosinophils (%) (Auto) 2, Basophils (%) (Auto) 1, Neutrophils # (Auto) 6.7, Lymphocytes # (Auto) 0.9L, Monocytes # (Auto) 0.8, Eosinophils # (Auto) 0.2, Basophils # (Auto) 0.1, Immature Granulocyte # (Auto) 0.1, Sodium Level 141, Potassium Level 3.0L, Chloride Level 103, Carbon Dioxide Level 28, Anion Gap 10, Blood Urea Nitrogen 6L, Creatinine 0.64, Estimat Glomerular Filtration Rate 91, BUN/Creatinine Ratio 9, Glucose Level 81, Calcium Level 8.3L, Corrected Calcium 9.0, Magnesium Level 1.6, Total Bilirubin 0.4, Aspartate Amino Transf (AST/SGOT) 17, Alanine Aminotransferase (ALT/SGPT) 15, Alkaline Phosphatase 101, Total Protein 5.6L, Albumin 3.1L Microbiology 05/12/21 Blood Culture - Preliminary, Resulted No growth Laboratory Tests 05/12/21 18:35 05/12/21 22:30 05/13/21 05:15 05/14/21 05:40 A/P: Assessment: Suspected GIB - undetermined etiology - management per surgical services - requiring multiple transfusions - H/O GIB with gross anemia (previous presentation in March 2021) - required multiple transfusions - h/o EGD per Dr. Zimmerman in Mar 2021 showing healing esophageal ulcer UTI - management per medical services CAD - reports h/o coronary stent placement greater than 12 yrs ago in [place], [place] - details unknown - Echocardiogram of 03-16-21 showed LVEF 60-65%. Mild MR. AoV sclerosis. Mild to mod TR. PASP 55-60 mmHg Pulmonary HTN - echocardiogram of 03-16-21 showed PASP 55-60 mmHg Ac diastolic CHF Carotid dz - h/o bilat CEA greater than 5 yrs ago in [place], [place] - details unknown HTN - uncontrolled HLD - statin tx - followed by PCP H/O hiatal hernia and GERD Tobaccoism - cessation advised Prob COPD Chronic LOVE Plan: Complex management due to multiple comorbidities Management of suspected GIB is per Med svce (Dr Forbes) Diuretics as needed and as tolerated Replenish K (Dr Forbes ordered it this am) Treat uncontrolled HTN - increase beta-jennifer Monitor lab closely and replace electrolytes as indicated Resume ASA when GI bleed controlled JOHN CHRISTIANSEN MD FACP FAC CCDS May 14, 2021 15:07
[2021-05-14] MEDS ORDERED: meTOproloL SUCCINATE 50 MG (TOPROL XL) TAB PO NR (15:10)
[2021-05-14] MEDS: ACETAMINOPHEN 325 MG TABLET PO PRN (15:36)
[2021-05-14] MEDS ORDERED: OMEP40CA6 PO (15:42)
--- NOTE | 2021-05-14 15:43 | Discharge Inst-Surgical ---
D/C Lap Instructions-KIDO New, Converted, or Re-Newed RX: RX on Chart Follow Up Appt in 6 weeks Activity as tolerated Merrick and soft peptic ulcer disease diet. High Fiber Diet 25g or more per day Avoid Alcohol, Caffeine, Spicy Coleta and Acid foods. Drink 64 fluid oz or more of fluids per day. Symptoms to Report: Fever over 101 degree F, Nausea/Vomiting If any problems/questions: Contact your physician or go to Emergency Room YNES MIRZA MD May 14, 2021 15:43
--- NOTE | 2021-05-14 17:55 | Physician Query Clarification ---
Physician Query-General Query to Physician: The medical record reflects the following clinical scenario: The patient, in the setting of History/Risk factors, HTN, Smoker Clinical Findings admission: BNP 4349, Echo showing Grade 1 diastolic dysfunction, Chest xray showing "mild central pulmonary venous congestion" Treatment IV Lasix, Cardiology consult, I and O Question: Do you agree with the impression of Acute Diastolic Heart failure per Dr. Blayne Brooks? 1. Yes; will document Acute Diastolic Heart Failure, present on admssion in the Progress Notes 2. No; will continue current documentation in the Progress Notes 3. Other; will document explanation of clinical findings 4. Clinically undetermined; no explanation for clinical findings Please clarify and document your clinical opinion in the Progress Notes and Discharge Summary including the definitive and/or presumptive diagnosis, (suspected or probable), related to the above clinical findings. Please include clinical findings supporting your diagnosis. In responding to this query, please exercise your independent professional judgment. The purpose of this communication is to more accurately reflect the complexity of your patients condition. The fact that a question is asked does not imply that any particular answer is desired or expected. Please remember a lack of response to the above will prompt a phone page by CDI/coding staff Thank you for timely response to this clarification. Ana Branham MSN, RN Clinical Sewage Reticulation Drafting Officer [phone] [email or web address] PHYSICIAN RESPONSE: Based on the clinical findings in the record, please respond to the query above on this document as an addendum. Physician Response: Physician Response 1 If you have questions please contact: Drilling Field Professional: Ext: Thank you for your time and cooperation. Clinical Sewage Reticulation Drafting Officer/Drilling Field Professional This is a permanent part of the medical record ANA BRANHAM May 14, 2021 17:54 MAITE PARDO DO May 16, 2021 07:50
[2021-05-14] MEDS ORDERED: PROMETHAZINE 25 MG (PHENERGAN) SUPP PR PRN (21:00)
[2021-05-14] MEDS ORDERED: ONDANSETRON 4 MG/2 ML (SDV) Z0FRAN IVP PRN (21:00)
[2021-05-14] MEDS ORDERED: METOCLOPRAMIDE INJ 10 MG/2 ML (REGLAN) IVP PRN (21:00)
--- NOTE | 2021-05-14 22:38 | OPERATIVE REPORT ---
DATE OF SERVICE: 05/14/2021 ATTENDING PRIMARY CARE PHYSICIAN: [facility]. ADMITTING HEALTH: Dr. Forbes. PREOPERATIVE DIAGNOSES: Anemia, dysphagia, history of esophageal ulcer. POSTOPERATIVE DIAGNOSES: Reflux esophagitis stage II, small hiatal hernia 2 cm in size, pyloric stricture with pyloric ulcer, overlying fibrin clot, no active bleeding, duodenum appeared normal with no distal obstructions. PROCEDURE: EGD with balloon dilatation. SURGEON: Ynes Mirza MD. ANESTHESIA: Monitored anesthesia care. ESTIMATED BLOOD LOSS: Minimal. FINDINGS: Reflux esophagitis stage II, small hiatal hernia 2 cm in size, pyloric stricture with pyloric ulcer, overlying fibrin clot, no active bleeding, duodenum appeared normal with no distal obstructions. DISPOSITION: The patient tolerated the procedure well. INDICATIONS: The patient is a 71-year-old female who presented with weakness and fatigue and was found to be anemic with hemoglobin of 5.8. She was admitted and resuscitated with packed red blood cells and her hemoglobin went up appropriately. She did have similar presentation approximately two months ago and underwent an EGD and was found to have an esophageal ulcer, which was not actively bleeding as well as mention of a pyloric stricture. DESCRIPTION OF PROCEDURE: The patient was brought to the endoscopy suite, laid in the left lateral decubitus position. After adequate IV pain and sedative medications and monitored anesthesia care, the mouthpiece was applied. The endoscope was placed in the mouth, visualizing the pharynx and hypopharyngeal region. Vocal cords, epiglottis and vallecula identified and appeared to be normal. The endoscope was then gently intubated at esophageal opening and esophagus insufflated. The endoscope was then advanced to the first, second and third portion of esophagus at the level of the GE junction, reflux esophagitis stage II identified. There were no ulcers or strictures identified in this region. A biopsy was taken with forceps with visualization of good hemostasis. The endoscope was then advanced into the stomach and endoscope retroflexed, visualizing a small hiatal hernia approximately 2 cm in size. There was a severe gastritis noted as well as a pyloric stricture and at this level the stricture was a pyloric ulcer with an overlying fibrin clot and no active bleeding. A biopsy was taken with forceps with visualization of good hemostasis. The endoscope was able to advance through the stricture and the endoscope was then advanced to the remainder of the pylorus into the first and second portion of the duodenum with no distal obstructions identified. The balloon was then placed into the duodenum and pulled back to the area of the stricture. We then proceeded in a graded stepwise fashion from 2 to 4 atmospheres of pressure with moderate to significant resistance and left this in place for approximately 60 seconds. The balloon was then desufflated and removed with visualization of good hemostasis as well as no mucosal tears. A biopsy was taken of the pyloric ulcer with forceps with visualization of good hemostasis. A biopsy was also taken of the GE junction. The endoscope was then slowly withdrawn while taking a second look and suctioning of residual air with no additional findings. The patient tolerated the procedure well. We will recommend the necessary lifestyle and dietary accommodation including small and more frequent meals, avoidance of eating at night as well as head elevation while lying supine. Since her last admission, she was started on Protonix as well as Carafate and she will be instructed to continue this. However, we will also add another PPI acid power and recovery supervisor to be taken at a separate time during the day. She will also need a followup colonoscopy in 8 weeks to reevaluate the pyloric ulcer as well as the stricture. Job ID: [id number] DocumentID: [id number] Dictated Date: 05/14/2021 14:55:32 End Lathe Operator Date: 05/14/2021 21:59:24 Dictated By: YNES MIRZA MD
[2021-05-15] VITALS (9 sets, daily range): BP systolic 109–156; BP diastolic 53–78
[2021-05-15] MEDS: ACETAMINOPHEN 325 MG TABLET PO PRN ×2 (03:33→14:10)
[2021-05-15] MEDS: KCL 20 MEQ TAB (K-DUR) PO SCH (06:15)
[2021-05-15 06:19] LABS: BASOPHILS # (AUTO) 0.1 10^3/uL (0.0-0.1); BASOPHILS % (AUTO) 1 % (0-10); EOSINOPHILS % (AUTO) 0 % (0-10); HEMATOCRIT 23 % (35-52); LYMPHOCYTES # (AUTO) 0.9 10^3/uL (1.0-4.0); LYMPHOCYTES % (AUTO) 5 % (12-44); MEAN CORPUSCULAR HEMOGLOBIN 21 pg (25-34); MEAN CORPUSCULAR HGB CONC 28 g/dL (32-36); MEAN CORPUSCULAR VOLUME 76 fL (80-99); MEAN PLATELET VOLUME 10.1 fL (9.0-12.2); MONOCYTES # (AUTO) 1.2 10^3/uL (0.0-1.0); MONOCYTES % (AUTO) 7 % (0-12); NEUTROPHILS # (AUTO) 15.8 10^3/uL (1.8-7.8); NEUTROPHILS % (AUTO) 87 % (42-75); PLATELET COUNT 448 10^3/uL (130-400); WHITE BLOOD COUNT 18.1 10^3/uL (4.3-11.0)
[2021-05-15 06:30] LABS: HEMOGLOBIN 6.4 g/dL (11.5-16.0)
[2021-05-15 06:40] LABS: ALBUMIN 2.9 GM/DL (3.2-4.5)
[2021-05-15 06:42] LABS: CALCIUM 8.2 MG/DL (8.5-10.1)
[2021-05-15 06:45] LABS: BILIRUBIN,TOTAL 0.4 MG/DL (0.1-1.0)
[2021-05-15 06:47] LABS: CREATININE SERUM 0.62 MG/DL (0.60-1.30)
[2021-05-15] MEDS ORDERED: NS IV 500 ML 500 ML IV SCH (07:00)
[2021-05-15 07:25] LABS: ELLIPT/OVALOCYTES SLIGHT; HYPOCHROMASIA MODERATE; LYMPHOCYTES % (MANUAL) 2 %; MICROCYTOSIS MODERATE; MONOCYTES % (MANUAL) 3 %; NEUTROPHILS % (MANUAL) 95 %; POIKILOCYTOSIS SLIGHT; POLYCHROMASIA SLIGHT
[2021-05-15] MEDS ORDERED: IRON DEXTRAN INJECTION 25 MG in NS (IVPB) 5.75 ML, SYRINGE-IVPB 1 SYRINGE IV ONE ×3 (08:00)
[2021-05-15] MEDS ORDERED: NS IV 500 ML 500 ML ONE (08:52)
--- NOTE | 2021-05-15 09:11 | Progress Note - Hospitalist ---
Subjective HPI/CC On Admission Date Seen by Provider: May 15, 2021 Time Seen by Provider: 11:00 CC: Severe Anemia HPI: This is a 71yoWF clinic pt of [facility] who presents with weakness found to have a hgb of 5.8 in need of two units of blood and to evaluate for source of bleeding. Cardology was consulted along with Dr. Johnson. Subjective/Events-last exam Patient currently sleeping Receiving 2 units of blood due to hemoglobin 6.4 today INFeD iron infusion ordered also Potassium supplement ordered Review of Systems General: Fatigue Focused Exam Lactate Level Objective Exam Vital Signs Vital Signs Date Time Temp Pulse Resp B/P (MAP) Pulse Ox O2 Delivery O2 Flow Rate FiO2 05/16/21 04:00 36.6 76 18 169/70 (103) 92 Nasal Cannula 2.00 Capillary Refill : Less Than 3 Seconds General Appearance: No Apparent Distress, WD/WN Respiratory: Lungs Clear, Normal Breath Sounds Cardiovascular: Regular Rate, Rhythm Results/Procedures Lab Patient resulted labs reviewed. Assessment/Plan Assessment and Plan Assess & Plan/Chief Complaint Assessment Severe anemia possible GI bleed CAD HTN HLD Bacteruria Plan Monitor Hgb Correlate bacteruria clinically Continue home medications Continue following with surgery - pt scheduled for EGD today Continue following with cardiology 05/15/2021: Needs snf Give blood today Iron infusion for iron level of 12 MAITE PARDO DO May 15, 2021 09:11
[2021-05-15] MEDS: PANTOPRAZOLE 40 MG (PROTONIX) TAB PO SCH ×2 (09:13→20:11)
[2021-05-15] MEDS: meTOproloL SUCCINATE 50 MG (TOPROL XL) TAB PO SCH (09:13)
[2021-05-15] MEDS: FAMOTIDINE 20 MG (PEPCID) TABLET PO SCH (09:13)
[2021-05-15] MEDS ORDERED: MAGNESIUM 1 GM/100 ML IVPB 100 ML IV ONE (09:15)
[2021-05-15] MEDS: IRON DEXTRAN INJECTION 1,000 MG in NS (IVPB) 250 ML IV ONE ×2 (09:51→14:13)
[2021-05-15] MEDS: POTASSIUM CL 10MEQ/50ML IVPB 50 ML IV SCH ×4 (09:58→13:20)
--- NOTE | 2021-05-15 14:32 | Progress Note - Cardiology ---
Cardiology SOAP Progress Note Subjective: Gen malaise and weakness present No n/v/d No cp or shortness of breath or palp Objective: I&O/Vital Signs 05/15/21 05/15/21 05/15/21 05/15/21 04:00 07:47 08:00 09:11 Temp 37.8 37.0 37.0 Pulse 91 75 75 Resp 18 20 20 B/P (MAP) 137/63 (87) 137/63 (87) 137/63 Pulse Ox 95 97 97 O2 Delivery Nasal Cannula Nasal Cannula Nasal Cannula Room Air O2 Flow Rate 3.00 2.00 3.00 05/15/21 05/15/21 05/15/21 09:45 11:12 12:16 Temp 36.9 36.8 36.5 Pulse 73 77 80 Resp 20 20 20 B/P (MAP) 109/55 129/60 (83) 140/78 Pulse Ox 99 99 98 O2 Delivery Room Air Nasal Cannula Room Air O2 Flow Rate 3.00 05/15/21 00:00 Intake Total 450 ml Balance 450 ml Weight (Pounds): 119 Weight (Calculated Kilograms): 53.052976 Constitutional: AAO x 3, other (thin, frail) Respiratory: No accessory muscle use, No respiratory distress; chest expansion is symmetric, chest is bilaterally symmetric, rhonchi (scattered), other (diminished breath sounds) Cardiovascular: regular rate-rhythm; No JVD; S1 and S2, systolic murmur Gastrointestional: tender (epigastric), soft; No guarding; audible bowel sounds Extremities: no lower extremity edema bilateral Neurologic/Psychiatric: grossly intact (moves all extremities) Skin: No rash on exposed areas, No ulcerations on exposed areas Results/Procedures: Labs Laboratory Tests 05/15/21 05:41: White Blood Count 18.1H, Red Blood Count 2.99L, Hemoglobin 6.4*L, Hematocrit 23L , Mean Corpuscular Volume 76L, Mean Corpuscular Hemoglobin 21L, Mean Corpuscular Hemoglobin Concent 28L, Red Cell Distribution Width 21.1H, Platelet Count 448H, Mean Platelet Volume 10.1, Immature Granulocyte % (Auto) 1, Neutrophils (%) (A uto) 87H, Lymphocytes (%) (Auto) 5L, Monocytes (%) (Auto) 7, Eosinophils (%) (Auto) 0, Basophils (%) (Auto) 1, Neutrophils # (Auto) 15.8H, Lymphocytes # (Auto) 0.9L, Monocytes # (Auto) 1.2H, Eosinophils # (Auto) 0.0, Basophils # (Auto) 0.1, Immature Granulocyte # (Auto) 0.2H, Neutrophils % (Manual) 95, Lymphocytes % (Manual) 2, Monocytes % (Manual) 3, Polychromasia SLIGHT, Hypochromasia MODERATE, Poikilocytosis SLIGHT, Microcytosis MODERATE, Elliptocytes SLIGHT, Sodium Level 139, Potassium Level 3.0L, Chloride Level 99, Carbon Dioxide Level 30, Anion Gap 10, Blood Urea Nitrogen 22H, Creatinine 0.62, Estimat Glomerular Filtration Rate 94, BUN/Creatinine Ratio 35, Glucose Level 105, Calcium Level 8.2L, Corrected Calcium 9.1, Total Bilirubin 0.4, Aspartate Amino Transf (AST/SGOT) 16, Alanine Aminotransferase (ALT/SGPT) 13, Alkaline Phosphatase 88, Total Protein 5.0L, Albumin 2.9L 05/15/21 09:15: Magnesium Level 1.6 Microbiology 05/13/21 MRSA Screen - Final, Complete 05/12/21 Blood Culture - Preliminary, Resulted No growth 05/12/21 Urine Culture - Final, Complete NO GROWTH Laboratory Tests 05/14/21 05:40 05/15/21 05:41 A/P: Assessment: GIB, requiring blood transfusions - EGD by Dr. Zimmerman in Mar 2021 showing healing esophageal ulcer - EGD by Dr Johnson on 05/14/21: Reflux esophagitis stage II, small hiatal hernia 2 cm in size, pyloric stricture with pyloric ulcer, overlying fibrin clot, no active bleeding, duodenum appeared normal with no distal obstructions. UTI - management per medical services CAD - reports h/o coronary stent placement greater than 12 yrs ago in [place], [place] - details unknown - Echocardiogram of 03-16-21 showed LVEF 60-65%. Mild MR. AoV sclerosis. Mild to mod TR. PASP 55-60 mmHg Pulmonary HTN - echocardiogram of 03-16-21 showed PASP 55-60 mmHg Ac diastolic CHF Carotid dz - h/o bilat CEA greater than 5 yrs ago in [place], [place] - details unknown HTN - uncontrolled HLD - statin tx - followed by PCP H/O hiatal hernia and GERD Tobaccoism - cessation advised Prob COPD Chronic LOVE Plan: Complex management due to multiple comorbidities Management of suspected GIB is per Med svce (Dr Forbes) Diuretics as needed and as tolerated Replenish K and Mg (Dr Forbes ordered it this am) BP is better controlled. Continue current regimen Monitor lab closely Resume ASA when GI bleed controlled JOHN CHRISTIANSEN MD FACP FAC CCDS May 15, 2021 14:32
[2021-05-16] VITALS (7 sets, daily range): BP systolic 147–174; BP diastolic 53–81
[2021-05-16] MEDS ORDERED: RT-ALBUTEROL/IPRATROPIUM 3 ML (DUONEB) VIAL INH PRN (03:15)
[2021-05-16] MEDS: KCL 20 MEQ TAB (K-DUR) PO SCH ×3 (05:58→17:06)
[2021-05-16 07:13] LABS: BASOPHILS # (AUTO) 0.1 10^3/uL (0.0-0.1); BASOPHILS % (AUTO) 1 % (0-10); EOSINOPHILS # (AUTO) 0.2 10^3/uL (0.0-0.3); EOSINOPHILS % (AUTO) 2 % (0-10); HEMATOCRIT 30 % (35-52); HEMOGLOBIN 8.8 g/dL (11.5-16.0); LYMPHOCYTES # (AUTO) 0.7 10^3/uL (1.0-4.0); LYMPHOCYTES % (AUTO) 7 % (12-44); MEAN CORPUSCULAR HEMOGLOBIN 23 pg (25-34); MEAN CORPUSCULAR HGB CONC 29 g/dL (32-36); MEAN CORPUSCULAR VOLUME 80 fL (80-99); MEAN PLATELET VOLUME 9.4 fL (9.0-12.2); MONOCYTES # (AUTO) 0.9 10^3/uL (0.0-1.0); MONOCYTES % (AUTO) 8 % (0-12); NEUTROPHILS # (AUTO) 8.9 10^3/uL (1.8-7.8); NEUTROPHILS % (AUTO) 82 % (42-75); PLATELET COUNT 371 10^3/uL (130-400); WHITE BLOOD COUNT 10.8 10^3/uL (4.3-11.0)
[2021-05-16 07:39] LABS: ALBUMIN 2.9 GM/DL (3.2-4.5); BILIRUBIN,TOTAL 0.4 MG/DL (0.1-1.0); CALCIUM 8.6 MG/DL (8.5-10.1); CREATININE SERUM 0.6 MG/DL (0.60-1.30); POTASSIUM 3.4 MMOL/L (3.6-5.0); TOTAL PROTEIN 5.3 GM/DL (6.4-8.2)
[2021-05-16] MEDS: meTOproloL SUCCINATE 50 MG (TOPROL XL) TAB PO SCH (09:32)
[2021-05-16] MEDS: PANTOPRAZOLE 40 MG (PROTONIX) TAB PO SCH ×2 (09:32→19:47)
[2021-05-16] MEDS: FAMOTIDINE 20 MG (PEPCID) TABLET PO SCH (09:32)
--- NOTE | 2021-05-16 12:19 | Progress Note - Hospitalist ---
Subjective HPI/CC On Admission Date Seen by Provider: May 16, 2021 Time Seen by Provider: 11:00 CC: Severe Anemia HPI: This is a 71yoWF clinic pt of [facility] who presents with weakness found to have a hgb of 5.8 in need of two units of blood and to evaluate for source of bleeding. Cardology was consulted along with Dr. Johnson. Subjective/Events-last exam Patient doing about the same Eating well Potassium supplement ordered Hemoglobin good Review of Systems General: Fatigue Objective Exam Vital Signs Vital Signs Date Time Temp Pulse Resp B/P (MAP) Pulse Ox O2 Delivery O2 Flow Rate FiO2 05/16/21 12:38 37.6 81 22 174/80 (111) 96 Nasal Cannula 2.00 Capillary Refill : Less Than 3 Seconds General Appearance: No Apparent Distress, WD/WN, Chronically ill Respiratory: Lungs Clear, Normal Breath Sounds Cardiovascular: Regular Rate, Rhythm Neurologic/Psychiatric: Alert, Oriented x3, No Motor/Sensory Deficits, Normal Mood/Affect Results/Procedures Lab Laboratory Tests 05/16/21 06:58 Patient resulted labs reviewed. Assessment/Plan Assessment and Plan Assess & Plan/Chief Complaint Assessment Severe anemia possible GI bleed CAD HTN HLD Bacteruria Acute congestive heart failure diastolic type Plan Monitor Hgb Correlate bacteruria clinically Continue home medications Continue following with surgery - pt scheduled for EGD today Continue following with cardiology 05/15/2021: Needs mcc Give blood today Iron infusion for iron level of 12 05/16/2021: Status post INFeD iron infusion 2 units of blood after 1 unit given on admit MAITE PARDO DO May 16, 2021 12:19
--- NOTE | 2021-05-16 14:13 | Progress Note - Cardiology ---
Cardiology SOAP Progress Note Subjective: Gen malaise and weakness No cp or palp or syncope or n/v/d Wants to go home Objective: I&O/Vital Signs 05/16/21 05/16/21 05/16/21 05/16/21 02:58 04:00 07:18 09:49 Temp 36.4 36.6 36.8 Pulse 74 76 100 Resp 18 20 B/P (MAP) 169/70 (103) 147/70 (95) Pulse Ox 96 92 92 89 O2 Delivery Nasal Cannula Nasal Cannula Nasal Cannula O2 Flow Rate 2.00 2.00 2.00 05/16/21 05/16/21 09:52 12:38 Temp 37.6 Pulse 81 Resp 22 B/P (MAP) 174/80 (111) Pulse Ox 96 O2 Delivery Nasal Cannula Nasal Cannula O2 Flow Rate 3.00 2.00 05/16/21 00:00 Intake Total 1450 ml Balance 1450 ml Weight (Pounds): 119 Weight (Calculated Kilograms): 53.351666 Constitutional: AAO x 3, other (thin, frail) Respiratory: No accessory muscle use, No respiratory distress; chest expansion is symmetric, chest is bilaterally symmetric, rhonchi (scattered), other (diminished breath sounds) Cardiovascular: regular rate-rhythm; No JVD; S1 and S2, systolic murmur Gastrointestional: tender (epigastric), soft; No guarding; audible bowel sounds Extremities: no lower extremity edema bilateral Neurologic/Psychiatric: grossly intact (moves all extremities) Skin: No rash on exposed areas, No ulcerations on exposed areas Results/Procedures: Labs Laboratory Tests 05/16/21 06:58: White Blood Count 10.8, Red Blood Count 3.80, Hemoglobin 8.8#L, Hematocrit 30L, Mean Corpuscular Volume 80, Mean Corpuscular Hemoglobin 23L, Mean Corpuscular Hemoglobin Concent 29L, Red Cell Distribution Width 20.2H, Platelet Count 371, Mean Platelet Volume 9.4, Immature Granulocyte % (Auto) 1, Neutrophils (%) (Auto) 82H, Lymphocytes (%) (Auto) 7L, Monocytes (%) (Auto) 8, Eosinophils (%) (Auto) 2, Basophils (%) (Auto) 1, Neutrophils # (Auto) 8.9H, Lymphocytes # (Auto) 0.7L, Monocytes # (Auto) 0.9, Eosinophils # (Auto) 0.2, Basophils # (Auto) 0.1, Immature Granulocyte # (Auto) 0.1, Sodium Level 143, Potassium Level 3.4L, Chloride Level 106, Carbon Dioxide Level 28, Anion Gap 9, Blood Urea Nitrogen 9, Creatinine 0.60, Estimat Glomerular Filtration Rate 98, BUN/Creatinine Ratio 15, Glucose Level 97, Calcium Level 8.6, Corrected Calcium 9.5, Total Bilirubin 0.4, Aspartate Amino Transf (AST/SGOT) 17, Alanine Aminotransferase (ALT/SGPT) 13, Alkaline Phosphatase 86, Total Protein 5.3L, Albumin 2.9L Microbiology 05/13/21 MRSA Screen - Final, Complete 05/12/21 Blood Culture - Preliminary, Resulted No growth 05/12/21 Urine Culture - Final, Complete NO GROWTH Laboratory Tests 05/15/21 05:41 05/16/21 06:58 A/P: Assessment: GIB, requiring blood transfusions - EGD by Dr. Zimmerman in Mar 2021 showing healing esophageal ulcer - EGD by Dr Johnson on 05/14/21: Reflux esophagitis stage II, small hiatal hernia 2 cm in size, pyloric stricture with pyloric ulcer, overlying fibrin clot, no active bleeding, duodenum appeared normal with no distal obstructions. UTI - management per medical services CAD - reports h/o coronary stent placement greater than 12 yrs ago in [place], [place] - details unknown - Echocardiogram of 03-16-21 showed LVEF 60-65%. Mild MR. AoV sclerosis. Mild to mod TR. PASP 55-60 mmHg Pulmonary HTN - echocardiogram of 03-16-21 showed PASP 55-60 mmHg Ac diastolic CHF Carotid dz - h/o bilat CEA greater than 5 yrs ago in [place], [place] - details unknown HTN - uncontrolled HLD - statin tx - followed by PCP H/O hiatal hernia and GERD Tobaccoism - cessation advised Prob COPD Chronic LOVE Plan: Complex management due to multiple comorbidities Management of GIB is per Med svce (Dr Forbes) Diuretics as needed and as tolerated Replenish electrolytes (Dr Forbes ordered it this am) BP is better controlled. Continue current regimen Monitor lab closely Resume ASA when GI bleed controlled JOHN CHRISTIANSEN MD FACP FAC CCDS May 16, 2021 14:13
[2021-05-16] MEDS: ACETAMINOPHEN 325 MG TABLET PO PRN (15:25)
[2021-05-17 00:01] VITALS: BP 164/74
[2021-05-17 04:01] VITALS: BP 152/73
[2021-05-17 06:16] LABS: BASOPHILS # (AUTO) 0.1 10^3/uL (0.0-0.1); BASOPHILS % (AUTO) 1 % (0-10); EOSINOPHILS # (AUTO) 0.3 10^3/uL (0.0-0.3); EOSINOPHILS % (AUTO) 2 % (0-10); HEMATOCRIT 30 % (35-52); HEMOGLOBIN 8.7 g/dL (11.5-16.0); LYMPHOCYTES # (AUTO) 0.7 10^3/uL (1.0-4.0); LYMPHOCYTES % (AUTO) 6 % (12-44); MEAN CORPUSCULAR HEMOGLOBIN 24 pg (25-34); MEAN CORPUSCULAR HGB CONC 29 g/dL (32-36); MEAN CORPUSCULAR VOLUME 82 fL (80-99); MEAN PLATELET VOLUME 9.9 fL (9.0-12.2); MONOCYTES % (AUTO) 9 % (0-12); NEUTROPHILS # (AUTO) 9.3 10^3/uL (1.8-7.8); NEUTROPHILS % (AUTO) 81 % (42-75); PLATELET COUNT 410 10^3/uL (130-400); WHITE BLOOD COUNT 11.4 10^3/uL (4.3-11.0)
[2021-05-17 06:38] LABS: POTASSIUM 3.7 MMOL/L (3.6-5.0)
[2021-05-17 06:39] LABS: CALCIUM 8.8 MG/DL (8.5-10.1)
[2021-05-17 06:40] LABS: TOTAL PROTEIN 5.4 GM/DL (6.4-8.2)
[2021-05-17 06:42] LABS: BILIRUBIN,TOTAL 0.5 MG/DL (0.1-1.0)
[2021-05-17 06:44] LABS: CREATININE SERUM 0.6 MG/DL (0.60-1.30)
[2021-05-17 07:40] VITALS: BP 155/70
[2021-05-17] MEDS: PANTOPRAZOLE 40 MG (PROTONIX) TAB PO SCH ×2 (08:01→20:25)
[2021-05-17] MEDS: FAMOTIDINE 20 MG (PEPCID) TABLET PO SCH (08:01)
[2021-05-17] MEDS: meTOproloL SUCCINATE 50 MG (TOPROL XL) TAB PO SCH (08:01)
[2021-05-17] MEDS: KCL 20 MEQ TAB (K-DUR) PO SCH ×3 (08:02→17:13)
--- NOTE | 2021-05-17 11:00 | Progress Note - Cardiology ---
Cardiology SOAP Progress Note Objective: I&O/Vital Signs 05/18/21 05/18/21 05/18/21 05/18/21 00:30 04:40 08:00 08:21 Temp 36.5 37.2 37.2 Pulse 63 75 108 Resp 22 20 16 B/P (MAP) 145/69 (94) 159/68 (98) 159/67 (97) Pulse Ox 97 92 94 O2 Delivery Nasal Cannula Nasal Cannula Nasal Cannula Nasal Cannula O2 Flow Rate 2.00 2.00 2.00 2.00 05/18/21 00:00 Intake Total 1780 ml Balance 1780 ml Weight (Pounds): 119 Weight (Calculated Kilograms): 53.551413 Constitutional: AAO x 3, other (thin, frail) Respiratory: No accessory muscle use, No respiratory distress; chest expansion is symmetric, chest is bilaterally symmetric, rhonchi (scattered), other (diminished breath sounds) Cardiovascular: regular rate-rhythm; No JVD; S1 and S2, systolic murmur Gastrointestional: tender (epigastric), soft; No guarding; audible bowel sounds Extremities: no lower extremity edema bilateral Neurologic/Psychiatric: grossly intact (moves all extremities) Skin: No rash on exposed areas, No ulcerations on exposed areas Results/Procedures: Labs Laboratory Tests 05/17/21 16:35: Glucometer 145H 05/18/21 05:45: White Blood Count 12.0H, Red Blood Count 3.76L, Hemoglobin 8.8L, Hematocrit 31L, Mean Corpuscular Volume 84, Mean Corpuscular Hemoglobin 23L, Mean Corpuscular Hemoglobin Concent 28L, Red Cell Distribution Width 22.6H, Platelet Count 407H, Mean Platelet Volume 10.0, Immature Granulocyte % (Auto) 1, Neutrophils (%) (Auto) 85H, Lymphocytes (%) (Auto) 5L, Monocytes (%) (Auto) 8, Eosinophils (%) (Auto) 2, Basophils (%) (Auto) 1, Neutrophils # (Auto) 10.1H, Lymphocytes # (Auto) 0.6L, Monocytes # (Auto) 0.9, Eosinophils # (Auto) 0.2, Basophils # (Auto) 0.1, Immature Granulocyte # (Auto) 0.1 Microbiology 05/13/21 MRSA Screen - Final, Complete 05/12/21 Blood Culture - Preliminary, Resulted No growth 05/12/21 Urine Culture - Final, Complete NO GROWTH A/P: Assessment: GIB, requiring blood transfusions - EGD by Dr. Zimmerman in Mar 2021 showing healing esophageal ulcer - EGD by Dr Johnson on 05/14/21: Reflux esophagitis stage II, small hiatal hernia 2 cm in size, pyloric stricture with pyloric ulcer, overlying fibrin clot, no active bleeding, duodenum appeared normal with no distal obstructions. UTI - management per medical services CAD - reports h/o coronary stent placement greater than 12 yrs ago in [place], [place] - details unknown - Echocardiogram of 03-16-21 showed LVEF 60-65%. Mild MR. AoV sclerosis. Mild to mod TR. PASP 55-60 mmHg Pulmonary HTN - echocardiogram of 03-16-21 showed PASP 55-60 mmHg Ac diastolic CHF Carotid dz - h/o bilat CEA greater than 5 yrs ago in [place], [place] - details unknown HTN - uncontrolled HLD - statin tx - followed by PCP H/O hiatal hernia and GERD Tobaccoism - cessation advised Prob COPD Chronic LOVE Plan: Complex management due to multiple comorbidities Management of GIB is per Med svce (Dr Forbes) Diuretics as needed and as tolerated Replenish electrolytes (Dr Forbes ordered it this am) BP improved, but not ideal - adjust anti-hypertensive regimen Monitor lab closely Resume ASA when GI bleed controlled DARSHANA RENO May 17, 2021 11:00
[2021-05-17] MEDS: ACETAMINOPHEN 325 MG TABLET PO PRN ×3 (11:12→21:23)
[2021-05-17] MEDS ORDERED: amLODIPine 5 MG (NORVASC) TAB PO NR (11:14)
[2021-05-17 11:58] VITALS: BP 130/59
--- NOTE | 2021-05-17 13:45 | Occ Therapy Progress Note ---
Therapy Progress Note Pt laying in bed eating lunch. Per pt report, she is at her PLOF with ADLs, has multiple caregivers to assist with bathing, dressing, and toileting. Pt states she doesn't see a need for continued OT services, as she has the assistance at home with I/ADLs. No further OT services as pt is at her PLOF. D/C from OT. 1, visit 1320 FARTUN HOLDER OT May 17, 2021 13:45
[2021-05-17 16:00] VITALS: BP 139/65
--- NOTE | 2021-05-17 16:28 | Progress Note - Cardiology ---
Cardiology SOAP Progress Note Subjective: No cp or palp or syncope or swelling or shortness of breath No n/v/d Gen weakness and malaise at usual baseline Objective: I&O/Vital Signs 05/17/21 05/17/21 05/17/21 05/17/21 07:40 08:00 08:08 11:58 Temp 36.8 37.6 Pulse 79 78 Resp 20 22 B/P (MAP) 155/70 (98) 130/59 (82) Pulse Ox 89 98 O2 Delivery Nasal Cannula Nasal Cannula Nasal Cannula Nasal Cannula O2 Flow Rate 3.00 2.00 3.00 3.00 05/17/21 00:00 Intake Total 650 ml Balance 650 ml Weight (Pounds): 119 Weight (Calculated Kilograms): 53.537334 Constitutional: AAO x 3, other (thin, frail) Respiratory: No accessory muscle use, No respiratory distress; chest expansion is symmetric, chest is bilaterally symmetric, rhonchi (scattered), other (diminished breath sounds) Cardiovascular: regular rate-rhythm; No JVD; S1 and S2, systolic murmur Gastrointestional: tender (epigastric), soft; No guarding; audible bowel sounds Extremities: no lower extremity edema bilateral Neurologic/Psychiatric: grossly intact (moves all extremities) Skin: No rash on exposed areas, No ulcerations on exposed areas Results/Procedures: Labs Laboratory Tests 05/17/21 05:50: White Blood Count 11.4H, Red Blood Count 3.67L, Hemoglobin 8.7L, Hematocrit 30L, Mean Corpuscular Volume 82, Mean Corpuscular Hemoglobin 24L, Mean Corpuscular Hemoglobin Concent 29L, Red Cell Distribution Width 21.2H, Platelet Count 410H, Mean Platelet Volume 9.9, Immature Granulocyte % (Auto) 1, Neutrophils (%) (Auto) 81H, Lymphocytes (%) (Auto) 6L, Monocytes (%) (Auto) 9, Eosinophils (%) (Auto) 2, Basophils (%) (Auto) 1, Neutrophils # (Auto) 9.3H, Lymphocytes # (Auto) 0.7L, Monocytes # (Auto) 1.0, Eosinophils # (Auto) 0.3, Basophils # (Auto) 0.1, Immature Granulocyte # (Auto) 0.1, Sodium Level 143, Potassium Level 3.7, Chloride Level 104, Carbon Dioxide Level 28, Anion Gap 11, Blood Urea Nitrogen 5L, Creatinine 0.60, Estimat Glomerular Filtration Rate 98, BUN/Creatinine Ratio 8, Glucose Level 92, Calcium Level 8.8, Corrected Calcium 9.6, Total Bilirubin 0.5, Aspartate Amino Transf (AST/SGOT) 19, Alanine Aminotransferase (ALT/SGPT) 13, Alkaline Phosphatase 95, Total Protein 5.4L, Albumin 3.0L Microbiology 05/13/21 MRSA Screen - Final, Complete 05/12/21 Blood Culture - Preliminary, Resulted No growth 05/12/21 Urine Culture - Final, Complete NO GROWTH Laboratory Tests 05/16/21 06:58 05/17/21 05:50 A/P: Assessment: GIB, requiring blood transfusions - EGD by Dr. Zimmerman in Mar 2021 showing healing esophageal ulcer - EGD by Dr Johnson on 05/14/21: Reflux esophagitis stage II, small hiatal hernia 2 cm in size, pyloric stricture with pyloric ulcer, overlying fibrin clot, no active bleeding, duodenum appeared normal with no distal obstructions. UTI - management per medical services CAD - reports h/o coronary stent placement greater than 12 yrs ago in [place], [place] - details unknown - Echocardiogram of 03-16-21 showed LVEF 60-65%. Mild MR. AoV sclerosis. Mild to mod TR. PASP 55-60 mmHg Pulmonary HTN - echocardiogram of 03-16-21 showed PASP 55-60 mmHg Ac diastolic CHF Carotid dz - h/o bilat CEA greater than 5 yrs ago in [place], [place] - details unknown HTN - uncontrolled HLD - statin tx - followed by PCP H/O hiatal hernia and GERD Tobaccoism - cessation advised Prob COPD Chronic LOVE Plan: Management of GIB is per Med svce (Dr Forbes) Diuretics as needed and as tolerated BP improved, but not ideal - adjust anti-hypertensive regimen Monitor lab closely Resume ASA when GI bleed controlled JOHN CHRISTIANSEN MD FACP FAC CCDS May 17, 2021 16:28
[2021-05-17 20:00] VITALS: BP 142/64
--- NOTE | 2021-05-17 20:05 | Progress Note ---
Subjective Subjective/Events-last exam Patient states that she feels better this AM. Tolerating PO diet. Denies any black stools or blood in her stool. No shortness of breath or chest pain. Review of Systems General: Malaise Pulmonary: No Dyspnea, No Cough Cardiovascular: No: Chest Pain, Palpitations Gastrointestinal: No: Nausea, Vomiting, Abdominal Pain, Diarrhea, Constipation, Melena Genitourinary: Frequency Neurological: Weakness, Incoordination Objective Exam Last Set of Vital Signs Vital Signs Date Time Temp Pulse Resp B/P (MAP) Pulse Ox O2 Delivery O2 Flow Rate FiO2 05/17/21 16:00 37.3 72 18 139/65 (89) 97 Nasal Cannula 3.00 Capillary Refill : Less Than 3 Seconds I&O Intake and Output 05/17/21 00:00 Intake Total 750 ml Balance 750 ml Intake Oral 750 ml # Voids 7 # Bowel Movements 1 General: Alert, Oriented X3, No Acute Distress HEENT: Mucous Memb Moist/[place] Lungs: Clear to Auscultation, Normal Air Movement Heart: Regular Rate, No Murmurs Abdomen: Normal Bowel Sounds, Soft, No Tenderness, No Masses Extremities: No Edema, No Tenderness/Swelling Skin: No Rashes Neuro: Normal Speech, Sensation Intact, Cranial Nerves 3-12 NL Psych/Mental Status: Mental Status NL, Mood NL Results/Procedures Lab Laboratory Tests 05/17/21 05:50: White Blood Count 11.4H, Red Blood Count 3.67L, Hemoglobin 8.7L, Hematocrit 30L, Mean Corpuscular Volume 82, Mean Corpuscular Hemoglobin 24L, Mean Corpuscular Hemoglobin Concent 29L, Red Cell Distribution Width 21.2H, Platelet Count 410H, Mean Platelet Volume 9.9, Immature Granulocyte % (Auto) 1, Neutrophils (%) (Auto) 81H, Lymphocytes (%) (Auto) 6L, Monocytes (%) (Auto) 9, Eosinophils (%) (Auto) 2, Basophils (%) (Auto) 1, Neutrophils # (Auto) 9.3H, Lymphocytes # (Auto) 0.7L, Monocytes # (Auto) 1.0, Eosinophils # (Auto) 0.3, Basophils # (Auto) 0.1, Immature Granulocyte # (Auto) 0.1, Sodium Level 143, Potassium Level 3.7, Chloride Level 104, Carbon Dioxide Level 28, Anion Gap 11, Blood Urea Nitrogen 5L, Creatinine 0.60, Estimat Glomerular Filtration Rate 98, BUN/Cr eatinine Ratio 8, Glucose Level 92, Calcium Level 8.8, Corrected Calcium 9.6, Total Bilirubin 0.5, Aspartate Amino Transf (AST/SGOT) 19, Alanine Aminotransferase (ALT/SGPT) 13, Alkaline Phosphatase 95, Total Protein 5.4L, Al bumin 3.0L 05/17/21 16:35: Glucometer 145H Microbiology 05/13/21 MRSA Screen - Final, Complete 05/12/21 Blood Culture - Preliminary, Resulted No growth 05/12/21 Urine Culture - Final, Complete NO GROWTH Radiology NAME: STEPHAN MARQUEZ [facility] REC#: [id number] PT STATUS: REG ER : 1950 PHYSICIAN: AMERICO YOUSIF MD ADMIT DATE: 05/12/21/ER FS Signed Date of Exam:05/12/21 CHEST 1 VIEW AP/PA ONLY INDICATION: Weakness. COMPARISON: Prior examination from 03/15/2021. FINDINGS: There is cardiomegaly. Mild venous congestion. There is no pleural effusion or pneumothorax. The mediastinum is unremarkable. IMPRESSION: Cardiomegaly and mild central pulmonary venous congestion. Dictated by: Dictated on workstation # [id number] Dict: 05/12/210 Trans: 05/12/211902 [facility] [id number] Interpreted by: DILEEP PADILLA MD Electronically signed by: DILEEP PADILLA MD 05/12/213 Assessment/Plan Assessment/Plan (1) GI bleed Status: Acute Assessment & Plan: 05/17: EDG showed previous ulcer w/o acute bleeding, s/p 2 units pRBCs and Infed, HDS Qualifiers: Qualified Codes: K92.2 - Gastrointestinal hemorrhage, unspecified (2) Severe anemia Status: Acute (3) Diastolic heart failure Status: Acute Assessment & Plan: 05/17: Reviewed Echo report with diastolic dysfunction Qualifiers: Qualified Codes: I50.31 - Acute diastolic (congestive) heart failure (4) History of esophageal ulcer Status: Acute (5) HTN (hypertension) Status: Chronic Assessment & Plan: 05/17: continue home meds (6) HLD (hyperlipidemia) Status: Chronic (7) Weakness Status: Acute Assessment & Plan: 05/17: Recommend SNF placement and patient is wanting to go home. Family is wanting patient to go to SNF (8) DVT prophylaxis Status: Acute Assessment & Plan: - SCDs due to acute bleeding FREDERIC LOAIZA MD May 17, 2021 20:05
[2021-05-18 00:30] VITALS: BP 145/69
[2021-05-18 04:40] VITALS: BP 159/68
[2021-05-18 06:13] LABS: BASOPHILS # (AUTO) 0.1 10^3/uL (0.0-0.1); BASOPHILS % (AUTO) 1 % (0-10); EOSINOPHILS # (AUTO) 0.2 10^3/uL (0.0-0.3); EOSINOPHILS % (AUTO) 2 % (0-10); HEMATOCRIT 31 % (35-52); HEMOGLOBIN 8.8 g/dL (11.5-16.0); LYMPHOCYTES # (AUTO) 0.6 10^3/uL (1.0-4.0); LYMPHOCYTES % (AUTO) 5 % (12-44); MEAN CORPUSCULAR HEMOGLOBIN 23 pg (25-34); MEAN CORPUSCULAR HGB CONC 28 g/dL (32-36); MEAN CORPUSCULAR VOLUME 84 fL (80-99); MONOCYTES # (AUTO) 0.9 10^3/uL (0.0-1.0); MONOCYTES % (AUTO) 8 % (0-12); NEUTROPHILS # (AUTO) 10.1 10^3/uL (1.8-7.8); NEUTROPHILS % (AUTO) 85 % (42-75); PLATELET COUNT 407 10^3/uL (130-400)
[2021-05-18 08:21] VITALS: BP 159/67
[2021-05-18] MEDS ORDERED: amLODIPine 5 MG (NORVASC) TAB PO SCH (09:00)
[2021-05-18] MEDS: FAMOTIDINE 20 MG (PEPCID) TABLET PO SCH (09:23)
[2021-05-18] MEDS: KCL 20 MEQ TAB (K-DUR) PO SCH ×2 (09:23→14:10)
[2021-05-18] MEDS: PANTOPRAZOLE 40 MG (PROTONIX) TAB PO SCH (09:23)
[2021-05-18] MEDS: meTOproloL SUCCINATE 50 MG (TOPROL XL) TAB PO SCH (09:23)
--- NOTE | 2021-05-18 10:38 | Progress Note - Cardiology ---
Cardiology SOAP Progress Note Subjective: Sitting up in bed eating morning meal No c/o CP or SOB Objective: I&O/Vital Signs 05/18/21 05/18/21 05/18/21 05/18/21 00:30 04:40 08:00 08:21 Temp 36.5 37.2 37.2 Pulse 63 75 108 Resp 22 20 16 B/P (MAP) 145/69 (94) 159/68 (98) 159/67 (97) Pulse Ox 97 92 94 O2 Delivery Nasal Cannula Nasal Cannula Nasal Cannula Nasal Cannula O2 Flow Rate 2.00 2.00 2.00 2.00 05/18/21 00:00 Intake Total 1780 ml Balance 1780 ml Weight (Pounds): 119 Weight (Calculated Kilograms): 53.574653 Constitutional: AAO x 3, other (thin, frail) Respiratory: No accessory muscle use, No respiratory distress; chest expansion is symmetric, chest is bilaterally symmetric, rhonchi (scattered), other (di minished breath sounds) Cardiovascular: regular rate-rhythm; No JVD; S1 and S2, systolic murmur Gastrointestional: tender (epigastric), soft; No guarding; audible bowel sounds Extremities: no lower extremity edema bilateral Neurologic/Psychiatric: grossly intact (moves all extremities) Skin: No rash on exposed areas, No ulcerations on exposed areas Results/Procedures: Labs Laboratory Tests 05/17/21 16:35: Glucometer 145H 05/18/21 05:45: White Blood Count 12.0H, Red Blood Count 3.76L, Hemoglobin 8.8L, Hematocrit 31L, Mean Corpuscular Volume 84, Mean Corpuscular Hemoglobin 23L, Mean Corpuscular Hemoglobin Concent 28L, Red Cell Distribution Width 22.6H, Platelet Count 407H, Mean Platelet Volume 10.0, Immature Granulocyte % (Auto) 1, Neutrophils (%) (Auto) 85H, Lymphocytes (%) (Auto) 5L, Monocytes (%) (Auto) 8, Eosinophils (%) (Auto) 2, Basophils (%) (Auto) 1, Neutrophils # (Auto) 10.1H, Lymphocytes # (Auto) 0.6L, Monocytes # (Auto) 0.9, Eosinophils # (Auto) 0.2, Basophils # (Auto) 0.1, Immature Granulocyte # (Auto) 0.1 Microbiology 05/13/21 MRSA Screen - Final, Complete 05/12/21 Blood Culture - Preliminary, Resulted No growth 05/12/21 Urine Culture - Final, Complete NO GROWTH Laboratory Tests 05/17/21 05:50 05/18/21 05:45 A/P: Assessment: GIB, requiring blood transfusions - EGD by Dr. Zimmerman in Mar 2021 showing healing esophageal ulcer - EGD by Dr Johnson on 05/14/21: Reflux esophagitis stage II, small hiatal hernia 2 cm in size, pyloric stricture with pyloric ulcer, overlying fibrin clot, no active bleeding, duodenum appeared normal with no distal obstructions. UTI - management per medical services CAD - reports h/o coronary stent placement greater than 12 yrs ago in [place], [place] - details unknown - Echocardiogram of 03-16-21 showed LVEF 60-65%. Mild MR. AoV sclerosis. Mild to mod TR. PASP 55-60 mmHg Pulmonary HTN - echocardiogram of 03-16-21 showed PASP 55-60 mmHg Ac diastolic CHF Carotid dz - h/o bilat CEA greater than 5 yrs ago in [place], [place] - details unknown HTN - uncontrolled HLD - statin tx - followed by PCP H/O hiatal hernia and GERD Tobaccoism - cessation advised Prob COPD Chronic LOVE Plan: Management of GIB is per Med svce (Dr Forbes) Diuretics as needed and as tolerated BP improved following adjustment of antihypertensive regimen Monitor lab closely Resume ASA when GI bleed controlled DARSHANA RENO May 18, 2021 10:38
[2021-05-18] MEDS: ACETAMINOPHEN 325 MG TABLET PO PRN (11:48)
[2021-05-18 12:00] VITALS: BP 139/75
--- NOTE | 2021-05-18 12:48 | Discharge Summary ---
Discharge Summary Reconcile Patient Problems Problems Reviewed?: Yes Instructions for Patient Via [facility] [employer] [facility], Assessment/Instructions GI Bleed Severe Anemia of acute blood loss Diastolic HF Deblity h/o esophageal ulcer Physician to follow Patient: [place] Discharge Diet for Home: Cardiac Diet Hospital Course Date of Admission: May 12, 2021 at 20:03 Admission Diagnosis : Family Physician/Provider: [facility] Date of Discharge: 05/18/21 Discharge Diagnosis: Acute GI bleed Severe Anemia of acute blood loss Diastolic CHF Deblity h/o esophageal ulcer CAD Hospital Course: 71 yo F that was admitted with anemia and abdominal pain. Patient was found to have severe anemia requiring transfusion and IV iron. She was seen by General surgery and had EGD that did not show any areas concerning for acute bleeding. She is still having some weakness and is agreeable to home health with PT/OT upon discharge. Labs and Pending Lab Test: Laboratory Tests 05/17/21 16:35: Glucometer 145H 05/18/21 05:45: White Blood Count 12.0H, Red Blood Count 3.76L, Hemoglobin 8.8L, Hematocrit 31L, Mean Corpuscular Volume 84, Mean Corpuscular Hemoglobin 23L, Mean Corpuscular Hemoglobin Concent 28L, Red Cell Distribution Width 22.6H, Platelet Count 407H, Mean Platelet Volume 10.0, Immature Granulocyte % (Auto) 1, Neutrophils (%) (Auto) 85H, Lymphocytes (%) (Auto) 5L, Monocytes (%) (Auto) 8, Eosinophils (%) (Auto) 2, Basophils (%) (Auto) 1, Neutrophils # (Auto) 10.1H, Lymphocytes # (Auto) 0.6L, Monocytes # (Auto) 0.9, Eosinophils # (Auto) 0.2, Basophils # (Auto) 0.1, Immature Granulocyte # (Auto) 0.1 Microbiology 05/13/21 MRSA Screen - Final, Complete 05/12/21 Blood Culture - Preliminary, Resulted No growth 05/12/21 Urine Culture - Final, Complete NO GROWTH Home Meds Active Omeprazole 40 Mg Capsule.dr 40 Mg PO DAILY Reported Pantoprazole Sodium 40 Mg Tablet.dr 40 Mg PO BID LAST FILLED 03-17-2021 #60/30 DAY SUPPLY Topiramate 50 Mg Tablet 50 Mg PO 1900 Pravastatin Sodium 80 Mg Tablet 80 Mg PO 1900 Myrbetriq (Mirabegron) 50 Mg Tab.er.24h 50 Mg PO DAILY LAST FILLED 01-13-2021 #90/90 DAY SUPPLY Vitamin C (Ascorbic Acid) 1,000 Mg Tablet 1,000 Mg PO DAILY Fexofenadine HCl 180 Mg Tablet 180 PO DAILY Docusate Sodium 100 Mg Capsule 200 Mg PO DAILY Centrum Silver Tablet (Multivit-Min/FA/Lycopene/Lut) 1 Each Tablet 1 Each PO DAILY Montelukast Sodium 10 Mg Tablet 10 Mg PO 1900 Lisinopril 40 Mg Tablet 20 Mg PO DAILY TAKE 1/2 OF A 40MG TAB Tylenol Extra Strength (Acetaminophen) 500 Mg Tablet 500 Mg PO Q6H PRN Escitalopram Oxalate 20 Mg Tablet 20 Mg PO DAILY Lamotrigine 200 Mg Tablet 200 Mg PO DAILY Raloxifene HCl 60 Mg Tablet 60 Mg PO DAILY Mysoline (Primidone) 250 Mg Tablet 250 Mg PO BID Consulations Dr Brooks: Cardiology Dr Johnson: General Surgery Patient Allergies: Coded Allergies: latex (Verified Allergy, Unknown, 02/07/19) Height (Feet): 4 Height (Inches): 10.00 Weight (Pounds): 119 New Medications: Omeprazole (Omeprazole) 40 Mg Capsule.dr 40 MG PO DAILY, #90 CAP Amlodipine Besylate (Amlodipine Besylate) 10 Mg Tablet 10 MG PO DAILY, #30 TAB Metoprolol Succinate (Metoprolol Succinate) 50 Mg Tab.er.24h 50 MG PO DAILY, #30 TAB Continued Medications: Acetaminophen (Tylenol Extra Strength) 500 Mg Tablet 500 MG PO Q6H PRN for PAIN-MILD (1-4), TAB Ascorbic Acid (Vitamin C) 1,000 Mg Tablet 1000 MG PO DAILY, TAB Docusate Sodium (Docusate Sodium) 100 Mg Capsule 200 MG PO DAILY, CAP Escitalopram Oxalate (Escitalopram Oxalate) 20 Mg Tablet 20 MG PO DAILY Fexofenadine HCl (Fexofenadine HCl) 180 Mg Tablet 180 PO DAILY, TAB Lamotrigine (Lamotrigine) 200 Mg Tablet 200 MG PO DAILY Montelukast Sodium (Montelukast Sodium) 10 Mg Tablet 10 MG PO 1900, TAB Multivit-Min/FA/Lycopene/Lut (Centrum Silver Tablet) 1 Each Tablet 1 EACH PO DAILY, TAB Pantoprazole Sodium (Pantoprazole Sodium) 40 Mg Tablet.dr 40 MG PO BID, TAB LAST FILLED 03-17-2021 #60/30 DAY SUPPLY Pravastatin Sodium (Pravastatin Sodium) 80 Mg Tablet 80 MG PO 1900, TAB Primidone (Mysoline) 250 Mg Tablet 250 MG PO BID Raloxifene HCl (Raloxifene HCl) 60 Mg Tablet 60 MG PO DAILY Topiramate (Topiramate) 50 Mg Tablet 50 MG PO 1900, TAB Discontinued Medications: Lisinopril (Lisinopril) 40 Mg Tablet 20 MG PO DAILY, TAB TAKE 1/2 OF A 40MG TAB Mirabegron (Myrbetriq) 50 Mg Tab.er.24h 50 MG PO DAILY, TAB LAST FILLED 01-13-2021 #90/90 DAY SUPPLY Home Health Need/Face to Face Date of Face to Face: May 26, 2021 Clinical Findings: Generalized weakness and fatigue, Instability, Unsteady gait I have seen Pt [id number]: Yes Discharged To: Home Diagnosis/Conditions: See above Patient is Homebound due to: Marie fall risk due to instabilty, Muscle weakness Homebound Status Due to the above stated illness, injury or surgical procedure (medical condition or diagnosis) and associated clinical findings, the patient is homebound because of his/her inability to leave home except with aid of a supportive device and/or person AND leaving the home requires a considerable and taxing effort or is medically contraindicated. Pt req the following assistanc: Aid of another person, [facility] Home Health Nursing Orders Home Health Services Order: Nursing Services, Case Folder-Evaluate & Treat, Physical Therapy-Evaluate & Treat Home Health Infusion Therapy Line Start Date: May 12, 2021 Home Health Lab Orders Labs (specify type/freq): CBC on Monday05/24/21 Therapy Orders Therapy Orders: OT (must have SN or PT order), PT to assess for OT Therapy Specific Orders: Eval assistive deivces, Gait training, Increase strength/endurance Certify Stmt I certify that this patient is under my care and that I, a nurse practitioner or a physician; a high school assistant principal working with me, had a face to face encounter that - meets the physician face to face encounter requirements with this patient as da jessica. Discharge Physical Exam General: Alert, Oriented X3, Cooperative, No Acute Distress Lungs: Clear to Auscultation, Normal Air Movement Heart: Regular Rate, No Murmurs Abdomen: Normal Bowel Sounds, Soft, No Tenderness, No Masses Extremities: No Edema, No Tenderness/Swelling Skin: No Rashes Neuro: Normal Speech, Cranial Nerves 3-12 NL Psych/Mental Status: Mental Status NL, Mood NL FREDERIC LOAIZA MD May 18, 2021 12:45
[2021-05-18] MEDS ORDERED: AMLO-251 PO (12:50)
[2021-05-18] MEDS ORDERED: METO50TA7 PO (12:50)
--- NOTE | 2021-05-18 15:17 | Progress Note - Cardiology ---
Cardiology SOAP Progress Note Subjective: Somnolent. Does not report any symptoms Objective: I&O/Vital Signs 05/18/21 05/18/21 05/18/21 05/18/21 04:40 08:00 08:21 12:00 Temp 37.2 37.2 37.2 Pulse 75 108 109 Resp 20 16 20 B/P (MAP) 159/68 (98) 159/67 (97) 139/75 (96) Pulse Ox 92 94 96 O2 Delivery Nasal Cannula Nasal Cannula Nasal Cannula Nasal Cannula O2 Flow Rate 2.00 2.00 2.00 2.00 05/18/21 00:00 Intake Total 1780 ml Balance 1780 ml Weight (Pounds): 119 Weight (Calculated Kilograms): 53.558339 Constitutional: AAO x 3, other (thin, frail) Respiratory: No accessory muscle use, No respiratory distress; chest expansion is symmetric, chest is bilaterally symmetric, rhonchi (scattered), other (diminished breath sounds) Cardiovascular: regular rate-rhythm; No JVD; S1 and S2, systolic murmur Gastrointestional: tender (epigastric), soft; No guarding; audible bowel sounds Extremities: no lower extremity edema bilateral Neurologic/Psychiatric: grossly intact (moves all extremities) Skin: No rash on exposed areas, No ulcerations on exposed areas Results/Procedures: Labs Laboratory Tests 05/17/21 16:35: Glucometer 145H 05/18/21 05:45: White Blood Count 12.0H, Red Blood Count 3.76L, Hemoglobin 8.8L, Hematocrit 31L, Mean Corpuscular Volume 84, Mean Corpuscular Hemoglobin 23L, Mean Corpuscular Hemoglobin Concent 28L, Red Cell Distribution Width 22.6H, Platelet Count 407H, Mean Platelet Volume 10.0, Immature Granulocyte % (Auto) 1, Neutrophils (%) (Auto) 85H, Lymphocytes (%) (Auto) 5L, Monocytes (%) (Auto) 8, Eosinophils (%) (Auto) 2, Basophils (%) (Auto) 1, Neutrophils # (Auto) 10.1H, Lymphocytes # (Auto) 0.6L, Monocytes # (Auto) 0.9, Eosinophils # (Auto) 0.2, Basophils # (Auto) 0.1, Immature Granulocyte # (Auto) 0.1 Microbiology 05/13/21 MRSA Screen - Final, Complete 05/12/21 Blood Culture - Preliminary, Resulted No growth 05/12/21 Urine Culture - Final, Complete NO GROWTH Laboratory Tests 05/17/21 05:50 05/18/21 05:45 A/P: Assessment: GIB, requiring blood transfusions - EGD by Dr. Zimmerman in Mar 2021 showing healing esophageal ulcer - EGD by Dr Johnson on 05/14/21: Reflux esophagitis stage II, small hiatal hernia 2 cm in size, pyloric stricture with pyloric ulcer, overlying fibrin clot, no active bleeding, duodenum appeared normal with no distal obstructions. UTI - management per medical services CAD - reports h/o coronary stent placement greater than 12 yrs ago in [place], [place] - details unknown - Echocardiogram of 03-16-21 showed LVEF 60-65%. Mild MR. AoV sclerosis. Mild to mod TR. PASP 55-60 mmHg Pulmonary HTN - echocardiogram of 03-16-21 showed PASP 55-60 mmHg Ac diastolic CHF Carotid dz - h/o bilat CEA greater than 5 yrs ago in [place], [place] - details unknown HTN - uncontrolled HLD - statin tx - followed by PCP H/O hiatal hernia and GERD Tobaccoism - cessation advised Prob COPD Chronic LOVE Plan: Management of GIB is per Med svce (Dr Berumen) BP improved following adjustment of antihypertensive regimen Resume ASA when GI bleed controlled Outpt cardiology f/u advised JOHN CHRISTIANSEN MD FACP FAC CCDS May 18, 2021 15:17
[2021-05-18] MEDS ORDERED: ASPIRIN E.C. 81 MG (ECOTRIN) TAB PO SCH (15:30)
[2021-05-18 16:20] VITALS: BP 138/77
[2021-05-18] MEDS ORDERED: ASPI-1238 PO (16:35)
[2021-05-18 18:02] VITALS: BP 138/77
[2021-05-19] MEDS ORDERED: amLODIPine 5 MG (NORVASC) TAB PO SCH (09:00)
[2021-05-19] MEDS ORDERED: amLODIPine 10 MG (NORVASC) TAB PO SCH (09:00)
== END 2021-05-18 18:02 | disposition home health service (06) | DRG 368 ==
LOC: EDUNIT# 17:52 → ER FS 17:53 → 4TH 20:03
PROVIDERS: ADMIT Internal Medicine; ATTEND Family Medicine
PROC: 0D798ZZ Dilation of Duodenum, Via Natural or Artificial Opening Endoscopic (ICD-10-PCS; 2021-05-14)
PROC: 0DB78ZX Excision of Stomach, Pylorus, Via Natural or Artificial Opening Endoscopic, Diagnostic (ICD-10-PCS; principal; 2021-05-14 14:30)
DX: K21.01 Gastro-esophageal reflux disease with esophagitis, with bleeding (principal); K25.4 Chronic or unspecified gastric ulcer with hemorrhage; K29.71 Gastritis, unspecified, with bleeding; I50.31 Acute diastolic (congestive) heart failure; K31.1 Adult hypertrophic pyloric stenosis; N39.0 Urinary tract infection, site not specified; D62 Acute posthemorrhagic anemia; K44.9 Diaphragmatic hernia without obstruction or gangrene; Z20.822 Contact with and (suspected) exposure to COVID-19; I25.10 Atherosclerotic heart disease of native coronary artery without angina pectoris; Z95.5 Presence of coronary angioplasty implant and graft; I27.20 Pulmonary hypertension, unspecified; I11.0 Hypertensive heart disease with heart failure; E78.5 Hyperlipidemia, unspecified; F17.210 Nicotine dependence, cigarettes, uncomplicated; J44.9 Chronic obstructive pulmonary disease, unspecified; R53.81 Other malaise; R53.1 Weakness; E87.6 Hypokalemia
CPT/HCPCS: 36415; 51702; 71045; 80053; 81000; 82728; 82947; 83540; 83605; 83735; 83880; 84145; 85007; 85025; 85027; 85045; 85055; 85610; 85730; 86850; 86900; 86901; 86920; 87040; 87081; 87088; 87636; 93005; 93306; 94760; 94761

== ENCOUNTER 2021-05-21 19:05 | Emergency (ER) | payer MEDICARE, MEDICAID ==
[~2021-05-21] VITALS: Ht 147 cm; Wt 64.0 kg
[~2021-05-21 19:05] MED LIST changes: +AMLO-251 PO; +ASPI-1238 PO; +METO50TA7 PO; +OMEP40CA6 PO
--- NOTE | 2021-05-21 19:11 | ED Abdominal Pain ---
General Stated Complaint: CHEST PAIN History of Present Illness Date Seen by Provider: May 21, 2021 Time Seen by Provider: 19:09 Initial Comments 71-year-old female presents with epigastric pain. Patient reports that started earlier this evening. She reports that she was recently admitted at [facility] for a "bleeding ulcer" patient reports that she got some IV medicine for it. Patient denies any pain up in her chest. No shortness of breath, known fevers or chills. Allergies and Home Medications Allergies Coded Allergies: latex (Verified Allergy, Unknown, 02/07/19) Patient Home Medication List Home Medication List Reviewed: Yes Acetaminophen (Tylenol Extra Strength) 500 Mg Tablet, 500 MG PO Q6H PRN for PAIN-MILD (1-4), (Reported) Entered as Reported by: JOANN MUNOZ on 07/22/20 1139 Amlodipine Besylate (Amlodipine Besylate) 10 Mg Tablet, 10 MG PO DAILY Prescribed by: FREDERIC LOAIZA on 05/18/21 1250 Ascorbic Acid (Vitamin C) 1,000 Mg Tablet, 1,000 MG PO DAILY, (Reported) Entered as Reported by: OUSMANE KIRAN on 03/16/21 1515 Aspirin (Aspirin EC) 81 Mg Tablet.dr, 81 MG PO q48 hR Prescribed by: TAMARA WRIGHT on 05/18/21 1635 Docusate Sodium (Docusate Sodium) 100 Mg Capsule, 200 MG PO DAILY, (Reported) Entered as Reported by: OUSMANE KIRAN on 03/16/21 1512 Escitalopram Oxalate (Escitalopram Oxalate) 20 Mg Tablet, 20 MG PO DAILY, (Reported) Entered as Reported by: JOANN MUNOZ on 02/25/19 0953 Fexofenadine HCl (Fexofenadine HCl) 180 Mg Tablet, 180 PO DAILY, (Reported) Entered as Reported by: OUSMANE KIRAN on 03/16/21 1514 Lamotrigine (Lamotrigine) 200 Mg Tablet, 200 MG PO DAILY, (Reported) Entered as Reported by: JOANN MUNOZ on 02/25/19 0953 Metoprolol Succinate (Metoprolol Succinate) 50 Mg Tab.er.24h, 50 MG PO DAILY Prescribed by: FREDERIC LOAIZA on 05/18/21 1250 Montelukast Sodium (Montelukast Sodium) 10 Mg Tablet, 10 MG PO 1900, (Reported) Entered as Reported by: OUSMANE KIRAN on 03/16/21 151 Multivit-Min/FA/Lycopene/Lut (Centrum Silver Tablet) 1 Each Tablet, 1 EACH PO DAILY, (Reported) Entered as Reported by: OUSMANE KIRAN on 03/16/21 151 Omeprazole (Omeprazole) 40 Mg Capsule.dr, 40 MG PO DAILY Prescribed by: YNES MIRZA on 05/14/21 1542 Pantoprazole Sodium (Pantoprazole Sodium) 40 Mg Tablet.dr, 40 MG PO BID, (Reported) Entered as Reported by: JOANN MUNOZ on 05/13/21 1431 Pravastatin Sodium (Pravastatin Sodium) 80 Mg Tablet, 80 MG PO 1900, (Reported) Entered as Reported by: OUSMANE KIRAN on 03/16/21 151 Primidone (Mysoline) 250 Mg Tablet, 250 MG PO BID, (Reported) Entered as Reported by: JOANN MUNOZ on 02/25/19 0953 Raloxifene HCl (Raloxifene HCl) 60 Mg Tablet, 60 MG PO DAILY, (Reported) Entered as Reported by: JOANN MUNOZ on 02/25/19 0953 Sucralfate (Sucralfate) 1 Gm Tablet, 1 GM PO PC Prescribed by: DARINEL MACK on 05/21/211956 Topiramate (Topiramate) 50 Mg Tablet, 50 MG PO 1900, (Reported) Entered as Reported by: OUSMANE KIRAN on 03/16/21 151 Discontinued Medications Lisinopril (Lisinopril) 40 Mg Tablet, 20 MG PO DAILY, (Reported) Entered as Reported by: OUSMANE KIRAN on 03/16/21 151 Mirabegron (Myrbetriq) 50 Mg Tab.er.24h, 50 MG PO DAILY, (Reported) Entered as Reported by: OUSMANE KIRAN on 03/16/21 151 Review of Systems Review of Systems Constitutional: No chills, No fever EENTM: No Symptoms Reported Respiratory: No Symptoms Reported Cardiovascular: No Symptoms Reported Gastrointestinal: Abdominal Pain (epigastric ) Musculoskeletal: no symptoms reported Skin: no symptoms reported Psychiatric/Neurological: No Symptoms Reported Endocrine: No Symptoms Reported Hematologic/Lymphatic: No Symptoms Reported Past Drauvhg-[id number]-Nmdqru Hx Immunizations Up To Date Tetanus Booster (TDap): Unknown First/Initial COVID19 Vaccinat: has not got covid vaccine Seasonal Allergies Seasonal Allergies: No Past Medical History Surgeries: No Respiratory: No Cardiac: Yes Chronic Edema/Swelling, High Cholesterol, Hypertension Neurological: No Genitourinary: No Gastrointestinal: Yes Gastrointestinal Bleed Musculoskeletal: No Endocrine: No HEENT: No Cancer: No Psychosocial: No Integumentary: No Family Medical History Cardiovascular disease 19 FATHER 19 MOTHER Glaucoma 19 FATHER Hypertension 19 FATHER 19 MOTHER No Pertinent Family Hx Bilateral Endarterectomy Physical Exam Vital Signs Vital Signs - First Documented 05/21/21 19:10 Temp 36.9 Pulse 68 Resp 14 B/P (MAP) 134/66 (88) Pulse Ox 95 O2 Delivery Room Air Capillary Refill : Height/Weight/BMI Height: 4'10.00" Weight: 119lbs. oz. 53.984330ve; 26.94 BMI Method:Stated General Appearance: no apparent distress, cachetic, thin Respiratory: lungs clear, normal breath sounds Cardiovascular: normal peripheral pulses, regular rate, rhythm Gastrointestinal: soft, tenderness (epigastric) Extremities: normal range of motion Neurologic/Psychiatric: alert, normal mood/affect, oriented x 3 Progress/Results/Core Measures Results/Orders Lab Results Laboratory Tests Test 05/21/21 19:13 Range/Units White Blood Count 15.4 H 4.3-11.0 10^3/uL Red Blood Count 4.46 3.80-5.11 10^6/uL Hemoglobin 10.8 #L 11.5-16.0 g/dL Hematocrit 38 35-52 % Mean Corpuscular Volume 85 80-99 fL Mean Corpuscular Hemoglobin 24 L 25-34 pg Mean Corpuscular Hemoglobin Concent 29 L 32-36 g/dL Red Cell Distribution Width 25.5 H 10.0-14.5 % Platelet Count 622 H 130-400 10^3/uL Mean Platelet Volume 9.9 9.0-12.2 fL Immature Granulocyte % (Auto) 1 % Neutrophils (%) (Auto) 83 H 42-75 % Lymphocytes (%) (Auto) 8 L 12-44 % Monocytes (%) (Auto) 5 0-12 % Eosinophils (%) (Auto) 2 0-10 % Basophils (%) (Auto) 1 0-10 % Neutrophils # (Auto) 12.8 H 1.8-7.8 X 10^3 Lymphocytes # (Auto) 1.3 1.0-4.0 X 10^3 Monocytes # (Auto) 0.8 0.0-1.0 X 10^3 Eosinophils # (Auto) 0.3 0.0-0.3 10^3/uL Basophils # (Auto) 0.1 0.0-0.1 10^3/uL Immature Granulocyte # (Auto) 0.1 0.0-0.1 10^3/uL Neutrophils % (Manual) 90 % Lymphocytes % (Manual) 6 % Monocytes % (Manual) 2 % Eosinophils % (Manual) 2 % Sodium Level 136 135-145 MMOL/L Potassium Level 3.9 3.6-5.0 MMOL/L Chloride Level 100 98-107 MMOL/L Carbon Dioxide Level 26 21-32 MMOL/L Anion Gap 10 5-14 MMOL/L Blood Urea Nitrogen 13 7-18 MG/DL Creatinine 0.82 0.60-1.30 MG/DL Estimat Glomerular Filtration Rate 68 BUN/Creatinine Ratio 16 Glucose Level 99 70-105 MG/DL Calcium Level 9.7 8.5-10.1 MG/DL Corrected Calcium 9.9 8.5-10.1 MG/DL Total Bilirubin 0.2 0.1-1.0 MG/DL Aspartate Amino Transf (AST/SGOT) 21 5-34 U/L Alanine Aminotransferase (ALT/SGPT) 12 0-55 U/L Alkaline Phosphatase 122 40-136 U/L Troponin I < 0.30 <0.30 NG/ML Total Protein 7.0 6.4-8.2 GM/DL Albumin 3.7 3.2-4.5 GM/DL Lipase 32 8-78 U/L My Orders Orders - DARINEL MACK DO Acute Abd Series (05/21/21 19:12) Ed Iv/Invasive Line Start (05/21/21 19:12) Pantoprazole Injection (Protonix Injecti (05/21/21 19:15) Cbc With Automated Diff (05/21/21 19:12) Comprehensive Metabolic Panel (05/21/21 19:12) Lipase (05/21/21 19:12) Troponin I Fs (05/21/21 19:12) Manual Differential (05/21/21 19:13) Ns Iv 1000 Ml (Sodium Chloride 0.9%) (05/21/21 19:45) Medications Given in ED Current Medications Medications Dose Ordered Sig/Veto Route Start Time Stop Time Status Last Admin Dose Admin Pantoprazole 40 mg ONCE ONCE IV 05/21/21 19:15 05/21/21 19:16 DC 05/21/21 19:55 40 MG Vital Signs/I&O 05/21/21 19:10 Temp 36.9 Pulse 68 Resp 14 B/P (MAP) 134/66 (88) Pulse Ox 95 O2 Delivery Room Air Progress Progress Note : Progress Note Patient symptoms completely resolved with Protonix, patient was then sleeping with no signs of distress. Patient CBC seems to be somewhat concentrated with elevated platelets, white count and hemoglobin. I will give her a liter of IV fluids. I encouraged her to follow-up on Monday for recheck of these labs to be sure they have improved. Patient likely with a gastritis. I will provide her Carafate recommend she continue her pantoprazole that is already prescribed. She is to follow-up with Dr. Zimmerman as needed. Patient stable and discharged home Initial ECG Impression Date: May 21, 2021 Initial ECG Impression Time: 19:03 Initial ECG Rate: 67 Initial ECG Rhythm: Normal Sinus Initial ECG Intervals: Normal Initial ECG Impression: Normal Departure Impression Primary Impression: Gastritis Qualified Codes: K29.70 - Gastritis, unspecified, without bleeding Additional Impression: Pneumonia Qualified Codes: J18.9 - Pneumonia, unspecified organism Disposition: 01 HOME, SELF-CARE Condition: Stable Departure-Patient Inst. Referrals: [facility] (PCP/Family) Primary Care Physician Patient Instructions: Gastritis (DC), Acid Reflux and GERD in Adults (DC) Add. Discharge Instructions: Follow-up with your primary care provider on Monday to recheck your symptoms and to recheck your labs Please add Pepcid twice daily as directed on package for the next 2 weeks Scripts Doxycycline Hyclate (Doxycycline Hyclate) 100 Mg Tablet 100 MG PO BID, #20 TAB 0 Refills Prov: MACK,DARINEL L DO 05/21/21 Sucralfate (Sucralfate) 1 Gm Tablet 1 GM PO PC, #100 TAB Prov: MACK,DARINEL L DO 05/21/21 MACK,DARINEL L DO May 21, 2021 19:11
[2021-05-21] MEDS ORDERED: PANTOPRAZOLE 40 MG (PROTONIX) VIAL IV ONE (19:15)
[2021-05-21 19:24] LABS: HEMATOCRIT 38 % (35-52); HEMOGLOBIN 10.8 g/dL (11.5-16.0); MEAN CORPUSCULAR HEMOGLOBIN 24 pg (25-34); WHITE BLOOD COUNT 15.4 10^3/uL (4.3-11.0)
[2021-05-21 19:25] LABS: BASOPHILS # (AUTO) 0.1 10^3/uL (0.0-0.1); BASOPHILS % (AUTO) 1 % (0-10); EOSINOPHILS # (AUTO) 0.3 10^3/uL (0.0-0.3); EOSINOPHILS % (AUTO) 2 % (0-10); LYMPHOCYTES # (AUTO) 1.3 X 10^3 (1.0-4.0); LYMPHOCYTES % (AUTO) 8 % (12-44); MEAN CORPUSCULAR HGB CONC 29 g/dL (32-36); MEAN CORPUSCULAR VOLUME 85 fL (80-99); MEAN PLATELET VOLUME 9.9 fL (9.0-12.2); MONOCYTES # (AUTO) 0.8 X 10^3 (0.0-1.0); MONOCYTES % (AUTO) 5 % (0-12); NEUTROPHILS # (AUTO) 12.8 X 10^3 (1.8-7.8); NEUTROPHILS % (AUTO) 83 % (42-75); PLATELET COUNT 622 10^3/uL (130-400)
[2021-05-21 19:41] LABS: ALANINE AMINOTRANSFERASE 12 U/L (0-55); ALBUMIN 3.7 GM/DL (3.2-4.5); ALKALINE PHOSPHATASE 122 U/L (40-136); BILIRUBIN,TOTAL 0.2 MG/DL (0.1-1.0); BUN/CREATININE RATIO 16; CALCIUM 9.7 MG/DL (8.5-10.1); CARBON DIOXIDE 26 MMOL/L (21-32); CHLORIDE 100 MMOL/L (98-107); CREATININE SERUM 0.82 MG/DL (0.60-1.30); GFR ESTIMATED 68; GLUCOSE 99 MG/DL (70-105); LIPASE 32 U/L (8-78); POTASSIUM 3.9 MMOL/L (3.6-5.0); SODIUM 136 MMOL/L (135-145)
[2021-05-21 19:42] LABS: EOSINOPHILS % (MANUAL) 2 %; LYMPHOCYTES % (MANUAL) 6 %; MONOCYTES % (MANUAL) 2 %; NEUTROPHILS % (MANUAL) 90 %
--- NOTE | 2021-05-21 19:44 | Diagnostic Imaging Report ---
INDICATION: Abdominal pain. EXAMINATION: Abdominal series performed with a frontal chest radiograph and supine and upright abdominal films. FINDINGS: Abdominal bowel gas pattern appears unremarkable. There is prominent stool throughout the colon. There are extensive vascular calcifications. There is no free air on the upright view. There is some mild patchy infiltrate in the right lung base. IMPRESSION: Mild patchy infiltrate in the right lung base. No sign of free air or overt bowel obstruction. Prominent stool is noted in the colon. Dictated by: Dictated on workstation # [id number]
[2021-05-21] MEDS ORDERED: LIDOCAINE 2% VISCOUS 15 ML UDC PO ONE (19:45)
[2021-05-21] MEDS ORDERED: NS IV 1000 ML 1,000 ML IV STA (19:45)
[2021-05-21] MEDS ORDERED: ANTACID SUSP 30 ML UDC (MYLANTA) PO ONE (19:45)
[2021-05-21] MEDS ORDERED: SUCR1TAB PO (19:57)
[2021-05-21] MEDS ORDERED: DOXY100T2 PO (20:11)
[2021-05-21] MEDS ORDERED: DOXYCYCLINE 100 MG (VIBRAMYCIN) TABLET PO SCH (20:15)
[2021-05-21 20:25] VITALS: BP 120/56
== END 2021-05-21 20:25 | disposition home or self-care (01) ==
LOC: EDUNIT# 19:05 → ER FS 19:09
DX: K29.70 Gastritis, unspecified, without bleeding (principal); J18.9 Pneumonia, unspecified organism; I10 Essential (primary) hypertension; E78.00 Pure hypercholesterolemia, unspecified; Z79.899 Other long term (current) drug therapy; Z79.82 Long term (current) use of aspirin
CPT/HCPCS: 36415; 74022; 80053; 83690; 84484; 85007; 85027

== ENCOUNTER 2021-10-12 12:00 | Inpatient (IN) | payer MEDICARE, MEDICAID ==
[~2021-10-12] VITALS: Ht 147 cm; Wt 48.8 kg
[~2021-10-12 12:00] MED LIST changes: +DOXY100T2 PO; -FEXO-46 PO; +NF-ALLE180 PO
[2021-10-12 12:30] LABS: BASOPHILS # (AUTO) 0.1 10^3/uL (0.0-0.1); BASOPHILS % (AUTO) 1 % (0-10); EOSINOPHILS # (AUTO) 0.1 10^3/uL (0.0-0.3); EOSINOPHILS % (AUTO) 1 % (0-10); HEMATOCRIT 27 % (35-52); HEMOGLOBIN 7.4 g/dL (11.5-16.0); LYMPHOCYTES # (AUTO) 0.7 10^3/uL (1.0-4.0); LYMPHOCYTES % (AUTO) 5 % (12-44); MEAN CORPUSCULAR HEMOGLOBIN 20 pg (25-34); MEAN CORPUSCULAR HGB CONC 28 g/dL (32-36); MEAN CORPUSCULAR VOLUME 73 fL (80-99); MONOCYTES % (AUTO) 7 % (0-12); NEUTROPHILS # (AUTO) 12.5 10^3/uL (1.8-7.8); NEUTROPHILS % (AUTO) 86 % (42-75); PLATELET COUNT 720 10^3/uL (130-400); WHITE BLOOD COUNT 14.5 10^3/uL (4.3-11.0)
[2021-10-12] MEDS ORDERED: IOHEXOL 350 MG/ML 100 ML (OMNIPAQUE 350) VIAL IV ONE (12:30)
[2021-10-12] MEDS ORDERED: HOLD METFORMIN - RECEIVED CONTRAST 20 ML VIAL IV SCH (12:30)
[2021-10-12] MEDS ORDERED: NS 100 ML (IVPB) BAG IV ONE (12:30)
--- NOTE | 2021-10-12 12:43 | Diagnostic Imaging Report ---
INDICATION: Altered mental status. TIME OF EXAM: 12:26 p.m. COMPARISON: Correlation is made with prior chest from 05/12/2021. FINDINGS: The heart is enlarged. There is central congestion. There appears to be some infiltrate or atelectasis in the left perihilar region. Right lung is clear. No effusion or pneumothorax is seen. IMPRESSION: Cardiomegaly and central congestion with minimal left perihilar infiltrate or atelectasis. Dictated by: Dictated on workstation # [id number]
[2021-10-12 12:52] LABS: BILIRUBIN,URINE NEGATIVE (NEGATIVE); CLARITY,URINE SL CLOUDY; COLOR,URINE YELLOW; GLUCOSE, URINE (UA) NEGATIVE (NEGATIVE); KETONES,URINE NEGATIVE (NEGATIVE); LEUKOCYTE ESTERASE ,URINE NEGATIVE (NEGATIVE); NITRITE,URINE NEGATIVE (NEGATIVE); PH,URINE 7.5 (5-9); PROTEIN,URINE TRACE (NEGATIVE)
[2021-10-12 12:55] LABS: BILIRUBIN,TOTAL 0.5 MG/DL (0.1-1.0); CALCIUM 9.3 MG/DL (8.5-10.1); CREATININE SERUM 1.06 MG/DL (0.60-1.30); POTASSIUM 3.8 MMOL/L (3.6-5.0); TOTAL PROTEIN 6.8 GM/DL (6.4-8.2)
[2021-10-12 13:18] LABS: AMORPHOUS SEDIMENT,UR MOD AMOR PHOSPHATE /LPF; BACTERIA,URINE FEW /HPF; SQUAMOUS EPITHELIAL CELL,UR RARE /HPF
--- NOTE | 2021-10-12 13:22 | ED GU-Female ---
General Chief Complaint: - Reproductive Stated Complaint: STROKE-LIKE SYMPTOMS Nursing Triage Note: PT CAREGIVERS REPORT THEY THINK SHE HAS A UTI. History of Present Illness Date Seen by Provider: October 12, 2021 Time Seen by Provider: 13:20 Initial Comments 71-year-old female with PMH of hypertension/GI bleed/CKD 3/CHF/chronic anemia, is brought in by EMS with complaints of altered mental status and generalized weakness which has been going on all day as per patient's home health aide. Home health aide has accompanied the patient. The home health aide noticed patient seemed altered and a little bit delirious on and off today, which is not her baseline, and called 911. Patient lives alone. Patient has 1 son who lives in [place]. Denies any known fever Allergies and Home Medications Allergies Coded Allergies: latex (Verified Allergy, Unknown, 02/07/19) Patient Home Medication List Home Medication List Reviewed: Yes Acetaminophen (Tylenol Extra Strength) 500 Mg Tablet, 500 MG PO Q6H PRN for PAIN-MILD (1-4), (Reported) Entered as Reported by: JOANN MUNOZ on 07/22/20 1139 Amlodipine Besylate (Amlodipine Besylate) 10 Mg Tablet, 10 MG PO DAILY Prescribed by: FREDERIC LOAIZA on 05/18/21 1250 Ascorbic Acid (Vitamin C) 1,000 Mg Tablet, 1,000 MG PO DAILY, (Reported) Entered as Reported by: OUSMANE KIRAN on 03/16/21 151 Aspirin (Aspirin EC) 81 Mg Tablet.dr, 81 MG PO q48 hR Prescribed by: TAMARA WRIGHT on 05/18/21 1635 Docusate Sodium (Docusate Sodium) 100 Mg Capsule, 200 MG PO DAILY, (Reported) Entered as Reported by: OUSMANE KIRAN on 03/16/21 151 Doxycycline Hyclate (Doxycycline Hyclate) 100 Mg Tablet, 100 MG PO BID Prescribed by: DARINEL MACK on 05/21/212010 Escitalopram Oxalate (Escitalopram Oxalate) 20 Mg Tablet, 20 MG PO DAILY, (Reported) Entered as Reported by: JOANN MUNOZ on 02/25/19 0953 Fexofenadine HCl (Fexofenadine HCl) 180 Mg Tablet, 180 PO DAILY, (Reported) Entered as Reported by: OUSMANE KIRAN on 03/16/21 1514 Lamotrigine (Lamotrigine) 200 Mg Tablet, 200 MG PO DAILY, (Reported) Entered as Reported by: JOANN MUNOZ on 02/25/19 09 Metoprolol Succinate (Metoprolol Succinate) 50 Mg Tab.er.24h, 50 MG PO DAILY Prescribed by: FREDERIC LOAIZA on 05/18/21 1250 Montelukast Sodium (Montelukast Sodium) 10 Mg Tablet, 10 MG PO 1900, (Reported) Entered as Reported by: OUSMANE KIRAN on 03/16/21 1510 Multivit-Min/FA/Lycopene/Lut (Centrum Silver Tablet) 1 Each Tablet, 1 EACH PO DAILY, (Reported) Entered as Reported by: OUSMANE KIRAN on 03/16/21 151 Omeprazole (Omeprazole) 40 Mg Capsule.dr, 40 MG PO DAILY Prescribed by: YNES MIRZA on 05/14/21 1542 Pantoprazole Sodium (Pantoprazole Sodium) 40 Mg Tablet.dr, 40 MG PO BID, (Reported) Entered as Reported by: JOANN MUNOZ on 05/13/21 1431 Pravastatin Sodium (Pravastatin Sodium) 80 Mg Tablet, 80 MG PO 1900, (Reported) Entered as Reported by: OUSMANE KIRAN on 03/16/21 151 Primidone (Mysoline) 250 Mg Tablet, 250 MG PO BID, (Reported) Entered as Reported by: JOANN MUNOZ on 02/25/19 09 Raloxifene HCl (Raloxifene HCl) 60 Mg Tablet, 60 MG PO DAILY, (Reported) Entered as Reported by: JOANN MUNOZ on 02/25/19 09 Sucralfate (Sucralfate) 1 Gm Tablet, 1 GM PO PC Prescribed by: DARINEL MACK on 05/21/211956 Topiramate (Topiramate) 50 Mg Tablet, 50 MG PO 1900, (Reported) Entered as Reported by: OUSMANE KIRAN on 03/16/21 151 Review of Systems Review of Systems Constitutional: no symptoms reported Respiratory: no symptoms reported Cardiovascular: no symptoms reported Gastrointestinal: no symptoms reported Genitourinary: no symptoms reported Musculoskeletal: no symptoms reported Skin: no symptoms reported Psychiatric/Neurological: Weakness, Other (AMS) Endocrine: No Symptoms Reported Hematologic/Lymphatic: No Symptoms Reported Past Tbonxqd-Mgunwu-Dwhctj Hx Patient Social History Tobacco Use?: Yes Tobacco type used: Cigarettes Smoking Status: Current Everyday Smoker Smokeless Tobacco Frequency: Current Everyday User Use of E-Cig and/or Vaping dev: No Substance use?: No Alcohol Use?: No Pt feels they are or have been: No Immunizations Up To Date Tetanus Booster (TDap): Unknown First/Initial COVID19 Vaccinat: has not got covid vaccine Second COVID19 Vaccination Juve: has not got covid vaccine Third COVID19 Vaccination Date: has not got covid vaccine Seasonal Allergies Seasonal Allergies: No Past Medical History Surgeries: No Respiratory: No Cardiac: Yes Chronic Edema/Swelling, High Cholesterol, Hypertension Neurological: No Genitourinary: No Gastrointestinal: Yes Gastrointestinal Bleed Musculoskeletal: No Endocrine: No HEENT: No Cancer: No Psychosocial: No Integumentary: No Family Medical History Cardiovascular disease 19 FATHER 19 MOTHER Glaucoma 19 FATHER Hypertension 19 FATHER 19 MOTHER No Pertinent Family Hx Bilateral Endarterectomy Physical Exam Vital Signs Vital Signs - First Documented 10/12/21 12:00 Temp 37.2 Pulse 68 Resp 18 B/P (MAP) 123/49 (73) Pulse Ox 92 O2 Delivery Nasal Cannula O2 Flow Rate 2.00 Capillary Refill : Less Than 3 Seconds Height, Weight, BMI Height: 4'10.00" Weight: 119lbs. oz. 53.322407mj; 29.00 BMI Method:Stated General Appearance: no apparent distress HEENT: PERRL/EOMI, normal ENT inspection, pharynx normal Neck: full range of motion, supple Cardiovascular: normal peripheral pulses, regular rate, rhythm, no edema Respiratory: chest non-tender, lungs clear, normal breath sounds, no respir atory distress Gastrointestinal: normal bowel sounds, non tender, soft Back: normal inspection Extremities: normal range of motion Neurologic/Psychiatric: account contact associate II-XII nml as tested, no motor/sensory deficits, alert, normal mood/affect, oriented x 3 (Pt able to state her name, hospital, and month, but hse is intermittently altered and confused.) Skin: pallor Lymphatic: no adenopathy Focused Exam Lactate Level 10/12/21 13:35: Lactic Acid Level 1.23 Lactic Acid Level Laboratory Tests Test 10/12/21 13:35 Lactic Acid Level 1.23 MMOL/L (0.50-2.00) Progress/Results/Core Measures Suspected Sepsis SIRS Temperature: Pulse: 68 Respiratory Rate: 18 Laboratory Tests 10/12/21 12:12: White Blood Count 14.5H Blood Pressure 123 /49 Mean: 73 10/12/21 13:35: Lactic Acid Level 1.23 Laboratory Tests 10/12/21 12:12: Creatinine 1.06, Platelet Count 720H, Total Bilirubin 0.5 Results/Orders Lab Results Laboratory Tests Test 10/12/21 12:12 10/12/21 12:44 10/12/21 13:35 Range/Units White Blood Count 14.5 H 4.3-11.0 10^3/uL Red Blood Count 3.65 L 3.80-5.11 10^6/uL Hemoglobin 7.4 L 11.5-16.0 g/dL Hematocrit 27 L 35-52 % Mean Corpuscular Volume 73 L 80-99 fL Mean Corpuscular Hemoglobin 20 L 25-34 pg Mean Corpuscular Hemoglobin Concent 28 L 32-36 g/dL Red Cell Distribution Width 17.0 H 10.0-14.5 % Platelet Count 720 H 130-400 10^3/uL Mean Platelet Volume 10.0 9.0-12.2 fL Immature Granulocyte % (Auto) 1 % Neutrophils (%) (Auto) 86 H 42-75 % Lymphocytes (%) (Auto) 5 L 12-44 % Monocytes (%) (Auto) 7 0-12 % Eosinophils (%) (Auto) 1 0-10 % Basophils (%) (Auto) 1 0-10 % Neutrophils # (Auto) 12.5 H 1.8-7.8 10^3/uL Lymphocytes # (Auto) 0.7 L 1.0-4.0 10^3/uL Monocytes # (Auto) 1.0 0.0-1.0 10^3/uL Eosinophils # (Auto) 0.1 0.0-0.3 10^3/uL Basophils # (Auto) 0.1 0.0-0.1 10^3/uL Immature Granulocyte # (Auto) 0.1 0.0-0.1 10^3/uL Neutrophils % (Manual) 89 % Lymphocytes % (Manual) 4 % Monocytes % (Manual) 5 % Eosinophils % (Manual) 0 % Basophils % (Manual) 0 % Band Neutrophils 2 % Platelet Estimate INCREASED Hypochromasia 3+ Poikilocytosis 1+ Anisocytosis 2+ Microcytosis 2+ Elliptocytes SLIGHT Sodium Level 140 135-145 MMOL/L Potassium Level 3.8 3.6-5.0 MMOL/L Chloride Level 106 98-107 MMOL/L Carbon Dioxide Level 22 21-32 MMOL/L Anion Gap 12 5-14 MMOL/L Blood Urea Nitrogen 26 H 7-18 MG/DL Creatinine 1.06 0.60-1.30 MG/DL Estimat Glomerular Filtration Rate 55 BUN/Creatinine Ratio 25 Glucose Level 95 70-105 MG/DL Calcium Level 9.3 8.5-10.1 MG/DL Corrected Calcium 9.3 8.5-10.1 MG/DL Total Bilirubin 0.5 0.1-1.0 MG/DL Aspartate Amino Transf (AST/SGOT) 19 5-34 U/L Alanine Aminotransferase (ALT/SGPT) 15 0-55 U/L Alkaline Phosphatase 158 H 40-136 U/L Troponin I < 0.30 <0.30 NG/ML Total Protein 6.8 6.4-8.2 GM/DL Albumin 4.0 3.2-4.5 GM/DL Lipase 13 8-78 U/L Urine Color YELLOW Urine Clarity SL CLOUDY Urine pH 7.5 5-9 Urine Specific [place] 1.015 L 1.016-1.022 Urine Protein TRACE H NEGATIVE Urine Glucose (UA) NEGATIVE NEGATIVE Urine Ketones NEGATIVE NEGATIVE Urine Nitrite NEGATIVE NEGATIVE Urine Bilirubin NEGATIVE NEGATIVE Urine Urobilinogen 1.0 < = 1.0 MG/DL Urine Leukocyte Esterase NEGATIVE NEGATIVE Urine RBC (Auto) NEGATIVE NEGATIVE Urine RBC NONE /HPF Urine WBC 2-5 /HPF Urine Squamous Epithelial Cells RARE /HPF Urine Crystals PRESENT H /LPF Urine Amorphous Sediment MOD DARVIN PHOSPHATE H /LPF Urine Bacteria FEW H /HPF Urine Casts PRESENT /LPF Urine Hyaline Casts 5-10 H /LPF Urine Mucus MODERATE H /LPF Urine Culture Indicated NO Lactic Acid Level 1.23 0.50-2.00 MMOL/L My Orders Orders - GOPAL LEAVITT MD Comprehensive Metabolic Panel (10/12/21 12:11) Lipase (10/12/21 12:11) Ua Culture If Indicated (10/12/21 12:11) Ed Iv/Invasive Line Start (10/12/21 12:11) Cbc With Automated Diff (10/12/21 12:11) Ct Abdomen/Pelvis W (10/12/21 12:11) Iohexol Injection (Omnipaque 350 Mg/Ml 1 (10/12/21 12:30) Received Contrast (Hold Metformin- Contr (10/12/21 12:30) Ns (Ivpb) (Sodium Chloride 0.9% Ivpb Bag (10/12/21 12:30) Chest 1 View Ap/Pa Only (10/12/21 12:11) Troponin I Fs (10/12/21 12:36) Manual Differential (10/12/21 12:12) Lactic Acid Analyzer (10/12/21 13:24) Blood Culture (10/12/21 13:24) Ceftriaxone 1 Gm Pre-Mix (Rocephin 1 Gm (10/12/21 13:30) Azithromycin Injection (Zithromax Inject (10/12/21 13:30) Ed Iv/Invasive Line Start (10/12/21 13:26) Ns Iv 1000 Ml (Sodium Chloride 0.9%) (10/12/21 13:30) Ed Admission (Communication) (10/12/21 15:12) Medications Given in ED Current Medications Medications Dose Ordered Sig/Veto Route Start Time Stop Time Status Last Admin Dose Admin Azithromycin 500 mg/Sodium Chloride 255 ml @ 250 mls/hr ONCE ONCE IV 10/12/21 13:30 10/12/21 14:31 DC 10/12/21 13:36 250 MLS/HR Ceftriaxone Sodium/Dextrose 50 ml @ 100 mls/hr ONCE ONCE IV 10/12/21 13:30 10/12/21 13:59 DC 10/12/21 13:36 100 MLS/HR Iohexol 100 ml ONCE ONCE IV 10/12/21 12:30 10/12/21 12:31 DC 10/12/21 13:10 80 ML Sodium Chloride 100 ml ONCE ONCE IV 10/12/21 12:30 10/12/21 12:31 DC 10/12/21 13:10 100 ML Vital Signs/I&O 10/12/21 12:00 Temp 37.2 Pulse 68 Resp 18 B/P (MAP) 123/49 (73) Pulse Ox 92 O2 Delivery Nasal Cannula O2 Flow Rate 2.00 Capillary Refill : Less Than 3 Seconds Blood Pressure Mean: 73 Progress Note : Progress Note 1. AMS: LEFT UPPER LOBE PNEUMONIA: CAP: - Pt has a home health aide who called EMS because pt appeared altered and delirious to her today. Pt is hard of hearing - CXR: Cardiomegaly and central congestion with minimal left perihilar infiltrate or atelectasis. - Labs: Elevated WBC of 14.5 with a left shift - UA: negative - NS IVF bolus x 1 - Azithro 1 gm iv & Ceftriaxone 1gm iv STAT - Discussed with Dr Forbes, will admit to Obs at [facility] - Pt lives alone at home. - Discussed with pt's son, Cruz who is her proxy. He agrees for transfer and spoke to his mom over the phone to calm her and reassure her for transfer. He is unsure of her code status. Diagnostic Imaging Diagonstic Imaging: Xray Plain Films/CT/US/NM/MRI: chest [facility] [place], [place] NAME: STEPHAN MARQUEZ [facility] REC#: [id number] PT STATUS: REG ER : 1950 PHYSICIAN: GOPAL LEAVITT MD ADMIT DATE: 10/12/21/ER FS Draft Date of Exam:10/12/21 CHEST 1 VIEW AP/PA ONLY INDICATION: Altered mental status. TIME OF EXAM: 12:26 p.m. COMPARISON: Correlation is made with prior chest from 05/12/2021. FINDINGS: The heart is enlarged. There is central congestion. There appears to be some infiltrate or atelectasis in the left perihilar region. Right lung is clear. No effusion or pneumothorax is seen. IMPRESSION: Cardiomegaly and central congestion with minimal left perihilar infiltrate or atelectasis. Dictated on workstation # [id number] Dict: 10/12/21 1237 Trans: 10/12/21 1243 [id number] Interpreted by: LEONARD RADFORD MD Electronically signed by: Departure Communication (Admissions) Time/Spoke to Admitting Phy: 15:[address] Kilgore, accepted for admission to observation unit, [facility]. Impression Primary Impression: Altered mental state Qualified Codes: R41.82 - Altered mental status, unspecified Additional Impression: Pneumonia Qualified Codes: J18.9 - Pneumonia, unspecified organism Disposition: 30 STILL A PATIENT Condition: Stable Admissions Decision to Admit Reason: Admit from ER (General) Decision to Admit/Date: October 12, 2021 Time/Decision to Admit Time: 14:15 Transfer Transfer Reason: Exceeds level of care Time Spoke to Accepting Phy: 15:00 Transfer Facility: [facility] Method of Transfer: EMS Departure-Patient Inst. Referrals: ZOIE BEEBE APRN (PCP) Primary Care Physician [facility] (Family) Primary Care Physician GOPAL LEAVITT MD October 12, 2021 13:22
[2021-10-12] MEDS ORDERED: AZITHROMYCIN INJECTION 500 MG in NS (IVPB) 250 ML IV ONE (13:30)
[2021-10-12] MEDS ORDERED: cefTRIAXone 1 GM PRE-MIX 50 ML IV ONE (13:30)
[2021-10-12] MEDS ORDERED: NS IV 1000 ML 1,000 ML IV SCH (13:30)
[2021-10-12 13:38] LABS: BAND NEUTROPHILS 2 %; NEUTROPHILS % (MANUAL) 89 %
[2021-10-12 13:39] LABS: ANISOCYTOSIS 2+; BASOPHILS % (MANUAL) 0 %; EOSINOPHILS % (MANUAL) 0 %; HYPOCHROMASIA 3+; LYMPHOCYTES % (MANUAL) 4 %; MICROCYTOSIS 2+; MONOCYTES % (MANUAL) 5 %; PLATELET ESTIMATE INCREASED; POIKILOCYTOSIS 1+
[2021-10-12 13:40] LABS: ELLIPT/OVALOCYTES SLIGHT
--- NOTE | 2021-10-12 13:40 | Diagnostic Imaging Report ---
PROCEDURE: CT abdomen and pelvis with contrast. TECHNIQUE: Multiple contiguous axial images were obtained through the abdomen and pelvis after administration of intravenous contrast. Auto Exposure Controls were utilized during the CT exam to meet ALARA standards for radiation dose reduction. All CT scans use one or more of the following dose optimizing techniques: Automated exposure control, MA and/or KvP adjustment based on patient size and exam type or iterative reconstruction. INDICATION: Abdominal pain and altered mental status. COMPARISON: 07/23/2020. FINDINGS: There is scarring and atelectasis in the lung bases. There is mild cardiomegaly. The liver demonstrates mild periportal edema, but no focal lesions are seen. The spleen appears normal. The pancreas appears normal. The adrenal glands are mildly thickened. There is a left adrenal mass which measures 3.2 x 2.3 cm in size and appears stable since the prior exam, with a low density at that time consistent with an adenoma. The kidneys demonstrate no enhancing lesions. There is a mild right hydronephrosis with no obstructing calculus, appears similar to the prior exam. No abnormal enhancement is seen to suggest pyelonephritis. The gallbladder is distended and has a thickened wall. No calcified stone is seen. The bowel loops are nondistended without obstruction. The appendix is not seen, but no secondary findings of appendicitis are identified. There is a small amount of free fluid in the pelvis. No free air is seen. There are small fat-containing inguinal hernias bilaterally with no bowel involvement. Bones appear osteopenic. No acute osseous abnormality is seen. 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 There do appear to be areas of stenosis in the aorta and iliac arteries. IMPRESSION: 1. Mild right hydronephrosis, with transition at the UPJ, but no obstructing calculus seen. 2. Gallbladder distention with wall thickening, can be seen with cholecystitis. No calcified stone is seen. 3. Left adrenal mass appears stable since the prior study, most consistent with an adenoma. 4. Mild nonspecific periportal edema in the liver. No focal lesions are seen. 5. Small amount of ascites in the pelvis. 6. Marked aortic atherosclerosis with a small infrarenal abdominal aorta saccular aneurysm. There may be some stenosis in the aorta and iliac arteries. Dictated by: Dictated on workstation # [id number]
[2021-10-12] MEDS ORDERED: diphenhydrAMINE 50 MG/ML INJ (BENADRYL) IVP PRN (16:30)
[2021-10-12] MEDS ORDERED: ONDANSETRON 4 MG (ZOFRAN) ORAL DISSOLVE TAB PO PRN (16:30)
[2021-10-12] MEDS ORDERED: morphine INJ 4 MG/ML 1 ML (VIAL/SYRINGE) IV PRN (16:30)
[2021-10-12] MEDS ORDERED: BISACODYL 10 MG SUPP (DULCOLAX) PR PRN (16:30)
[2021-10-12] MEDS ORDERED: MELATONIN 3 MG TABLET PO PRN (16:30)
[2021-10-12] MEDS ORDERED: ACETAMINOPHEN 325 MG TABLET PO PRN (16:30)
[2021-10-12] MEDS ORDERED: ONDANSETRON 4 MG/2 ML (SDV) Z0FRAN IV PRN (16:30)
[2021-10-12] MEDS ORDERED: diphenhydrAMINE 25 MG TAB (BENADRYL) PO PRN (16:30)
[2021-10-12] MEDS ORDERED: ENOXAPARIN 40 MG/0.4 ML (LOVENOX) SYR SC SCH (16:30)
[2021-10-12] MEDS ORDERED: polyethylene glycoL POWDER 17 GM (MIRALAX) PACK PO PRN (16:30)
[2021-10-12] MEDS ORDERED: ALPRAZolam 0.25 MG (XANAX) TAB PO PRN (16:30)
[2021-10-12] MEDS ORDERED: ANTACID SUSP 30 ML UDC (MYLANTA) PO PRN (16:30)
[2021-10-12 16:49] VITALS: BP 145/68
[2021-10-12] MEDS: NS IV 1000 ML 1,000 ML IV SCH (18:51)
[2021-10-12] MEDS: DOCUSATE SODIUM 100 MG (COLACE) CAP PO SCH (19:43)
[2021-10-12 20:00] VITALS: BP 171/77
[2021-10-12] MEDS: RT-ALBUTEROL SULF 2.5 MG/3 ML PRE-MIX VIAL INH SCH (20:59)
[2021-10-12 23:39] VITALS: BP 140/63
[2021-10-13] VITALS (10 sets, daily range): BP systolic 156–189; BP diastolic 70–85
[2021-10-13 05:32] LABS: BASOPHILS # (AUTO) 0.1 10^3/uL (0.0-0.1); BASOPHILS % (AUTO) 1 % (0-10); EOSINOPHILS # (AUTO) 0.1 10^3/uL (0.0-0.3); EOSINOPHILS % (AUTO) 1 % (0-10); HEMATOCRIT 25 % (35-52); LYMPHOCYTES % (AUTO) 8 % (12-44); MEAN CORPUSCULAR HEMOGLOBIN 20 pg (25-34); MEAN CORPUSCULAR HGB CONC 28 g/dL (32-36); MEAN CORPUSCULAR VOLUME 73 fL (80-99); MEAN PLATELET VOLUME 10.2 fL (9.0-12.2); MONOCYTES # (AUTO) 1.2 10^3/uL (0.0-1.0); MONOCYTES % (AUTO) 10 % (0-12); NEUTROPHILS # (AUTO) 9.7 10^3/uL (1.8-7.8); NEUTROPHILS % (AUTO) 80 % (42-75); PLATELET COUNT 620 10^3/uL (130-400); WHITE BLOOD COUNT 12.2 10^3/uL (4.3-11.0)
[2021-10-13 05:34] LABS: HEMOGLOBIN 6.8 g/dL (11.5-16.0)
[2021-10-13 05:42] LABS: ALBUMIN 3.4 GM/DL (3.2-4.5); POTASSIUM 3.2 MMOL/L (3.6-5.0)
[2021-10-13 05:43] LABS: CALCIUM 8.5 MG/DL (8.5-10.1)
[2021-10-13 05:44] LABS: TOTAL PROTEIN 5.9 GM/DL (6.4-8.2)
[2021-10-13 05:46] LABS: BILIRUBIN,TOTAL 0.4 MG/DL (0.1-1.0)
--- NOTE | 2021-10-13 05:47 | History & Physical-Hospitalist ---
History of Present Illness HPI/Chief Complaint CC: Generalized Weakness HPI: This is a 71 yr old WF who presented to the ER with weakness. She was found to have community acquired pneumonia. Initiated IV antibiotics, and today her hemoglobin was low so pt was given one unit of blood. 81% on oxygen level so oxygen was placed. Pt appears to be very chronically ill. Pt is very hard of hearing making it difficult to communicate. I did review her previous discharge summary from 06/01 and it appears she has chronic anemia. Source: patient Date Seen 10/13/21 Time Seen by a Provider: 09:30 Attending Physician Erna Forbes DO PCP Angelica Xie Aprn Referring Physician Date of Admission October 12, 2021 at 16:45 Home Medications & Allergies Home Medications Reviewed patient Home Medication Reconciliation performed by pharmacy medication reconciliations product support technician and/or nursing. Patients Allergies have been reviewed. Allergies Allergies Coded Allergies latex (Verified Allergy, Unknown, 02/07/19) Past Iqinegf-Gbvknh-Ycacfq Hx Patient Social History Marrital Status: single Employed/Student: unemployed Tobacco Use?: No Tobacco type used: Cigarettes Smoking Status: Current Everyday Smoker Smokeless Tobacco Frequency: Current Everyday User Use of E-Cig and/or Vaping dev: No Substance use?: No Alcohol Use?: No Pt feels they are or have been: No Immunizations Up To Date First/Initial COVID19 Vaccinat: has not got covid vaccine Second COVID19 Vaccination Juve: has not got covid vaccine Tetanus Booster (TDap): Unknown Hepatitis A: No Hepatitis B: No Date of Pneumonia Vaccine: Feb 25, 2017 Seasonal Allergies Seasonal Allergies: No Current Status status: No status: No Advance Directives: Unable to obtain Primary Language: Hebrew Preferred Spoken Language: Hebrew Sensory deficits: Hearing impairment Past Medical History Chronic Edema/Swelling, High Cholesterol, Hypertension Gastrointestinal Bleed Family Medical History Cardiovascular disease 19 FATHER 19 MOTHER Glaucoma 19 FATHER Hypertension 19 FATHER 19 MOTHER No Pertinent Family Hx Bilateral Endarterectomy Review of Systems Constitutional: see HPI, malaise, weakness EENTM: no symptoms reported Respiratory: cough, dyspnea on exertion Cardiovascular: no symptoms reported Gastrointestinal: no symptoms reported Genitourinary: no symptoms reported Musculoskeletal: no symptoms reported Skin: no symptoms reported Psychiatric/Neurological: No Symptoms Reported All Other Systems Reviewed Negative Unless Noted: Yes Physical Exam Physical Exam Vital Signs Vital Signs - First Documented 10/12/21 12:00 Temp 37.2 Pulse 68 Resp 18 B/P (MAP) 123/49 (73) Pulse Ox 92 O2 Delivery Nasal Cannula O2 Flow Rate 2.00 Capillary Refill : Less Than 3 Seconds Height, Weight, BMI Height: 4'10.00" Weight: 119lbs. oz. 53.349349os; 30.08 BMI Method:Stated General Appearance: No Apparent Distress, Chronically ill Eyes: Right Eye Normal Inspection, Right Eye PERRL HEENT: PERRL/EOMI, Normal ENT Inspection, Pharynx Normal, Moist Mucous Membran es, Other (Very hard of hearing) Neck: Full Range of Motion, Normal Inspection, Non Tender Respiratory: Chest Non Tender, No Accessory Muscle Use, No Respiratory Distress, Decreased Breath Sounds Cardiovascular: Regular Rate, Rhythm, No Edema, No Gallop, No JVD, No Murmur, Normal Peripheral Pulses Gastrointestinal: Normal Bowel Sounds, No Organomegaly, No Pulsatile Mass, Non Tender, Soft Back: Normal Inspection, No CVA Tenderness, No Vertebral Tenderness Extremity: Normal Capillary Refill, Normal Inspection, Normal Range of Motion, Non Tender, No Calf Tenderness, No Pedal Edema Neurologic/Psychiatric: Alert, Oriented x3, No Motor/Sensory Deficits, Normal Mood/Affect Skin: Normal Color, Warm/Dry Lymphatic: No Adenopathy Results Results/Procedures Labs Laboratory Tests 10/12/21 12:12 10/13/21 05:00 Patient resulted labs reviewed. Assessment/Plan Admission Diagnosis Assessment: Pneumonia Severe anemia Transfusion required today Hypoxia Smoker History of chronic anemia Chronic debility Severe presbycusis Plan: IV antibiotics Oxygen Transfuse Admission Status: Inpatient Order (span 2 midnights) Reason for Inpatient Admission: PNA anemia Diagnosis/Problems Diagnosis/Problems (1) Pneumonia Status: Acute Qualifiers: Pneumonia type: due to unspecified organism Laterality: left Lung location: upper lobe of lung Qualified Codes: J18.9 - Pneumonia, unspecified organism (2) HTN (hypertension) Status: Chronic (3) Weakness Status: Acute (4) Severe anemia Status: Acute ERNA FORBES DO October 13, 2021 05:46
[2021-10-13 05:48] LABS: CREATININE SERUM 0.78 MG/DL (0.60-1.30)
[2021-10-13] MEDS ORDERED: NS IV 500 ML 500 ML IV SCH ×2 (06:00)
[2021-10-13] MEDS ORDERED: CYANOCOBALAMIN INJ 1000 MCG/ML IM ONE (06:00)
[2021-10-13] MEDS: RT-ALBUTEROL SULF 2.5 MG/3 ML PRE-MIX VIAL INH SCH (07:29)
--- NOTE | 2021-10-13 08:56 | Physical Therapy Evaluation ---
PT Evaluation-General Medical Diagnosis Admission Date October 12, 2021 at 16:45 Medical Diagnosis: AMS, pneumonia Onset Date: October 12, 2021 Therapy Diagnosis Therapy Diagnosis: Impaired mobility, strength Height/Weight Height (Feet): 4 Height (Inches): 10.00 Weight (Pounds): 119 Precautions Precautions/Isolations: Standard Precautions Weight Bear Status Right Lower Extremity: Right Weight Bearing/Tolerated Left Lower Extremity: Left Weight Bearing/Tolerated Referral Physician: Andrei Reason for Referral: Evaluation/Treatment Medical History Pertinent Medical History: GERD, HTN, Smoking Additional Medical History Chronic Edema/Swelling, High Cholesterol, Hypertension Gastrointestinal Bleed Reviewed History: Yes Social History Home: Single Level Current Living Status: Alone Entry Into Home: Level Entry Prior Prior Level of Function SCALE: Activities may be completed with or without assistive devices. 6-Rcfapsvsve-uugxwir completes the activity by him/herself with no assistance from a helper. 5-Set-up or Clean-up Assistance-helper sets up or cleans up; patient completes activity. [place] assists only prior to or following the activity. 4-Supervision or Touching Assistance-helper provides verbal cues and/or touching/steadying and/or contact guard assistance as patient completes activity. Assistance may be provided throughout the activity or intermittently. 3-Partial/Moderate Assistance-helper does LESS THAN HALF the effort. [place] lifts, holds or supports trunk or limbs, but provides less than half the effort. 2-Substantial/Maximal Assistance-helper does MORE THAN HALF the effort. [place] lifts or holds trunk or limbs and provides more than half the effort. 1-Qvsuglvwi-bohvwh does ALL the effort. Patient does none of the effort to complete the activity. Or, the assistance of 2 or more helpers is required for the patient to complete the activity. If activity was not attempted, code reason: 7-Patient Refused. 9-Not Applicable-not attempted and the patient did not perform the activity before the current illness, exacerbation or injury. 10-Not Attempted due to Environmental Limitations-(lack of equipment, weather restraints, etc.). 88-Not Attempted due to Medical Conditions or Safety Concerns. Bed Mobility: 6 Transfers (B,C,W/C): 6 Gait: 6 Stairs: 6 Indoor Mobility (Ambulation): Independent Stairs: Independent Prior Devices Use: Walker Prior Device Use: Cane PT Evaluation-Current Subjective Patient was asleep upon entering, and very lethargic. Patient had difficulty hearing questions/instructions, but was agreeable to PT but not out of bed. Pt/Family Goals To be independent at home. Objective Patient Orientation: Person, Confused Attachments: IV ROM/Strength ROM Lower Extremities Grossly WFL Strength Lower Extremities R LE: (hip flexion 4-/5, knee extension 4/5, knee flexion 4-/5, DF 4/5); L LE: (hip flexion 4-/5, knee extension 4/5, knee flexion 4-/5, DF 4/5) Sensory Vision: Unable to Assess Hearing: Impaired Sensation Lower Extremities Deferred due to impaired verbal communication Transfers Roll Left to Right (QC): 3 Gait Does the Patient Walk?: No and Walking Goal IS indicated Treatment Bed LE strengthening exercises: ankle pumps x 10, heel slides x 10, SLR x 10 Assessment/Needs Patient was very lethargic and had difficulty verbally communicating. Patient refused to get out of bed at this time, so LE strengthening exercises were perf ormed in bed. Patient required tactile cues and PT assistance to achieve correct movement during exercises. Patient was left in bed with call light tray, and all needs met. Rehab Potential: Poor PT Air Saw Operator Goals Air Saw Operator Goals PT Air Saw Operator Goals Time Frame: October 20, 2021 Roll Left & Right (QC): 6 Sit to Lying (QC): 4 Lying-Sitting on Side/Bed(QC): 4 Sit to Stand (QC): 3 Walk 10 feet (QC): 3 PT Plan Problem List Problem List: Activity Tolerance, Functional Strength, Safety, Balance, Gait, Transfer, Bed Mobility, ROM Treatment/Plan Treatment Plan: Continue Plan of Care Treatment Plan: Bed Mobility, Education, Functional Activity Rob, Functional Strength, Gait, Safety, Therapeutic Exercise, Transfers Treatment Duration: October 20, 2021 Frequency: 6 times per week Estimated Hrs Per Day: .25 hour per day Patient and/or Family Agrees t: Yes Safety Risks/Education Patient Education: Correct Positioning, Safety Issues Teaching Recipient: Patient Teaching Methods: Discussion Response to Teaching: Reinforcement Needed Discharge Recommendations Plan To work on mobility, transfers and LE strengthening to be independent at home. Therapy Discharge Recommendati: 24 Hour Supervision Time/GCodes Time In: 08 Time Out: 08 Total Billed Treatment Time: 10 Total Billed Treatment 1 visit EVM 10min JOHN KLEIN PT October 13, 2021 08:56
[2021-10-13] MEDS ORDERED: AZITHROMYCIN INJECTION 250 MG in NS (IVPB) 250 ML IV SCH ×2 (09:00→10:45)
[2021-10-13] MEDS ORDERED: cefTRIAXone 1 GM PRE-MIX 50 ML IV SCH (09:00)
[2021-10-13] MEDS: NS IV 1000 ML 1,000 ML IV SCH ×2 (09:43→11:52)
[2021-10-13] MEDS: DOCUSATE SODIUM 100 MG (COLACE) CAP PO SCH ×2 (09:44→20:25)
--- NOTE | 2021-10-13 10:41 | Occupational Therapy Eval ---
OT Evaluation-General/PLF Medical Diagnosis Admission Date October 12, 2021 at 16:45 Medical Diagnosis: AMS, pneumonia Onset Date: October 12, 2021 Therapy Diagnosis Therapy Diagnosis: decreased ADL Status Height/Weight Height (Feet): 4 Height (Inches): 10.00 Weight (Pounds): 119 Precautions Precautions/Isolations: Standard Precautions Referral Physician: Andrei Referral Reason: Evaluation/Treatment Medical History Pertinent Medical History: GERD, HTN, Smoking Additional Medical History chronic edema/swelling, HTN, GI bleed Current History ED due to chest pain and caregiver concern for UTI Social History Home: Single Level Current Living Status: Alone Entry Into Home: Level Entry ADL-Prior Level of Function SCALE: Activities may be completed with or without assistive devices. 1-Fcvgtlzxhg-drsthvc completes the activity by him/herself with no assistance from a helper. 5-Set-up or Clean-up Assistance-helper sets up or cleans up; patient completes activity. [place] assists only prior to or following the activity. 4-Supervision or Touching Assistance-helper provides verbal cues and/or touching/steadying and/or contact guard assistance as patient completes activity. Assistance may be provided throughout the activity or intermittently. 3-Partial/Moderate Assistance-helper does LESS THAN HALF the effort. [place] lifts, holds or supports trunk or limbs, but provides less than half the effort. 2-Substantial/Maximal Assistance-helper does MORE THAN HALF the effort. [place] lifts or holds trunk or limbs and provides more than half the effort. 4-Indrjtnat-gtalln does ALL the effort. Patient does none of the effort to complete the activity. Or, the assistance of 2 or more helpers is required for the patient to complete the activity. If activity was not attempted, code reason: 7-Patient Refused. 9-Not Applicable-not attempted and the patient did not perform the activity before the current illness, exacerbation or injury. 10-Not Attempted due to Environmental Limitations-(lack of equipment, weather restraints, etc.). 88-Not Attempted due to Medical Conditions or Safety Concerns. ADL PLOF Comments pt has caregiver assistance throughout the day and some at night. She primarily gets around using a w/c. She needs assistance with toileting at times, and always has assistance for dressing and bathing. Self Care: Needed Some Help OT Current Status Subjective Pt in bed, nurse present setting up pt for blood transfusion Mental Status/Objective Patient Orientation: Person, Place, Situation Attachments: IV, Oxygen Current Upper Extremity ROM WFL, BUE shoulder flexion to approx 90 degrees during session Upper Extremity Strength grossly 3/5 ADL-Treatment Upper Body Dressing (QC): 3 Toileting Hygiene (QC): 3 (Pt able to perform pericare at bed level. Per judgement would require some assistance with clothing management.) Other Treatments Pt in bed, agreeable to OT Tx. Pt states she is wet, incontinent of urine. She is unable to tell when she needs to urinate but is able to tell during/after incontinence episode. Pt's gown changed, mod A due to IV lines. Pt able to perform pericare at bed level. Pt transferred supine to sit EOB, CGA. Pt transferred from bed to recliner, OCTAVE BOARD ASSEMBLER with management of lines. Post tx, pt in recliner, nurse present for blood transfusion, all needs met, call light in reach. Education OT Patient Education: Correct positioning, Energy conservation, Modified ADL techniques, Progress toward Goal/Update tx plan, Purpose of tx/functional activities Teaching Recipient: Patient Teaching Methods: Discussion Response to Teaching: Verbalize Understanding OT Pedicurist Goals Pedicurist Goals Time Frame: October 22, 2021 Eating (QC): 5 Oral Hygiene (QC): 5 Toileting Hygiene (QC): 4 Upper Body Dressing (QC): 4 Additional Goals: 1-Demonstrate ADL Tasks, 2-Verbalize Understanding, 3- ImproveStrength/Rob 1=Demonstrate adherence to instructed precautions during ADL tasks. 2=Patient will verbalize/demonstrate understanding of assistive devices/mo difications for ADL. 3=Patient will improve strength/tolerance for activity to enable patient to perform ADL's. OT Education/Plan Problem List/Assessment Assessment: Decreased Activ Tolerance, Decreased UE Strength, Impaired Funct Balance, Impaired I ADL's, Impaired Self-Care Skills Discharge Recommendations Plan/Recommendations: Continue POC Treatment Plan/Plan of Care Patient would benefit from OT for education, treatment and training to promote independence in ADL's, mobility, safety and/or upper extremity function for ADL's. Plan of Care: ADL Retraining, Functional Mobility, UE Funct Exercise/Act Treatment Duration: October 22, 2021 Frequency: 3 times per week (3-5 times per week) Estimated Hrs Per Day: .25 hour per day Agreement: Yes Rehab Potential: Guarded Time/GCodes Start Time: 10:20 Stop Time: 10:31 Total Time Billed (hr/min): 11 Billed Treatment Time 1, FARTUN MUNGUIA OT October 13, 2021 10:41
[2021-10-13] MEDS ORDERED: NS IV 1000 ML 1,000 ML IV SCH (10:45)
[2021-10-13] MEDS ORDERED: ALPRAZolam 0.25 MG (XANAX) TAB PO PRN (11:15)
[2021-10-13] MEDS ORDERED: ANTACID SUSP 30 ML UDC (MYLANTA) PO PRN (11:15)
[2021-10-13] MEDS ORDERED: polyethylene glycoL POWDER 17 GM (MIRALAX) PACK PO PRN (11:15)
[2021-10-13] MEDS ORDERED: ACETAMINOPHEN 325 MG TABLET PO PRN (11:15)
[2021-10-13] MEDS ORDERED: ONDANSETRON 4 MG (ZOFRAN) ORAL DISSOLVE TAB PO PRN (11:15)
[2021-10-13] MEDS ORDERED: diphenhydrAMINE 25 MG TAB (BENADRYL) PO PRN (11:15)
[2021-10-13] MEDS ORDERED: BISACODYL 10 MG SUPP (DULCOLAX) PR PRN (11:15)
[2021-10-13] MEDS ORDERED: diphenhydrAMINE 50 MG/ML INJ (BENADRYL) IV PRN (11:15)
[2021-10-13] MEDS ORDERED: ONDANSETRON 4 MG/2 ML (SDV) Z0FRAN IV PRN (11:15)
[2021-10-13] MEDS ORDERED: morphine INJ 4 MG/ML 1 ML (VIAL/SYRINGE) IV PRN (11:30)
[2021-10-13] MEDS ORDERED: MELATONIN 3 MG TABLET PO PRN (11:30)
[2021-10-13] MEDS ORDERED: KCL 20 MEQ TAB (K-DUR) PO NR (11:45)
[2021-10-13] MEDS: AZITHROMYCIN 250 MG/NS 250 ML IVPB IV SCH ×2 (11:51)
[2021-10-13] MEDS ORDERED: SUCR1TAB36 PO (12:45)
[2021-10-13] MEDS ORDERED: AMLO-251 PO (12:45)
[2021-10-13] MEDS ORDERED: ASPI-1238 PO (12:45)
[2021-10-13] MEDS ORDERED: METO50TA7 PO (12:45)
[2021-10-13] MEDS ORDERED: DIPH25TA65 PO (12:45)
[2021-10-13] MEDS ORDERED: MUPI22OI2 TOP (12:45)
[2021-10-13] MEDS: ENOXAPARIN 40 MG/0.4 ML (LOVENOX) SYR SC SCH (17:30)
[2021-10-13] MEDS: RT-ALBUTEROL SULF 2.5 MG/3 ML PRE-MIX VIAL IH SCH (20:29)
[2021-10-13] MEDS ORDERED: RT-ALBUTEROL SULF 2.5 MG/3 ML PRE-MIX VIAL INH SCH (21:00)
[2021-10-14] MEDS: NS IV 1000 ML 1,000 ML IV SCH (00:06)
[2021-10-14 03:59] VITALS: BP 130/68
[2021-10-14] MEDS ORDERED: diphenhydrAMINE 25 MG TAB (BENADRYL) PO PRN (05:15)
[2021-10-14] MEDS ORDERED: SUCRALFATE 1 GM (CARAFATE) TAB ONE (05:31)
[2021-10-14] MEDS: SUCRALFATE 1 GM (CARAFATE) TAB PO SCH ×3 (05:33→17:28)
--- NOTE | 2021-10-14 05:56 | Progress Note - Hospitalist ---
Subjective HPI/CC On Admission Date Seen by Provider: October 14, 2021 Time Seen by Provider: 11:00 CC: Generalized Weakness HPI: This is a 71 yr old WF who presented to the ER with weakness. She was found to have community acquired pneumonia. Initiated IV antibiotics, and today her hemoglobin was low so pt was given one unit of blood. 81% on oxygen level so oxygen was placed. Pt appears to be very chronically ill. Pt is very hard of h earing making it difficult to communicate. I did review her previous discharge summary from 06/01 and it appears she has chronic anemia. Subjective/Events-last exam Pt is doing a lot better Hemoglobin is better after blood of 7.8 Iron deficiency will require IV iron Needs something for allergies so I did order Singulair and Claritin Will hep lock IV fluids since she is eating and drinking Review of Systems General: Fatigue, Malaise Focused Exam Lactate Level 10/12/21 13:35: Lactic Acid Level 1.23 Objective Exam Vital Signs Vital Signs Date Time Temp Pulse Resp B/P (MAP) Pulse Ox O2 Delivery O2 Flow Rate FiO2 10/15/21 03:56 36.2 63 20 143/63 (89) 91 High Flow N/C 7.00 Capillary Refill : Less Than 3 Seconds General Appearance: No Apparent Distress, WD/WN, Chronically ill Respiratory: No Accessory Muscle Use, No Respiratory Distress, Decreased Breath Sounds Cardiovascular: Regular Rate, Rhythm Neurologic/Psychiatric: Alert, Oriented x3 Results/Procedures Lab Patient resulted labs reviewed. Assessment/Plan Assessment and Plan Assess & Plan/Chief Complaint Assessment: Pneumonia Severe anemia Transfusion required today Hypoxia Smoker History of chronic anemia Chronic debility Severe presbycusis Plan: IV antibiotics Oxygen Transfuse 10/14/2021: Continue antibiotics Oxygen Supportive care Diagnosis/Problems Diagnosis/Problems (1) Pneumonia Status: Acute Qualifiers: Pneumonia type: due to unspecified organism Laterality: left Lung location: upper lobe of lung Qualified Codes: J18.9 - Pneumonia, unspecified organism (2) HTN (hypertension) Status: Chronic (3) Weakness Status: Acute (4) Severe anemia Status: Acute MAITE PARDO DO October 14, 2021 05:56
[2021-10-14 06:08] LABS: BASOPHILS # (AUTO) 0.1 10^3/uL (0.0-0.1); BASOPHILS % (AUTO) 1 % (0-10); EOSINOPHILS # (AUTO) 0.1 10^3/uL (0.0-0.3); EOSINOPHILS % (AUTO) 1 % (0-10); HEMATOCRIT 27 % (35-52); HEMOGLOBIN 7.8 g/dL (11.5-16.0); LYMPHOCYTES # (AUTO) 0.5 10^3/uL (1.0-4.0); LYMPHOCYTES % (AUTO) 4 % (12-44); MEAN CORPUSCULAR HEMOGLOBIN 22 pg (25-34); MEAN CORPUSCULAR HGB CONC 29 g/dL (32-36); MEAN CORPUSCULAR VOLUME 75 fL (80-99); MEAN PLATELET VOLUME 10.4 fL (9.0-12.2); MONOCYTES % (AUTO) 7 % (0-12); NEUTROPHILS # (AUTO) 11.5 10^3/uL (1.8-7.8); NEUTROPHILS % (AUTO) 87 % (42-75); PLATELET COUNT 561 10^3/uL (130-400); WHITE BLOOD COUNT 13.2 10^3/uL (4.3-11.0)
[2021-10-14 06:17] LABS: ALBUMIN 3.2 GM/DL (3.2-4.5)
[2021-10-14 06:18] LABS: CALCIUM 8.3 MG/DL (8.5-10.1)
[2021-10-14 06:19] LABS: TOTAL PROTEIN 5.6 GM/DL (6.4-8.2)
[2021-10-14 06:21] LABS: BILIRUBIN,TOTAL 0.4 MG/DL (0.1-1.0)
[2021-10-14 06:23] LABS: CREATININE SERUM 0.65 MG/DL (0.60-1.30)
[2021-10-14] MEDS: MULTIVIT W/MINERALS TAB (THERAGRAN M) PO SCH (06:28)
[2021-10-14] MEDS ORDERED: KCL 20 MEQ TAB (K-DUR) PO SCH (07:00)
[2021-10-14] MEDS: RT-ALBUTEROL SULF 2.5 MG/3 ML PRE-MIX VIAL IH SCH ×2 (07:32→21:34)
[2021-10-14 08:00] VITALS: BP 169/75
[2021-10-14] MEDS ORDERED: IRON SUCROSE 200 MG/10 ML (VENOFER) VIAL IV SCH (09:00)
[2021-10-14] MEDS ORDERED: DOCUSATE SODIUM 100 MG (COLACE) CAP PO SCH (09:00)
[2021-10-14] MEDS ORDERED: MUPIROCIN 2% OINT 22 GM (BACTROBAN) TUBE TOP SCH (09:00)
[2021-10-14] MEDS: KCL 20 MEQ TAB (K-DUR) PO SCH ×3 (09:30→17:28)
[2021-10-14] MEDS: toPIRamate 25 MG (TOPAMAX) TAB PO SCH ×2 (09:31→20:36)
[2021-10-14] MEDS: cefTRIAXone 1 GM/50 ML (PRE-MIX) IV SCH (09:31)
[2021-10-14] MEDS: meTOproloL SUCCINATE 50 MG (TOPROL XL) TAB PO SCH (09:31)
[2021-10-14] MEDS: PRIMIDONE 250MG (MYSOLINE) TAB PO SCH ×2 (09:36→20:36)
[2021-10-14] MEDS: amLODIPine 10 MG (NORVASC) TAB PO SCH (09:38)
[2021-10-14] MEDS: AZITHROMYCIN 250 MG/NS 250 ML IVPB IV SCH ×2 (09:38)
[2021-10-14] MEDS: DOCUSATE SODIUM 100 MG (COLACE) CAP PO SCH ×2 (09:38→20:36)
--- NOTE | 2021-10-14 10:20 | Physical Therapy Daily Note ---
PT Daily Note-Current Subjective Patient drooling in bed. Does agree to PT. Transfers SCALE: Activities may be completed with or without assistive devices. 6-Fdmcdduvhy-lvvxlpo completes the activity by him/herself with no assistance from a helper. 5-Set-up or Clean-up Assistance-helper sets up or cleans up; patient completes activity. [place] assists only prior to or following the activity. 4-Supervision or Touching Assistance-helper provides verbal cues and/or touching/steadying and/or contact guard assistance as patient completes activity. Assistance may be provided throughout the activity or intermittently. 3-Partial/Moderate Assistance-helper does LESS THAN HALF the effort. [place] lifts, holds or supports trunk or limbs, but provides less than half the effort. 2-Substantial/Maximal Assistance-helper does MORE THAN HALF the effort. [place] lifts or holds trunk or limbs and provides more than half the effort. 4-Wvmhcxnyi-lyovmc does ALL the effort. Patient does none of the effort to complete the activity. Or, the assistance of 2 or more helpers is required for the patient to complete the activity. If activity was not attempted, code reason: 7-Patient Refused. 9-Not Applicable-not attempted and the patient did not perform the activity before the current illness, exacerbation or injury. 10-Not Attempted due to Environmental Limitations-(lack of equipment, weather restraints, etc.). 88-Not Attempted due to Medical Conditions or Safety Concerns. Lying to Sitting/Side of Bed(Q: 4 Sit to Stand (QC): 4 Chair/Caw-zl-Nueto Xfer(QC): 4 CGA for safety Weight Bearing Right Lower Extremity: Right Weight Bearing/Tolerated Left Lower Extremity: Left Weight Bearing/Tolerated Gait Training Distance: 10' x 2 Walk 10 feet (QC): 4 Gait Assistive Device: FWW functional gait sequence Assessment Patient ceased treatment because she wanted to eat breakfast. Patient up in recliner with needs met. Increase activity as tolerated/allowed by patient PT Halfway Goals Dye House Wheel Operator Goals PT Dye House Wheel Operator Goals Time Frame: October 20, 2021 Roll Left & Right (QC): 6 Sit to Lying (QC): 4 Lying-Sitting on Side/Bed(QC): 4 Sit to Stand (QC): 3 Walk 10 feet (QC): 3 PT Plan Treatment/Plan Treatment Plan: Continue Plan of Care Treatment Plan: Bed Mobility, Education, Functional Activity Rob, Functional Strength, Gait, Safety, Therapeutic Exercise, Transfers Treatment Duration: October 20, 2021 Frequency: 6 times per week Estimated Hrs Per Day: .25 hour per day Patient and/or Family Agrees t: Yes Time/GCodes Time In: 925 Time Out: 938 Total Billed Treatment Time: 13 Total Billed Treatment 1 visit FA 13 min PEDRO CID PT October 14, 2021 10:20
[2021-10-14] MEDS ORDERED: MONTELUKAST 10 MG (SINGULAIR) TAB PO ONE (11:00)
[2021-10-14 12:00] VITALS: BP 178/71
--- NOTE | 2021-10-14 12:55 | Occupational Ther Daily Note ---
OT Current Status-Daily Note Subjective Pt up in recliner, agreeable to OT tx. Pt reports she is at her baseline with strength and ADLs, and has caregiver assistance at home. ADL-Treatment Therapy Code Descriptions/Definitions Functional [place]ill Measure: 0=Not Assessed/NA 4=Minimal Assistance 1=Total Assistance 5=Supervision or Setup 2=Maximal Assistance 6=Modified Traill 3=Moderate Assistance 7=Complete IndependenceSCALE: Activities may be completed with or without assistive devices. 6-Tkjplwgwst-xrfknex completes the activity by him/herself with no assistance from a helper. 5-Set-up or Clean-up Assistance-helper sets up or cleans up; patient completes activity. [place] assists only prior to or following the activity. 4-Supervision or Touching Assistance-helper provides verbal cues and/or touching/steadying and/or contact guard assistance as patient completes activity. Assistance may be provided throughout the activity or intermittently. 3-Partial/Moderate Assistance-helper does LESS THAN HALF the effort. [place] lifts, holds or supports trunk or limbs, but provides less than half the effort. 2-Substantial/Maximal Assistance-helper does MORE THAN HALF the effort. [place] lifts or holds trunk or limbs and provides more than half the effort. 1-Qygiqpgtu-seafag does ALL the effort. Patient does none of the effort to complete the activity. Or, the assistance of 2 or more helpers is required for the patient to complete the activity. If activity was not attempted, code reason: 7-Patient Refused. 9-Not Applicable-not attempted and the patient did not perform the activity before the current illness, exacerbation or injury. 10-Not Attempted due to Environmental Limitations-(lack of equipment, weather restraints, etc.). 88-Not Attempted due to Medical Conditions or Safety Concerns. Other Treatment Pt up in recliner, taking medications provided by nurse. OT assisted pt with setting up water so handle was on the R side of cup. Pt able to take pills without assistance. Pt reports being at PLOF for ADLs, as she has caregiver assistance. She declines ADL tx at this time. Pt also states UE function is at baseline, she occasionally feels like they are weaker than normal but they feel good today. OT educated pt on UE exercises in order to increase BUE strength and activity tolerance, including x10 reps shoulder flexion, elbow flexion/extension and finger flexion/extension, she verbalized understanding. Post tx, pt up in recliner, call light in reach and all needs met. Education OT Patient Education: Correct positioning, Energy conservation, Modified ADL techniques, Progress toward Goal/Update tx plan, Purpose of tx/functional activities, Rehab process Teaching Recipient: Patient Teaching Methods: Discussion Response to Teaching: Verbalize Understanding OT Prison Goals Prison Goals Time Frame: October 22, 2021 Eating (QC): 5 Oral Hygiene (QC): 5 Toileting Hygiene (QC): 4 Upper Body Dressing (QC): 4 Additional Goals: 1-Demonstrate ADL Tasks, 2-Verbalize Understanding, 3- ImproveStrength/Rob 1=Demonstrate adherence to instructed precautions during ADL tasks. 2=Patient will verbalize/demonstrate understanding of assistive devices/modifications for ADL. 3=Patient will improve strength/tolerance for activity to enable patient to perform ADL's. OT Education/Plan Problem List/Assessment Assessment: No Skilled OT Needs ID'd No further skilled OT services indicated as pt is at OF with ADLs, UE functional and functional mobility, having caregiver assistance with tasks. D/C from OT. Discharge Recommendations Plan/Recommendations: Discharge/Goals Met Treatment Plan/Plan of Care Patient would benefit from OT for education, treatment and training to promote independence in ADL's, mobility, safety and/or upper extremity function for ADL's. Plan of Care: ADL Retraining, Functional Mobility, UE Funct Exercise/Act Treatment Duration: October 22, 2021 Frequency: 3 times per week (3-5 times per week) Estimated Hrs Per Day: .25 hour per day Agreement: Yes Rehab Potential: Guarded Time/GCodes Start Time: 11:15 Stop Time: 11:26 Total Time Billed (hr/min): 11 Billed Treatment Time 1, EX FARTUN HOLDER OT October 14, 2021 12:55
[2021-10-14] MEDS: LORATADINE (CLARITIN) 10 MG TAB PO SCH (13:32)
[2021-10-14 16:00] VITALS: BP 128/68
[2021-10-14] MEDS: ENOXAPARIN 40 MG/0.4 ML (LOVENOX) SYR SC SCH (17:28)
[2021-10-14 20:00] VITALS: BP 174/75
[2021-10-14] MEDS ORDERED: MONTELUKAST 10 MG (SINGULAIR) TAB PO SCH (21:00)
[2021-10-14 23:51] VITALS: BP 136/60
[2021-10-15 03:56] VITALS: BP 143/63
[2021-10-15 06:14] LABS: BASOPHILS # (AUTO) 0.1 10^3/uL (0.0-0.1); BASOPHILS % (AUTO) 1 % (0-10); EOSINOPHILS # (AUTO) 0.2 10^3/uL (0.0-0.3); EOSINOPHILS % (AUTO) 2 % (0-10); HEMATOCRIT 28 % (35-52); HEMOGLOBIN 7.7 g/dL (11.5-16.0); LYMPHOCYTES # (AUTO) 0.8 10^3/uL (1.0-4.0); LYMPHOCYTES % (AUTO) 7 % (12-44); MEAN CORPUSCULAR HEMOGLOBIN 21 pg (25-34); MEAN CORPUSCULAR HGB CONC 28 g/dL (32-36); MEAN CORPUSCULAR VOLUME 75 fL (80-99); MEAN PLATELET VOLUME 10.4 fL (9.0-12.2); MONOCYTES % (AUTO) 8 % (0-12); NEUTROPHILS % (AUTO) 83 % (42-75); PLATELET COUNT 553 10^3/uL (130-400); WHITE BLOOD COUNT 12.1 10^3/uL (4.3-11.0)
[2021-10-15] MEDS: MULTIVIT W/MINERALS TAB (THERAGRAN M) PO SCH (06:22)
[2021-10-15] MEDS: SUCRALFATE 1 GM (CARAFATE) TAB PO SCH ×2 (06:22→12:07)
[2021-10-15 06:27] LABS: ALBUMIN 3.4 GM/DL (3.2-4.5); POTASSIUM 3.9 MMOL/L (3.6-5.0)
[2021-10-15 06:28] LABS: CALCIUM 8.7 MG/DL (8.5-10.1)
[2021-10-15 06:29] LABS: TOTAL PROTEIN 6.1 GM/DL (6.4-8.2)
[2021-10-15 06:31] LABS: BILIRUBIN,TOTAL 0.3 MG/DL (0.1-1.0)
[2021-10-15 06:33] LABS: CREATININE SERUM 0.65 MG/DL (0.60-1.30)
[2021-10-15 08:02] VITALS: BP 165/68
[2021-10-15] MEDS: meTOproloL SUCCINATE 50 MG (TOPROL XL) TAB PO SCH (08:19)
[2021-10-15] MEDS: amLODIPine 10 MG (NORVASC) TAB PO SCH (08:19)
[2021-10-15] MEDS: LORATADINE (CLARITIN) 10 MG TAB PO SCH (08:19)
[2021-10-15] MEDS: DOCUSATE SODIUM 100 MG (COLACE) CAP PO SCH (08:20)
[2021-10-15] MEDS: cefTRIAXone 1 GM/50 ML (PRE-MIX) IV SCH (08:20)
[2021-10-15] MEDS: toPIRamate 25 MG (TOPAMAX) TAB PO SCH (08:21)
[2021-10-15] MEDS: KCL 20 MEQ TAB (K-DUR) PO SCH ×2 (08:21→12:08)
[2021-10-15] MEDS: PRIMIDONE 250MG (MYSOLINE) TAB PO SCH (08:21)
[2021-10-15] MEDS ORDERED: AZITHROMYCIN 250 MG TAB (ZITHROMAX) PO SCH (09:00)
[2021-10-15] MEDS: RT-ALBUTEROL SULF 2.5 MG/3 ML PRE-MIX VIAL IH SCH (09:02)
--- NOTE | 2021-10-15 09:55 | Physical Therapy Daily Note ---
PT Daily Note-Current Subjective Patient very [place]. Agrees to PT. Mental Status Patient Orientation: Person, Situation Attachments: Oxygen, IV Transfers SCALE: Activities may be completed with or without assistive devices. 0-Pfjegsjaje-rxyldou completes the activity by him/herself with no assistance from a helper. 5-Set-up or Clean-up Assistance-helper sets up or cleans up; patient completes activity. [place] assists only prior to or following the activity. 4-Supervision or Touching Assistance-helper provides verbal cues and/or touching/steadying and/or contact guard assistance as patient completes activity. Assistance may be provided throughout the activity or intermittently. 3-Partial/Moderate Assistance-helper does LESS THAN HALF the effort. [place] lifts, holds or supports trunk or limbs, but provides less than half the effort. 2-Substantial/Maximal Assistance-helper does MORE THAN HALF the effort. [place] lifts or holds trunk or limbs and provides more than half the effort. 4-Twtkqyfqt-qzwxgv does ALL the effort. Patient does none of the effort to complete the activity. Or, the assistance of 2 or more helpers is required for the patient to complete the activity. If activity was not attempted, code reason: 7-Patient Refused. 9-Not Applicable-not attempted and the patient did not perform the activity before the current illness, exacerbation or injury. 10-Not Attempted due to Environmental Limitations-(lack of equipment, weather restraints, etc.). 88-Not Attempted due to Medical Conditions or Safety Concerns. Lying to Sitting/Side of Bed(Q: 4 Sit to Stand (QC): 3 Chair/Juc-kx-Raqdd Xfer(QC): 3 Weight Bearing Right Lower Extremity: Right Weight Bearing/Tolerated Left Lower Extremity: Left Weight Bearing/Tolerated Gait Training Distance: 50' Walk 10 feet (QC): 2 Walk 50 ft with 2 Turns(QC): 2 Gait Assistive Device: FWW max assist due to patient demonstrated forward momentum with bilateral LE lagging. PT assist to advance FWW Assessment Patient up in recliner with needs met. Due to patient severe [place], difficulty with communication. Increase activity as patient tolerates. PT Penitentiary Goals Penitentiary Goals PT Penitentiary Goals Time Frame: October 20, 2021 Roll Left & Right (QC): 6 Sit to Lying (QC): 4 Lying-Sitting on Side/Bed(QC): 4 Sit to Stand (QC): 3 Walk 10 feet (QC): 3 PT Plan Treatment/Plan Treatment Plan: Continue Plan of Care Treatment Plan: Bed Mobility, Education, Functional Activity Rob, Functional Strength, Gait, Safety, Therapeutic Exercise, Transfers Treatment Duration: October 20, 2021 Frequency: 6 times per week Estimated Hrs Per Day: .25 hour per day Patient and/or Family Agrees t: Yes Time/GCodes Time In: 915 Time Out: 926 Total Billed Treatment Time: 11 Total Billed Treatment 1 visit GT 11 min PEDRO CID PT October 15, 2021 09:55
[2021-10-15 11:25] VITALS: BP 139/64
[2021-10-15] MEDS ORDERED: LORA10TA7 PO (11:30)
[2021-10-15] MEDS ORDERED: IRON150C3 PO (11:30)
[2021-10-15] MEDS ORDERED: MONT10TA21 PO (11:30)
[2021-10-15] MEDS ORDERED: CEFD300C3 PO (11:30)
--- NOTE | 2021-10-15 11:31 | Discharge Summary ---
Discharge Summary Hospital Course Was the Problem List Reviewed?: Yes Problems/Dx: (1) Pneumonia Status: Acute Qualifiers: Qualified Codes: J18.9 - Pneumonia, unspecified organism (2) HTN (hypertension) Status: Chronic (3) Weakness Status: Acute (4) Severe anemia Status: Acute Hospital Course Date of Admission: October 13, 2021 at 13:39 Admission Diagnosis : Family Physician/Provider: [place] Date of Discharge: 10/15/21 Discharge Diagnosis: Pneumonia, exacerbation of COPD, current smoker, chronic anemia, transfusion required Hospital Course: Pt had an uneventful 3 day hospital course after she was admitted for pneumonia and anemia. She does have chronic anemia and did require one unit of packed red blood cell transfusion. She ultimately was ready for discharge. She continues to smoke. She did meet criteria for 2L of oxygen continuous and 3L during exertion. That was placed with DME. She was discharged in improved condition. Labs and Pending Lab Test: Laboratory Tests 10/14/21 13:07: Lab Scanned Report Transfusion Reaction Form 10/15/21 06:06: White Blood Count 12.1H, Red Blood Count 3.65L, Hemoglobin 7.7L, Hematocrit 28L, Mean Corpuscular Volume 75L, Mean Corpuscular Hemoglobin 21L, Mean Corpuscular Hemoglobin Concent 28L, Red Cell Distribution Width 17.5H, Platelet Count 553H, Mean Platelet Volume 10.4, Immature Granulocyte % (Auto) 0, Neutrophils (%) (Auto) 83H, Lymphocytes (%) (Auto) 7L, Monocytes (%) (Auto) 8, Eosinophils (%) (Auto) 2, Basophils (%) (Auto) 1, Neutrophils # (Auto) 10.0H, Lymphocytes # (Auto) 0.8L, Monocytes # (Auto) 1.0, Eosinophils # (Auto) 0.2, Basophils # (Auto) 0.1, Immature Granulocyte # (Auto) 0.1, Sodium Level 140, Potassium Level 3.9, Chloride Level 109H, Carbon Dioxide Level 19L, Anion Gap 12, Blood Urea Nitrogen 6L, Creatinine 0.65, Estimat Glomerular Filtration Rate 93, BUN/Creatinine Ratio 9, Glucose Level 88, Calcium Level 8.7, Corrected Calcium 9.2, Total Bilirubin 0.3, Aspartate Amino Transf (AST/SGOT) 17, Alanine Aminotransferase (ALT/SGPT) 16, Alkaline Phosphatase 123, Total Protein 6.1L, Albumin 3.4 Microbiology 10/12/21 Blood Culture - Preliminary, Resulted No growth Home Meds Active Singulair (Montelukast Sodium) 10 Mg Tablet 10 Mg PO DAILY Ferrex 150 (Iron Polysaccharide Complex) 150 Mg Iron Capsule 150 Mg PO DAILY Cefdinir 300 Mg Capsule 300 Mg PO BID Loratadine 10 Mg Tablet 10 Mg PO DAILY Reported Benadryl Allergy (Diphenhydramine HCl) 25 Mg Tablet 25-50 Mg PO Q6H PRN Amlodipine Besylate 10 Mg Tablet 10 Mg PO DAILY Mupirocin 2 % Oint...g. 1 Applic TOP TID 10 Days APPLY TO RIGHT ARM PIT FILL DATE 10-05-2021, USE X 10 DAYS Carafate (Sucralfate) 1 Gram Tablet 1 Gm PO TIDAC Aspirin EC (Aspirin) 81 Mg Tablet.dr 81 Mg PO DAILY Metoprolol Succinate 50 Mg Tab.er.24h 50 Mg PO DAILY Topiramate 50 Mg Tablet 50 Mg PO BID Pravastatin Sodium 80 Mg Tablet 80 Mg PO HS Docusate Sodium 100 Mg Capsule 200 Mg PO DAILY TAKES 2 (100MG) CAPS Centrum Silver Tablet (Multivit-Min/FA/Lycopene/Lut) 1 Each Tablet 1 Each PO DAILY Montelukast Sodium 10 Mg Tablet 10 Mg PO HS Tylenol Extra Strength (Acetaminophen) 500 Mg Tablet 500 Mg PO Q6H PRN Escitalopram Oxalate 20 Mg Tablet 20 Mg PO DAILY Lamotrigine 200 Mg Tablet 200 Mg PO DAILY Mysoline (Primidone) 250 Mg Tablet 250 Mg PO BID Assessment/Pt Instructions PCP in 1 week Discharge Planning: <30 minutes discharge planning Discharge Instructions Discharge Diet: No Restrictions Activity as Tolerated: Yes Discharge Physical Examination Vital Signs Vital Signs Date Time Temp Pulse Resp B/P (MAP) Pulse Ox O2 Delivery O2 Flow Rate FiO2 10/15/21 11:25 37.0 66 18 139/64 (89) 99 High Flow N/C 7.00 General Appearance: No Apparent Distress, WD/WN, Chronically ill Respiratory: No Accessory Muscle Use, No Respiratory Distress, Decreased Breath Sounds Cardiovascular: Regular Rate, Rhythm Allergies: Coded Allergies: latex (Verified Allergy, Unknown, 02/07/19) Discharge Summary Date of Admission October 13, 2021 at 13:39 Date of Discharge Discharge Date: October 15, 2021 Admission Diagnosis Assessment: Pneumonia Severe anemia Transfusion required today Hypoxia Smoker History of chronic anemia Chronic debility Severe presbycusis Plan: IV antibiotics Oxygen Transfuse Discharge Diagnosis Assessment: Pneumonia Severe anemia Transfusion required today Hypoxia Smoker History of chronic anemia Chronic debility Severe presbycusis Plan: IV antibiotics Oxygen Transfuse 10/14/2021: Continue antibiotics Oxygen Supportive care (1) Pneumonia Status: Acute Qualifiers: Qualified Codes: J18.9 - Pneumonia, unspecified organism (2) HTN (hypertension) Status: Chronic (3) Weakness Status: Acute (4) Severe anemia Status: Acute MAITE PARDO DO October 15, 2021 11:31
--- NOTE | 2021-10-15 11:31 | D/C HH Face to Face Order ---
D/C HH Face to Face Orders Reconcile Patient Problems Problems Reviewed?: Yes Instructions for Patient HH Patient Instructions/FollowUp: PCP 1 week Physician to follow Patient: PCP Discharge Diet for Home: No Restrictions Patient Problems: PNA Anemia Patient Data-Allergies,Ht & Wt Patient Allergies: Coded Allergies: latex (Verified Allergy, Unknown, 02/07/19) Height (Feet): 4 Height (Inches): 10.00 Weight (Pounds): 119 Home Health Need/Face to Face Date of Face to Face: October 15, 2021 Clinical Findings: Generalized weakness and fatigue, Instability, Muscle wea kness, Shortness of breath I have seen Pt [id number]: Yes Discharged To: Home Diagnosis/Conditions: Debility Patient is Homebound due to: Marie fall risk due to instabilty, Muscle weakness, Shortness of breath/distress Homebound Status Due to the above stated illness, injury or surgical procedure (medical condition or diagnosis) and associated clinical findings, the patient is homebou nd because of his/her inability to leave home except with aid of a supportive device and/or person AND leaving the home requires a considerable and taxing effort or is medically contraindicated. Pt req the following assistanc: [facility] Nursing Orders Home Health Services Order: Nursing Services, Maintenance Job Titles-Evaluate & Treat, Physical Therapy-Evaluate & Treat Home Health Infusion Therapy Line Start Date: October 12, 2021 Certify Stmt I certify that this patient is under my care and that I, a nurse practitioner or a physician; a oceanographer assistant working with me, had a face to face encounter that - meets the physician face to face encounter requirements with this patient as dated. MAITE PARDO DO October 15, 2021 11:31
[2021-10-15] MEDS ORDERED: IRON SUCROSE 200 MG/10 ML (VENOFER) VIAL IV NR (11:36)
--- NOTE | 2021-10-15 16:37 | Physician Query Clarification ---
Physician Query-General Query to Physician: The medical record reflects the following clinical evidence: Clinical Indicators: On admission: "81% on oxygen level so oxygen was placed". 02 Sat decreased to 76% on 3L and had to be increased to 7L, P/F=90, Pt required 2-7L the entire stay, RR 16-20. "SOA with exertion", Risk Factor(s): Severe anemia, Pneumonia, Smoker, Use of home 02 is not known/Can not find documentation of home 02, Treatment: IV ABX, Blood transfusion, Supplemental 02 up to 7L, Albuterol 1. Acute respiratory failure with hypoxia, present on admission 2. Other explanation of clinical findings 3. Unable to determine (no explanation for clinical findings) Please clarify and document your clinical opinion in the progress notes and discharge summary including the definitive and/or presumptive diagnosis, (suspected or probable), related to the above clinical findings. Please include clinical findings supporting your diagnosis. Ana Ly MSN,RN Clinical Ichthyologist [phone] [email or web address] PHYSICIAN RESPONSE: Based on the clinical findings in the record, please respond to the query above on this document as an addendum. Physician Response: Physician Response 1 If you have questions please contact: Horizontal Drill Operator: Ext: Thank you for your time and cooperation. Clinical Ichthyologist/Horizontal Drill Operator This is a permanent part of the medical record ANA LY October 15, 2021 16:36 MAITE PARDO DO October 15, 2021 17:38
== END 2021-10-15 13:34 | disposition home health service (06) | DRG 193 ==
LOC: EDUNIT# 12:00 → ER FS 12:01 → 4TH 16:45 → OBSVTOIN 10-13 13:39
PROVIDERS: ADMIT Internal Medicine; ATTEND Internal Medicine
PROC: 5A0945A Assistance with Respiratory Ventilation, 24-96 Consecutive Hours, High Flow/Velocity Cannula (ICD-10-PCS; principal; 2021-10-13)
DX: J18.9 Pneumonia, unspecified organism (principal); J96.01 Acute respiratory failure with hypoxia; J44.1 Chronic obstructive pulmonary disease with (acute) exacerbation; J44.0 Chronic obstructive pulmonary disease with (acute) lower respiratory infection; I10 Essential (primary) hypertension; R53.1 Weakness; D64.9 Anemia, unspecified; F17.210 Nicotine dependence, cigarettes, uncomplicated; H91.10 Presbycusis, unspecified ear; R53.81 Other malaise; E78.00 Pure hypercholesterolemia, unspecified; Z79.82 Long term (current) use of aspirin; Z79.899 Other long term (current) drug therapy
CPT/HCPCS: 36415; 71045; 74177; 80053; 81000; 82607; 82728; 83540; 83550; 83605; 83690; 84484; 85007; 85025; 85027; 86850; 86900; 86901; 86920; 87040; 94010; 94640; 94760; 94761; G0378; Q9967

== ENCOUNTER 2021-12-20 15:35 | Emergency (ER) | payer MEDICARE, MEDICAID ==
[~2021-12-20 15:35] MED LIST changes: -ASPI-789 PO; +ASPI1TAB23 PO; +DIPH25TA65 PO; +IRON150C3 PO; +LORA10TA7 PO; +MONT10TA21 PO; +MUPI22OI2 TOP; +SUCR1TAB36 PO
[2021-12-20 15:47] VITALS: BP 132/68
--- NOTE | 2021-12-20 15:50 | ED General ---
General Chief Complaint: General Problems/Pain Stated Complaint: FALL Source of Information: Patient Exam Limitations: No Limitations History of Present Illness Date Seen by Provider: Dec 20, 2021 Time Seen by Provider: 15:37 Initial Comments 71-year-old female with past medical history of hypertension, hyperlipidemia, likely COPD on 2 L baseline oxygen as needed, difficulty ambulating at baseline with almost full-time caregivers, hard of hearing coming in via EMS from home after she was then a period of time at home without a caregiver for roughly 3 hours. She says she try to get up, tripped, landed on her backside. Denies any pain anywhere at this time. Her caregiver is here and says she has been acting slightly more confused for over a week. She says typically when she is like this she has a urinary tract infection. Patient also fell a couple weeks ago and was having some left hip pain at that time, is denying it right now. Does not take any blood thinners. Denies any chest pain, shortness of breath, abdominal pain, nausea, vomiting, diarrhea, fever, chills, weakness, numbness, or any other concerns. She has a mild headache on the left side which is throbbing, constant, nothing really seems to make it better or worse. EMS also reports a cut to the left side of her face which is superficial Allergies and Home Medications Allergies Coded Allergies: latex (Verified Allergy, Unknown, 02/07/19) Patient Home Medication List Home Medication List Reviewed: Yes Acetaminophen (Tylenol Extra Strength) 500 Mg Tablet, 500 MG PO Q6H PRN for PAIN-MILD (1-4), (Reported) Entered as Reported by: JOANN MUNOZ on 07/22/20 1139 Amlodipine Besylate (Amlodipine Besylate) 10 Mg Tablet, 10 MG PO DAILY, (Reported) Entered as Reported by: JOANN MUNOZ on 10/13/21 1245 Aspirin (Aspirin EC) 81 Mg Tablet.dr, 81 MG PO DAILY, (Reported) Entered as Reported by: JOANN MUNOZ on 10/13/21 1245 Cefdinir (Cefdinir) 300 Mg Capsule, 300 MG PO BID Prescribed by: MAITE PARDO on 10/15/21 1130 Diphenhydramine HCl (Benadryl Allergy) 25 Mg Tablet, 25-50 MG PO Q6H PRN for ALLERGY SYMPTOMS, (Reported) Entered as Reported by: JOANN MUNOZ on 10/13/21 1245 Docusate Sodium (Docusate Sodium) 100 Mg Capsule, 200 MG PO DAILY, (Reported) Entered as Reported by: OUSMANE KIRAN on 03/16/21 1512 Escitalopram Oxalate (Escitalopram Oxalate) 20 Mg Tablet, 20 MG PO DAILY, (Reported) Entered as Reported by: JOANN MUNOZ on 02/25/19 09 Iron Polysaccharide Complex (Ferrex 150) 150 Mg Iron Capsule, 150 MG PO DAILY Prescribed by: MAITE PARDO on 10/15/21 113 Lamotrigine (Lamotrigine) 200 Mg Tablet, 200 MG PO DAILY, (Reported) Entered as Reported by: JOANN MUNOZ on 02/25/19952 Loratadine (Loratadine) 10 Mg Tablet, 10 MG PO DAILY Prescribed by: MAITE PARDO on 10/15/21 113 Metoprolol Succinate (Metoprolol Succinate) 50 Mg Tab.er.24h, 50 MG PO DAILY, (Reported) Entered as Reported by: JOANN MUNOZ on 10/13/21 124 Montelukast Sodium (Montelukast Sodium) 10 Mg Tablet, 10 MG PO HS, (Reported) Entered as Reported by: OUSMANE KIRAN on 03/16/21 151 Montelukast Sodium (Singulair) 10 Mg Tablet, 10 MG PO DAILY Prescribed by: MAITE PARDO on 10/15/21 1130 Multivit-Min/FA/Lycopene/Lut (Centrum Silver Tablet) 1 Each Tablet, 1 EACH PO DAILY, (Reported) Entered as Reported by: OUSMANE KIRAN on 03/16/21 151 Mupirocin (Mupirocin) 2 % Oint...g., 1 APPLIC TOP TID, (Reported) Entered as Reported by: JOANN MUNOZ on 10/13/21 124 Pravastatin Sodium (Pravastatin Sodium) 80 Mg Tablet, 80 MG PO HS, (Reported) Entered as Reported by: OUSMANE KIRAN on 03/16/21 151 Primidone (Mysoline) 250 Mg Tablet, 250 MG PO BID, (Reported) Entered as Reported by: JOANN MUNOZ on 02/25/19 09 Sucralfate (Carafate) 1 Gram Tablet, 1 GM PO TIDAC, (Reported) Entered as Reported by: JOANN MUNOZ on 10/13/21 1245 Topiramate (Topiramate) 50 Mg Tablet, 50 MG PO BID, (Reported) Entered as Reported by: OUSMANE KIRAN on 03/16/21 1517 Review of Systems Review of Systems Constitutional: No fever EENTM: No blurred vision Respiratory: No cough Cardiovascular: No chest pain Gastrointestinal: No abdominal pain Genitourinary: no symptoms reported Musculoskeletal: no symptoms reported Skin: see HPI Psychiatric/Neurological: No Symptoms Reported Hematologic/Lymphatic: No Symptoms Reported Immunological/Allergic: no symptoms reported All Other Systems Reviewed Negative Unless Noted: Yes Past Szfjmbu-Hdckhg-Aighns Hx Patient Social History Tobacco Use?: Yes Tobacco type used: Cigarettes Immunizations Up To Date Tetanus Booster (TDap): Unknown First/Initial COVID19 Vaccinat: has not got covid vaccine Second COVID19 Vaccination Juve: has not got covid vaccine Third COVID19 Vaccination Date: has not got covid vaccine Seasonal Allergies Seasonal Allergies: No Past Medical History Surgeries: No Respiratory: No Cardiac: Yes Chronic Edema/Swelling, High Cholesterol, Hypertension Neurological: No Genitourinary: No Gastrointestinal: Yes Gastrointestinal Bleed Musculoskeletal: No Endocrine: No HEENT: No Cancer: No Psychosocial: No Integumentary: No Family Medical History Cardiovascular disease 19 FATHER 19 MOTHER Glaucoma 19 FATHER Hypertension 19 FATHER 19 MOTHER No Pertinent Family Hx Bilateral Endarterectomy Physical Exam Vital Signs Vital Signs - First Documented 12/20/21 15:47 Temp 36.5 Pulse 68 Resp 16 B/P (MAP) 132/68 (89) Pulse Ox 92 O2 Delivery Room Air Capillary Refill : Height, Weight, BMI Height: 4'10.00" Weight: 119lbs. oz. 53.690468ae; 22.58 BMI Method:Stated General Appearance: No Apparent Distress, WD/WN Eyes: Bilateral Eye Normal Inspection, Bilateral Eye PERRL, Bilateral Eye EOMI HEENT: PERRL/EOMI, Normal ENT Inspection, Pharynx Normal Neck: Full Range of Motion, Normal Inspection, Non Tender, Supple Respiratory: Chest Non Tender, Lungs Clear, Normal Breath Sounds, No Accessory Muscle Use, No Respiratory Distress Cardiovascular: Regular Rate, Rhythm, No Edema, Normal Peripheral Pulses Gastrointestinal: Normal Bowel Sounds, Non Tender, Soft; No Distended, No Guarding Back: Normal Inspection, No CVA Tenderness, No Vertebral Tenderness Extremity: Normal Capillary Refill, Normal Inspection, Normal Range of Motion, Non Tender, No Calf Tenderness, No Pedal Edema Neurologic/Psychiatric: Alert, Oriented x3, No Motor/Sensory Deficits, Normal Mood/Affect, director of field coordination II-XII Norm as Tested Skin: Normal Color, Warm/Dry, Other (2cm superficial abrasion to the left cheek) Lymphatic: No Adenopathy Progress/Results/Core Measures Suspected Sepsis SIRS Temperature: Pulse: Respiratory Rate: Laboratory Tests 12/20/21 16:15: White Blood Count 11.3H Blood Pressure / Mean: Laboratory Tests 12/20/21 16:15: Creatinine 0.67, INR Comment 1.0, Platelet Count 476H, Total Bilirubin 0.2 Results/Orders Lab Results Laboratory Tests Test 12/20/21 16:05 12/20/21 16:15 Range/Units Urine Color YELLOW Urine Clarity CLEAR Urine pH 7.0 5-9 Urine Specific [place] <=1.005 1.016-1.022 Urine Protein NEGATIVE NEGATIVE Urine Glucose (UA) NEGATIVE NEGATIVE Urine Ketones NEGATIVE NEGATIVE Urine Nitrite NEGATIVE NEGATIVE Urine Bilirubin NEGATIVE NEGATIVE Urine Urobilinogen 0.2 < = 1.0 MG/DL Urine Leukocyte Esterase NEGATIVE NEGATIVE Urine RBC (Auto) NEGATIVE NEGATIVE Urine RBC NONE /HPF Urine WBC 0-2 /HPF Urine Squamous Epithelial Cells NONE /HPF Urine Crystals NONE /LPF Urine Bacteria NEGATIVE /HPF Urine Casts NONE /LPF Urine Mucus NEGATIVE /LPF Urine Culture Indicated NO White Blood Count 11.3 H 4.3-11.0 10^3/uL Red Blood Count 4.35 3.80-5.11 10^6/uL Hemoglobin 11.6 11.5-16.0 g/dL Hematocrit 39 35-52 % Mean Corpuscular Volume 89 80-99 fL Mean Corpuscular Hemoglobin 27 25-34 pg Mean Corpuscular Hemoglobin Concent 30 L 32-36 g/dL Red Cell Distribution Width 23.3 H 10.0-14.5 % Platelet Count 476 H 130-400 10^3/uL Mean Platelet Volume 9.3 9.0-12.2 fL Immature Granulocyte % (Auto) 0 % Neutrophils (%) (Auto) 84 H 42-75 % Lymphocytes (%) (Auto) 9 L 12-44 % Monocytes (%) (Auto) 5 0-12 % Eosinophils (%) (Auto) 2 0-10 % Basophils (%) (Auto) 1 0-10 % Neutrophils # (Auto) 9.5 H 1.8-7.8 10^3/uL Lymphocytes # (Auto) 1.0 1.0-4.0 10^3/uL Monocytes # (Auto) 0.5 0.0-1.0 10^3/uL Eosinophils # (Auto) 0.2 0.0-0.3 10^3/uL Basophils # (Auto) 0.1 0.0-0.1 10^3/uL Immature Granulocyte # (Auto) 0.0 0.0-0.1 10^3/uL Prothrombin Time 13.6 12.2-14.7 SEC INR Comment 1.0 0.8-1.4 Activated Partial Thromboplast Time 31 24-35 SEC Sodium Level 138 135-145 MMOL/L Potassium Level 3.8 3.6-5.0 MMOL/L Chloride Level 104 98-107 MMOL/L Carbon Dioxide Level 23 21-32 MMOL/L Anion Gap 11 5-14 MMOL/L Blood Urea Nitrogen 7 7-18 MG/DL Creatinine 0.67 0.60-1.30 MG/DL Estimat Glomerular Filtration Rate 92 BUN/Creatinine Ratio 10 Glucose Level 80 70-105 MG/DL Calcium Level 9.1 8.5-10.1 MG/DL Corrected Calcium 9.3 8.5-10.1 MG/DL Magnesium Level 1.8 1.6-2.4 MG/DL Total Bilirubin 0.2 0.1-1.0 MG/DL Aspartate Amino Transf (AST/SGOT) 13 5-34 U/L Alanine Aminotransferase (ALT/SGPT) 8 0-55 U/L Alkaline Phosphatase 195 H 40-136 U/L Total Protein 6.3 L 6.4-8.2 GM/DL Albumin 3.7 3.2-4.5 GM/DL My Orders Orders - CINDI ROSENBAUM MD Ct Head/Cervical Spine Wo (12/20/21 15:45) Cbc With Automated Diff (12/20/21 15:45) Comprehensive Metabolic Panel (12/20/21 15:45) Magnesium (12/20/21 15:45) Protime With Inr (12/20/21 15:45) Partial Thromboplastin Time (12/20/21 15:45) Ua Culture If Indicated (12/20/21 15:45) Chest 1 View Ap/Pa Only (12/20/21 15:45) Pelvis (Ap) (12/20/21 15:45) Straight Cath (Urinary) (12/20/21 15:45) Vital Signs/I&O 12/20/21 15:47 Temp 36.5 Pulse 68 Resp 16 B/P (MAP) 132/68 (89) Pulse Ox 92 O2 Delivery Room Air Capillary Refill : Progress Note : Progress Note 71-year-old female with above history coming in after mechanical fall. ABCs were intact and vitals were stable on presentation with a GCS of 15. She has no signs of outward trauma other than a small cut to her left face with swelling. She has no pain anywhere. CT head, cervical spine, and x-ray chest and pelvis with no acute abnormality. The patient is at her baseline. Urinalysis without evidence of infection. She has her caregiver here and will go home with her. Diagnostic Imaging Diagonstic Imaging: Xray (chest and pelvis), CT (head and c spine) Plain Films/CT/US/NM/MRI: chest Comments [facility], [place] NAME: STEPHAN MARQUEZ [facility] REC#: [id number] PT STATUS: REG ER : 1950 PHYSICIAN: CINDI ROSENBAUM MD ADMIT DATE: 12/20/21/ER FS Draft Date of Exam:12/20/21 CHEST 1 VIEW AP/PA ONLY INDICATION: Injury from a fall. EXAMINATION: Portable chest at 3:51 PM. FINDINGS: The heart and mediastinum are normal. There are no infiltrates, effusions, or pneumothoraces. There are no acute displaced rib fractures. There are some old healed rib fractures in the left posterolateral thoracic cage. IMPRESSION: No acute abnormalities in the chest. No change compared to 10/12/2021. Dictated on workstation # [id number] Dict: 12/20/21 1558 Trans: 12/20/[address] [place] [address] [id number] Interpreted by: DEONTE MERRILL MD Electronically signed by: [facility] [place] [place] NAME: STEPHAN MARQUEZ MED REC#: [id number] PT STATUS: REG ER : 1950 PHYSICIAN: CINDI ROSENBAUM MD ADMIT DATE: 12/20/21/ER FS Draft Date of Exam:12/20/21 PELVIS (AP) INDICATION: Pelvic injury from a fall. AP view pelvis Pelvic ring is intact. Both hips appear to be intact. There is no fracture or dislocation. There is calcific atherosclerosis. IMPRESSION: No acute abnormality seen in the pelvis or hips. Dictated on workstation # [id number] Dict: 12/20/21 1559 Trans: 12/20/21 1601 [id number] [id number] Interpreted by: DEONTE MERRILL MD Electronically signed by: NAME: STEPHAN MARQUEZ MED REC#: [id number] PT STATUS: REG ER : 1950 PHYSICIAN: CINDI ROSENBAUM MD ADMIT DATE: 12/20/21/ER FS Draft Date of Exam:12/20/21 CT HEAD/CERVICAL SPINE WO INDICATION: Fall with head and neck pain, altered mental status. TECHNIQUE: Multiple contiguous axial images were obtained through the brain and cervical spine without the use of intravenous contrast. Sagittal and coronal reformations through the cervical spine were then performed. Auto Exposure Controls were utilized during the CT exam to meet ALARA standards for radiation dose reduction. COMPARISON: Comparison made to 08/09/2020. FINDINGS: There are diffuse atrophic changes. There are diffuse low-density changes in the deep white matter, compatible with chronic ischemic change. There is no acute intracranial hemorrhage. There is no subdural or epidural collection. Ventricles appear mildly prominent but are baseline compared to the prior study. There is no new territorial ischemia. Calvarial windows show no fractures. CT CERVICAL SPINE FINDINGS: There was no evidence of cervical spine fracture. There is no subluxation or malalignment. There are mild diffuse degenerative changes throughout the facets. IMPRESSION: CT brain shows chronic changes as described above with no acute intracranial abnormality. CT cervical spine shows degenerative changes with no acute fracture or malalignment. Dictated on workstation # [id number] Dict: 12/20/21 1651 Trans: 12/20/21 1659 [id number] Interpreted by: PETER JORDAN MD Electronically signed by: Departure Impression Primary Impression: Fall on same level from tripping Disposition: 01 HOME, SELF-CARE Condition: Stable Departure-Patient Inst. Decision time for Depature: 17:05 Referrals: ZOIE BEEBE APRN (PCP) Primary Care Physician [facility] (Family) Primary Care Physician Patient Instructions: Preventing Falls ED Add. Discharge Instructions: The glue on the face will fall off on its own in a couple days. Take Tylenol as needed for pain. Follow-up with your regular doctor as needed CINDI ROSENBAUM MD Dec 20, 2021 15:50
--- NOTE | 2021-12-20 16:00 | Diagnostic Imaging Report ---
INDICATION: Injury from a fall. EXAMINATION: Portable chest at 3:51 PM. FINDINGS: The heart and mediastinum are normal. There are no infiltrates, effusions, or pneumothoraces. There are no acute displaced rib fractures. There are some old healed rib fractures in the left posterolateral thoracic cage. IMPRESSION: No acute abnormalities in the chest. No change compared to 10/12/2021. Dictated by: Dictated on workstation # [id number]
--- NOTE | 2021-12-20 16:01 | Diagnostic Imaging Report ---
INDICATION: Pelvic injury from a fall. AP view pelvis Pelvic ring is intact. Both hips appear to be intact. There is no fracture or dislocation. There is calcific atherosclerosis. IMPRESSION: No acute abnormality seen in the pelvis or hips. Dictated by: Dictated on workstation # [id number]
[2021-12-20 16:08] LABS: BILIRUBIN,URINE NEGATIVE (NEGATIVE); CLARITY,URINE CLEAR; COLOR,URINE YELLOW; GLUCOSE, URINE (UA) NEGATIVE (NEGATIVE); KETONES,URINE NEGATIVE (NEGATIVE); LEUKOCYTE ESTERASE ,URINE NEGATIVE (NEGATIVE); NITRITE,URINE NEGATIVE (NEGATIVE); PROTEIN,URINE NEGATIVE (NEGATIVE)
[2021-12-20 16:12] LABS: BACTERIA,URINE NEGATIVE /HPF; WBC,URINE 0-2 /HPF
[2021-12-20 16:24] LABS: BASOPHILS # (AUTO) 0.1 10^3/uL (0.0-0.1); BASOPHILS % (AUTO) 1 % (0-10); EOSINOPHILS # (AUTO) 0.2 10^3/uL (0.0-0.3); EOSINOPHILS % (AUTO) 2 % (0-10); HEMATOCRIT 39 % (35-52); HEMOGLOBIN 11.6 g/dL (11.5-16.0); LYMPHOCYTES % (AUTO) 9 % (12-44); MEAN CORPUSCULAR HEMOGLOBIN 27 pg (25-34); MEAN CORPUSCULAR HGB CONC 30 g/dL (32-36); MEAN CORPUSCULAR VOLUME 89 fL (80-99); MEAN PLATELET VOLUME 9.3 fL (9.0-12.2); MONOCYTES # (AUTO) 0.5 10^3/uL (0.0-1.0); MONOCYTES % (AUTO) 5 % (0-12); NEUTROPHILS # (AUTO) 9.5 10^3/uL (1.8-7.8); NEUTROPHILS % (AUTO) 84 % (42-75); PLATELET COUNT 476 10^3/uL (130-400); WHITE BLOOD COUNT 11.3 10^3/uL (4.3-11.0)
[2021-12-20 16:40] LABS: PROTHROMBIN TIME PATIENT 13.6 SEC (12.2-14.7)
[2021-12-20 16:48] LABS: BILIRUBIN,TOTAL 0.2 MG/DL (0.1-1.0); CALCIUM 9.1 MG/DL (8.5-10.1); CREATININE SERUM 0.67 MG/DL (0.60-1.30); MAGNESIUM 1.8 MG/DL (1.6-2.4); POTASSIUM 3.8 MMOL/L (3.6-5.0); TOTAL PROTEIN 6.3 GM/DL (6.4-8.2)
[2021-12-20 16:49] LABS: ALBUMIN 3.7 GM/DL (3.2-4.5)
--- NOTE | 2021-12-20 16:59 | Diagnostic Imaging Report ---
INDICATION: Fall with head and neck pain, altered mental status. TECHNIQUE: Multiple contiguous axial images were obtained through the brain and cervical spine without the use of intravenous contrast. Sagittal and coronal reformations through the cervical spine were then performed. Auto Exposure Controls were utilized during the CT exam to meet ALARA standards for radiation dose reduction. COMPARISON: Comparison made to 08/09/2020. FINDINGS: There are diffuse atrophic changes. There are diffuse low-density changes in the deep white matter, compatible with chronic ischemic change. There is no acute intracranial hemorrhage. There is no subdural or epidural collection. Ventricles appear mildly prominent but are baseline compared to the prior study. There is no new territorial ischemia. Calvarial windows show no fractures. CT CERVICAL SPINE FINDINGS: There was no evidence of cervical spine fracture. There is no subluxation or malalignment. There are mild diffuse degenerative changes throughout the facets. IMPRESSION: CT brain shows chronic changes as described above with no acute intracranial abnormality. CT cervical spine shows degenerative changes with no acute fracture or malalignment. Dictated by: Dictated on workstation # [id number]
== END 2021-12-20 17:05 | disposition home or self-care (01) ==
LOC: EDUNIT# 15:35 → ER FS 15:36
DX: S00.81XA Abrasion of other part of head, initial encounter (principal); J44.9 Chronic obstructive pulmonary disease, unspecified; F17.210 Nicotine dependence, cigarettes, uncomplicated; Z99.81 Dependence on supplemental oxygen; Z28.310 Unvaccinated for COVID-19; W01.0XXA Fall on same level from slipping, tripping and stumbling without subsequent striking against object, initial encounter
CPT/HCPCS: 36415; 51702; 70450; 71045; 72125; 72170; 80053; 81000; 83735; 85025; 85610; 85730

== ENCOUNTER 2022-04-23 19:06 | Emergency (ER) | payer MEDICARE, MEDICAID ==
[~2022-04-23] VITALS: Ht 147.3 cm; Wt 68.0 kg
--- NOTE | 2022-04-23 19:16 | ED General ---
General Stated Complaint: AMS/WEAKNESS Source of Information: Patient, Caregiver, EMS History of Present Illness Date Seen by Provider: Apr 23, 2022 Time Seen by Provider: 19:06 Initial Comments 72-year-old female presenting by EMS from home with complaints of increased weakness and decreased appetite. Her caregiver states that she has not been oriented eat today and only had half a granola bar. She has not been drinking as much in the last several days. She has several different caregivers that help her at home as the patient refuses to go to a residential. She also is refusing to go see a doctor in the clinic because she is worried that they will send her to a residential. She herself has no specific complaints. The caregiver was concerned again about her not eating as much and they felt like she was leaning more to the left over the last few weeks. They were able to c onvince her to come be evaluated tonight when she has been refusing on several occasions. Severity: Moderate Associated Systoms: No Chest Pain, No Cough, No Diaphoresis, No Fever/Chills, No Headaches; Loss of Appetite, Malaise; No Nausea/Vomiting, No Rash, No Seizure; Shortness of Air; No Syncope; Weakness Allergies and Home Medications Allergies Coded Allergies: latex (Verified Allergy, Unknown, 02/07/19) Patient Home Medication List Home Medication List Reviewed: Yes Acetaminophen (Tylenol Extra Strength) 500 Mg Tablet, 500 MG PO Q6H PRN for PAIN-MILD (1-4), (Reported) Entered as Reported by: JOANN MUNOZ on 07/22/20 1139 Amlodipine Besylate (Amlodipine Besylate) 10 Mg Tablet, 10 MG PO DAILY, (Reported) Entered as Reported by: JOANN MUNOZ on 10/13/21 1245 Aspirin (Aspirin EC) 81 Mg Tablet.dr, 81 MG PO DAILY, (Reported) Entered as Reported by: JOANN MUNOZ on 10/13/21 1245 Cefdinir (Cefdinir) 300 Mg Capsule, 300 MG PO BID Prescribed by: MAITE PARDO on 10/15/21 1130 Diphenhydramine HCl (Benadryl Allergy) 25 Mg Tablet, 25-50 MG PO Q6H PRN for ALLERGY SYMPTOMS, (Reported) Entered as Reported by: JOANN MUNOZ on 10/13/21 1245 Docusate Sodium (Docusate Sodium) 100 Mg Capsule, 200 MG PO DAILY, (Reported) Entered as Reported by: OUSMANE KIRAN on 03/16/21 1512 Escitalopram Oxalate (Escitalopram Oxalate) 20 Mg Tablet, 20 MG PO DAILY, (Reported) Entered as Reported by: JOANN MUNOZ on 02/25/19 0953 Iron Polysaccharide Complex (Ferrex 150) 150 Mg Iron Capsule, 150 MG PO DAILY Prescribed by: MAITE PARDO on 10/15/21 1130 Lamotrigine (Lamotrigine) 200 Mg Tablet, 200 MG PO DAILY, (Reported) Entered as Reported by: JOANN MUNOZ on 02/25/19 09 Loratadine (Loratadine) 10 Mg Tablet, 10 MG PO DAILY Prescribed by: MAITE PARDO on 10/15/21 1130 Metoprolol Succinate (Metoprolol Succinate) 50 Mg Tab.er.24h, 50 MG PO DAILY, (Reported) Entered as Reported by: JOANN MUNOZ on 10/13/21 1245 Montelukast Sodium (Montelukast Sodium) 10 Mg Tablet, 10 MG PO HS, (Reported) Entered as Reported by: OUSMANE KIRAN on 03/16/21 1510 Montelukast Sodium (Singulair) 10 Mg Tablet, 10 MG PO DAILY Prescribed by: MAITE PARDO on 10/15/21 1130 Multivit-Min/FA/Lycopene/Lut (Centrum Silver Tablet) 1 Each Tablet, 1 EACH PO DAILY, (Reported) Entered as Reported by: OUSMANE KIRAN on 03/16/21 1511 Mupirocin (Mupirocin) 2 % Oint...g., 1 APPLIC TOP TID, (Reported) Entered as Reported by: JOANN MUNOZ on 10/13/21 1245 Pravastatin Sodium (Pravastatin Sodium) 80 Mg Tablet, 80 MG PO HS, (Reported) Entered as Reported by: OUSMANE KIRAN on 03/16/21 1516 Primidone (Mysoline) 250 Mg Tablet, 250 MG PO BID, (Reported) Entered as Reported by: JOANN MUNOZ on 02/25/19 0953 Sucralfate (Carafate) 1 Gram Tablet, 1 GM PO TIDAC, (Reported) Entered as Reported by: JOANN MUNOZ on 10/13/21 1245 Topiramate (Topiramate) 50 Mg Tablet, 50 MG PO BID, (Reported) Entered as Reported by: OUSMANE KIRAN on 03/16/21 1517 Review of Systems Review of Systems Constitutional: No chills, No fever; malaise, weakness EENTM: hearing loss (Hard of hearing) Respiratory: short of breath; No stridor, No wheezing Cardiovascular: No chest pain Gastrointestinal: loss of appetite; No nausea, No vomiting Genitourinary: No dysuria Musculoskeletal: no symptoms reported Skin: No rash Psychiatric/Neurological: Denies Headache; Weakness (Increase generalized weakness) Past Dukrdkl-Fpegav-Trxwam Hx Patient Social History Tobacco Use?: Yes Tobacco type used: Cigarettes Smoking Status: Heavy Tobacco Smoker (2 to 3 packs a day) Substance use?: No Alcohol Use?: No Immunizations Up To Date Tetanus Booster (TDap): Unknown First/Initial COVID19 Vaccinat: has not got covid vaccine Second COVID19 Vaccination Juve: has not got covid vaccine Third COVID19 Vaccination Date: has not got covid vaccine Seasonal Allergies Seasonal Allergies: No Past Medical History Surgery/Hospitalization HX: 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 oz. 53.137462xw; 22.58 BMI Method:Stated General Appearance: No Apparent Distress, Chronically ill HEENT: PERRL/EOMI; No Moist Mucous Membranes (Dry mucous membranes); Other (Very hard of hearing) Neck: Full Range of Motion, Normal Inspection, Non Tender, Supple Respiratory: Chest Non Tender, No Accessory Muscle Use, No Respiratory Dis tress, Decreased Breath Sounds Cardiovascular: Regular Rate, Rhythm, Normal Peripheral Pulses Gastrointestinal: Normal Bowel Sounds, No Pulsatile Mass, Non Tender, Soft Rectal: Deferred Back: No CVA Tenderness, No Vertebral Tenderness Extremity: Normal Capillary Refill, Pedal Edema (1+ pitting edema bilateral lower extremity) Neurologic/Psychiatric: Alert, Oriented x3, ear specialist II-XII Norm as Tested Skin: Warm/Dry Focused Exam Lactate Level 04/23/22 19:15: Lactic Acid Level 2.52*H Lactic Acid Level Laboratory Tests Test 04/23/22 19:15 Lactic Acid Level 2.52 MMOL/L (0.50-2.00) *H Progress/Results/Core Measures Suspected Sepsis SIRS Temperature: Pulse: Respiratory Rate: Laboratory Tests 04/23/22 19:15: White Blood Count 9.8 Blood Pressure / Mean: 04/23/22 19:15: Lactic Acid Level 2.52*H Laboratory Tests 04/23/22 19:15: Creatinine 0.68, Platelet Count 377, Total Bilirubin 0.4 Results/Orders Lab Results Laboratory Tests Test 04/23/22 19:15 04/23/22 19:30 04/23/22 20:15 Range/Units White Blood Count 9.8 4.3-11.0 10^3/uL Red Blood Count 4.42 3.80-5.11 10^6/uL Hemoglobin 13.8 11.5-16.0 g/dL Hematocrit 43 35-52 % Mean Corpuscular Volume 98 80-99 fL Mean Corpuscular Hemoglobin 31 25-34 pg Mean Corpuscular Hemoglobin Concent 32 32-36 g/dL Red Cell Distribution Width 17.7 H 10.0-14.5 % Platelet Count 377 130-400 10^3/uL Mean Platelet Volume 9.7 9.0-12.2 fL Immature Granulocyte % (Auto) 0 % Neutrophils (%) (Auto) 77 H 42-75 % Lymphocytes (%) (Auto) 14 12-44 % Monocytes (%) (Auto) 8 0-12 % Eosinophils (%) (Auto) 1 0-10 % Basophils (%) (Auto) 1 0-10 % Neutrophils # (Auto) 7.5 1.8-7.8 10^3/uL Lymphocytes # (Auto) 1.3 1.0-4.0 10^3/uL Monocytes # (Auto) 0.7 0.0-1.0 10^3/uL Eosinophils # (Auto) 0.1 0.0-0.3 10^3/uL Basophils # (Auto) 0.1 0.0-0.1 10^3/uL Immature Granulocyte # (Auto) 0.0 0.0-0.1 10^3/uL Sodium Level 133 L 135-145 MMOL/L Potassium Level 3.9 3.6-5.0 MMOL/L Chloride Level 99 98-107 MMOL/L Carbon Dioxide Level 21 21-32 MMOL/L Anion Gap 13 5-14 MMOL/L Blood Urea Nitrogen 10 7-18 MG/DL Creatinine 0.68 0.60-1.30 MG/DL Estimat Glomerular Filtration Rate 91 BUN/Creatinine Ratio 15 Glucose Level 108 H 70-105 MG/DL Lactic Acid Level 2.52 *H 0.50-2.00 MMOL/L Calcium Level 8.8 8.5-10.1 MG/DL Corrected Calcium 9.2 8.5-10.1 MG/DL Total Bilirubin 0.4 0.1-1.0 MG/DL Aspartate Amino Transf (AST/SGOT) 23 5-34 U/L Alanine Aminotransferase (ALT/SGPT) 14 0-55 U/L Alkaline Phosphatase 245 H 40-136 U/L C-Reactive Protein 1.86 H <0.50 MG/DL Total Protein 6.1 L 6.4-8.2 GM/DL Albumin 3.5 3.2-4.5 GM/DL Influenza Type A (RT-PCR) Not Detected Not Detecte Influenza Type B (RT-PCR) Not Detected Not Detecte SARS-CoV-2 RNA (RT-PCR) Not Detected Not Detecte Urine Color YELLOW Urine Clarity CLOUDY Urine pH 5.5 5-9 Urine Specific [place] 1.015 L 1.016-1.022 Urine Protein NEGATIVE NEGATIVE Urine Glucose (UA) NEGATIVE NEGATIVE Urine Ketones NEGATIVE NEGATIVE Urine Nitrite NEGATIVE NEGATIVE Urine Bilirubin NEGATIVE NEGATIVE Urine Urobilinogen 0.2 < = 1.0 MG/DL Urine Leukocyte Esterase TRACE H NEGATIVE Urine RBC (Auto) NEGATIVE NEGATIVE Urine RBC NONE /HPF Urine WBC TNTC H /HPF Urine Squamous Epithelial Cells >50 H /HPF Urine Crystals NONE /LPF Urine Bacteria LARGE H /HPF Urine Casts NONE /LPF Urine Mucus NEGATIVE /LPF Urine Culture Indicated NO Blood Gas Puncture Site RIGHT WRIST Blood Gas Patient Temperature 36.3 Arterial Blood pH 7.40 7.37-7.43 Arterial Blood Partial Pressure CO2 41 35-45 MMHG Arterial Blood Partial Pressure O2 70 L 79-93 MMHG Arterial Blood HCO3 25 23-27 MMOL/L Arterial Blood Total CO2 26.7 21.0-31.0 MMOL/L Arterial Blood Oxygen Saturation 94 94-100 % Arterial Blood Base Excess 0.5 -2.5-2.5 MMOL/L Raf Test NEGATIVE Blood Gas Ventilator Setting NO Blood Gas Inspired Oxygen 2 My Orders Orders - EDDY DIAMOND MD Cbc With Automated Diff (04/23/22 19:14) Comprehensive Metabolic Panel (04/23/22 19:14) Blood Culture (04/23/22 19:14) Ua Culture If Indicated (04/23/22 19:14) Chest 1 View Ap/Pa Only (04/23/22 19:14) Ed Iv/Invasive Line Start (04/23/22 19:14) Crp Fs (04/23/22 19:14) Lactic Acid Analyzer (04/23/22 19:14) Straight Cath For Spec.-Adult (04/23/22 19:14) Arterial Blood Gas (04/23/22 19:14) O2 (04/23/22 19:14) Ct Head Wo (04/23/22 19:14) Covid 19 Inhouse Test (04/23/22 19:16) Influenza A And B By Pcr (04/23/22 19:16) Isolation Central Supply Req (04/23/22 19:16) Ns Iv 500 Ml (Sodium Chloride 0.9%) (04/23/22 20:37) Vital Signs/I&O 04/23/22 04/23/22 19:10 19:10 Temp 36.3 Pulse 71 Resp 20 B/P (MAP) 140/65 (90) Pulse Ox 96 84 O2 Delivery Nasal Cannula Nasal Cannula O2 Flow Rate 2.00 2.00 Capillary Refill : Progress Note #1: Progress Note Obtain electrocardiogram as well as labs and chest x-ray. Since there was concern that she was having increased generalized weakness will obtain a CT scan of her head. Try to get a cath urine specimen to look for signs of UTI. Differential diagnosis includes dehydration, electrolyte imbalance, pneumonia, stroke, UTI Progress Note #2: Progress Note Electrocardiogram shows sinus rhythm without ST elevation. She does have some global T wave flattening. Her initial oxygen level was 85% on room air but came up with her 2 L by nasal cannula that she wears at home. Lab showed stable CBC without acute elevation of white blood cell count or severe anemia. Her chemistry panel did not show acute electrolyte imbalance. Renal function was stable. Her lactic acid was slightly elevated to 2.5 which could be due to dehydration and her chronic COPD. She has no definite infiltrate for infection on her chest x-ray. No effusion was seen either. Her urinalysis had a large amount of bacteria but it also was packed epithelial cells. She did not have a significant amount of nitrites or leukocyte Estrace to consider this true urine infection. It probably was more contamination with epithelial cells and skin bacteria. CT head did not show acute stroke, mass or hemorrhage. She had chronic microvascular changes. Progress Note #3: Progress Note Counseled patient and caregiver that outside of dehydration I did not find anything acute that would qualify her for inpatient admission. Patient is adamant that she does not want any sort of rehab or residential placement. Shai l administer IV fluid bolus of 500 mL normal saline wide open and then encourage patient to drink and eat better at home. Consider trying to use protein or nutrition shakes to get nutrition and hydration. Follow-up through the clinic for continued concerns or if there is new problems or concerns they could check with EMS about coming back to the ER. ECG Initial ECG Impression Date: Apr 23, 2022 Initial ECG Impression Time: 19:55 Initial ECG Rate: 68 Initial ECG Rhythm: Normal Sinus Initial ECG Comparisson: Unchanged (05/13/2021) Comment On my independent review and interpretation her electrocardiogram shows sinus rhythm with a heart rate of 60 bpm. She has MI interval [address] elevation. She has some global T wave flattening. QT interval 392 ms with a QTc interval 409 ms. Overall this appears similar to prior tracing from May 13, 2021. Diagnostic Imaging Diagonstic Imaging: Xray Plain Films/CT/US/NM/MRI: chest Comments [facility] [place], [place] NAME: STEPHAN MARQUEZ MED REC#: [id number] PT STATUS: REG ER : 1950 PHYSICIAN: EDDY DIAMOND MD ADMIT DATE: 04/23/22/ER FS Signed Date of Exam:04/23/22 CHEST 1 VIEW AP/PA ONLY INDICATION: Shortness of breath. COMPARISON: 12/20/2021. FINDINGS: Heart size upper limits but stable, however vascular congestion has developed and new interstitial opacity suspect for interstitial edema. No pleural fluid. IMPRESSION: Stable upper limits heart size over vascular congestion and likely interstitial edema have developed. No pleural fluid or pneumothorax. Dictated by: Dictated on workstation # [id number] Dict: 04/23/221948 Trans: 04/23/222040 PJ [id number] Interpreted by: CHIDI BELLO Electronically signed by: CHIDI BELLO 04/23/222040 Diagonstic Imaging: CT Plain Films/CT/US/NM/MRI: head Comments [facility] [place] [place] NAME: STEPHAN MARQUEZ [facility] REC#: [id number] PT STATUS: REG ER : 1950 PHYSICIAN: EDDY DIAMOND MD ADMIT DATE: 04/23/22/ER FS Signed Date of Exam:04/23/22 CT HEAD WO PROCEDURE: CT head without contrast. TECHNIQUE: Multiple contiguous axial images were obtained through the brain without the use of intravenous contrast. Auto Exposure Controls were utilized during the CT exam to meet ALARA standards for radiation dose reduction. INDICATION: Worsened weakness, leaning to the left. COMPARISON: 12/20/2021. FINDINGS: This patient has extensive periventricular and subcortical white matter disease, however this is not clearly changed from the prior. This likely is chronic small vessel sequelae, correlate for risk factors for vasculopathy. Some cerebral cortical atrophy, stable and chronic with no bob hydrocephalus. No sulcal effacement. No evidence for elevated intracranial pressures, orbits, sinuses and calvarium nonacute. There are no abnormal extra-axial fluid collections. There is no hemorrhage. IMPRESSION: There is some mild chronic senescent atrophy and extensive chronic periventricular white matter disease likely small vessel sequelae. However, no findings of acute edema, hemorrhage, mass, hydrocephalus or other acute abnormality. Dictated by: Dictated on workstation # [id number] Dict: 04/23/221954 Trans: 04/23/222033 [id number] Interpreted by: CHIDI BELLO Electronically signed by: CHIDI BELLO 04/23/222033 Departure Impression Primary Impression: Dehydration Additional Impression: Weakness Disposition: 01 HOME, SELF-CARE Condition: Stable Departure-Patient Inst. Decision time for Depature: 20:42 Referrals: ZOIE BEEBE APRN (PCP/Family) Primary Care Physician Patient Instructions: Weakness ED, Dehydration, Adult ED, Why Water Is Important to Health Add. Discharge Instructions: Try to stay better hydrated and drink more water and fluids. Consider protein or nutrition shakes to help with nutrition and intake. Check with clinic if not improving or if worsening and having new symptoms you could have her seen again in the ER. EDDY DIAMOND MD Apr 23, 2022 19:16
[2022-04-23 19:25] LABS: BASOPHILS # (AUTO) 0.1 10^3/uL (0.0-0.1); BASOPHILS % (AUTO) 1 % (0-10); EOSINOPHILS # (AUTO) 0.1 10^3/uL (0.0-0.3); EOSINOPHILS % (AUTO) 1 % (0-10); HEMATOCRIT 43 % (35-52); HEMOGLOBIN 13.8 g/dL (11.5-16.0); LYMPHOCYTES # (AUTO) 1.3 10^3/uL (1.0-4.0); LYMPHOCYTES % (AUTO) 14 % (12-44); MEAN CORPUSCULAR HEMOGLOBIN 31 pg (25-34); MEAN CORPUSCULAR HGB CONC 32 g/dL (32-36); MEAN CORPUSCULAR VOLUME 98 fL (80-99); MEAN PLATELET VOLUME 9.7 fL (9.0-12.2); MONOCYTES # (AUTO) 0.7 10^3/uL (0.0-1.0); MONOCYTES % (AUTO) 8 % (0-12); NEUTROPHILS # (AUTO) 7.5 10^3/uL (1.8-7.8); NEUTROPHILS % (AUTO) 77 % (42-75); PLATELET COUNT 377 10^3/uL (130-400); WHITE BLOOD COUNT 9.8 10^3/uL (4.3-11.0)
[2022-04-23 19:41] LABS: BACTERIA,URINE LARGE /HPF; BILIRUBIN,URINE NEGATIVE (NEGATIVE); CLARITY,URINE CLOUDY; COLOR,URINE YELLOW; GLUCOSE, URINE (UA) NEGATIVE (NEGATIVE); KETONES,URINE NEGATIVE (NEGATIVE); LEUKOCYTE ESTERASE ,URINE TRACE (NEGATIVE); NITRITE,URINE NEGATIVE (NEGATIVE); PH,URINE 5.5 (5-9); PROTEIN,URINE NEGATIVE (NEGATIVE); SQUAMOUS EPITHELIAL CELL,UR >50 /HPF; WBC,URINE TNTC /HPF
[2022-04-23 19:45] LABS: POTASSIUM 3.9 MMOL/L (3.6-5.0)
[2022-04-23 19:46] LABS: ALBUMIN 3.5 GM/DL (3.2-4.5); BILIRUBIN,TOTAL 0.4 MG/DL (0.1-1.0); CALCIUM 8.8 MG/DL (8.5-10.1); CREATININE SERUM 0.68 MG/DL (0.60-1.30); TOTAL PROTEIN 6.1 GM/DL (6.4-8.2)
--- NOTE | 2022-04-23 19:53 | Diagnostic Imaging Report ---
INDICATION: Shortness of breath. COMPARISON: 12/20/2021. FINDINGS: Heart size upper limits but stable, however vascular congestion has developed and new interstitial opacity suspect for interstitial edema. No pleural fluid. IMPRESSION: Stable upper limits heart size over vascular congestion and likely interstitial edema have developed. No pleural fluid or pneumothorax. Dictated by: Dictated on workstation # [id number]
[2022-04-23 20:15] LABS: ALLENS TEST NEGATIVE; INSPIRED O2 2; VENTILATOR NO
--- NOTE | 2022-04-23 20:16 | Diagnostic Imaging Report ---
PROCEDURE: CT head without contrast. TECHNIQUE: Multiple contiguous axial images were obtained through the brain without the use of intravenous contrast. Auto Exposure Controls were utilized during the CT exam to meet ALARA standards for radiation dose reduction. INDICATION: Worsened weakness, leaning to the left. COMPARISON: 12/20/2021. FINDINGS: This patient has extensive periventricular and subcortical white matter disease, however this is not clearly changed from the prior. This likely is chronic small vessel sequelae, correlate for risk factors for vasculopathy. Some cerebral cortical atrophy, stable and chronic with no bob hydrocephalus. No sulcal effacement. No evidence for elevated intracranial pressures, orbits, sinuses and calvarium nonacute. There are no abnormal extra-axial fluid collections. There is no hemorrhage. IMPRESSION: There is some mild chronic senescent atrophy and extensive chronic periventricular white matter disease likely small vessel sequelae. However, no findings of acute edema, hemorrhage, mass, hydrocephalus or other acute abnormality. Dictated by: Dictated on workstation # [id number]
[2022-04-23 20:17] LABS: ABG BASE EXCESS 0.5 MMOL/L (-2.5-2.5); ABG OXYGEN SATURATION 94 % (94-100); ABG PCO2 41 MMHG (35-45); ABG PO2 70 MMHG (79-93); ABG TCO2 26.7 MMOL/L (21.0-31.0)
[2022-04-23 20:31] LABS: PATIENT TEMP 36.3
[2022-04-23] MEDS ORDERED: NS IV 500 ML 500 ML IV STA (20:37)
[2022-04-23 21:15] VITALS: BP 162/89
[2022-04-23] MEDS ORDERED: CETI10TA17 PO (23:37)
== END 2022-04-23 21:15 | disposition home or self-care (01) ==
LOC: EDUNIT# 19:06 → ER FS 19:10
DX: E86.0 Dehydration (principal); F17.210 Nicotine dependence, cigarettes, uncomplicated; Z91.040 Latex allergy status; Z20.822 Contact with and (suspected) exposure to COVID-19
CPT/HCPCS: 36415; 51701; 70450; 71045; 80053; 81000; 82805; 83605; 85025; 86141; 87040; 87186; 87636; 93005

== ENCOUNTER 2022-04-25 12:12 | Emergency (ER) | payer MEDICARE, MEDICAID ==
[~2022-04-25] VITALS: Ht 147.3 cm; Wt 52.2 kg
[2022-04-25] MEDS ORDERED: NS IV 1000 ML 1,000 ML IV SCH (12:15)
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
[2022-04-25 12:22] LABS: BASOPHILS # (AUTO) 0.1 10^3/uL (0.0-0.1); BASOPHILS % (AUTO) 1 % (0-10); EOSINOPHILS # (AUTO) 0.1 10^3/uL (0.0-0.3); EOSINOPHILS % (AUTO) 1 % (0-10); HEMATOCRIT 45 % (35-52); HEMOGLOBIN 14.3 g/dL (11.5-16.0); LYMPHOCYTES # (AUTO) 0.9 10^3/uL (1.0-4.0); LYMPHOCYTES % (AUTO) 11 % (12-44); MEAN CORPUSCULAR HEMOGLOBIN 31 pg (25-34); MEAN CORPUSCULAR HGB CONC 32 g/dL (32-36); MEAN CORPUSCULAR VOLUME 98 fL (80-99); MEAN PLATELET VOLUME 9.7 fL (9.0-12.2); MONOCYTES # (AUTO) 0.6 10^3/uL (0.0-1.0); MONOCYTES % (AUTO) 8 % (0-12); NEUTROPHILS % (AUTO) 78 % (42-75); PLATELET COUNT 391 10^3/uL (130-400); WHITE BLOOD COUNT 7.7 10^3/uL (4.3-11.0)
[2022-04-25 12:38] LABS: INR 1.1 (0.8-1.4); PROTHROMBIN TIME PATIENT 14.5 SEC (12.2-14.7)
[2022-04-25 12:43] LABS: POTASSIUM 3.9 MMOL/L (3.6-5.0)
[2022-04-25 12:44] LABS: ALBUMIN 3.4 GM/DL (3.2-4.5); BILIRUBIN,TOTAL 0.6 MG/DL (0.1-1.0); CALCIUM 9.1 MG/DL (8.5-10.1); CREATININE SERUM 0.88 MG/DL (0.60-1.30); TOTAL PROTEIN 6.3 GM/DL (6.4-8.2)
--- NOTE | 2022-04-25 13:01 | Diagnostic Imaging Report ---
PROCEDURE: CT head and CT cervical spine without contrast. TECHNIQUE: Multiple contiguous axial images were obtained through the brain and cervical spine without the use of intravenous contrast. Sagittal and coronal reformations through the cervical spine were then performed. Auto Exposure Controls were utilized during the CT exam to meet ALARA standards for radiation dose reduction. INDICATION: Weakness. COMPARISON: Correlation is made with prior head CT from 04/23/2022. FINDINGS: CT HEAD: The ventricular size and sulcal pattern appears stable. Extensive periventricular low attenuation is again noted, consistent with chronic microvascular ischemia. There is no midline shift. No acute intra-axial or extra-axial hemorrhage is detected. Cisterns are patent. Visualized paranasal sinuses are clear. IMPRESSION: Chronic and senescent changes. No acute intracranial process is detected. CT CERVICAL SPINE: Curvature and alignment of the cervical spine is normal. No fracture or subluxation is identified. The prevertebral tissues are within normal limits. The odontoid is intact. IMPRESSION: No acute bony abnormality is detected. Dictated by: Dictated on workstation # [id number]
--- NOTE | 2022-04-25 13:08 | Diagnostic Imaging Report ---
EXAMINATION: CT chest without contrast. TECHNIQUE: Multiple contiguous axial images were obtained through the chest without the use of intravenous contrast. All CT scans use one or more of the following dose optimizing techniques: automated exposure control, MA and/or KvP adjustment based on patient size and exam type or iterative reconstruction. HISTORY: Chest wall pain. COMPARISON: 07/31/2020. FINDINGS: Study quality is diminished by respiratory motion. Evaluation for rib fractures is limited. There is no edema or pneumonia. There is a small right pleural effusion. No pneumothorax. No suspicious nodules. There is no axillary or supraclavicular lymphadenopathy. There is no mediastinal lymphadenopathy. Right atrium and right ventricle are dilated. There are severe coronary artery calcifications. No pericardial effusion. Aorta is normal in caliber. Limited views of the upper abdomen show dysmorphic liver surface and ascites which may be related to cirrhosis. There are no suspicious osseus lesions. There are unchanged chronic left sixth through ninth rib fractures. IMPRESSION: 1. Evaluation for rib fractures is limited due to respiratory motion. No large displaced rib fracture is seen. 2. Small right pleural effusion. Dictated by: Dictated on workstation # [id number]
[2022-04-25 13:58] LABS: BILIRUBIN,URINE NEGATIVE (NEGATIVE); CLARITY,URINE CLOUDY; COLOR,URINE YELLOW; GLUCOSE, URINE (UA) NEGATIVE (NEGATIVE); KETONES,URINE TRACE (NEGATIVE); LEUKOCYTE ESTERASE ,URINE TRACE (NEGATIVE); NITRITE,URINE NEGATIVE (NEGATIVE); PH,URINE 5.5 (5-9); PROTEIN,URINE TRACE (NEGATIVE)
[2022-04-25 14:18] LABS: AMORPHOUS SEDIMENT,UR FEW AMOR URATES /LPF; BACTERIA,URINE FEW /HPF
[2022-04-25] MEDS ORDERED: cefTRIAXone 1 GM PRE-MIX 50 ML IV ONE (15:30)
[2022-04-25] MEDS ORDERED: CEFD300C3 PO (15:51)
[2022-04-25 17:15] VITALS: BP 157/86
== END 2022-04-25 17:08 | disposition home or self-care (01) ==
LOC: EDUNIT# 12:12 → ER FS 12:14
DX: R29.6 Repeated falls (principal); J96.10 Chronic respiratory failure, unspecified whether with hypoxia or hypercapnia; J44.9 Chronic obstructive pulmonary disease, unspecified; R53.81 Other malaise; Z72.0 Tobacco use; Z91.040 Latex allergy status; Z99.81 Dependence on supplemental oxygen; Z28.311 Partially vaccinated for COVID-19
CPT/HCPCS: 36415; 70450; 71250; 72125; 80053; 81000; 83605; 85025; 85610; 85730; 86141; 87040; 87077; 87088; 93005